=== PATIENT | female | born 1930 | race Caucasian/White ===

== ENCOUNTER 2016-08-05 02:22 | Emergency (ER) | payer MEDICARE, OTHER ==
--- NOTE | 2016-08-05 02:36 | Emergency Department Record ---
History of Present Illness - General Chief Complaint: Fall Injury Stated Complaint: FALL Source: Patient, Family (patient's daughter) Mode of Arrival: Ambulatory Limitations: No limitations - History of Present Illness Initial Comments: 86 yo female presents to ED for evaluation following a fall out of bed this morning. Patient reports a laceration to the scalp. Patient denies LOC, denies neck pain, numbness, tingling, or weakness to the extremities. Patient denies hip or extremity injury. MD Complaint: Fall Onset/Timin -: Minutes(s) Fall From: Out of bed When Fall Occurred: Just prior to arrival Place Fall Occurred: Home Loss of Consciousness: None Prolonged Down Time?: No Symptoms Prior to Fall: None Location: Head Associated Symptoms: Denies - [place] Coma Scale Eye Response: (4) Open spontaneously Motor Response: (6) Obeys commands Verbal Response: (5) Oriented [employer] Total: 15 - Related Data Home Medications Medication Instructions Recorded Confirmed Last Taken Ascorbic Acid [Vitamin C] 500 mg PO DAILY 04/10/15 08/05/16 08/04/16 Cinnamon Bark [Cinnamon] 500 mg PO ASDIR cap 12/10/15 08/05/16 08/04/16 Cranberry Extract [Cranberry] 200 mg PO ASDIR cap 12/10/15 08/05/16 08/04/16 Furosemide 10 mg PO QD tab 12/10/15 08/05/16 08/04/16 Tramadol HCl [Tramadol Hcl Er] 200 mg PO QD cap 12/10/15 08/05/16 08/04/16 Vitamin E (Dl,Tocopheryl Acet) 100 unit PO ASDIR cap 12/10/15 08/05/16 08/04/16 [Vitamin E] Previous Rx's Medication Instructions Recorded Citalopram Hydrobromide [Celexa] 20 mg PO QHS #30 tablet 12/17/14 Docusate Sodium [Colace] 100 mg PO DAILY #90 cap 12/17/14 Gabapentin [Neurontin] 300 mg PO BID #60 capsule 12/17/14 Levothyroxine Sodium 75 mcg PO DAILY #90 tablet 12/17/14 Losartan Potassium [Cozaar] 50 mg PO QHS #90 tablet 12/17/14 Multivitamin [Multi-Vitamin Daily] 1 each PO DAILY #90 tablet 12/17/14 [place]-3 Fatty Acids/Fish Oil [Fish 1 each PO DAILY #90 capsule 12/17/14 Oil 1,000 mg Softgel] Allergies Allergy/AdvReac Type Severity Reaction Status Date / Time venom-honey bee Allergy Severe ANAPHYLAXIS Verified 04/21/16 13:29 [bee venom (honey bee)] latex Allergy Mild ITCHING Verified 04/21/16 13:29 adhesive tape Allergy RASH Uncoded 04/21/16 13:29 Review of Systems Constitutional: Denies: Chills, Fever, Malaise, Night sweats Eyes: Denies: Eye discharge, Eye pain ENT: Denies: Congestion, Ear pain, Epistaxis Respiratory: Denies: Cough, Dyspnea Cardiovascular: Denies: Chest pain, Dyspnea on exertion Endocrine: Denies: Fatigue, Heat or cold intolerance Gastrointestinal: Denies: Abdominal pain, Nausea, Vomiting Genitourinary: Denies: Dysuria, Frequency Musculoskeletal: Denies: Arthralgia, Back pain, Gout, Joint swelling, Other Skin: Reports: Other (scalp laceration). Denies: Bruising, Change in color, Rash Neurological: Denies: Abnormal gait, Confusion, Headache, Seizure Psychiatric: Denies: Anxiety Hematological/Lymphatic: Denies: Anemia, Blood Clots Past Medical History - SOCIAL HISTORY Smoking Status: Never smoker Drug Use: None - RESPIRATORY Hx Respiratory Disorders: No - CARDIOVASCULAR Hx Cardio Disorders: No Hx Edema: Yes Hx Hypertension: Yes Comment:: hx edema legs/ feet swelling - NEURO Hx Neuro Disorders: No Hx Seizures: No - GI Hx GI Disorders: No - Hx Genitourinary Disorders: Yes Hx Bladder Problem: Yes (Urinary incontinence) - ENDOCRINE Hx Endocrine Disorders: Yes Hx Diabetes: No - MUSCULOSKELETAL Hx Musculoskeletal Disorders: Yes Hx Arthritis: Yes Comment:: Back surgery with hardware in 2008 - PSYCH Hx Psych Problems: No Hx Anxiety: Yes - HEMATOLOGY/ONCOLOGY Hx Hematology/Oncology Disorders: No Family Medical History Hx Cancer: Father Hx HTN: Mother Hx Stroke: Mother Physical Exam - General General Appearance: Alert, Oriented x3, Cooperative, No acute distress Limitations: No limitations - Head Head exam: Other (laceration to the posterior scalp) Head exam detail: Laceration. negative: Abrasion, Contusion, Nunn's sign, General tenderness, Hematoma - Eye Eye exam: Normal appearance. negative: Conjunctival injection, Periorbital swelling, Periorbital tenderness, Scleral icterus - ENT Ear exam: negative: Auricular hematoma, Auricular trauma Nasal Exam: negative: Active bleeding, Discharge, Dried blood, Foreign body Mouth exam: negative: Drooling, Laceration, Muffled voice, Tongue elevation - Neck Neck exam: Normal inspection. negative: Meningismus, Tenderness - Respiratory Respiratory exam: Normal lung sounds bilaterally. negative: Rales, Respiratory distress, Rhonchi, Stridor - Cardiovascular Cardiovascular Exam: Regular rate, Normal rhythm, Normal heart sounds - GI/Abdominal GI/Abdominal exam: Soft. negative: Rebound, Rigid, Tenderness - Rectal Rectal exam: Deferred - exam: Deferred - Extremities Extremities exam: Normal inspection, Other (ambulates with her walker with steady gait). negative: Calf tenderness, Pedal edema, Tenderness - Back Back exam: Denies: CVA tenderness (R), CVA tenderness (L) - Neurological Neurological exam: Alert, Normal gait, Oriented X3. negative: Motor sensory deficit - Psychiatric Psychiatric exam: Normal affect, Normal mood - Skin Skin exam: Normal color. negative: Abrasion Type of lesion: negative: abrasion Course - Reevaluation(s) Reevaluation #1: 08/05/16 03:18 Procedure Note: Right posterior scalp was cleaned with Shur-clens solution, scalp was repaired using liane #10 without complications. No FB was identified prior to repair. CT imaging is pending at this time. Reevaluation #2: 08/05/16 04:15 CT brain: No acute process, chronic changes are present CT Cervical Spine: Degenerative changes, nothing acute. Patient and her daughter were updated on all results, recommended return for stable removal in 2 weeks time. Patient appears stable for discharge at this time. Disposition Disposition: Discharge Clinical Impression: Scalp laceration Qualifiers: Encounter type: initial encounter Qualified Code(s): S01.01XA - Laceration without foreign body of scalp, initial encounter Fall from bed, initial encounter Qualifiers: Encounter type: initial encounter Qualified Code(s): W06.XXXA - Fall from bed, initial encounter Instructions: Minor Head Injury (ED) Additional Instructions: Return to ED if your symptoms worsen or if you have any concerns. Liane out in 10-14 days Follow-up with your family doctor in 1 week as directed. Forms: Patient Portal Access Time of Disposition: 02:37
== END 2016-08-05 04:49 | disposition home or self-care (01) ==
LOC: ER 02:22
DX: S01.01XA Laceration without foreign body of scalp, initial encounter (principal); W06.XXXA Fall from bed, initial encounter; Y92.003 Bedroom of unspecified non-institutional (private) residence as the place of occurrence of the external cause
CPT/HCPCS: 12001; 70450; 72125; 99283; 99284

== ENCOUNTER 2016-08-10 20:22 | Emergency (ER) | payer MEDICARE, OTHER ==
--- NOTE | 2016-08-10 20:55 | Emergency Department Record ---
History of Present Illness - General Chief Complaint: Fever Stated Complaint: REMOVE LIANE Time Seen by Provider: 08/10/16 20:41 Source: Patient, Family Mode of Arrival: Ambulatory Limitations: No limitations - History of Present Illness Initial Comments: pt fell 5 days afo and had liane put in. today pt had increased sleepiness and was falling asleep at the dinner table. pts daughter took her temp w ear probe and found it ti be 101.. pt denies headache MD Complaint: Fever Onset/Timin -: Hour(s) Maximum Temperature: 101.5 F Temperature Source: Tympanic Context: Recent procedure, Sick contacts Associated Symptoms: Denies other symptoms Treatments Prior to Arrival: None - Related Data Home Medications Medication Instructions Recorded Confirmed Last Taken Ascorbic Acid [Vitamin C] 500 mg PO DAILY 04/10/15 08/05/16 08/04/16 Cinnamon Bark [Cinnamon] 500 mg PO ASDIR cap 12/10/15 08/05/16 08/04/16 Cranberry Extract [Cranberry] 200 mg PO ASDIR cap 12/10/15 08/05/16 08/04/16 Furosemide 10 mg PO QD tab 12/10/15 08/05/16 08/04/16 Tramadol HCl [Tramadol Hcl Er] 200 mg PO QD cap 12/10/15 08/05/16 08/04/16 Vitamin E (Dl,Tocopheryl Acet) 100 unit PO ASDIR cap 12/10/15 08/05/16 08/04/16 [Vitamin E] Previous Rx's Medication Instructions Recorded Citalopram Hydrobromide [Celexa] 20 mg PO QHS #30 tablet 12/17/14 Docusate Sodium [Colace] 100 mg PO DAILY #90 cap 12/17/14 Gabapentin [Neurontin] 300 mg PO BID #60 capsule 12/17/14 Levothyroxine Sodium 75 mcg PO DAILY #90 tablet 12/17/14 Losartan Potassium [Cozaar] 50 mg PO QHS #90 tablet 12/17/14 Multivitamin [Multi-Vitamin Daily] 1 each PO DAILY #90 tablet 12/17/14 [place]-3 Fatty Acids/Fish Oil [Fish 1 each PO DAILY #90 capsule 12/17/14 Oil 1,000 mg Softgel] Doxycycline Hyclate [Doxycycline] 100 mg PO BID #9 cap 04/13/17 Allergies Allergy/AdvReac Type Severity Reaction Status Date / Time venom-honey bee Allergy Severe ANAPHYLAXIS Verified 04/21/16 13:29 [bee venom (honey bee)] latex Allergy Mild ITCHING Verified 04/21/16 13:29 adhesive tape Allergy RASH Uncoded 04/21/16 13:29 Travel Screening - Travel/Exposure Within Last 30 Days Have you traveled within the last 30 days?: Yes Location Detail:: [place] - Travel/Exposure Within Last Year Have you traveled outside the [place] in the last year?: No - Additonal Travel Details Have you been exposed to anyone with a communicable illness?: No - Travel Symptoms Symptom Screening: Fever (GT 100.4) Review of Systems Reviewed: No additional complaints except as noted below Constitutional: Reports: As per HPI. Denies: Chills, Fever, Malaise, Night sweats, Weakness, Weight change Eyes: Reports: As per HPI. Denies: Eye discharge, Eye pain, Photophobia, Vision change ENT: Reports: As per HPI. Denies: Congestion, Dental pain, Ear pain, Epistaxis , Hearing loss, Throat pain Respiratory: Reports: As per HPI. Denies: Cough, Dyspnea, Hemoptysis, Stridor, Wheezes Cardiovascular: Reports: As per HPI. Denies: Arrhythmia, Chest pain, Dyspnea on exertion, Edema, Murmurs, Orthopnea, Palpitations, Paroxysmal nocturnal dyspnea, Rheumatic Fever, Syncope Endocrine: Reports: As per HPI. Denies: Fatigue, Heat or cold intolerance, Polydipsia, Polyuria Gastrointestinal: Reports: As per HPI. Denies: Abdominal pain, Constipation, Diarrhea, Hematemesis, Hematochezia, Melena, Nausea, Vomiting Genitourinary: Reports: As per HPI. Denies: Abnormal menses, Discharge, Dyspareunia, Dysuria, Frequency, Hematuria, Incontinence, Retention, Urgency Musculoskeletal: Reports: As per HPI. Denies: Arthralgia, Back pain, Gout, Joint swelling, Myalgia, Neck pain Skin: Reports: As per HPI. Denies: Bruising, Change in color, Change in hair/ nails, Lesions, Pruritus, Rash Neurological: Reports: As per HPI. Denies: Abnormal gait, Confusion, Headache, Numbness, Paresthesias, Seizure, Tingling, Tremors, Vertigo, Weakness Psychiatric: Reports: As per HPI. Denies: Anxiety, Auditory hallucinations, Depression, Homicidal thoughts, Suicidal thoughts, Visual hallucinations Hematological/Lymphatic: Reports: As per HPI. Denies: Anemia, Blood Clots, Easy bleeding, Easy bruising, Swollen glands Past Medical History - SOCIAL HISTORY Smoking Status: Never smoker Alcohol Use: None Drug Use: None - RESPIRATORY Hx Respiratory Disorders: No - CARDIOVASCULAR Hx Cardio Disorders: No Hx Edema: Yes Hx Hypertension: Yes Comment:: hx edema legs/ feet swelling - NEURO Hx Neuro Disorders: No Hx Seizures: No - GI Hx GI Disorders: No - Hx Genitourinary Disorders: Yes Hx Bladder Problem: Yes (Urinary incontinence) - ENDOCRINE Hx Endocrine Disorders: Yes Hx Diabetes: No - MUSCULOSKELETAL Hx Musculoskeletal Disorders: Yes Hx Arthritis: Yes Comment:: Back surgery with hardware in 2009 - PSYCH Hx Psych Problems: Yes Hx Anxiety: Yes - HEMATOLOGY/ONCOLOGY Hx Hematology/Oncology Disorders: No Family Medical History Any Significant Family History?: Yes Hx Cancer: Father Hx HTN: Mother Hx Stroke: Mother Physical Exam - General General Appearance: Alert, Oriented x3, Cooperative, Mild distress - Head Head exam: Normal inspection Head exam detail: Laceration (healing well, no evidence of infection) - Eye Eye exam: Normal appearance, PERRL, EOMI Pupils: Normal accommodation - ENT ENT exam: Normal exam, Mucous membranes moist, Normal external ear exam, Normal orophraynx Ear exam: Normal external inspection. negative: External canal tenderness Nasal Exam: Normal inspection. negative: Discharge, Sinus tenderness Mouth exam: Normal external inspection, Tongue normal Teeth exam: Normal inspection. negative: Dental caries Throat exam: Normal inspection. negative: Tonsillar erythema, Tonsillar exudate - Neck Neck exam: Normal inspection, Full ROM. negative: Tenderness - Respiratory Respiratory exam: Normal lung sounds bilaterally. negative: Respiratory distress - Cardiovascular Cardiovascular Exam: Regular rate, Normal rhythm, Normal heart sounds - GI/Abdominal GI/Abdominal exam: Soft, Normal bowel sounds. negative: Tenderness - Rectal Rectal exam: Deferred - exam: Deferred - Extremities Extremities exam: Normal inspection, Full ROM, Normal capillary refill. negative: Tenderness - Back Back exam: Reports: Normal inspection, Full ROM. Denies: Muscle spasm, Rash noted, Tenderness - Neurological Neurological exam: Alert, CN II-XII intact, Normal gait, Oriented X3 - Psychiatric Psychiatric exam: Normal affect, Normal mood - Skin Skin exam: Dry, Intact, Normal color, Warm Course Vital Signs 08/10/16 20:31 Temperature 98.8 F Pulse Rate 89 Respiratory 20 Rate Blood Pressure 130/70 Pulse Ox 92 L - Reevaluation(s) Reevaluation #1: 08/10/16 22:04 pt did well entire stay. cxr atelectasis vs infiltrate. pt has productive cough Medical Decision Making - Data Complexity MDM Data: Labs Ordered and/or Reviewed, X-Ray Ordered and/or Reviewed - Lab Data Result diagrams: 08/10/16 20:55 08/10/16 20:55 - Radiology Data Radiology results: Report reviewed, Image reviewed Disposition Disposition: Discharge Clinical Impression: Pneumonia Qualifiers: Pneumonia type: due to unspecified organism Laterality: unspecified laterality Lung location: unspecified part of lung Qualified Code(s): J18.9 - Pneumonia, unspecified organism Disposition: Home, Self-Care Condition: (1) Good Instructions: Fever in Adults (ED), Bacterial Pneumonia (ED) Additional Instructions: follow up with family doctor tomorrow. return sooner if worse Prescriptions: Doxycycline Hyclate [Doxycycline] 100 mg PO BID #9 cap Forms: Patient Portal Access
[2016-08-10 21:01] LABS: BASO % 0.2 % (0-6); EOS % 1.2 % (0-6); GRAN % 77.7 % (47-80); HEMATOCRIT 43.5 % (35.0-47.0); HEMOGLOBIN 13.7 gm/dl (11.6-16.0); LYMPH % 10.3 % (16-45); MEAN CELL VOLUME 101.6 fl (81-97); MEAN CORPUSCULAR HGB CONC 31.5 g/dl (32-36); MEAN PLATELET VOLUME 9.7 fl (7.4-10.4); MONO % 10.6 % (0-9); PLATELET COUNT 232 K/uL (130-400); RED BLOOD COUNT 4.28 M/uL (3.80-5.40); RED CELL DISTRIBUTION WIDTH 13.6 % (11.5-14.5); WHITE BLOOD COUNT W/O DIFF 10.3 K/uL (4.2-12.2)
[2016-08-10 21:11] LABS: ANION GAP 10.1 (7-16); CARBON DIOXIDE 29.9 mmol/L (22-30)
[2016-08-10 21:36] LABS: URINE APPEARANCE CLEAR; URINE BILIRUBIN NEGATIVE (NEGATIVE); URINE BLOOD TRACE-I (NEGATIVE); URINE COLOR YELLOW; URINE GLUCOSE (UA) NEGATIVE (NEGATIVE); URINE KETONE NEGATIVE (NEGATIVE); URINE LEUKOCYTE ESTERASE NEGATIVE (NEGATIVE); URINE NITRITE NEGATIVE (NEGATIVE); URINE PROTEIN NEGATIVE (NEGATIVE); URINE UROBILINOGEN 0.2 E.U./dL (0.20 - 1.00)
[2016-08-10 21:46] LABS: URINE EPITHELIAL CELLS 0 - 2 (FEW); URINE WBC 0 - 2 (0-2/hpf)
[2016-08-10] MEDS ORDERED: DOXYCYCLINE HYCLATE 100 MG CAPSULE PO ONE (22:01)
== END 2016-08-10 22:24 | disposition home or self-care (01) ==
LOC: ER 20:22
DX: J18.9 Pneumonia, unspecified organism (principal); R40.0 Somnolence; I10 Essential (primary) hypertension
CPT/HCPCS: 70450; 71020; 80048; 81001; 85025; 99283; 99284

== ENCOUNTER 2016-08-18 20:44 | Emergency (ER) | payer MEDICARE, OTHER ==
--- NOTE | 2016-08-18 21:01 | Emergency Department Record ---
History of Present Illness - General Chief Complaint: Suture removal Stated Complaint: REMOVE LIANE Time Seen by Provider: 08/18/16 21:00 Source: Patient, Family Mode of arrival: Ambulatory Limitations: No limitations - History of Present Illness Initial Comments: 86 yo female presents for suture removal No complaints or symptoms regarding the healing of the scalp She is at her baseline. Onset/Timin -: Week(s) Initial Visit For: Laceration Returns Today for: Staple/stitch removal Symptoms Since Prior Visit: No new symptoms, Improved Associated Symptoms: None - Related Data Home Medications Medication Instructions Recorded Confirmed Last Taken Ascorbic Acid [Vitamin C] 500 mg PO DAILY 04/10/15 08/05/16 08/18/16 Cinnamon Bark [Cinnamon] 500 mg PO ASDIR cap 12/10/15 08/05/16 08/18/16 Cranberry Extract [Cranberry] 200 mg PO ASDIR cap 12/10/15 08/05/16 08/18/16 Furosemide 10 mg PO QD tab 12/10/15 08/05/16 08/18/16 Tramadol HCl [Tramadol Hcl Er] 200 mg PO QD cap 12/10/15 08/05/16 08/18/16 Vitamin E (Dl,Tocopheryl Acet) 100 unit PO ASDIR cap 12/10/15 08/05/16 08/18/16 [Vitamin E] Previous Rx's Medication Instructions Recorded Citalopram Hydrobromide [Celexa] 20 mg PO QHS #30 tablet 12/17/14 Docusate Sodium [Colace] 100 mg PO DAILY #90 cap 12/17/14 Gabapentin [Neurontin] 300 mg PO BID #60 capsule 12/17/14 Levothyroxine Sodium 75 mcg PO DAILY #90 tablet 12/17/14 Losartan Potassium [Cozaar] 50 mg PO QHS #90 tablet 12/17/14 Multivitamin [Multi-Vitamin Daily] 1 each PO DAILY #90 tablet 12/17/14 [place]-3 Fatty Acids/Fish Oil [Fish 1 each PO DAILY #90 capsule 12/17/14 Oil 1,000 mg Softgel] Doxycycline Hyclate [Doxycycline] 100 mg PO BID #9 cap 08/10/16 Allergies Allergy/AdvReac Type Severity Reaction Status Date / Time venom-honey bee Allergy Severe ANAPHYLAXIS Verified 08/18/16 20:49 [bee venom (honey bee)] latex Allergy Mild ITCHING Verified 08/18/16 20:49 adhesive tape Allergy RASH Uncoded 08/18/16 20:49 Travel Screening - Travel/Exposure Within Last 30 Days Have you traveled within the last 30 days?: No - Travel/Exposure Within Last Year Have you traveled outside the [place] in the last year?: No - Additonal Travel Details Have you been exposed to anyone with a communicable illness?: No - Travel Symptoms Symptom Screening: None Review of Systems Constitutional: Denies: Chills, Fever, Malaise Eyes: Denies: Eye pain, Photophobia ENT: Denies: Congestion, Throat pain Respiratory: Denies: Cough (improved from about 5 days ago) Cardiovascular: Denies: Syncope Endocrine: Denies: Fatigue Gastrointestinal: Denies: Abdominal pain, Nausea, Vomiting Genitourinary: Denies: Dysuria, Urgency Musculoskeletal: Denies: Arthralgia, Back pain, Joint swelling, Myalgia Skin: Denies: Bruising, Change in color, Rash Neurological: Denies: Confusion, Headache Psychiatric: Denies: Anxiety Hematological/Lymphatic: Denies: Easy bleeding, Easy bruising, Swollen glands Past Medical History - SOCIAL HISTORY Smoking Status: Never smoker Alcohol Use: Rare Drug Use: None - RESPIRATORY Hx Respiratory Disorders: No - CARDIOVASCULAR Hx Cardio Disorders: No Hx Edema: Yes Hx Hypertension: Yes Comment:: hx edema legs/ feet swelling - NEURO Hx Neuro Disorders: No Hx Seizures: No - GI Hx GI Disorders: No - Hx Genitourinary Disorders: Yes Hx Bladder Problem: Yes (Urinary incontinence) - ENDOCRINE Hx Endocrine Disorders: Yes Hx Diabetes: No - MUSCULOSKELETAL Hx Musculoskeletal Disorders: Yes Hx Arthritis: Yes Comment:: Back surgery with hardware in 2008 - PSYCH Hx Psych Problems: Yes Hx Anxiety: Yes - HEMATOLOGY/ONCOLOGY Hx Hematology/Oncology Disorders: No Family Medical History Any Significant Family History?: No Hx Cancer: Father Hx HTN: Mother Hx Stroke: Mother Physical Exam - General General Appearance: Alert, Oriented x3, Cooperative, No acute distress Limitations: No limitations - Head Head exam: Normal inspection, Other (healing scalp laceration) - Eye Eye exam: Normal appearance, PERRL. negative: Conjunctival injection - ENT ENT exam: Normal exam Ear exam: Normal external inspection Nasal Exam: Normal inspection Mouth exam: Normal external inspection - Neck Neck exam: Normal inspection - Rectal Rectal exam: Deferred - exam: Deferred - Extremities Extremities exam: Normal inspection - Back Back exam: Reports: Full ROM - Neurological Neurological exam: Alert, Normal gait, Oriented X3. negative: Altered - Psychiatric Psychiatric exam: Normal affect, Normal mood - Skin Skin exam: Dry, Intact, Normal color, Warm Course Vital Signs 08/18/16 20:56 Temperature 98.2 F Pulse Rate [ 87 Pulse Ox Probe] Respiratory 20 Rate Blood Pressure 143/74 [Left Arm] Pulse Ox 93 L - Reevaluation(s) Reevaluation #1: The scalp laceration is healing without complication Small amount of scabbing 10 liane were removed without difficulty. 08/18/16 21:12 Disposition Disposition: Discharge Clinical Impression: Removal of staple Disposition: Home, Self-Care Condition: (1) Good Instructions: Suture Removal (ED) Additional Instructions: REturn if you have any ongoing concerns about the healing of your scalp laceration. Forms: Patient Portal Access Time of Disposition: 21:01
== END 2016-08-18 21:14 | disposition home or self-care (01) ==
LOC: ER 20:44
DX: Z48.02 Encounter for removal of sutures (principal)

== ENCOUNTER 2017-11-16 19:25 | Observation (INO) | payer MEDICARE, OTHER ==
--- NOTE | 2017-11-16 19:56 | Emergency Department Record ---
History of Present Illness - General Chief complaint: Weakness Stated complaint: NOT HERSELF Time Seen by Provider: 11/16/17 19:34 Source: Patient, Family Mode of Arrival: Wheelchair Limitations: No limitations - History of Present Illness Initial comments: The patient is here due to generalized weakness for the last 3 days. She has been having slightly more difficulty walking and has been slower on her feet. Per family the patient has been incontinent of urine and they are concerned she may have a UTI. There has been no hx of fall or head injury. Also no fever, chills, AP, CP, SOB or WALKER. MD Complaint: Generalized weakness, Lack of energy Onset/Timin -: Days(s) Location: Generalized Associated Symptoms: Denies other symptoms - Heydi Coma Scale Eye Response: (4) Open spontaneously Motor Response: (6) Obeys commands Verbal Response: (5) Oriented Heydi Total: 15 - Related Data Home Medications Medication Instructions Recorded Confirmed Last Taken Torsemide [Demadex] 10 mg PO DAILY 11/16/17 11/16/17 Unknown Previous Rx's Medication Instructions Recorded Citalopram Hydrobromide [Celexa] 20 mg PO QHS #30 tablet 12/17/14 Docusate Sodium [Colace] 100 mg PO DAILY #90 cap 12/17/14 Gabapentin [Neurontin] 300 mg PO BID #60 capsule 12/17/14 Levothyroxine Sodium 75 mcg PO DAILY #90 tablet 12/17/14 Losartan Potassium [Cozaar] 50 mg PO QHS #90 tablet 12/17/14 Multivitamin [Multi-Vitamin Daily] 1 each PO DAILY #90 tablet 12/17/14 [place]-3 Fatty Acids/Fish Oil [Fish 1 each PO DAILY #90 capsule 12/17/14 Oil 1,000 mg Softgel] Allergies Allergy/AdvReac Type Severity Reaction Status Date / Time venom-honey bee Allergy Severe ANAPHYLAXIS Verified 08/18/16 20:49 [bee venom (honey bee)] latex Allergy Mild ITCHING Verified 08/18/16 20:49 adhesive tape Allergy RASH Uncoded 08/18/16 20:49 Travel Screening - Travel/Exposure Within Last 30 Days Have you traveled within the last 30 days?: No - Travel/Exposure Within Last Year Have you traveled outside the [place] in the last year?: No - Additonal Travel Details Have you been exposed to anyone with a communicable illness?: No - Travel Symptoms Symptom Screening: None Review of Systems Constitutional: Reports: Malaise. Denies: Chills, Fever Eyes: Denies: Eye discharge ENT: Denies: Congestion Respiratory: Reports: Cough Cardiovascular: Denies: Arrhythmia Endocrine: Reports: Fatigue Gastrointestinal: Denies: Abdominal pain Genitourinary: Denies: Dysuria Musculoskeletal: Denies: Arthralgia Skin: Denies: Bruising Past Medical History - SOCIAL HISTORY Smoking Status: Never smoker Alcohol Use: None Drug Use: None - RESPIRATORY Hx Respiratory Disorders: No - CARDIOVASCULAR Hx Cardio Disorders: No Hx Edema: Yes Hx Hypertension: Yes Comment:: hx edema legs/ feet swelling - NEURO Hx Neuro Disorders: No Hx Seizures: No - GI Hx GI Disorders: No - Hx Genitourinary Disorders: Yes Hx Bladder Problem: Yes (Urinary incontinence) - ENDOCRINE Hx Endocrine Disorders: Yes Hx Diabetes: No - MUSCULOSKELETAL Hx Musculoskeletal Disorders: Yes Hx Arthritis: Yes Comment:: Back surgery with hardware in 2009 - PSYCH Hx Psych Problems: Yes Hx Anxiety: Yes Hx Depression: Yes - HEMATOLOGY/ONCOLOGY Hx Hematology/Oncology Disorders: No Family Medical History Any Significant Family History?: No Hx Cancer: Father Hx HTN: Mother Hx Stroke: Mother Physical Exam - General General Appearance: Alert, Oriented x3, Cooperative, No acute distress - Head Head exam: Atraumatic, Normocephalic, Normal inspection - Eye Eye exam: Normal appearance, PERRL, EOMI - ENT Throat exam: Normal inspection. negative: Tonsillar erythema, Tonsillar exudate - Neck Neck exam: Normal inspection, Full ROM. negative: Tenderness - Respiratory Respiratory exam: Normal lung sounds bilaterally. negative: Respiratory distress - Cardiovascular Cardiovascular Exam: Regular rate, Normal rhythm, Normal heart sounds - GI/Abdominal GI/Abdominal exam: Soft, Normal bowel sounds. negative: Tenderness - Extremities Extremities exam: Tenderness (There is mild R dorsal wrist tenderness.). negative: Normal inspection, Full ROM - Neurological Neurological exam: Abnormal gait (chronic per family.), Alert, Motor sensory deficit, Oriented X3. negative: Altered, Normal gait - Skin Skin exam: negative: Rash Course Vital Signs 11/16/17 19:33 Temperature 98.7 F Pulse Rate [ 81 Pulse Ox Probe] Respiratory 18 Rate Blood Pressure 145/68 [Left Arm] Pulse Ox 97 - Reevaluation(s) Reevaluation #1: The patient is doing well at this time. She denies any new issues. She did develop a low grade fever here and her urine definitely does appear infected so we will start her on IV Abx's. I did discuss the patient's code status with her daughter and she is to be a DNR. I then did discuss the issues with Dr. Stafford and he did agree to admit the patient. 11/16/17 21:25 Medical Decision Making - Data Complexity MDM Data: Labs Ordered and/or Reviewed, X-Ray Ordered and/or Reviewed, EKG Ordered and/or Reviewed - Lab Data Result diagrams: 11/16/17 20:15 11/16/17 20:15 - EKG Data -: EKG Interpreted by Me EKG: No Acute Changes, Normal EKG - Radiology Data Radiology results: Report reviewed (All xrays: Neg for acute changes.) Disposition Disposition: Admit Clinical Impression: Pyelonephritis, acute Disposition: Still a Patient at [facility] Decision to Admit: Admit from ER Decision to Admit Date: 11/16/17 Decision to Admit Time: 21:27 Accepting Physician: Nydia Time Discussed w/Accepting Physician: 21:27 Condition: (2) Stable Time of Disposition: 21:27 Quality - Quality Measures Quality Measures: N/A - Blood Pressure Screening View Details: Yes Does Patient Have Any of the Following: No Blood Pressure Classification: Normal BP Reading Systolic Measurement: 117 Diastolic Measurement: 58 Screening for High Blood Pressure: < Normal BP, F/U Not Required > [G8783]
[2017-11-16 20:30] LABS: HEMATOCRIT 40.9 % (35.0-47.0); HEMOGLOBIN 13.1 gm/dl (11.6-16.0); MEAN CELL VOLUME 102.3 fl (81-97); MEAN CORPUSCULAR HEMOGLOBIN 32.8 pg (27-33); PLATELET COUNT 195 K/uL (130-400); RED CELL DISTRIBUTION WIDTH 13.1 % (11.5-14.5); WHITE BLOOD COUNT W/O DIFF 9.4 K/uL (4.2-12.2)
[2017-11-16 20:32] LABS: BLOOD UREA NITROGEN 17 mg/dL (8-23)
[2017-11-16 20:33] LABS: CREATININE 0.7 mg/dL (0.5-0.9); EST GLOMERULAR FILTRATION RATE > 60 mL/min; PROTHROMBIN TIME (PATIENT) 10.5 SECONDS (9.5-12.1); TOTAL PROTEIN 6.8 g/dL (6.6-8.7)
[2017-11-16 20:35] LABS: GLUCOSE,RANDOM 108 mg/dL (74-109)
[2017-11-16 21:10] LABS: URINE APPEARANCE CLEAR; URINE BILIRUBIN NEGATIVE (NEGATIVE); URINE BLOOD MODERATE (NEGATIVE); URINE COLOR YELLOW; URINE GLUCOSE (UA) NEGATIVE (NEGATIVE); URINE KETONE TRACE (NEGATIVE); URINE LEUKOCYTE ESTERASE TRACE (NEGATIVE); URINE NITRITE POSITIVE (NEGATIVE); URINE PROTEIN TRACE (NEGATIVE)
[2017-11-16] MEDS ORDERED: ACETAMINOPHEN 500 MG TABLET PO ONE (21:11)
[2017-11-16] MEDS ORDERED: ACETAMINOPHEN 325 MG TAB PO ONE (21:12)
[2017-11-16 21:18] LABS: URINE BACTERIA 4+; URINE RBC 16 - 25 (NONE SEEN); URINE WBC 21 - 35 (0-2/hpf)
[2017-11-16] MEDS ORDERED: CEFTRIAXONE SODIUM 1 GM in 0.9 % SODIUM CHLORIDE 100ML 100 ML IVPB ONE (21:20)
[2017-11-16] MEDS ORDERED: 0.9 % SODIUM CHLORIDE 1,000 ML BAG IV ONE (21:20)
[2017-11-16 22:13] LABS: ALB/GLOB RATIO 1.3 (1.1-1.8); ALBUMIN 3.8 g/dL (4.0-5.0)
[2017-11-16 22:14] LABS: ALKALINE PHOSPHATASE 49 U/L (35-104); ALT/SGPT 9 U/L (<33); AST/SGOT 15 U/L (10.0-35.0); CKMB 1.1 ng/mL (<3.77); CREATINE PHOSPHOKINASE 89 U/L (26-192); THYROID STIMULATING HORMONE 0.63 uIU/mL (0.270-4.20)
[2017-11-16] MEDS ORDERED: ACETAMINOPHEN 325 MG TAB PO PRN (22:27)
[2017-11-16] MEDS ORDERED: CITALOPRAM 20 MG TABLET PO SCH (22:27)
[2017-11-16] MEDS ORDERED: 0.9 % SODIUM CHLORIDE 1000ML 1,000 ML IV PRN (22:27)
[2017-11-16] MEDS ORDERED: TRAMADOL HCL 200 MG PO SCH (22:27)
[2017-11-16] MEDS ORDERED: LOSARTAN POTASSIUM 25 MG TABLET PO SCH (22:27)
[2017-11-16] MEDS ORDERED: ONDANSETRON HCL IV 4 MG/2 ML VIAL IVP PRN (22:27)
[2017-11-16] MEDS ORDERED: PNEUM 13-VAL/PF 0.5 ML IM ONE (23:21)
[2017-11-16] MEDS: CEFTRIAXONE SODIUM 1 GM in 0.9 % SODIUM CHLORIDE 100ML 100 ML IVPB SCH (23:37)
[2017-11-16] MEDS: GABAPENTIN 300 MG CAPSULE PO SCH (23:57)
[2017-11-17 06:08] LABS: BASO % 0.3 % (0-6); EOS % 2.6 % (0-6); GRAN % 64.4 % (47-80); HEMATOCRIT 36.5 % (35.0-47.0); HEMOGLOBIN 11.4 gm/dl (11.6-16.0); LYMPH % 19.3 % (16-45); MEAN CELL VOLUME 103.7 fl (81-97); MEAN CORPUSCULAR HGB CONC 31.2 g/dl (32-36); MEAN PLATELET VOLUME 9.5 fl (7.4-10.4); MONO % 13.4 % (0-9); PLATELET COUNT 198 K/uL (130-400); RED BLOOD COUNT 3.52 M/uL (3.80-5.40); RED CELL DISTRIBUTION WIDTH 13.1 % (11.5-14.5); WHITE BLOOD COUNT W/O DIFF 7.7 K/uL (4.2-12.2)
[2017-11-17 06:19] LABS: MEAN CORPUSCULAR HEMOGLOBIN 32.3 pg (27-33)
[2017-11-17 06:35] LABS: BLOOD UREA NITROGEN 21 mg/dL (8-23); CREATININE 0.7 mg/dL (0.5-0.9); EST GLOMERULAR FILTRATION RATE > 60 mL/min; GLUCOSE,RANDOM 122 mg/dL (74-109)
[2017-11-17] MEDS ORDERED: LEVOTHYROXINE SODIUM 75 MCG TABLET PO SCH (07:00)
[2017-11-17] MEDS: GABAPENTIN 300 MG CAPSULE PO SCH (09:16)
[2017-11-17] MEDS: CEFTRIAXONE SODIUM 1 GM in 0.9 % SODIUM CHLORIDE 100ML 100 ML IVPB SCH (09:35)
[2017-11-17] MEDS ORDERED: TORSEMIDE 10 MG PO SCH (10:00)
[2017-11-17] MEDS ORDERED: DOCUSATE SODIUM 100 MG CAPSULE PO SCH (10:00)
[2017-11-17] MEDS ORDERED: TORSEMIDE MC SCH (10:00)
[2017-11-17] MEDS ORDERED: TRAMADOL 200 MG MC SCH (10:00)
[2017-11-17] MEDS ORDERED: LOSARTAN POTASSIUM 25 MG TABLET PO SCH (10:00)
[2017-11-17] MEDS ORDERED: CIPROFLOXACIN HCL 500 MG TABLET PO SCH (10:30)
--- NOTE | 2017-11-17 10:48 | Discharge Note ---
VTE H&P Assessment - Risk for VTE Risk for VTE: No Risk Level: Very Low Risk Assessment Date: 11/17/17 Risk Assessment Time: 10:46 VTE Orders Placed or Will Be Placed: No VTE Reason for No Prophylaxis: Not Indicated Discharge Medications - Discharge Medications Prescriptions: Ciprofloxacin HCl [Cipro] 500 mg PO Q12HR #20 tablet Home Medications: Ambulatory Orders Citalopram Hydrobromide [Celexa] 20 mg PO QHS #30 tablet 12/17/14 [Last Taken ] Docusate Sodium [Colace] 100 mg PO DAILY #90 cap 12/17/14 [Last Taken 08/18/16] Gabapentin [Neurontin] 300 mg PO BID #60 capsule 12/17/14 [Last Taken 08/18/16] Levothyroxine Sodium 75 mcg PO DAILY #90 tablet 12/17/14 [Last Taken 08/18/16] Losartan Potassium [Cozaar] 50 mg PO QHS #90 tablet 12/17/14 [Last Taken ] Multivitamin [Multi-Vitamin Daily] 1 each PO DAILY #90 tablet 12/17/14 [Last Taken 08/18/16] [place]-3 Fatty Acids/Fish Oil [Fish Oil 1,000 mg Softgel] 1 each PO DAILY #90 capsule 12/17/14 [Last Taken 08/18/16] Ascorbic Acid [Vitamin C] 500 mg PO DAILY 04/10/15 [Last Taken 08/18/16] Cinnamon Bark [Cinnamon] 500 mg PO ASDIR cap 12/10/15 [Last Taken 08/18/16] Cranberry Extract [Cranberry] 200 mg PO ASDIR cap 12/10/15 [Last Taken 08/18/16 ] Tramadol HCl [Tramadol HCl ER] 200 mg PO QD cap 12/10/15 [Last Taken 08/18/16] Vitamin E (Dl,Tocopheryl Acet) [Vitamin E] 100 unit PO ASDIR cap 12/10/15 [ Last Taken 08/18/16] Torsemide [Demadex] 10 mg PO DAILY 11/16/17 [Last Taken Unknown] Ciprofloxacin HCl [Cipro] 500 mg PO Q12HR #20 tablet 11/17/17 [Last Taken Unknown] Discharge Note - Date Date of Discharge Note: 11/17/17 Condition: (2) Stable Forms: Patient Portal Access
--- NOTE | 2017-11-17 10:52 | Discharge Note ---
VTE H&P Assessment - Risk for VTE Risk for VTE: No Risk Level: Very Low Risk Assessment Date: 11/17/17 Risk Assessment Time: 10:46 VTE Orders Placed or Will Be Placed: No VTE Reason for No Prophylaxis: Not Indicated Discharge Medications - Discharge Medications Prescriptions: Ciprofloxacin HCl [Cipro] 500 mg PO Q12HR #20 tablet Home Medications: Ambulatory Orders Citalopram Hydrobromide [Celexa] 20 mg PO QHS #30 tablet 12/17/14 [Last Taken ] Docusate Sodium [Colace] 100 mg PO DAILY #90 cap 12/17/14 [Last Taken 08/18/16] Gabapentin [Neurontin] 300 mg PO BID #60 capsule 12/17/14 [Last Taken 08/18/16] Levothyroxine Sodium 75 mcg PO DAILY #90 tablet 12/17/14 [Last Taken 08/18/16] Losartan Potassium [Cozaar] 50 mg PO QHS #90 tablet 12/17/14 [Last Taken ] Multivitamin [Multi-Vitamin Daily] 1 each PO DAILY #90 tablet 12/17/14 [Last Taken 08/18/16] [place]-3 Fatty Acids/Fish Oil [Fish Oil 1,000 mg Softgel] 1 each PO DAILY #90 capsule 12/17/14 [Last Taken 08/18/16] Ascorbic Acid [Vitamin C] 500 mg PO DAILY 04/10/15 [Last Taken 08/18/16] Cinnamon Bark [Cinnamon] 500 mg PO ASDIR cap 12/10/15 [Last Taken 08/18/16] Cranberry Extract [Cranberry] 200 mg PO ASDIR cap 12/10/15 [Last Taken 08/18/16 ] Tramadol HCl [Tramadol HCl ER] 200 mg PO QD cap 12/10/15 [Last Taken 08/18/16] Vitamin E (Dl,Tocopheryl Acet) [Vitamin E] 100 unit PO ASDIR cap 12/10/15 [ Last Taken 08/18/16] Torsemide [Demadex] 10 mg PO DAILY 11/16/17 [Last Taken Unknown] Ciprofloxacin HCl [Cipro] 500 mg PO Q12HR #20 tablet 11/17/17 [Last Taken Unknown] Discharge Note - Date Date of Discharge Note: 11/17/17 Disposition: Home, Self-Care Condition: (2) Stable Additional Instructions: follow up with Dr. Jeevan Griffin in 3-7 days drink plenty of fluids start cipro twice a day Prescriptions: Ciprofloxacin HCl [Cipro] 500 mg PO Q12HR #20 tablet Referrals: JEEVAN GRIFFIN [Primary Care Provider] - Forms: Patient Portal Access
[2017-11-17] MEDS ORDERED: TRAMADOL 200 MG PO SCH (22:00)
--- NOTE | 2017-11-18 15:29 | RADIOLOGY REPORT ---
EXAM: CHEST 2 VIEWS HISTORY: DIFFICULTY BREATHING. TECHNIQUE: Frontal and lateral views of the chest. COMPARISON: Prior chest from 08/10/16. FINDINGS: Cardiomegaly with atheromatous change thoracic aorta. Calcified granulomata. Scarring in the left lung base. Osteopenia. The lungs are otherwise clear. No pneumothorax. IMPRESSION: CARDIOMEGALY. NO ACUTE CARDIOPULMONARY PROCESS. JOB NUMBER: [id number] MTDD
--- NOTE | 2017-11-18 15:31 | RADIOLOGY REPORT ---
EXAM: WRIST, RIGHT 3 VIEWS HISTORY: PAIN. TECHNIQUE: Three views of the right wrist. COMPARISON: None. FINDINGS: Osteopenia. Negative for acute fracture or dislocation. Chondrocalcinosis. Degenerative changes of the hand and wrist. IMPRESSION: OSTEOPENIA. DEGENERATIVE CHANGES WITH CHONDROCALCINOSIS. JOB NUMBER: [id number] MTDD
--- NOTE | 2017-11-18 15:33 | CT SCAN REPORT ---
EXAM: CT SCAN HEAD WO CONTRAST HISTORY: WEAKNESS. TECHNIQUE: CT brain without contrast. COMPARISON: 08/10/16 CT brain. FINDINGS: The globes are intact. Paranasal sinuses and mastoid air cells are unremarkable. No displaced or depressed skull fracture. No intra or extraaxial hemorrhage. CT limited for evaluation of acute infarct. No CT evidence for large or territorial acute infarct. Diffuse atrophy with small vessel ischemic change. No mass or midline shift. IMPRESSION: ATROPHY. SMALL VESSEL ISCHEMIC CHANGE. JOB NUMBER: [id number] [facility]
--- NOTE | 2017-11-19 12:31 | Discharge Summary ---
DATE OF DISCHARGE: 11/17/2017 Attending physician: Maximiliano Stafford DO Referring physician: Dr. Jeevan Griffin DISCHARGE DIAGNOSES: 1. Urinary tract infection. 2. Weakness from above and it has resolved. 3. History of hypothyroidism. 4. History of hypertension. 5. History of lymphedema, no pedal edema at this time. REASON FOR HOSPITALIZATION: Decreased level of conversation, weakness, and incontinent of urine, and family thought maybe that she had a urinary tract infection. She came into the emergency department. Dr. Mabry evaluated her and admitted her to the hospital for urinary tract infection and weakness. Given IV Rocephin. She had a fever of 101 in the emergency department. SIGNIFICANT FINDINGS: The UA was positive for WBCs of 21 to 35, RBCs of 16 to 25, bacteria 4+. Sodium was 9400 in the emergency department, dropped to 7700, hemoglobin was 13.1, sodium was 145, potassium 3.7, chloride is 105, BUN is 21, creatinine is 0.7. Calcium is 8.2. The head CT was negative for acute changes. Chest x-ray was negative for acute changes. Right wrist x-ray was negative for fracture. THERAPY PROVIDED: The patient was given IV Rocephin 2 doses, ate breakfast, up to the bathroom with a walker and 1-person assist. At this point, I feel she is back to a baseline where she could safely go home. We will change her admission to observation and discharge her to her family for outpatient Cipro 500 mg b.i.d. HOSPITAL COURSE: Improved. CONDITION ON DISCHARGE: Much improved. DISCHARGE INSTRUCTIONS: Follow up with Dr. Jeevan Griffin in 3 to 7 days. New medication Cipro 500 mg b.i.d. We will continue her home medication. I discussed the case with the son-in-law at [phone]. Her home medications are: 1. Vitamin C 500 mg daily. 2. [place] 3 1000 mg a day. 3. Vitamin E 100 units a day. 4. Multivitamins 1 a day. 5. Losartan 50 mg daily. 6. Levothyroxine 75 mcg per day. 7. Neurontin 300 mg b.i.d. 8. Colace 100 mg daily. 9. Cranberry extract 200 mg daily. 10. Celexa 20 mg at bedtime. 11. Cinnamon bark 500 mg daily. 12. Tramadol p.r.n. daily. 13. Demadex 10 mg daily. CC: Dr. Jeevan HOWARD
--- NOTE | 2017-11-19 12:31 | History and Physical Report ---
DATE OF ADMISSION: 11/16/2017 Surgeon: Maximiliano Stafford DO CHIEF COMPLAINT: Weakness, frequent urination, possible urinary tract infection. HISTORY OF PRESENT ILLNESS: This 87-year-old female presented with her family, daughter, and son-in-law stating that she has developed weakness and decreased appetite, decreased talking, much worse in the last 3 days. They were concerned that maybe she had a urinary tract infection because she was incontinent of urine. She also had some swallowing and choking, coughing-like symptoms, and she was eating and drinking and when she eats she kind of coughs and chokes. She fell off of her recliner and a wrist x-ray was obtained in the emergency department, which was negative per Dr. Mabry's evaluation of it. The patient was admitted to the hospital for IV fluids, IV antibiotics, and further evaluation. In the emergency department she had a wrist x-ray, a head CT, and a chest x-ray. EKG was also done showing a normal sinus rhythm, no acute changes. The x-rays were negative for acute changes per Dr. Mabry. The patient's daughter states she is a [id number]. PAST MEDICAL HISTORY: Hypertension, hypothyroidism, lymphedema. PAST SURGICAL HISTORY: Back titanium akshat placed, bilateral total knee arthroplasty, toe surgery. MEDICATIONS ON ADMISSION: 1. Vitamin C 500 mg daily. 2. Vitamin E 100 units daily. 3. [place] 3 1000 mg daily. 4. Multiple vitamins 1 a day. 5. Losartan 50 mg a day. 6. Levothyroxine 75 mcg a day. 7. Neurontin 300 mg b.i.d. 8. Colace 100 mg daily. 9. Cranberry extract 200 mg daily. 10. Celexa 20 mg at bedtime. 11. Cinnamon bark 500 mg daily. 12. Tramadol per day. 13. Demadex 10 mg daily. ALLERGIES: No known medication allergies. FAMILY PSYCHOSOCIAL HISTORY: She never smoked. No drug or alcohol use. FAMILY HISTORY: Father had cancer, mother hypertension, mother had a stroke. REVIEW OF SYSTEMS: HEENT: No upper respiratory infectious symptoms, cough, cold, or congestion. CARDIOVASCULAR: No chest pain, palpitations, or arrhythmias. RESPIRATORY: She has a cough when she eats. Chest x-ray in the emergency department was negative. GASTROINTESTINAL: No nausea, vomiting, or diarrhea, black stools or bloody stools. GENITOURINARY: She has been incontinent of urine, slightly decreased conversation. MUSCULOSKELETAL: Some arthritis in her joints, walks with a walker. NEUROLOGIC: No CVA paralysis or paresthesias. HAT COPYIST HISTORY: Unremarkable. ENDOCRINE: She has hypothyroidism. INTEGUMENT: No rash, ulcer, change in moles, no yellow skin. PHYSICAL EXAMINATION: GENERAL: Height is 4 feet 7 inches. Weight is 113 pounds. VITAL SIGNS: Temperature 97.9, pulse is 77, blood pressure is 133/69, respiratory rate is 16, pulse OX is 92% on room air. She did have a temperature in the hospital at 101.1 earlier, I believe in the emergency department. HEENT: Pupils are equal, round, and reactive to light and accomodation. Extraocular muscles intact. Throat is clear. Nose is clear. Tympanic membranes are wong. NECK: Supple. No jugular venous distention, no hepatojugular reflux, no carotid bruits. Thyroid is smooth. CARDIOVASCULAR: Regular rate and rhythm without murmurs, clicks, rubs, or gallops. RESPIRATORY: Clear to auscultation. Breath sounds are equal bilaterally. ABDOMEN: Soft and nontender, no hepatosplenomegaly, no masses, no tenderness. Bowel sounds are active, no bruits. EXTREMITIES: No pedal edema at this time. No cyanosis, no clubbing. Full range of motion, peripheral pulses are good. BREASTS: Deferred. GYNECOLOGIC: Deferred. RECTAL: Deferred. NEUROLOGIC: Cranial nerves II through XII intact. No gross defects. Sensation normal, strength normal, deep tendon reflexes equal bilaterally. Babinski's is negative. MENTAL STATUS: Alert and oriented x 3. IMPRESSION: 1. Urinary tract infection. 2. Weakness secondary to the above, which has resolved. 3. Status post hypothyroidism. 4. Status post hypertension. 5. Status post lymphedema. PLAN: 1. Cipro 500 mg b.i.d. 2. Drink plenty of fluids to flush her system out. 3. Follow up with her family doctor Dr. Jeevan Griffin in 3 to 7 days. 4. Discussed the case with the son-in-law at [phone]. [facility]
== END 2017-11-17 14:05 | disposition home or self-care (01) ==
LOC: ER 19:25 → INTOOBSV 22:17 → MEDSURG 22:17
PROVIDERS: ADMIT Emergency Medicine; ATTEND Emergency Medicine
DX: N39.0 Urinary tract infection, site not specified (principal); N10 Acute pyelonephritis; I10 Essential (primary) hypertension; E03.9 Hypothyroidism, unspecified; I89.0 Lymphedema, not elsewhere classified; Z96.653 Presence of artificial knee joint, bilateral
CPT/HCPCS: 82550; 85025; 85730; 85610; 82553; 80048; 80053; 81001; 84443; 84484; 85027; 71046; 73110; 70450; 93005; 93010; G0378 ×2; 96365; 99220; 99285; J7030

== ENCOUNTER 2018-02-23 12:23 | Emergency (ER) | payer MEDICARE, OTHER ==
--- NOTE | 2018-02-23 12:53 | Emergency Department Record ---
History of Present Illness - General Chief Complaint: Laceration(s) Stated Complaint: LT ARM CUT Time Seen by Provider: 02/23/18 12:41 Source: Patient, RN notes reviewed Mode of Arrival: Wheelchair - History of Present Illness Initial Commments: slid out of her chair with a left lower arm laceration 12 cm and second skin tear on the upper arm. No other injuries and last tetnus done in 2014 at [facility] Onset/Timin -: Minutes(s) Place: Home Context: Accidental, Fall Associated Symptoms: None - [place] Coma Scale Eye Response: (4) Open spontaneously Motor Response: (6) Obeys commands Verbal Response: (5) Oriented [place] Total: 15 - Related Data Hx Tetanus Toxoid Vaccination: Yes Year of Tetanus Vaccination: 2014 Patient Tetanus UTD (within 5 yrs): Yes Previous Rx's Medication Instructions Recorded Citalopram Hydrobromide [Celexa] 20 mg PO QHS #30 tablet 12/17/14 Docusate Sodium [Colace] 100 mg PO DAILY #90 cap 12/17/14 Gabapentin [Neurontin] 300 mg PO BID #60 capsule 12/17/14 Levothyroxine Sodium 75 mcg PO DAILY #90 tablet 12/17/14 Losartan Potassium [Cozaar] 50 mg PO QHS #90 tablet 12/17/14 Multivitamin [Multi-Vitamin Daily] 1 each PO DAILY #90 tablet 12/17/14 [place]-3 Fatty Acids/Fish Oil [Fish 1 each PO DAILY #90 capsule 12/17/14 Oil 1,000 mg Softgel] Ciprofloxacin HCl [Cipro] 500 mg PO Q12HR #20 tablet 11/17/17 Allergies Allergy/AdvReac Type Severity Reaction Status Date / Time venom-honey bee Allergy Severe ANAPHYLAXIS Verified 02/23/18 12:26 [bee venom (honey bee)] latex Allergy Mild ITCHING Verified 02/23/18 12:26 adhesive tape Allergy RASH Uncoded 08/18/16 20:49 Travel Screening - Travel/Exposure Within Last 30 Days Have you traveled within the last 30 days?: No - Travel/Exposure Within Last Year Have you traveled outside the [place] in the last year?: No - Additonal Travel Details Have you been exposed to anyone with a communicable illness?: No - Travel Symptoms Symptom Screening: None Review of Systems Reviewed: No additional complaints except as noted below Constitutional: Reports: As per HPI. Denies: Chills, Fever, Malaise, Night sweats, Weakness, Weight change Eyes: Reports: As per HPI. Denies: Eye discharge, Eye pain, Photophobia, Vision change ENT: Reports: As per HPI. Denies: Congestion, Dental pain, Ear pain, Epistaxis , Hearing loss, Throat pain Respiratory: Reports: As per HPI. Denies: Cough, Dyspnea, Hemoptysis, Stridor, Wheezes Cardiovascular: Reports: As per HPI. Denies: Arrhythmia, Chest pain, Dyspnea on exertion, Edema, Murmurs, Orthopnea, Palpitations, Paroxysmal nocturnal dyspnea, Rheumatic Fever, Syncope Endocrine: Reports: As per HPI. Denies: Fatigue, Heat or cold intolerance, Polydipsia, Polyuria Gastrointestinal: Reports: As per HPI. Denies: Abdominal pain, Constipation, Diarrhea, Hematemesis, Hematochezia, Melena, Nausea, Vomiting Genitourinary: Reports: As per HPI. Denies: Abnormal menses, Discharge, Dyspareunia, Dysuria, Frequency, Hematuria, Incontinence, Retention, Urgency Musculoskeletal: Reports: As per HPI. Denies: Arthralgia, Back pain, Gout, Joint swelling, Myalgia, Neck pain Skin: Reports: As per HPI, Other (laceration of left lower arm 12 cm). Denies : Bruising, Change in color, Change in hair/nails, Lesions, Pruritus, Rash Neurological: Reports: As per HPI. Denies: Abnormal gait, Confusion, Headache, Numbness, Paresthesias, Seizure, Tingling, Tremors, Vertigo, Weakness Psychiatric: Reports: As per HPI. Denies: Anxiety, Auditory hallucinations, Depression, Homicidal thoughts, Suicidal thoughts, Visual hallucinations Hematological/Lymphatic: Reports: As per HPI. Denies: Anemia, Blood Clots, Easy bleeding, Easy bruising, Swollen glands Past Medical History - SOCIAL HISTORY Smoking Status: Never smoker Alcohol Use: None Drug Use: None - RESPIRATORY Hx Respiratory Disorders: No - CARDIOVASCULAR Hx Cardio Disorders: Yes Hx Edema: Yes Hx Hypertension: Yes Comment:: hx edema legs/ feet swelling - NEURO Hx Neuro Disorders: Yes Hx Seizures: No - GI Hx GI Disorders: No - Hx Genitourinary Disorders: Yes Hx Bladder Problem: Yes (Urinary incontinence) - ENDOCRINE Hx Endocrine Disorders: Yes Hx Diabetes: No Hx Thyroid Disease: Yes - MUSCULOSKELETAL Hx Musculoskeletal Disorders: Yes Hx Arthritis: Yes Comment:: Back surgery with hardware in 2009 - PSYCH Hx Psych Problems: Yes Hx Anxiety: Yes Hx Depression: Yes - HEMATOLOGY/ONCOLOGY Hx Hematology/Oncology Disorders: No Family Medical History Any Significant Family History?: Yes Hx Cancer: Father Hx HTN: Mother Hx Stroke: Mother Physical Exam - General General Appearance: Alert, Oriented x3, Cooperative, No acute distress - Head Head exam: Normal inspection - Eye Eye exam: Normal appearance, PERRL Pupils: Normal accommodation - ENT ENT exam: Normal exam, Mucous membranes moist, Normal external ear exam, Normal orophraynx, TM's normal bilaterally Ear exam: Normal external inspection. negative: External canal tenderness Nasal Exam: Normal inspection. negative: Discharge, Sinus tenderness Mouth exam: Normal external inspection, Tongue normal Teeth exam: Normal inspection. negative: Dental caries Throat exam: Normal inspection. negative: Tonsillar erythema, Tonsillar exudate - Neck Neck exam: Normal inspection, Full ROM. negative: Tenderness - Respiratory Respiratory exam: Normal lung sounds bilaterally. negative: Respiratory distress - Cardiovascular Cardiovascular Exam: Regular rate, Normal rhythm, Normal heart sounds - GI/Abdominal GI/Abdominal exam: Soft, Normal bowel sounds. negative: Tenderness - Rectal Rectal exam: Deferred - exam: Deferred - Extremities Extremities exam: Normal inspection, Full ROM, Normal capillary refill, Other ( laceration left forearm 12 cm and skin tear upper left arm). negative: Tenderness - Back Back exam: Reports: Normal inspection, Full ROM. Denies: Muscle spasm, Rash noted, Tenderness - Neurological Neurological exam: Alert, Normal gait, Oriented X3, Reflexes normal - Psychiatric Psychiatric exam: Normal affect, Normal mood - Skin Skin exam: Dry, Intact, Normal color, Warm Course Vital Signs 02/23/18 12:32 Temperature 97.9 F Pulse Rate 78 Respiratory 20 Rate Blood Pressure 116/53 Pulse Ox 94 L - Reevaluation(s) Reevaluation #1: left arm ROM good and neuro intact and laceration 12 cm and anesthetized with lidocaine 1% 20 ml and cleaned with shurclense and irrigated' repaired with 4.0 ethilon 02/23/18 12:50 Reevaluation #2: 12 cn laceration repaired with 4.0 ethilon times 7 sutures 1 % lidocaine cleaned with shurclens skin tear upper arm 6 cm repaired with steristrips time 9 02/23/18 13:54 Disposition Clinical Impression: Laceration of arm, left, complicated Qualifiers: Encounter type: initial encounter Qualified Code(s): S41.112A - Laceration without foreign body of left upper arm, initial encounter Disposition: Home, Self-Care Condition: (1) Good Instructions: Laceration (ED) Additional Instructions: sutures out in 12 to 16 days follow up with Dr Griffin in 5 to 9 days Forms: Patient Portal Access Time of Disposition: 13:57 Quality - Quality Measures Quality Measures: N/A - Blood Pressure Screening Does Patient Have Any of the Following: No Blood Pressure Classification: Normal BP Reading Systolic Measurement: 116 Diastolic Measurement: 53 Screening for High Blood Pressure: < Normal BP, F/U Not Required > [G8783]
== END 2018-02-23 14:24 | disposition home or self-care (01) ==
LOC: ER 12:23
DX: S51.812A Laceration without foreign body of left forearm, initial encounter (principal); S41.112A Laceration without foreign body of left upper arm, initial encounter; W07.XXXA Fall from chair, initial encounter; Y92.009 Unspecified place in unspecified non-institutional (private) residence as the place of occurrence of the external cause; I10 Essential (primary) hypertension
CPT/HCPCS: 12004; 99283; 99284

== ENCOUNTER 2018-03-29 14:15 | Inpatient (IN) | payer MEDICARE, OTHER ==
[2018-03-29] MEDS ORDERED: ACETAMINOPHEN 325 MG TAB PO ONE (14:39)
--- NOTE | 2018-03-29 14:45 | Emergency Department Record ---
History of Present Illness - General Chief Complaint: Fall Injury Stated Complaint: FALL INJURY Time Seen by Provider: 03/29/18 14:28 Source: Patient Mode of Arrival: Wheelchair Limitations: No limitations - History of Present Illness Initial Comments: The patient is here with family due to falling at home almost an hour ago now. She got out of the shower and lost her balance and his her L arm and face and head on the way down. The patient was recently diagnosed with a UTI and has now fallen 4 times in the last 2 weeks. She does live with family and does have a caregiver in the home during the day. There was no LOC and the patient's Td is UTD. MD Complaint: Fall Onset/Timin -: Minutes(s) When Fall Occurred: Just prior to arrival Place Fall Occurred: Home Loss of Consciousness: None Prolonged Down Time?: Yes, Minute(s) Location: Face - [place] Coma Scale Eye Response: (4) Open spontaneously Motor Response: (6) Obeys commands Verbal Response: (5) Oriented [place] Total: 15 - Related Data Home Medications Medication Instructions Recorded Confirmed Last Taken Sulfamethoxazole/Trimethoprim 1 tab PO BID 03/29/18 03/29/18 03/29/18 [Bactrim Ds] Previous Rx's Medication Instructions Recorded Citalopram Hydrobromide [Celexa] 20 mg PO QHS #30 tablet 12/17/14 Docusate Sodium [Colace] 100 mg PO DAILY #90 cap 12/17/14 Gabapentin [Neurontin] 300 mg PO BID #60 capsule 12/17/14 Levothyroxine Sodium 75 mcg PO DAILY #90 tablet 12/17/14 Losartan Potassium [Cozaar] 50 mg PO QHS #90 tablet 12/17/14 Multivitamin [Multi-Vitamin Daily] 1 each PO DAILY #90 tablet 12/17/14 [place]-3 Fatty Acids/Fish Oil [Fish 1 each PO DAILY #90 capsule 12/17/14 Oil 1,000 mg Softgel] Allergies Allergy/AdvReac Type Severity Reaction Status Date / Time venom-honey bee Allergy Severe ANAPHYLAXIS Verified 02/23/18 12:26 [bee venom (honey bee)] latex Allergy Mild ITCHING Verified 02/23/18 12:26 adhesive tape Allergy RASH Uncoded 08/18/16 20:49 Travel Screening - Travel/Exposure Within Last 30 Days Have you traveled within the last 30 days?: No - Travel/Exposure Within Last Year Have you traveled outside the [place] in the last year?: No - Additonal Travel Details Have you been exposed to anyone with a communicable illness?: No - Travel Symptoms Symptom Screening: None Past Medical History - SOCIAL HISTORY Smoking Status: Never smoker Alcohol Use: None Drug Use: None - RESPIRATORY Hx Respiratory Disorders: No - CARDIOVASCULAR Hx Cardio Disorders: Yes Hx Edema: Yes Hx Hypertension: Yes Comment:: hx edema legs/ feet swelling - NEURO Hx Neuro Disorders: Yes Hx Seizures: No - GI Hx GI Disorders: No - Hx Genitourinary Disorders: Yes Hx Bladder Problem: Yes (Urinary incontinence) - ENDOCRINE Hx Endocrine Disorders: Yes Hx Diabetes: No Hx Thyroid Disease: Yes - MUSCULOSKELETAL Hx Musculoskeletal Disorders: Yes Hx Arthritis: Yes Comment:: Back surgery with hardware in 2009 - PSYCH Hx Psych Problems: Yes Hx Anxiety: Yes Hx Depression: Yes - HEMATOLOGY/ONCOLOGY Hx Hematology/Oncology Disorders: No Family Medical History Any Significant Family History?: No Hx Cancer: Father Hx HTN: Mother Hx Stroke: Mother Physical Exam - General General Appearance: Alert, Cooperative, No acute distress - Head Head exam: Normocephalic. negative: Atraumatic, Normal inspection (There is a 2.5 cm superficial lac to the L forehead with bruising present. ) - Eye Eye exam: PERRL, Periorbital swelling. negative: Normal appearance, Conjunctival injection, Periorbital tenderness - Neck Neck exam: Normal inspection, Full ROM. negative: Tenderness - Respiratory Respiratory exam: Normal lung sounds bilaterally. negative: Respiratory distress - Cardiovascular Cardiovascular Exam: Regular rate, Normal rhythm, Normal heart sounds - GI/Abdominal GI/Abdominal exam: Soft, Normal bowel sounds. negative: Tenderness - Extremities Extremities exam: Full ROM, Other (There is mild bruising to the patellar area on the knees bilaterally but no swelling. There is good ROM and the patient is able to walk.). negative: Normal inspection (There are superificial abrasions to the L proximal forearm with skin tears. There is no bleeding present and no bony tenderness. ), Tenderness - Back Back exam: Reports: Normal inspection - Neurological Neurological exam: Abnormal gait, Alert, Oriented X3. negative: Altered, Motor sensory deficit, Normal gait Course Vital Signs 03/29/18 14:28 Temperature 97.3 F L Pulse Rate [ 76 Pulse Ox Probe] Respiratory 20 Rate Blood Pressure 141/73 [Right Arm] - Reevaluation(s) Reevaluation #1: The patient is doing very well at this time. She is resting comfortably. I did discuss the lab and xray results with the patient and family. I also do believe she will need to be admitted to the hospital for PT eval and a swallowing study. I did discuss the case with Mary Grace ([employer]) and she does accept the admission. I also did discuss the code status with the family and the patient is a DNR. 03/29/18 16:27 Reevaluation #2: Procedure note: The L forehead lac was cleansed with betadine and lavaged with sterile saline. It was closed with 6 5.0 nylon sutures. There were no complications. 03/29/18 16:30 Medical Decision Making - Data Complexity MDM Data: Labs Ordered and/or Reviewed, X-Ray Ordered and/or Reviewed, EKG Ordered and/or Reviewed - Lab Data Result diagrams: 03/29/18 15:02 03/29/18 15:02 - EKG Data -: EKG Interpreted by Me EKG: No Acute Changes, Normal EKG - Radiology Data Radiology results: Report reviewed (Head abd Cervical CT: Neg for acute changes. ), Image reviewed (CXR: No acute changes, chronic RUL changes.) Disposition Disposition: Admit Clinical Impression: Scalp laceration, Weakness, Falls frequently Disposition: Still a Patient at [facility] Decision to Admit: Admit from ER Decision to Admit Date: 03/29/18 Decision to Admit Time: 16:32 Accepting Physician: Faraz Time Discussed w/Accepting Physician: 16:32 Condition: (2) Stable Time of Disposition: 16:32 Quality - Quality Measures Quality Measures: N/A - Blood Pressure Screening View Details: Yes Does Patient Have Any of the Following: No Blood Pressure Classification: Pre-Hypertensive BP Reading Systolic Measurement: 139 Diastolic Measurement: 69 Screening for High Blood Pressure: < Pre-Hypertensive BP, F/U Documented > [ G8950] Pre-Hypertensive Follow-up Interventions: Referral to alternative/primary care provider.
[2018-03-29 15:20] LABS: BASO % 0.3 % (0-6); EOS % 5.6 % (0-6); GRAN % 67.1 % (47-80); HEMATOCRIT 39.7 % (35.0-47.0); HEMOGLOBIN 13.2 gm/dl (11.6-16.0); LYMPH % 17.8 % (16-45); MEAN CELL VOLUME 103.1 fl (81-97); MEAN CORPUSCULAR HEMOGLOBIN 34.3 pg (27-33); MEAN CORPUSCULAR HGB CONC 33.2 g/dl (32-36); MEAN PLATELET VOLUME 9.4 fl (7.4-10.4); MONO % 9.2 % (0-9); PLATELET COUNT 254 K/uL (130-400); RED BLOOD COUNT 3.85 M/uL (3.80-5.40); RED CELL DISTRIBUTION WIDTH 13.5 % (11.5-14.5); WHITE BLOOD COUNT W/O DIFF 5.7 K/uL (4.2-12.2)
[2018-03-29 15:26] LABS: URINE APPEARANCE CLEAR; URINE BILIRUBIN NEGATIVE (NEGATIVE); URINE BLOOD NEGATIVE (NEGATIVE); URINE COLOR YELLOW; URINE GLUCOSE (UA) NEGATIVE (NEGATIVE); URINE KETONE NEGATIVE (NEGATIVE); URINE LEUKOCYTE ESTERASE NEGATIVE (NEGATIVE); URINE NITRITE NEGATIVE (NEGATIVE); URINE PROTEIN NEGATIVE (NEGATIVE); URINE UROBILINOGEN 0.2 E.U./dL (0.20 - 1.00)
[2018-03-29 15:32] LABS: BILIRUBIN,TOTAL 0.2 mg/dL (0.2-1.0); CREATININE 1.5 mg/dL (0.5-0.9)
[2018-03-29 15:33] LABS: TOTAL PROTEIN 7.1 g/dL (6.6-8.7)
[2018-03-29 15:38] LABS: ALB/GLOB RATIO 1.5 (1.1-1.8); ALBUMIN 4.3 g/dL (4.0-5.0)
[2018-03-29] MEDS ORDERED: ACETAMINOPHEN 325 MG TAB PO PRN (18:26)
[2018-03-29] MEDS: LOSARTAN POTASSIUM 25 MG TABLET PO SCH (21:11)
[2018-03-29] MEDS: CITALOPRAM 20 MG TABLET PO SCH (21:11)
[2018-03-29] MEDS: GABAPENTIN 300 MG CAPSULE PO SCH (21:11)
[2018-03-30] MEDS: GABAPENTIN 300 MG CAPSULE PO SCH ×2 (10:26→21:57)
[2018-03-30] MEDS: LEVOTHYROXINE SODIUM 75 MCG TABLET PO SCH (10:26)
[2018-03-30] MEDS: DOCUSATE SODIUM 100 MG CAPSULE PO SCH (10:26)
[2018-03-30] MEDS ORDERED: GUAIFENESIN/D-METH. 10 ML UDC PO ONE (20:09)
[2018-03-30] MEDS: LOSARTAN POTASSIUM 25 MG TABLET PO SCH (21:55)
[2018-03-30] MEDS: CITALOPRAM 20 MG TABLET PO SCH (21:56)
--- NOTE | 2018-03-30 22:21 | History & Physical ---
History of Present Illness - Date of Service Date of Service for History & Physical: 03/31/18 - History of Present Illness Admitting Diagnosis: 1. Frequent Falls with a Head injury History of Present Illness: 88 yo female admitted for freq falls, most recent happening 03/29/18 at home, while trying to dry off after shower. Pt lives with daughter and son in law. Has a home health assistant strength coach (friend of family that helps pt during the day, no trained aid) that was coming 10-2 but now is 9-5 as pt has been getting out of bed alone and falling. PMH significant swallowing issues to severe extend of coughing/choking and passing out. Family thickens liquids with "thick it" powder that is bought on the internet, to nectar consistency. Family reports pt had abnormal swallow study with [facility] but have continued care at home as pt is ambulatory and is albe to speak but very slowly for the past several months. Numerous falls at home reported by daughter and son in law from pt 1. bending over and falling, 2. coughing/choking during meals and passing out for a few seconds, 3. coughing while walking and falling. Daughter believes recent decline in health over the past 1-2 months is related to an UTI that was noted 02/24/18. Pt has completed treatment but falls and swallowing issues have become more problematic since then. Pt presented 03/29/18 to [facility] ER after falling in the bathroom, head laceration( requiring sutures), left eye edema, and forehead hematoma. CT head shows no acute injury, severe ischemic disease, C-spine CT no acute process-DDD noted, CXR no acute vesta injury noted. EKG NSR Hr 80. UA negative (straight cath) WBC 5.7, Hgb 13.2, Hct 39.7, Plt 254 Na 141, 4.6, Cl 100, CO2 30, BUN 32, Cr 1.5, GFR 35, LFTs normal Sutures completed and pt was admitted for falls. 03/30/18 -Pt resting in bed, assisted out of bed via gait belt with RN. Pt has slow movement but able to transfer and ambulate with walked under her own power. Head trauma noted; left eye swollen, bruising but pt is able to open eye, denies vision change; hematoma forehead; sutured laceration to left church; edema/bruising to left lower lip. Pt is A&Ox4, able to answer all questions appropriately but needs longer time to process and answer questions. Moving all extremities with slow purposeful movements. POC- STRICT eating orders, up in chair for all meals, pureed diet, nectar thick liq, no straw, up for 30 min after all meals. Supervised meals. Chin tuck and encourage proper swallowing before next bite. Pt daughter and son in law were present during afternoon round and gave most/ all the information. Pt DNR, records pulled from previous admission. Family is not seeking watermelon inspector placement, want possible physical rehab. It was discussed that pt swallowing difficulties is a serious concern and daughter and son in law sat that her swallow study done at [facility] was abnormal but not terrible. There are most concerned with pt phlegm production, having been giving Mucinex DM or Sudafed PE (one or the other QOD) and have had better results than Flonase. Reporting Flonase caused increased choking/coughing. PCP Jeevan Griffin DO Specialist Travel Screening - Travel/Exposure Within Last 30 Days Have you traveled within the last 30 days?: No - Travel/Exposure Within Last Year Have you traveled outside the [place] in the last year?: No - Additonal Travel Details Have you been exposed to anyone with a communicable illness?: No - Travel Symptoms Symptom Screening: None Review of Systems Constitutional: Reports: Weakness Eyes: Denies: Vision change ENT: Denies: Epistaxis Respiratory: Reports: Cough (with eating), Wheezes (after meals) Cardiovascular: Denies: Chest pain, Dyspnea on exertion Endocrine: Reports: Fatigue Gastrointestinal: Reports: Constipation (chronic). Denies: Diarrhea Skin: Reports: Bruising (recent fall) Neurological: Reports: Abnormal gait (slow, shuffle) Hematological/Lymphatic: Reports: Easy bruising (recent fall, skin tears and laceration) Past Medical History - SOCIAL HISTORY Smoking Status: Never smoker - RESPIRATORY Hx Respiratory Disorders: No - CARDIOVASCULAR Hx Cardio Disorders: Yes Hx Edema: Yes Hx Hypertension: Yes Comment:: hx edema legs/ feet swelling - NEURO Hx Neuro Disorders: Yes Hx Seizures: No - GI Hx GI Disorders: No - Hx Genitourinary Disorders: Yes Hx Bladder Problem: Yes (Urinary incontinence) - ENDOCRINE Hx Endocrine Disorders: Yes Hx Diabetes: No Hx Thyroid Disease: Yes - MUSCULOSKELETAL Hx Musculoskeletal Disorders: Yes Hx Arthritis: Yes Comment:: Back surgery with hardware in 2009 - PSYCH Hx Psych Problems: Yes Hx Anxiety: Yes Hx Depression: Yes - HEMATOLOGY/ONCOLOGY Hx Hematology/Oncology Disorders: No Family Medical History Any Significant Family History?: No Hx Cancer: Father Hx HTN: Mother Hx Stroke: Mother H&P Meds/Allergies - Allergies Allergies: Allergies Allergy/AdvReac Type Severity Reaction Status Date / Time venom-honey bee Allergy Severe ANAPHYLAXIS Verified 02/23/18 12:26 [bee venom (honey bee)] latex Allergy Mild ITCHING Verified 02/23/18 12:26 adhesive tape Allergy RASH Uncoded 08/18/16 20:49 - Home Medications Home Medications Medication Instructions Recorded Confirmed Last Taken Sulfamethoxazole/Trimethoprim 1 tab PO BID 03/29/18 03/29/18 03/29/18 [Bactrim Ds] Previous Rx's Medication Instructions Recorded Citalopram Hydrobromide [Celexa] 20 mg PO QHS #30 tablet 12/17/14 Docusate Sodium [Colace] 100 mg PO DAILY #90 cap 12/17/14 Gabapentin [Neurontin] 300 mg PO BID #60 capsule 12/17/14 Levothyroxine Sodium 75 mcg PO DAILY #90 tablet 12/17/14 Losartan Potassium [Cozaar] 50 mg PO QHS #90 tablet 12/17/14 Multivitamin [Multi-Vitamin Daily] 1 each PO DAILY #90 tablet 12/17/14 [place]-3 Fatty Acids/Fish Oil [Fish 1 each PO DAILY #90 capsule 12/17/14 Oil 1,000 mg Softgel] - Active Medications Active Medications: Current Medications Acetaminophen (Tylenol 325mg) 650 mg PO Q6H PRN PRN Reason: PAIN - MILD(1-4)/FEVER Citalopram Hydrobromide (Celexa) 20 mg PO QHS [facility] Last Admin: 03/30/18 21:56 Dose: 20 mg Docusate Sodium (Colace) 100 mg PO DAILY [facility] Last Admin: 03/30/18 10:26 Dose: 100 mg Enoxaparin Sodium (Lovenox) 40 mg SQ DAILY [facility] Gabapentin (Neurontin) 300 mg PO BID [facility] Last Admin: 03/30/18 21:57 Dose: 300 mg Levothyroxine Sodium (Synthroid) 75 mcg PO [id number] [facility] Last Admin: 03/30/18 10:26 Dose: 75 mcg Losartan Potassium (Cozaar) 50 mg PO QHS [facility] Last Admin: 03/30/18 21:55 Dose: 50 mg Physical Exam - Vital Signs Vital Signs: Vital Signs - Last 24 Hrs Temp Pulse Resp BP BP Pulse Ox 03/30/18 20:26 98.1 F 91 H 18 125/68 91 L 03/30/18 17:20 98.3 F 72 18 130/39 91 L 03/30/18 12:00 98.4 F 79 18 106/47 93 L 03/30/18 09:00 18 03/30/18 08:00 98.0 F 81 18 129/54 95 - General General Appearance: Alert, Cooperative, No acute distress Limitations: No limitations - Head Head exam: Normocephalic. negative: Atraumatic, Normal inspection (There is a 2.5 cm superficial lac to the L forehead with bruising present. ) Head exam detail: Abrasion, Hematoma (forehead), Laceration (left church), [place] eyes (left) - Eye Eye exam: PERRL, Periorbital swelling, Periorbital tenderness. negative: Normal appearance, Conjunctival injection - ENT ENT exam: Mucous membranes moist Nasal Exam: Normal inspection Mouth exam: Other (left lower lip edema, bruising) - Neck Neck exam: Normal inspection, Full ROM. negative: Tenderness - Respiratory Respiratory exam: Normal lung sounds bilaterally. negative: Respiratory distress - Cardiovascular Cardiovascular Exam: Regular rate, Normal rhythm, Normal heart sounds Peripheral Pulses: 3+: Radial (R), Radial (L), Dorsalis Pedis (R), Dorsalis Pedis (L) - GI/Abdominal GI/Abdominal exam: Soft, Normal bowel sounds. negative: Tenderness - Rectal Rectal exam: Deferred - exam: Deferred - Extremities Extremities exam: Full ROM, Other (There is mild bruising to the patellar area on the knees bilaterally but no swelling. There is good ROM and the patient is able to walk.). negative: Normal inspection (There are superificial abrasions to the L proximal forearm with skin tears. There is no bleeding present and no bony tenderness. ), Tenderness - Back Back exam: Reports: Other (kyphosis) - Neurological Neurological exam: Abnormal gait, Alert, Oriented X3. negative: Altered, Motor sensory deficit, Normal gait - Psychiatric Psychiatric exam: Flat affect - Skin Skin exam: Dry, Warm. negative: Intact Type of lesion: Laceration (left church) Results - Labs Result Diagrams: 03/31/18 06:00 03/29/18 15:02 - Imaging and Cardiology CT scan - head Status: Pending (audio clips reviewed) Chest x-ray Status: Pending (audio clip reviewed) VTE H&P Assessment - Risk for VTE Risk for VTE: Yes Risk Level: High Risk Assessment Date: 03/30/18 Risk Assessment Time: 11:00 VTE Orders Placed or Will Be Placed: Yes Plan - Inpatient Certification Inpatient Certification: Admit to inpatient care: Based on my medical assessment, after consideration of patient's risk factors (age, co-morbidities and patient presenting symptoms and acuity), I expect that this patient will remain in the hospital greater than or equal to two midnights and that the services needed warrant inpatient care because: Patient Risk Factors: falls, swallowing problems, physical deconditioning Estimated length of stay: The patient may reasonably be expected to be discharged or transferred to a hospital within 96 hours after admission to [facility]. Services needed: [facility], PT/OT eval and treatment, aspiration precautions, swallow eval Post hospital care (if known): [] I certify that my determination is in accordance with my understanding of Medicare requirements for reasonable and necessary inpatient services. 03/31/18 12:05 - Detailed Diagnosis and Plan (1) Falls frequently Current Visit: Yes Status: Acute Base Code: R29.6 - REPEATED FALLS Comment : 03/30/18 -pt fell at home, head lac, facial brusing and hematoma -weakness -head and Cspine CT audio clips review no acute process (2) Swallowing difficulty Current Visit: Yes Status: Acute Base Code: R13.10 - DYSPHAGIA, UNSPECIFIED Comment: 03/30/18 -Pt daughter reports diff swallowing for greater than 1 year, worse of the the past several months -have been thickening liq to nectar and have friend assist with daytime care -per family, pt coughing so hard she is passing out for a few seconds through out the day -Son in law insists that camera swallow study has been performed within the past year at [facility] -Pt on STRICT eating protoctol, pureed diet, thickened liq, swallow eval ordered (3) Scalp laceration Current Visit: Yes Status: Acute Base Code: S01.01XA - LACERATION WITHOUT FOREIGN BODY OF SCALP, INITIAL ENCOUNTER Comment: 03/30/18 -sutures to left church (4) Weakness Current Visit: Yes Status: Acute Base Code: R53.1 - WEAKNESS Priority: High Comment: 03/31/18 -PT OT eval ordered -pt up with assist, gait belt and walker -supervised eating (5) DVT prophylaxis Current Visit: No Status: Acute Base Code: [id number] - Comment: 03/30/18 -high risk for DVT, lovenox SQ 40mg to start tomorrow pending normal neuro check through the night (6) DNR (do not resuscitate) Current Visit: Yes Status: Acute Base Code: Z66 - DO NOT RESUSCITATE Comment: 03/30/18 -DNR paperwork obtained from previous admission
[2018-03-31] MEDS: LEVOTHYROXINE SODIUM 75 MCG TABLET PO SCH (06:00)
[2018-03-31 06:08] LABS: BASO % 0.6 % (0-6); GRAN % 52.5 % (47-80); HEMATOCRIT 36.8 % (35.0-47.0); HEMOGLOBIN 11.7 gm/dl (11.6-16.0); LYMPH % 27.7 % (16-45); MEAN CELL VOLUME 105.4 fl (81-97); MEAN CORPUSCULAR HEMOGLOBIN 33.5 pg (27-33); MEAN CORPUSCULAR HGB CONC 31.8 g/dl (32-36); MEAN PLATELET VOLUME 9.1 fl (7.4-10.4); MONO % 10.2 % (0-9); PLATELET COUNT 207 K/uL (130-400); RED BLOOD COUNT 3.49 M/uL (3.80-5.40); RED CELL DISTRIBUTION WIDTH 13.2 % (11.5-14.5); WHITE BLOOD COUNT W/O DIFF 5.2 K/uL (4.2-12.2)
[2018-03-31] MEDS ORDERED: UMECLIDINIUM BROMIDE (INCRUSE) 62.5MCG IH ONE (09:19)
--- NOTE | 2018-03-31 09:58 | Physician Progress Note ---
Subjective - Date Date of Physician Progress Note: 03/31/18 - Subjective Subjective Comment: 03/31/18 Objective - Vital Signs Vital Signs: Vital Signs - Last 24 Hrs Temp Pulse Resp BP BP Pulse Ox 03/30/18 20:26 98.1 F 91 H 18 125/68 91 L 03/30/18 17:20 98.3 F 72 18 130/39 91 L 03/30/18 12:00 98.4 F 79 18 106/47 93 L - General General Appearance: Alert, Cooperative, No acute distress Limitations: No limitations - Head Head exam: Normocephalic. negative: Atraumatic, Normal inspection (There is a 2.5 cm superficial lac to the L forehead with bruising present. ) Head exam detail: Contusion, Laceration, [place] eyes - Eye Eye exam: PERRL, Periorbital swelling. negative: Normal appearance, Conjunctival injection, Periorbital tenderness - ENT ENT exam: Mucous membranes moist Ear exam: Normal external inspection Nasal Exam: Normal inspection Mouth exam: Other (left lower lip edema, bruising) - Neck Neck exam: Normal inspection, Full ROM. negative: Tenderness - Respiratory Respiratory exam: Normal lung sounds bilaterally. negative: Respiratory distress - Cardiovascular Cardiovascular Exam: Regular rate, Normal rhythm, Normal heart sounds Peripheral Pulses: 3+: Radial (R), Radial (L), Dorsalis Pedis (R), Dorsalis Pedis (L) - GI/Abdominal GI/Abdominal exam: Soft, Normal bowel sounds. negative: Tenderness - Rectal Rectal exam: Deferred - exam: Deferred - Extremities Extremities exam: Full ROM, Other (There is mild bruising to the patellar area on the knees bilaterally but no swelling. There is good ROM and the patient is able to walk.). negative: Normal inspection (There are superificial abrasions to the L proximal forearm with skin tears. There is no bleeding present and no bony tenderness. ), Tenderness - Back Back exam: Reports: Normal inspection - Neurological Neurological exam: Abnormal gait, Alert, Oriented X3. negative: Altered, Motor sensory deficit, Normal gait - Psychiatric Psychiatric exam: Flat affect - Skin Skin exam: Dry, Warm Assessment and Plan - Assessment and Plan (1) Falls frequently Current Visit: Yes Status: Acute Base Code: R29.6 - REPEATED FALLS Comment : 03/30/18 -pt fell at home, head lac, facial brusing and hematoma -weakness -head and Cspine CT audio clips review no acute process 03/31/18 -no falls today, assisted transfers with gait belt and walked -awaiting PT/OT eval (2) Scalp laceration Current Visit: Yes Status: Acute Base Code: S01.01XA - LACERATION WITHOUT FOREIGN BODY OF SCALP, INITIAL ENCOUNTER Comment: 03/30/18 -sutures to left protestant 03/31/18 (3) Swallowing difficulty Current Visit: Yes Status: Acute Base Code: R13.10 - DYSPHAGIA, UNSPECIFIED Comment: 03/30/18 -Pt daughter reports diff swallowing for greater than 1 year, worse of the the past several months -have been thickening liq to nectar and have friend assist with daytime care -per family, pt coughing so hard she is passing out for a few seconds through out the day -Son in law insists that camera swallow study has been performed within the past year at [facility] -Pt on STRICT eating protoctol, pureed diet, thickened liq, swallow eval ordered 03/31/18 -[facility] contacted and no swallow study has been found for the past 2 years -provider present during breakfast, pt needs repeated verbal instruction to 1. take small bites, 2. finish swallowing before eating more, 3 chin tuck and 4 not eating while coughing (pt has ordered supervised meals, staff to continue proper swallowing techniques and monitoring pt habits -suction is maintained at bedside (4) Weakness Current Visit: Yes Status: Acute Base Code: R53.1 - WEAKNESS Priority: High Comment: 03/30/18 -PT OT eval ordered -pt up with assist, gait belt and walker -supervised eating 03/31/18 -awaiting PT/OT eval, up with assist gait belt and walker (5) DVT prophylaxis Current Visit: No Status: Acute Base Code: [id number] - Comment: 03/30/18 -high risk for DVT, lovenox SQ 40mg to start tomorrow pending normal neuro check through the night 03/31/18 -neuro checks normal, lovenox SQ started (6) DNR (do not resuscitate) Current Visit: Yes Status: Acute Base Code: Z66 - DO NOT RESUSCITATE Comment: 03/31/18 -DNR paperwork obtained from previous admission Results - Labs Result Diagrams: 03/31/18 06:00 03/29/18 15:02 Labs Last 24 Hours: Laboratory Results - last 24 hr 03/31/18 06:00 WBC 5.2 RBC 3.49 L Hgb 11.7 Hct 36.8 MCV 105.4 H MCH 33.5 H MCHC 31.8 L RDW 13.2 Plt Count 207 MPV 9.1 Gran % 52.5 Lymphocytes % 27.7 Monocytes % 10.2 H Eosinophils % 9.0 H Basophils % 0.6 DVT/PE Assessment - Risk for VTE Risk for VTE: Yes Risk Level: High Risk Assessment Date: 03/30/18 Risk Assessment Time: 11:00 VTE Orders Placed or Will Be Placed: Yes - Active Medicaitons Current Medications: Current Medications Acetaminophen (Tylenol 325mg) 650 mg PO Q6H PRN PRN Reason: PAIN - MILD(1-4)/FEVER Citalopram Hydrobromide (Celexa) 20 mg PO QHS [facility] Last Admin: 03/30/18 21:56 Dose: 20 mg Docusate Sodium (Colace) 100 mg PO DAILY [facility] Last Admin: 03/30/18 10:26 Dose: 100 mg Enoxaparin Sodium (Lovenox) 30 mg SQ DAILY [facility] Gabapentin (Neurontin) 300 mg PO BID [facility] Last Admin: 03/30/18 21:57 Dose: 300 mg Levothyroxine Sodium (Synthroid) 75 mcg PO [id number] [facility] Last Admin: 03/31/18 06:00 Dose: 75 mcg Losartan Potassium (Cozaar) 50 mg PO QHS [facility] Last Admin: 03/30/18 21:55 Dose: 50 mg Torsemide (Torsemide) 10 mg PO DAILY [facility] AMI Plan - Labs Result Diagrams: 03/31/18 06:00 03/29/18 15:02
[2018-03-31] MEDS ORDERED: ENOXAPARIN 40 MG/0.4 ML SYR SQ SCH (10:00)
[2018-03-31] MEDS: GABAPENTIN 300 MG CAPSULE PO SCH ×2 (10:16→21:52)
[2018-03-31] MEDS: DOCUSATE SODIUM 100 MG CAPSULE PO SCH (10:16)
[2018-03-31] MEDS: ENOXAPARIN 30 MG/0.3 ML SYR SQ SCH (10:17)
[2018-03-31] MEDS: TORSEMIDE 20 MG TABLET PO SCH (10:17)
--- NOTE | 2018-03-31 15:00 | Physician Progress Note ---
Subjective - Date Date of Physician Progress Note: 03/31/18 - Subjective Subjective Comment: Nursing was changing band aids for pt wounds, pt had sudden episode of choking on secretions. Was unresponsive for 15 seconds, suctioned with no aspirate noted. Pt took a deep breath and was a&ox3 at that time. EKG completed, no acute issues, NSR. Pt has h/o of swallowing difficulty. Pt was willing to accept transfer to [facility] to get swallow flouroscope completed. [facility] Hospitalist did not accept transfer. Pt is declining [facility] [place] transfer. Son in law called and is now at bedside. Both patient and son in law want [facility] to have PT/OT and swallow eval [facility] but remain DNR. Wishes were confirmed by pt that she does NOT want CPR, defibrillation or intubation. Will accept suction and manual assistance clear airway. Continue swallow precautions. Son in law is willing to take pt to [facility] for outpt swallow study. Son in law further insists that a swallow exam was completed this fall and pt passed with all current symptoms. pt placed on monitor to identify of arrhythmia is involved with events. Objective - Vital Signs Vital Signs: Vital Signs - Last 24 Hrs Temp Pulse Pulse Resp BP BP Pulse Ox 03/31/18 12:00 97.4 F L 86 18 117/58 93 L 03/31/18 11:17 81 16 92 L 03/31/18 09:00 20 03/31/18 08:00 98.2 F 69 18 172/86 94 L 03/30/18 20:26 98.1 F 91 H 18 125/68 91 L 03/30/18 17:20 98.3 F 72 18 130/39 91 L - General General Appearance: Alert, Cooperative, No acute distress Limitations: No limitations - Head Head exam: Normocephalic. negative: Atraumatic, Normal inspection (There is a 2.5 cm superficial lac to the L forehead with bruising present. ) Head exam detail: Contusion, Laceration, [place] eyes - Eye Eye exam: PERRL, Periorbital swelling. negative: Normal appearance, Conjunctival injection, Periorbital tenderness - ENT ENT exam: Mucous membranes moist Ear exam: Normal external inspection Nasal Exam: Normal inspection Mouth exam: Other (left lower lip edema, bruising) - Neck Neck exam: Normal inspection, Full ROM. negative: Tenderness - Respiratory Respiratory exam: Normal lung sounds bilaterally. negative: Respiratory distress - Cardiovascular Cardiovascular Exam: Regular rate, Normal rhythm, Normal heart sounds Peripheral Pulses: 3+: Radial (R), Radial (L), Dorsalis Pedis (R), Dorsalis Pedis (L) - GI/Abdominal GI/Abdominal exam: Soft, Normal bowel sounds. negative: Tenderness - Rectal Rectal exam: Deferred - exam: Deferred - Extremities Extremities exam: Full ROM, Other (There is mild bruising to the patellar area on the knees bilaterally but no swelling. There is good ROM and the patient is able to walk.). negative: Normal inspection (There are superificial abrasions to the L proximal forearm with skin tears. There is no bleeding present and no bony tenderness. ), Tenderness - Back Back exam: Reports: Normal inspection - Neurological Neurological exam: Abnormal gait, Alert, Oriented X3. negative: Altered, Motor sensory deficit, Normal gait - Psychiatric Psychiatric exam: Flat affect - Skin Skin exam: Dry, Warm Type of lesion: Laceration (left mormonism) Assessment and Plan - Assessment and Plan (1) Falls frequently Current Visit: Yes Status: Acute Base Code: R29.6 - REPEATED FALLS Comment : 03/30/18 -pt fell at home, head lac, facial brusing and hematoma -weakness -head and Cspine CT audio clips review no acute process 03/31/18 -no falls today, assisted transfers with gait belt and walked -awaiting PT/OT eval (2) Scalp laceration Current Visit: Yes Status: Acute Base Code: S01.01XA - LACERATION WITHOUT FOREIGN BODY OF SCALP, INITIAL ENCOUNTER Comment: 03/30/18 -sutures to left mormonism 03/31/18 (3) Swallowing difficulty Current Visit: Yes Status: Acute Base Code: R13.10 - DYSPHAGIA, UNSPECIFIED Comment: 03/30/18 -Pt daughter reports diff swallowing for greater than 1 year, worse of the the past several months -have been thickening liq to nectar and have friend assist with daytime care -per family, pt coughing so hard she is passing out for a few seconds through out the day -Son in law insists that camera swallow study has been performed within the past year at [facility] -Pt on STRICT eating protoctol, pureed diet, thickened liq, swallow eval ordered 03/31/18 -[facility] contacted and no swallow study has been found for the past 2 years -provider present during breakfast, pt needs repeated verbal instruction to 1. take small bites, 2. finish swallowing before eating more, 3 chin tuck and 4 not eating while coughing (pt has ordered supervised meals, staff to continue proper swallowing techniques and monitoring pt habits -suction is maintained at bedside (4) Weakness Current Visit: Yes Status: Acute Base Code: R53.1 - WEAKNESS Priority: High Comment: 03/30/18 -PT OT eval ordered -pt up with assist, gait belt and walker -supervised eating 03/31/18 -awaiting PT/OT eval, up with assist gait belt and walker (5) DVT prophylaxis Current Visit: No Status: Acute Base Code: [id number] - Comment: 03/30/18 -high risk for DVT, lovenox SQ 40mg to start tomorrow pending normal neuro check through the night 03/31/18 -neuro checks normal, lovenox SQ started (6) DNR (do not resuscitate) Current Visit: Yes Status: Acute Base Code: Z66 - DO NOT RESUSCITATE Comment: 03/31/18 -DNR paperwork obtained from previous admission Results - Labs Result Diagrams: 03/31/18 06:00 03/29/18 15:02 Labs Last 24 Hours: Laboratory Results - last 24 hr 03/31/18 06:00 WBC 5.2 RBC 3.49 L Hgb 11.7 Hct 36.8 MCV 105.4 H MCH 33.5 H MCHC 31.8 L RDW 13.2 Plt Count 207 MPV 9.1 Gran % 52.5 Lymphocytes % 27.7 Monocytes % 10.2 H Eosinophils % 9.0 H Basophils % 0.6 DVT/PE Assessment - Risk for VTE Risk for VTE: No Risk Level: High Risk Assessment Date: 03/30/18 Risk Assessment Time: 11:00 VTE Orders Placed or Will Be Placed: Yes - Active Medicaitons Current Medications: Current Medications Acetaminophen (Tylenol 325mg) 650 mg PO Q6H PRN PRN Reason: PAIN - MILD(1-4)/FEVER Citalopram Hydrobromide (Celexa) 20 mg PO QHS [facility] Last Admin: 03/30/18 21:56 Dose: 20 mg Docusate Sodium (Colace) 100 mg PO DAILY [facility] Last Admin: 03/31/18 10:16 Dose: Not Given Enoxaparin Sodium (Lovenox) 30 mg SQ DAILY [facility] Last Admin: 03/31/18 10:17 Dose: 30 mg Gabapentin (Neurontin) 300 mg PO BID [facility] Last Admin: 03/31/18 10:16 Dose: 300 mg Levothyroxine Sodium (Synthroid) 75 mcg PO [id number] [facility] Last Admin: 03/31/18 06:00 Dose: 75 mcg Losartan Potassium (Cozaar) 50 mg PO QHS [facility] Last Admin: 03/30/18 21:55 Dose: 50 mg Torsemide (Torsemide) 10 mg PO DAILY [facility] Last Admin: 03/31/18 10:17 Dose: 10 mg AMI Plan - Labs Result Diagrams: 03/31/18 06:00 03/29/18 15:02
[2018-03-31] MEDS: UMECLIDINIUM BROMIDE (INCRUSE) 62.5MCG IH SCH (17:23)
[2018-03-31] MEDS ORDERED: GUAIFENESIN/D-METH. 10 ML UDC PO ONE (19:24)
--- NOTE | 2018-03-31 19:53 | CT SCAN REPORT ---
EXAM: CT SCAN HEAD WO CONTRAST HISTORY: MENTAL STATUS CHANGE, HEAD INJURY. TECHNIQUE: Sequential axial images were obtained from the foramen magnum to the vertex without contrast administration. FINDINGS: There is severe periventricular small vessel ischemic change. No large territorial infarct, hemorrhage, mass effect, or midline shift. No extraaxial fluid collection. The orbits, paranasal sinuses and mastoid air cells are normal. No depressed skull fracture. IMPRESSION: PERIVENTRICULAR SMALL VESSEL ISCHEMIA. NO LARGE TERRITORIAL INFARCT, HEMORRHAGE , MASS EFFECT, OR MIDLINE SHIFT. J[facility]BER: [id number] [facility]
--- NOTE | 2018-03-31 20:01 | CT SCAN REPORT ---
EXAM: CT SCAN CERVICAL SPINE WO CONTRAST HISTORY: FALL. TECHNIQUE: Sequential axial images were obtained through the cervical spine without intravenous contrast administration. Sagittal and coronal reformatted images were performed. FINDINGS: There is multilevel degenerative change. There is minimal anterior subluxation of C3 in respect to C4 and of C4 in respect to C5. No evidence of fracture. Calcified nodule left upper lobe. IMPRESSION: OSTEOPENIA WITH MULTILEVEL DEGENERATIVE CHANGE. THERE IS ANTEROLISTHESIS OF C3 IN RESPECT TO C4 AND OF C4 IN RESPECT TO C5. THIS IS LIKELY ON A DEGENERATIVE BASIS. [facility]: [id number] [facility]
--- NOTE | 2018-03-31 20:39 | RADIOLOGY REPORT ---
EXAM: CHEST 1 VIEW HISTORY: COUGH. TECHNIQUE: Single portable frontal view of the chest. COMPARISON: Chest radiograph 11/16/2017. FINDINGS: Cardiac silhouette within normal size limits. Thoracic aorta is calcified and tortuous. Pulmonary vasculature not appreciably dilated. Left mediastinal and perihilar region calcified lymph nodes/granulomas, seen previously. No definite focal pulmonary opacities. No visible pleural effusion or pneumothorax. Diffuse thoracic spondylosis with thoracolumbar levocurvature. Overlying clothing/blanket artifact slightly limits visualization of the left lung base. IMPRESSION: NO DEFINITE ACUTE PULMONARY FINDINGS. [facility]BER: [id number] [facility]
[2018-03-31] MEDS: LOSARTAN POTASSIUM 25 MG TABLET PO SCH (21:52)
[2018-03-31] MEDS: CITALOPRAM 20 MG TABLET PO SCH (21:52)
[2018-03-31] MEDS ORDERED: ZINC OXIDE 28.35 GM TUBE TOP ONE (22:50)
[2018-03-31] MEDS ORDERED: ZINC OXIDE 28.35 GM TUBE TOP PRN (22:52)
[2018-04-01] MEDS: LEVOTHYROXINE SODIUM 75 MCG TABLET PO SCH (06:38)
--- NOTE | 2018-04-01 09:56 | Rehab Evaluation ---
Patient Information - Patient Information Diagnosis: frequent falls with head injury Ordered Treatment: PT Evaluate and Treat Status: Initial Evaluation Past Medical/Surgical Hx: PAST MEDICAL/SURGICAL HISTORY Past Surgical History Back-titanium akshat bilateral TOTAL KNEE ARTHROPLASTY toe last year PMH - Respiratory Hx Respiratory Disorders No PMH - Cardiovascular Hx Cardiovascular Disorders Yes Hx Edema Yes Hx Heart Attack Yes Hx Hypertension Yes Comment: hx edema legs/ feet swelling PMH - Neuro Hx Neurological Disorders Yes Hx Seizures No PMH - GI Hx Gastrointestinal Disorders No PMH - Hx Genitourinary Disorders Yes Patient No Hx Bladder Problem Yes: Urinary incontinence PMH - Endocrine Hx Endocrine Disorders Yes Hx Diabetes No Hx Thyroid Disease Yes PMH - Musculoskeletal Hx Musculoskeletal Disorders Yes Hx Arthritis Yes Comment: Back surgery with hardware in 2008 PMH - Psych Hx Psychiatric Problems Yes Hx Anxiety Yes Hx Depression Yes PMH - Hematology/Oncology Hx Hematology/Oncology No Disorders Premorbid Status: Detail (The patient lives with daughter and son in law in a one story house with a ramp at the enterance. The patient's bathroom is equipped with a walk-in -shower with a seat. The patient is ambulatory with a front wheeled walker. The patient was receiving assistance with dressing and showering.) Social History: Detail (The patient has a supportive family) Precautions: [place], Fall, Other (diet restrictions due swallowing deficits.) - Time With Patient Total Time Spent With Patient (Min): 30 Treatment Procedures: Detail (Initial Evaluation.) Subjective Information - Subjective Information Per Patient (The patient had no complaints of pain. The patient stated " I have a lot of phlegm" and was having difficulty with coughing and clearing her airway when PT and OT entered room. RN was present and vitals were taken. Patient was eventually able to clear airway.) Objective Data - Mental Status Patient Orientation: Person, Time (The patient knew her birthdate, current month and year. When asked where she was the patient stated "Swing Bed".) - ROM Within normal limits (The patient's LE AROM was WNL.) - Strength/Tone Within normal limits (The patient's bilateral LE strength was generally 4+ to 5/ 5.) - Bed Mobility Needs Assist (Bed mobility was not assessed secondary to patient was up in a chair.) - Transfers Independent (The patient was independent with sit to and from stand transfer.) - Balance Balance Sitting: Good Balance Standing: Fair (The patient required support of walker for standing.) - Gait Detail (The patient ambulated with front wheeled walker a distance of 50 feet x 1 with supervision for safety only. The patient ambulated at a slow speed, no other gait deviations were noted.) Therapy Assessment - Therapy Assessment Detail (The patient was independent/supervision with transfers and ambulation and has good LE strength and ROM. The patient does present with balance deficits. Feel the patient does not shelter ongoing PT at this time, however the would benefit due to frequent falls, further balance assessment and Home PT eval to assess the patient's safety with mobilty in home environment.) Problem List - Problem List Physical Therapy Problem List: Detail (1) Decreased standing balance, frequent falls 2) Swallowing deficits) Goals - Goals Physical Therapy Goals: Evaluate the patient's balance using objective balance test Prognosis - Prognosis Moderate Plan - Plan Physical Therapy Plan: PT one time a day M-F for balance exercises. Short term Home PT is recommended for assessment of safety with mobility at home.
[2018-04-01] MEDS: ENOXAPARIN 30 MG/0.3 ML SYR SQ SCH (10:04)
[2018-04-01] MEDS: GABAPENTIN 300 MG CAPSULE PO SCH ×2 (10:04→22:29)
[2018-04-01] MEDS: DOCUSATE SODIUM 100 MG CAPSULE PO SCH (10:04)
--- NOTE | 2018-04-01 10:15 | Rehab Evaluation ---
Patient Information - Patient Information Diagnosis: frequent falls with head injury Ordered Treatment: OT Evaluate and Treat Status: Initial Evaluation Surgery: No Past Medical/Surgical Hx: PAST MEDICAL/SURGICAL HISTORY Past Surgical History Back-titanium akshat bilateral TOTAL KNEE ARTHROPLASTY toe last year PMH - Respiratory Hx Respiratory Disorders No PMH - Cardiovascular Hx Cardiovascular Disorders Yes Hx Edema Yes Hx Heart Attack Yes Hx Hypertension Yes Comment: hx edema legs/ feet swelling PMH - Neuro Hx Neurological Disorders Yes Hx Seizures No PMH - GI Hx Gastrointestinal Disorders No PMH - Hx Genitourinary Disorders Yes Patient No Hx Bladder Problem Yes: Urinary incontinence PMH - Endocrine Hx Endocrine Disorders Yes Hx Diabetes No Hx Thyroid Disease Yes PMH - Musculoskeletal Hx Musculoskeletal Disorders Yes Hx Arthritis Yes Comment: Back surgery with hardware in 2008 PMH - Psych Hx Psychiatric Problems Yes Hx Anxiety Yes Hx Depression Yes PMH - Hematology/Oncology Hx Hematology/Oncology No Disorders Premorbid Status: Detail (The patient lives with daughter and son in law in a one story house with a ramp at the entrance. The patient's bathroom is equipped with a [id number] with a seat. The patient is ambulatory with a front wheeled walker. The patient was receiving assistance with dressing and showering.) Social History: Detail (The patient has a supportive family) Precautions: [place], Fall, Other (impaired swallowing) - Time With Patient Total Time Spent With Patient (Min): 35 Treatment Procedures: Detail (OT eval low complexity) Subjective Information - Subjective Information Per Patient Objective Data - Pain Pain Present: No - Mental Status Patient Orientation: Oriented x3 (Pt oriented to month, year, birthday, stated location as "swing bed". She is able to follow all commands.) - Visual Perception Appears within normal limits for therapeutic activities (Pt reports she wears glasses although she did not have them available for evaluation.) - ROM Within normal limits (Jef UE AROM WNL.) - Strength/Tone Within normal limits (Jef UE AROM 4/5 throughout) - Coordination Appears within normal limits for therapeutic activities - Transfers Independent (Ind with sit to stand from recliner chair.) - Balance Balance Sitting: Good Balance Standing: Fair - Sensation Intact - Gait Detail (Pt ambulating in room and hallway with 2 wheeled walker with stand by assist.) - ADL's/IADL's Detail (Pt able to brush hair Indly, donned pants with max assist to start over feet and to picker/puller hips while standing.) Therapy Assessment - Therapy Assessment Detail (Pt presents with decreased Ind with self cares.) Problem List - Problem List Occupational Therapy Problem List: Detail (1. Decreased Ind with dressing tasks.) Goals - Goals Occupational Therapy Goals: 1. Pt will be Ind with total body dressing. Prognosis - Prognosis Good Plan - Plan Occupational Therapy Plan: OT 1-2 times per week. Recommend home OT to increase patients safety and Ind with self cares.
[2018-04-01] MEDS: UMECLIDINIUM BROMIDE (INCRUSE) 62.5MCG IH SCH (10:22)
[2018-04-01] MEDS: TORSEMIDE 20 MG TABLET PO SCH (10:57)
--- NOTE | 2018-04-01 14:17 | Physician Progress Note ---
Subjective - Date Date of Physician Progress Note: 04/01/18 - Subjective Subjective Comment: 04/01/18 pt condition remains the same, no issues through the night with coughing/ choking noted. Pt up in chair most of the day, HOB 30 or greater when in bed. pt remains incontinent of bowel and bladder. PT/OT eval completed today, swallow eval scheduled 1630. Pt family continues to request d/c with home health care. [employer] attempting to schedule fluoroscopy swallow study HGB, son in law to transport pt. Sutures left baptist remain intact, suture line has small amt serosang ooz but scant. Dressing to remain r/t pt continues to reach at the sutures, scratch and disturb suture line. STRICT intake orders remain, cont DNR status Objective - Vital Signs Vital Signs: Vital Signs - Last 24 Hrs Temp Pulse Pulse Pulse Resp BP BP 04/01/18 10:23 72 18 04/01/18 08:00 79 174/73 03/31/18 20:00 74 18 140/59 03/31/18 16:00 98.2 F 74 16 141/64 Pulse Ox 04/01/18 10:23 92 L 04/01/18 08:00 93 L 03/31/18 20:00 92 L 03/31/18 16:00 92 L - General General Appearance: Alert, Cooperative, No acute distress Limitations: No limitations - Head Head exam: Normocephalic. negative: Atraumatic, Normal inspection (There is a 2.5 cm superficial lac to the L forehead with bruising present. ) Head exam detail: Contusion, Laceration, [place] eyes - Eye Eye exam: PERRL, Periorbital swelling. negative: Normal appearance, Conjunctival injection, Periorbital tenderness - ENT ENT exam: Mucous membranes moist Ear exam: Normal external inspection Nasal Exam: Normal inspection Mouth exam: Other (left lower lip edema, bruising) - Neck Neck exam: Normal inspection, Full ROM. negative: Tenderness - Respiratory Respiratory exam: Normal lung sounds bilaterally. negative: Respiratory distress - Cardiovascular Cardiovascular Exam: Regular rate, Normal rhythm, Normal heart sounds Peripheral Pulses: 3+: Radial (R), Radial (L), Dorsalis Pedis (R), Dorsalis Pedis (L) - GI/Abdominal GI/Abdominal exam: Soft, Normal bowel sounds. negative: Tenderness - Rectal Rectal exam: Deferred - exam: Deferred - Extremities Extremities exam: Full ROM, Other (There is mild bruising to the patellar area on the knees bilaterally but no swelling. There is good ROM and the patient is able to walk.). negative: Normal inspection (There are superificial abrasions to the L proximal forearm with skin tears. There is no bleeding present and no bony tenderness. ), Tenderness - Back Back exam: Reports: Normal inspection - Neurological Neurological exam: Abnormal gait, Alert, Oriented X3. negative: Altered, Motor sensory deficit, Normal gait - Psychiatric Psychiatric exam: Flat affect - Skin Skin exam: Dry, Warm Type of lesion: Laceration (left baptist) Assessment and Plan - Assessment and Plan (1) Falls frequently Current Visit: Yes Status: Acute Base Code: R29.6 - REPEATED FALLS Comment : 03/30/18 -pt fell at home, head lac, facial brusing and hematoma -weakness -head and Cspine CT audio clips review no acute process 03/31/18 -no falls today, assisted transfers with gait belt and walked -awaiting PT/OT eval 04/01/18 -bruising improving, PT OT eval today -cont assisted transfers with gait belt and walker -CXR report reviewed no acute process (2) Scalp laceration Current Visit: Yes Status: Acute Base Code: S01.01XA - LACERATION WITHOUT FOREIGN BODY OF SCALP, INITIAL ENCOUNTER Comment: 03/30/18 -sutures to left baptist 03/31/18 -keep covered, sutures intact 04/01/18 -keep sutures covered -potential removal after 10 days, 04/08/18 by PCP (3) Swallowing difficulty Current Visit: Yes Status: Acute Base Code: R13.10 - DYSPHAGIA, UNSPECIFIED Comment: 03/30/18 -Pt daughter reports diff swallowing for greater than 1 year, worse of the the past several months -have been thickening liq to nectar and have friend assist with daytime care -per family, pt coughing so hard she is passing out for a few seconds through out the day -Son in law insists that camera swallow study has been performed within the past year at [facility] -Pt on STRICT eating protoctol, pureed diet, thickened liq, swallow eval ordered 03/31/18 -[facility] contacted and no swallow study has been found for the past 2 years -provider present during breakfast, pt needs repeated verbal instruction to 1. take small bites, 2. finish swallowing before eating more, 3 chin tuck and 4 not eating while coughing (pt has ordered supervised meals, staff to continue proper swallowing techniques and monitoring pt habits -suction is maintained at bedside 04/01/18 -swallow eval today 1630 -attempting scheduling of scope tomorrow HGB (4) Weakness Current Visit: Yes Status: Acute Base Code: R53.1 - WEAKNESS Priority: High Comment: 03/30/18 -PT OT eval ordered -pt up with assist, gait belt and walker -supervised eating 03/31/18 -awaiting PT/OT eval, up with assist gait belt and walker 04/01/18 -PT/OT eval completed -home health based orders per eval recommendations (5) DVT prophylaxis Current Visit: No Status: Acute Base Code: [id number] - Comment: 03/30/18 -high risk for DVT, lovenox SQ 40mg to start tomorrow pending normal neuro check through the night 03/31/18 -neuro checks normal, lovenox SQ started 04/01/18 -lovenox 40mg SQ (6) DNR (do not resuscitate) Current Visit: Yes Status: Acute Base Code: Z66 - DO NOT RESUSCITATE Comment: 04/01/18 -DNR paperwork obtained from previous admission Results - Labs Result Diagrams: 03/31/18 06:00 03/29/18 15:02 - Imaging and Cardiology Chest x-ray Status: Report reviewed (no acute process) DVT/PE Assessment - Risk for VTE Risk for VTE: No Risk Level: High Risk Assessment Date: 03/30/18 Risk Assessment Time: 11:00 VTE Orders Placed or Will Be Placed: Yes - Active Medicaitons Current Medications: Current Medications Acetaminophen (Tylenol 325mg) 650 mg PO Q6H PRN PRN Reason: PAIN - MILD(1-4)/FEVER Citalopram Hydrobromide (Celexa) 20 mg PO QHS [facility] Last Admin: 03/31/18 21:52 Dose: 20 mg Docusate Sodium (Colace) 100 mg PO DAILY [facility] Last Admin: 04/01/18 10:04 Dose: 100 mg Enoxaparin Sodium (Lovenox) 30 mg SQ DAILY [facility] Last Admin: 04/01/18 10:04 Dose: 30 mg Gabapentin (Neurontin) 300 mg PO BID [facility] Last Admin: 04/01/18 10:04 Dose: 300 mg Levothyroxine Sodium (Synthroid) 75 mcg PO [id number] [facility] Last Admin: 04/01/18 06:38 Dose: 75 mcg Losartan Potassium (Cozaar) 50 mg PO QHS [facility] Last Admin: 03/31/18 21:52 Dose: 50 mg Torsemide (Torsemide) 10 mg PO DAILY [facility] Last Admin: 04/01/18 10:57 Dose: 10 mg Zinc Oxide (Desitin) 10 gm TOP ASDIR PRN PRN Reason: RASH AMI Plan - Labs Result Diagrams: 03/31/18 06:00 03/29/18 15:02
--- NOTE | 2018-04-01 18:38 | Swallow Evaluation ---
Swallow Evaluation - General Patient Information Date of Assessment: 04/01/18 Referral Date: 04/01/18 Date of Onset: Approximately a year ago per medical record. Admitting Diagnosis: R29.6 Repeated Falls R13.10 Dysphagia Unspecified Medical History: Frequent falls - fell at home. Abnormal gait. Patient swallowing difficulty has worsened over the last year. Last visualization on record was from 2016 per medical records at [facility]. Patient is coughing so hard she is changing color and losing consciousness at times. Current Feeding Status: All Oral Cognitive Status: Grossly intact for the purpose of this evaluation. Oral Motor Assessment - Lips Lips at Rest: Normal Function Lip Retraction: Normal Function Lip Protrusion: Abnormal Function (Minimal protrusion.) - Tongue Tongue at Rest: Normal Function Tongue Protrusion: Abnormal Function Tongue Elevation: Abnormal Function (Unable to elevate or protrude beyond labial edge. Flat limited movement.) Tongue Lateralization: Normal Function - Velum Velum at Rest: Normal Function Velum Elevation: Normal Function - Additional Information Oral Sensitivity: Reduced. Volitional Cough/Throat Clearing: Yes-weak cough/throat clear-frequent. Often with change in color to face. Other Oral Motor Comment: Slightly abnormal articulation, tongue thrust like - unknown if this is at baseline. Additionally patient presents with moderate to severe harsh/strangled voice quality which deteriorates over time likely due to decreased breath support. Swallow Assessment - Oral Preparatory Phase Phase - Liquid: Normal Function Phase - Puree: Normal Function Phase - Solid: Normal Function - Oral Phase Phase - Liquid: Normal Function Phase - Puree: Abnormal Function Phase - Solid: Abnormal Function (Occasional residue which patient clears with lingual sweep independently.) - Pharyngeal Phase Phase - Liquid: Abnormal Function (Coughing and throat clear with nectar via cup edge. Reduced incidence of coughing with liquid via spoon. Patient occasionally 1/10 coughs to face color change to red but recovered with time.) Phase - Puree: Abnormal Function (Smooth puree such as pudding via 1/2 teaspoon no overt s/s. With pureed fruit such as apple or pear patient coughs with increased intensity. May be due to consistency differences.) Phase - Solid: Abnormal Function (Pureed chicken salad. Occasional cough - regular intensity.) - Additional Information Swallow Assessment Comment: Patient presents with moderate oral phase dysphagia characterized by oral residue and slight pocketing of heavier textures with good awareness for lingal sweep throughout the meal. Pharyngeal phase is moderate to severely impaired due to frequent delayed onset of phase up to 3 second delay. Patient often coughs on saliva without the presence of food or liquid. Patient could benefit from visualization of the swallow via Modified Barium Swallow Study (MBSS) to best guide treatment protocol given the severity and complexity of her current conditions. Patient instructed to maintain current diet: pureed foods, via half teaspoon with supervision for proper rate of intake and bolus size. Additionally the patient could benefit from liquids via spoon rather than cup edge. Medications in pudding which elicited less of a cough response when compared to pureed fruit/applesauce. Plan for Treatment - Diagnosis/Clinical Impression Diagnosis: Oropharyngeal dysphagia R13.12 Clinical Impression: Patient has complex oropharyngeal dysphagia. Benefits from modified diet but would further benefit from visualization to best determine diet and strengthening exercises if appropriate. Without cues and consistent caregiver support this patient will utilize bolus size and rate which are too fast for what her body can process without regard. With cues the patient improves. Patient may also benefit from GI referral due to some consistent throat clear and cough/belch which alerts to GI involvement. Patient to follow recommended diet modifications, recieve visualization to clarify treatment plan and recieve home based treatment to reinforce these recommendations. - Consistency Modification Consistency Modification: Soft (PUREE) Liquid Modification: [place] (Via spoon. 1/2 teaspoon.) Medication Modification: Crushed in Puree (In pudding.) - Behavior Modification Behavior Modification: Small Sips (via spoon. Could not elicit coordination for supraglottic swallow at the time of evaluation.), Position upright for all oral intake - Additional Plan Details Videofluroscopic Swallow Study Ordered: Yes Diagnosis/Recommendation Discussed With: Patient, Nurse
[2018-04-01] MEDS: LOSARTAN POTASSIUM 25 MG TABLET PO SCH (22:29)
[2018-04-01] MEDS: CITALOPRAM 20 MG TABLET PO SCH (22:29)
[2018-04-02] MEDS: LEVOTHYROXINE SODIUM 75 MCG TABLET PO SCH (06:40)
[2018-04-02] MEDS: UMECLIDINIUM BROMIDE (INCRUSE) 62.5MCG IH SCH (09:37)
[2018-04-02] MEDS: GABAPENTIN 300 MG CAPSULE PO SCH (09:38)
[2018-04-02] MEDS: DOCUSATE SODIUM 100 MG CAPSULE PO SCH (09:38)
[2018-04-02] MEDS: ENOXAPARIN 30 MG/0.3 ML SYR SQ SCH (09:39)
[2018-04-02] MEDS: TORSEMIDE 20 MG TABLET PO SCH (09:39)
[2018-04-02 10:15] LABS: BASO % 0.5 % (0-6); EOS % 6.9 % (0-6); HEMATOCRIT 40.6 % (35.0-47.0); HEMOGLOBIN 12.9 gm/dl (11.6-16.0); LYMPH % 19.2 % (16-45); MEAN CELL VOLUME 105.2 fl (81-97); MEAN CORPUSCULAR HEMOGLOBIN 33.4 pg (27-33); MEAN CORPUSCULAR HGB CONC 31.8 g/dl (32-36); MONO % 8.4 % (0-9); PLATELET COUNT 240 K/uL (130-400); RED BLOOD COUNT 3.86 M/uL (3.80-5.40); RED CELL DISTRIBUTION WIDTH 13.1 % (11.5-14.5)
[2018-04-02 10:34] LABS: CREATININE 1.1 mg/dL (0.5-0.9)
--- NOTE | 2018-04-02 10:47 | Discharge Summary ---
Providers Discharge Summary Date: 04/02/18 Date of admission: 03/29/18 17:42 Expected Date of Discharge: 04/02/18 Attending physician: YESICA HONG Primary care physician: EMA FIELDS D.O. Physical Exam - Vital Signs Vital Signs: Vital Signs - Last 24 Hrs Temp Pulse Pulse Resp BP BP BP 04/02/18 09:37 84 18 04/02/18 09:19 97.8 F 143/64 04/02/18 08:00 97.9 F 79 18 143/75 04/01/18 20:00 97.8 F 88 20 143/64 04/01/18 16:00 98.7 F 78 18 148/70 04/01/18 12:00 98.1 F 78 18 116/42 Pulse Ox 04/02/18 09:37 96 04/02/18 09:19 04/02/18 08:00 92 L 04/01/18 20:00 100 04/01/18 16:00 95 04/01/18 12:00 95 - General General Appearance: Alert, Oriented x3, Cooperative, No acute distress Limitations: No limitations - Head Head exam: negative: Atraumatic, Normocephalic, Normal inspection (There is a 2.5 cm superficial lac to the L forehead with bruising present. ) Head exam detail: Contusion (of the L side of the orbital area), Laceration - Eye Eye exam: Conjunctival injection (of the R eye, mild), Periorbital swelling. negative: Normal appearance, Periorbital tenderness - ENT ENT exam: Mucous membranes moist Ear exam: Normal external inspection Nasal Exam: Normal inspection - Neck Neck exam: Normal inspection, Full ROM. negative: Tenderness - Respiratory Respiratory exam: Normal lung sounds bilaterally. negative: Respiratory distress - Cardiovascular Cardiovascular Exam: Regular rate, Normal rhythm, Normal heart sounds - GI/Abdominal GI/Abdominal exam: Soft, Normal bowel sounds. negative: Tenderness - Rectal Rectal exam: Deferred - exam: Deferred - Extremities Extremities exam: Full ROM. negative: Tenderness - Neurological Neurological exam: Abnormal gait, Alert, Oriented X3. negative: Altered, Motor sensory deficit, Normal gait - Psychiatric Psychiatric exam: Flat affect - Skin Skin exam: Dry, Warm Type of lesion: Laceration (left gnosticism) Hospitalization - Hospitalization Admission Diagnosis: 1. Frequent Falls with a Head injury - Hospitalization Course Disposition: Home Health Service Hospital Course: ED course: 88 yo female admitted for freq falls, most recent happening 03/29/18 at home, while trying to dry off after shower. Pt lives with daughter and son in law. Has a home health ophthalmology assistant (friend of family that helps pt during the day, no trained aid) that was coming 10-2 but now is 9-5 as pt has been getting out of bed alone and falling. PMH significant swallowing issues to severe extend of coughing/choking and passing out. Family thickens liquids with "thick it" powder that is bought on the internet, to nectar consistency. Family reports pt had abnormal swallow study with [facility] but have continued care at home as pt is ambulatory and is albe to speak but very slowly for the past several months. Numerous falls at home reported by daughter and son in law from pt 1. bending over and falling, 2. coughing/choking during meals and passing out for a few seconds, 3. coughing while walking and falling. Daughter believes recent decline in health over the past 1-2 months is related to an UTI that was noted 02/24/18. Pt has completed treatment but falls and swallowing issues have become more problematic since then. Pt presented 03/29/18 to [facility] ER after falling in the bathroom, head laceration( requiring sutures), left eye edema, and forehead hematoma. CT head shows no acute injury, severe ischemic disease, C-spine CT no acute process-DDD noted, CXR no acute vesta injury noted. EKG NSR Hr 80. UA negative (straight cath) WBC 5.7, Hgb 13.2, Hct 39.7, Plt 254 Na 141, 4.6, Cl 100, CO2 30, BUN 32, Cr 1.5, GFR 35, LFTs normal Sutures completed and pt was admitted for falls. Hospital course: Pt was evaluated by PT/OT and had a swallow eval done. Pt qualified for home PT/ OT. Her swallow eval did show significant dysfunction. She has an outpt VFSS today at [facility]. Over her stay her mental status remained at baseline and there was no evidence of aspiration on CXR 2/2 to difficulty in swallowing. Upon D/C all abnormal labs trended to normal range. PCP to follow up on: - VFSS results and recs (possibly will need GI c/s) - ensure that the family is continuing to follow proper dysphagia diet (puree food via 1/2 tsp with supervision for proper bolus size and rate of feed, liquids via spoon and not cup, meds in pudding) as recommended. - Since having frequent falls gabapentin was stopped. Procedures: Imaging and X-Rays 03/29/18 14:38 CERVICAL SPINE WO CONTRAST [CT] Stat HEAD WO CONTRAST [CT] Stat 03/29/18 16:24 CHEST 1 VIEW [RAD] Stat Cardiology Procedures 03/29/18 14:42 EKG NOW Abnormal Labs: Abnormal Lab Results 03/29/18 03/29/18 03/31/18 Range/Units 15:02 15:02 06:00 RBC 3.49 L (3.80-5.40) M/uL MCV 103.1 H 105.4 H (81-97) fl MCH 34.3 H 33.5 H (27-33) pg MCHC 31.8 L (32-36) g/dl Monocytes % 9.2 H 10.2 H (0-9) % Eosinophils % 9.0 H (0-6) % Potassium 4.6 H (3.4-4.5) mmol/L Carbon Dioxide 30.0 H (22-29) mmol/L BUN 32 H (8-23) mg/dL Creatinine 1.5 H (0.5-0.9) mg/dL 04/02/18 Range/Units 10:02 RBC (3.80-5.40) M/uL MCV 105.2 H (81-97) fl MCH 33.4 H (27-33) pg MCHC 31.8 L (32-36) g/dl Monocytes % (0-9) % Eosinophils % 6.9 H (0-6) % Potassium (3.4-4.5) mmol/L Carbon Dioxide (22-29) mmol/L BUN (8-23) mg/dL Creatinine (0.5-0.9) mg/dL Condition at Discharge: (2) Stable VTE Discharge VTE Reason For No Overlap Therapy: Not Indicated Discharge Medications - Discharge Medications Home Medications: Ambulatory Orders Citalopram Hydrobromide [Celexa] 20 mg PO QHS #30 tablet 12/17/14 [Last Taken ] Docusate Sodium [Colace] 100 mg PO DAILY #90 cap 12/17/14 [Last Taken 03/29/18] Gabapentin [Neurontin] 300 mg PO BID #60 capsule 12/17/14 [Last Taken 03/29/18] Levothyroxine Sodium 75 mcg PO DAILY #90 tablet 12/17/14 [Last Taken 03/29/18] Losartan Potassium [Cozaar] 50 mg PO QHS #90 tablet 12/17/14 [Last Taken ] Multivitamin [Multi-Vitamin Daily] 1 each PO DAILY #90 tablet 12/17/14 [Last Taken 03/29/18] [place]-3 Fatty Acids/Fish Oil [Fish Oil 1,000 mg Softgel] 1 each PO DAILY #90 capsule 12/17/14 [Last Taken 03/29/18] Ascorbic Acid [Vitamin C] 500 mg PO DAILY 04/10/15 [Last Taken 03/29/18] Cinnamon Bark [Cinnamon] 500 mg PO ASDIR cap 12/10/15 [Last Taken 03/29/18] Cranberry Extract [Cranberry] 200 mg PO ASDIR cap 12/10/15 [Last Taken 03/29/18 ] Vitamin E (Dl,Tocopheryl Acet) [Vitamin E] 100 unit PO ASDIR cap 12/10/15 [ Last Taken 03/29/18] Sulfamethoxazole/Trimethoprim [Bactrim] 1 tab PO BID 03/29/18 [Last Taken ] Discharge Plan - Discharge Instructions Activity at Discharge: As Per Physical Therapy Diet at Discharge: Other (Dysphagia diet as recommended. ) Additional Instructions: PCP to follow up on: - Video guided swallow study results and recs (possibly will need GI c/s) - ensure that the family is continuing to follow proper dysphagia diet (puree food via 1/2 tsp with supervision for proper bolus size and rate of feed, liquids via spoon and not cup, meds in pudding) as recommended. - stop gabapentin since having frequent falls. Quality Measures - Quality Measures Quality Measures: Advance Directives, Documentation of Current Medications in Medical Record, Elder Maltreatment Screen and Follow-Up Plan, Screening for High Blood Pressure and F/U Documented - Current Medications Quality Measure: Measure #130: Documentation of Current Medications Documentation of Current Medications: <Current Medications Documented/Reviewed> [G8427] - Blood Pressure Screening Quality Measure: Screening for High Blood Pressure and Follow-Up Documented Does Patient Have Any of the Following: Active Dx of HTN Blood Pressure Classification: Hypertensive Reading Systolic Measurement: 143 Diastolic Measurement: 64 Screening for High Blood Pressure: Patient Exclusion, Hx of HTN [G9744] - Advance Directives Quality Measure: Measure #47: Care Plan Advance Directives Established: No Advance Directives Information Provided To Patient: Declined Advance Directives on File: No Living Will: No Power of Needle Felt Making Machine Operator: Yes Power of Needle Felt Making Machine Operator Name: leilani rangel, daughter Advance Care Planning: <Care Plan/Decision Maker Documented; Discussed & Documented> [1123F] - Elder Abuse Suspicion Index Screening: Elder Abuse Suspicion Index Screening Rely on people for bathing, dressing, shopping, banking, etc: Yes Prevented from getting food, clothes, medication, etc: No Made to feel shamed or threatened by someone: No Forced to sign papers or use money against will: No Feel afraid, touched in ways not wanted or hurt physically: No Poor eye contact, withdrawn, malnourished, cuts or bruises: No Screening Result: Negative result EASI Reference Information: Salvador MCCOY, Ingrid C, Adeel D, Cristina Vanegas.Development and validation of a tool to assist physicians identification of elder abuse: The Elder Abuse Suspicion Index (EASI ). Journal of Elder Abuse and Neglect, 2008; 20 (3): 276-300. - Elder Maltreatment Screen Quality Measures: Elder Maltreatment Screen and Follow-Up Plan Elder Maltreatment Screen: <Negative, No Follow-Up Plan Required> [G8783]
[2018-04-03 08:22] LABS: HEP A AB IGM Nonreactive (Nonreactive); HEPATITIS B CORE ANTIBODY,IGM Nonreactive (Nonreactive); HEPATITIS B SURFACE ANTIGEN Nonreactive (Nonreactive); HEPATITIS C VIRUS ANTIBODY Nonreactive (Nonreactive)
== END 2018-04-02 13:50 | disposition home health service (06) | DRG 93 ==
LOC: ER 14:15 → MEDSURG 17:42
PROVIDERS: ADMIT Internal Medicine; ATTEND Internal Medicine
DX: W19.XXXA Unspecified fall, initial encounter (principal); R29.6 Repeated falls; R13.10 Dysphagia, unspecified; Z91.81 History of falling; W18.39XA Other fall on same level, initial encounter; R60.9 Edema, unspecified; Y93.E1 Activity, personal bathing and showering; Y92.002 Bathroom of unspecified non-institutional (private) residence as the place of occurrence of the external cause; I10 Essential (primary) hypertension; E03.9 Hypothyroidism, unspecified; R05 Cough; R06.9 Unspecified abnormalities of breathing; R32 Unspecified urinary incontinence; Z66 Do not resuscitate
CPT/HCPCS: 70450; 71045; 72125; 80048; 80053; 81003; 85025; 86705; 86803; 87340; 87390; 93005; 93010; 94640; 99223; 99233; 99239; 99285; J1650

== ENCOUNTER 2018-06-26 14:15 | Emergency (ER) | payer MEDICARE, OTHER ==
--- NOTE | 2018-06-26 15:50 | Emergency Department Record ---
History of Present Illness - General Chief Complaint: Fall Injury Stated Complaint: FALL YESTERDAY/ LAC HEAD AND LOT HAND Time Seen by Provider: 06/26/18 14:26 Source: Patient, RN notes reviewed Mode of Arrival: Wheelchair - History of Present Illness Initial Comments: patient fell brushing her teeth and she was talking during the whole episode and son said no LOC and he caught her but she hit the back of the head with a laceration and 1 cm skin tear the back of the left hand. She is a DNR. 3 cm lacerations of her head occipital area and son states she is acting like herself and talking the way she always talks. Moving her arms and legs appropriately. MD Complaint: Fall Onset/Timin -: Hour(s) When Fall Occurred: Other Fall Witnessed: Yes, by family Place Fall Occurred: Home Loss of Consciousness: None Prolonged Down Time?: No Symptoms Prior to Fall: None Location: Head Context: Other Associated Symptoms: Denies - Related Data Previous Rx's Medication Instructions Recorded Citalopram Hydrobromide [Celexa] 20 mg PO QHS #30 tablet 12/17/14 Docusate Sodium [Colace] 100 mg PO DAILY #90 cap 12/17/14 Gabapentin [Neurontin] 300 mg PO BID #60 capsule 12/17/14 Levothyroxine Sodium 75 mcg PO DAILY #90 tablet 12/17/14 Losartan Potassium [Cozaar] 50 mg PO QHS #90 tablet 12/17/14 Multivitamin [Multi-Vitamin Daily] 1 each PO DAILY #90 tablet 12/17/14 [place]-3 Fatty Acids/Fish Oil [Fish 1 each PO DAILY #90 capsule 12/17/14 Oil 1,000 mg Softgel] Allergies Allergy/AdvReac Type Severity Reaction Status Date / Time venom-honey bee Allergy Severe ANAPHYLAXIS Verified 02/23/18 12:26 [bee venom (honey bee)] latex Allergy Mild ITCHING Verified 02/23/18 12:26 adhesive tape Allergy RASH Uncoded 08/18/16 20:49 Travel Screening - Travel/Exposure Within Last 30 Days Have you traveled within the last 30 days?: No Review of Systems Reviewed: No additional complaints except as noted below Constitutional: Reports: As per HPI. Denies: Chills, Fever, Malaise, Night sweats, Weakness, Weight change Eyes: Reports: As per HPI. Denies: Eye discharge, Eye pain, Photophobia, Vision change ENT: Reports: As per HPI. Denies: Congestion, Dental pain, Ear pain, Epistaxis , Hearing loss, Throat pain Respiratory: Reports: As per HPI. Denies: Cough, Dyspnea, Hemoptysis, Stridor, Wheezes Cardiovascular: Reports: As per HPI. Denies: Arrhythmia, Chest pain, Dyspnea on exertion, Edema, Murmurs, Orthopnea, Palpitations, Paroxysmal nocturnal dyspnea, Rheumatic Fever, Syncope Endocrine: Reports: As per HPI. Denies: Fatigue, Heat or cold intolerance, Polydipsia, Polyuria Gastrointestinal: Reports: As per HPI. Denies: Abdominal pain, Constipation, Diarrhea, Hematemesis, Hematochezia, Melena, Nausea, Vomiting Genitourinary: Reports: As per HPI. Denies: Abnormal menses, Discharge, Dyspareunia, Dysuria, Frequency, Hematuria, Incontinence, Retention, Urgency Musculoskeletal: Reports: As per HPI. Denies: Arthralgia, Back pain, Gout, Joint swelling, Myalgia, Neck pain Skin: Reports: As per HPI. Denies: Bruising, Change in color, Change in hair/ nails, Lesions, Pruritus, Rash Neurological: Reports: As per HPI. Denies: Abnormal gait, Confusion, Headache, Numbness, Paresthesias, Seizure, Tingling, Tremors, Vertigo, Weakness Psychiatric: Reports: As per HPI. Denies: Anxiety, Auditory hallucinations, Depression, Homicidal thoughts, Suicidal thoughts, Visual hallucinations Hematological/Lymphatic: Reports: As per HPI. Denies: Anemia, Blood Clots, Easy bleeding, Easy bruising, Swollen glands Past Medical History - SOCIAL HISTORY Smoking Status: Never smoker - RESPIRATORY Hx Respiratory Disorders: No - CARDIOVASCULAR Hx Cardio Disorders: Yes Hx Edema: Yes Hx Hypertension: Yes Comment:: hx edema legs/ feet swelling - NEURO Hx Neuro Disorders: Yes Hx Seizures: No - GI Hx GI Disorders: No - Hx Genitourinary Disorders: Yes Hx Bladder Problem: Yes (Urinary incontinence) - ENDOCRINE Hx Endocrine Disorders: Yes Hx Diabetes: No Hx Thyroid Disease: Yes - MUSCULOSKELETAL Hx Musculoskeletal Disorders: Yes Hx Arthritis: Yes Comment:: Back surgery with hardware in 2009 - PSYCH Hx Psych Problems: Yes Hx Anxiety: Yes Hx Depression: Yes - HEMATOLOGY/ONCOLOGY Hx Hematology/Oncology Disorders: No Family Medical History Any Significant Family History?: Yes Hx Cancer: Father Hx HTN: Mother Hx Stroke: Mother Physical Exam - General General Appearance: Alert, Oriented x3, Cooperative, No acute distress - Head Head exam: Normal inspection - Eye Eye exam: Normal appearance, PERRL Pupils: Normal accommodation - ENT ENT exam: Normal exam, Mucous membranes moist, Normal external ear exam, Normal orophraynx, TM's normal bilaterally Ear exam: Normal external inspection. negative: External canal tenderness Nasal Exam: Normal inspection. negative: Discharge, Sinus tenderness Mouth exam: Normal external inspection, Tongue normal Teeth exam: Normal inspection. negative: Dental caries Throat exam: Normal inspection. negative: Tonsillar erythema, Tonsillar exudate - Neck Neck exam: Normal inspection, Full ROM. negative: Tenderness - Respiratory Respiratory exam: Normal lung sounds bilaterally. negative: Respiratory distress - Cardiovascular Cardiovascular Exam: Regular rate, Normal rhythm, Normal heart sounds - GI/Abdominal GI/Abdominal exam: Soft, Normal bowel sounds. negative: Tenderness - Rectal Rectal exam: Deferred - exam: Deferred - Extremities Extremities exam: Normal inspection, Full ROM, Normal capillary refill. negative: Tenderness - Back Back exam: Reports: Normal inspection, Full ROM. Denies: Muscle spasm, Rash noted, Tenderness - Neurological Neurological exam: Alert, Normal gait, Oriented X3, Reflexes normal, Other ( neuro exam intact) - Psychiatric Psychiatric exam: Normal affect, Normal mood - Skin Skin exam: Dry, Intact, Normal color, Warm, Other (laceration back of the head 3 cm , and 1 cm laceration of the left hand) Course Vital Signs 06/26/18 14:41 Temperature 98.4 F Pulse Rate 71 Respiratory 18 Rate Blood Pressure 146/76 Pulse Ox 92 L - Reevaluation(s) Reevaluation #1: laceration repair on scalp occipital area 3 cm cleaned with shurclens 1% lidocaine liane time three 06/26/18 16:16 Reevaluation #2: repeat neuro exam intact 06/26/18 16:17 Reevaluation #3: Banquet Pilot sutures necessary for hand laceration 06/26/18 16:18 Disposition Clinical Impression: Laceration of scalp Qualifiers: Encounter type: initial encounter Qualified Code(s): S01.01XA - Laceration without foreign body of scalp, initial encounter Laceration of hand Qualifiers: Foreign body presence: without foreign body Laterality: left Instructions: Laceration (ED), Head Injury (ED) Additional Instructions: follow up with Dr Griffin or ED in 9 days to remove sutures Forms: Patient Portal Access Time of Disposition: 16:19 Quality - Quality Measures Quality Measures: N/A - Blood Pressure Screening Does Patient Have Any of the Following: No Blood Pressure Classification: Hypertensive Reading Systolic Measurement: 146 Diastolic Measurement: 76 Screening for High Blood Pressure: < Pre-Hypertensive BP, F/U Documented > [ G8950] Pre-Hypertensive Follow-up Interventions: Referral to alternative/primary care provider.
== END 2018-06-26 16:35 | disposition home or self-care (01) ==
LOC: ER 14:15
DX: S01.01XA Laceration without foreign body of scalp, initial encounter (principal); S61.412A Laceration without foreign body of left hand, initial encounter; I10 Essential (primary) hypertension; W01.198A Fall on same level from slipping, tripping and stumbling with subsequent striking against other object, initial encounter; Y93.E8 Activity, other personal hygiene; Y92.002 Bathroom of unspecified non-institutional (private) residence as the place of occurrence of the external cause
CPT/HCPCS: 12002; 99283

== ENCOUNTER 2018-07-05 06:52 | Emergency (ER) | payer MEDICARE, OTHER ==
--- NOTE | 2018-07-05 07:17 | Emergency Department Record ---
History of Present Illness - General Chief Complaint: Fall Injury Stated Complaint: FALL Time Seen by Provider: 07/05/18 07:10 Source: Patient Mode of Arrival: EMS Limitations: No limitations - History of Present Illness Initial Comments: 88 yo female presents after falling out of bed. She states she rolled out of bed and hit her forehead. No LOC. No confusion. She denies any other injuries. She is not on any anticoagulants. She has a history of multiple falls. MD Complaint: Fall Onset/Timin -: Minutes(s) Fall From: Out of bed When Fall Occurred: Just prior to arrival, Recurrent falls Fall Witnessed: Yes, by family Place Fall Occurred: Home Loss of Consciousness: None Prolonged Down Time?: No Symptoms Prior to Fall: None Location: Head Associated Symptoms: Denies - Related Data Previous Rx's Medication Instructions Recorded Citalopram Hydrobromide [Celexa] 20 mg PO QHS #30 tablet 12/17/14 Docusate Sodium [Colace] 100 mg PO DAILY #90 cap 12/17/14 Gabapentin [Neurontin] 300 mg PO BID #60 capsule 12/17/14 Levothyroxine Sodium 75 mcg PO DAILY #90 tablet 12/17/14 Losartan Potassium [Cozaar] 50 mg PO QHS #90 tablet 12/17/14 Multivitamin [Multi-Vitamin Daily] 1 each PO DAILY #90 tablet 12/17/14 [place]-3 Fatty Acids/Fish Oil [Fish 1 each PO DAILY #90 capsule 12/17/14 Oil 1,000 mg Softgel] Allergies Allergy/AdvReac Type Severity Reaction Status Date / Time venom-honey bee Allergy Severe ANAPHYLAXIS Verified 02/23/18 12:26 [bee venom (honey bee)] latex Allergy Mild ITCHING Verified 02/23/18 12:26 adhesive tape Allergy RASH Uncoded 08/18/16 20:49 Travel Screening - Travel/Exposure Within Last 30 Days Have you traveled within the last 30 days?: No Review of Systems Constitutional: Denies: Chills, Fever, Malaise, Weakness Eyes: Denies: Eye discharge ENT: Denies: Congestion Respiratory: Denies: Cough Cardiovascular: Denies: Chest pain, Syncope Endocrine: Denies: Fatigue Gastrointestinal: Denies: Abdominal pain, Diarrhea, Nausea, Vomiting Genitourinary: Denies: Dysuria Musculoskeletal: Denies: Arthralgia, Back pain, Myalgia Skin: Denies: Bruising, Rash Neurological: Denies: Headache Psychiatric: Denies: Anxiety Hematological/Lymphatic: Denies: Blood Clots, Easy bleeding, Easy bruising Past Medical History - SOCIAL HISTORY Smoking Status: Never smoker Alcohol Use: None Drug Use: None - RESPIRATORY Hx Respiratory Disorders: No - CARDIOVASCULAR Hx Cardio Disorders: Yes Hx Edema: Yes Hx Hypertension: Yes Comment:: hx edema legs/ feet swelling - NEURO Hx Neuro Disorders: Yes Hx Seizures: No - GI Hx GI Disorders: No - Hx Genitourinary Disorders: Yes Hx Bladder Problem: Yes (Urinary incontinence) - ENDOCRINE Hx Endocrine Disorders: Yes Hx Diabetes: No Hx Thyroid Disease: Yes - MUSCULOSKELETAL Hx Musculoskeletal Disorders: Yes Hx Arthritis: Yes Comment:: Back surgery with hardware in 2008 - PSYCH Hx Psych Problems: Yes Hx Anxiety: Yes Hx Depression: Yes - HEMATOLOGY/ONCOLOGY Hx Hematology/Oncology Disorders: No Family Medical History Any Significant Family History?: Yes Hx Cancer: Father Hx HTN: Mother Hx Stroke: Mother Physical Exam - General General Appearance: Alert, Oriented x3, Cooperative, No acute distress Limitations: No limitations - Head Head exam: negative: Atraumatic, Normal inspection Head exam detail: Laceration - Eye Eye exam: Normal appearance, PERRL. negative: Conjunctival injection, Scleral icterus - ENT ENT exam: Normal exam Ear exam: Normal external inspection Nasal Exam: Normal inspection Mouth exam: Normal external inspection - Neck Neck exam: Normal inspection, Full ROM. negative: Tenderness - Respiratory Respiratory exam: Normal lung sounds bilaterally. negative: Chest wall tenderness, Respiratory distress - Cardiovascular Cardiovascular Exam: Regular rate, Normal rhythm, Normal heart sounds Peripheral Pulses: 2+: Radial (R), Radial (L) - GI/Abdominal GI/Abdominal exam: Soft - Extremities Extremities exam: Normal inspection, Full ROM. negative: Joint swelling, Tenderness - Back Back exam: Denies: CVA tenderness (R), CVA tenderness (L) - Neurological Neurological exam: Alert, Oriented X3 - Psychiatric Psychiatric exam: Normal affect, Normal mood - Skin Type of lesion: Laceration Course Vital Signs 07/05/18 06:53 Temperature 97.6 F Pulse Rate 72 Respiratory 16 Rate Blood Pressure 151/77 Pulse Ox 92 L - Reevaluation(s) Reevaluation #1: The daughter has video of the incident. As the patient described, she rolled out of the bed slowly and hit her head on the foot stool at the bedside. 07/05/18 07:39 07/05/18 07:57 Procedure Note 3 cm laceration of the forehead Wound was cleaned and prepped in sterile fashion, no FB identified on examination. The wound was copiously irrigated with NS Wound was anesthetized with 3 mL of 1% Lidocaine with epinephrine The laceration was repaired with 4 sutures in interrupted fashion. Patient tolerated the procedure well without complications. We discussed home care, reasons for immediate return if any concerns, and suture removal in 7 days 07/05/18 08:[address] of the C spine were negative for acute injury or new process The patient has a very supportive family that is comfortable with continued home care We discussed reasons to return sooner than one week for suture removal Disposition Disposition: Discharge Clinical Impression: Forehead laceration Disposition: Home, Self-Care Condition: (1) Good Instructions: Laceration (ED), Fall Prevention for Older Adults (ED) Additional Instructions: Call your doctor for the next available follow up appointment Return to the ER for a recheck if worse, any new concerns or questions regarding the healing of the forehead laceration Review this ER visit and the tests performed with your family doctor Return in 7 days for suture removal Forms: Patient Portal Access Time of Disposition: 08:28 Quality - Quality Measures Quality Measures: N/A - Blood Pressure Screening Does Patient Have Any of the Following: No Blood Pressure Classification: Hypertensive Reading Systolic Measurement: 151 Diastolic Measurement: 77 Screening for High Blood Pressure: < Pre-Hypertensive BP, F/U Documented > [ G8950] Pre-Hypertensive Follow-up Interventions: Referral to alternative/primary care provider.
--- NOTE | 2018-07-08 10:18 | CT SCAN REPORT ---
EXAM: NONCONTRAST CT OF THE BRAIN HISTORY: FALL. TECHNIQUE: Noncontrast CT of the brain was obtained. Comparison: CT of the brain 03/29/18. FINDINGS: No midline shift, mass effect, or abnormal intra or extraaxial fluid collection. No cerebral edema, focal mass, or intracranial hemorrhage detected. Extensive periventricular and subcortical white matter hypoattenuation, similar from prior examination. Diffuse cerebral volume loss. No edema, focal mass, or intracranial hemorrhage detected. The basal cisterns are not effaced. No displaced calvarial fracture is detected. The visualized paranasal sinuses and mastoid air cells are clear. Small left frontal scalp hematoma. IMPRESSION: 1. NO ACUTE INTRACRANIAL FINDINGS. 2. SMALL LEFT FRONTAL SCALP HEMATOMA. 3. STABLE CHRONIC FINDINGS INCLUDING SMALL VESSEL ISCHEMIC WHITE MATTER CHANGE AND CEREBRAL VOLUME LOSS. JOB NUMBER: [id number] [facility]
--- NOTE | 2018-07-08 10:23 | CT SCAN REPORT ---
EXAM: NONCONTRAST CT OF THE CERVICAL SPINE HISTORY: FALL. TECHNIQUE: Noncontrast CT of the cervical spine was obtained. Comparison: CT of the cervical spine 03/29/18. FINDINGS: No acute fracture is seen. No evidence of dislocation. Grade 1 anterolisthesis at C3-C4, C4-C5, and C7-T1, similar from prior examination. Multilevel disk degeneration and facet joint arthrosis, similar from prior. Bilateral upper lobe scarring with multiple calcific granulomas in the left lung apex. IMPRESSION: 1. NO ACUTE CERVICAL SPINE FRACTURE OR DISLOCATION IS DETECTED. 2. ADVANCED MULTILEVEL CERVICAL SPINE DEGENERATIVE FINDINGS, SIMILAR FROM PRIOR EXAMINATION. MULTILEVEL ANTEROLISTHESIS IS SIMILAR FROM PRIOR STUDY AND LIKELY DEGENERATIVE IN NATURE. JOB NUMBER: [id number] [facility]
== END 2018-07-05 08:51 | disposition home or self-care (01) ==
LOC: ER 06:52
DX: S01.81XA Laceration without foreign body of other part of head, initial encounter (principal); I10 Essential (primary) hypertension; Z91.81 History of falling; W06.XXXA Fall from bed, initial encounter; Y92.003 Bedroom of unspecified non-institutional (private) residence as the place of occurrence of the external cause
CPT/HCPCS: 12052; 70450; 72125; 99284

== ENCOUNTER 2018-08-22 18:10 | Emergency (ER) | payer MEDICARE, OTHER ==
--- NOTE | 2018-08-22 18:26 | Emergency Department Record ---
History of Present Illness - General Chief complaint: Female Urogenital Problem Stated complaint: UTI Time Seen by Provider: 08/22/18 18:12 Source: Family (Son-in-law) Mode of Arrival: Wheelchair Limitations: No limitations - History of Present Illness Initial comments: 88 yo female presents to ED for evaluation of possible UTI. Patient's son-in- law reports decreased alertness that began approximately 7.5 hours ago, reports fever symptoms at home of 101. ANGIE reports simialr symptoms with previous UTI. ANGIE reports cough symptoms that are not different from the patient's baseline. MD Complaint: Other Onset/Timin -: Days(s) Severity: Moderate Consistency: Constant Improves with: None Worsens with: None Patient : No Associated Symptoms: Fever/chills - Related Data Home Medications Medication Instructions Recorded Confirmed Last Taken Nitrofurantoin [place] [Macrobid] 50 mg PO DAILY 08/22/18 08/22/18 Unknown Previous Rx's Medication Instructions Recorded Citalopram Hydrobromide [Celexa] 20 mg PO QHS #30 tablet 12/17/14 Docusate Sodium [Colace] 100 mg PO DAILY #90 cap 12/17/14 Gabapentin [Neurontin] 300 mg PO BID #60 capsule 12/17/14 Levothyroxine Sodium 75 mcg PO DAILY #90 tablet 12/17/14 Losartan Potassium [Cozaar] 50 mg PO QHS #90 tablet 12/17/14 Multivitamin [Multi-Vitamin Daily] 1 each PO DAILY #90 tablet 12/17/14 [place]-3 Fatty Acids/Fish Oil [Fish 1 each PO DAILY #90 capsule 12/17/14 Oil 1,000 mg Softgel] Allergies Allergy/AdvReac Type Severity Reaction Status Date / Time venom-honey bee Allergy Severe ANAPHYLAXIS Verified 08/22/18 18:18 [bee venom (honey bee)] latex Allergy Mild ITCHING Verified 08/22/18 18:18 adhesive tape Allergy RASH Uncoded 08/18/16 20:49 Travel Screening - Travel/Exposure Within Last 30 Days Have you traveled within the last 30 days?: No Review of Systems ROS unobtainable: Due to mental status Constitutional: Reports: Fever, Malaise Respiratory: Reports: Cough Past Medical History - SOCIAL HISTORY Smoking Status: Never smoker Alcohol Use: None Drug Use: None - RESPIRATORY Hx Respiratory Disorders: No - CARDIOVASCULAR Hx Cardio Disorders: Yes Hx Edema: Yes Hx Hypertension: Yes Comment:: hx edema legs/ feet swelling - NEURO Hx Neuro Disorders: Yes Hx Seizures: No - GI Hx GI Disorders: No - Hx Genitourinary Disorders: Yes Hx Bladder Problem: Yes (Urinary incontinence) Hx UTI: Yes - ENDOCRINE Hx Endocrine Disorders: Yes Hx Diabetes: No Hx Thyroid Disease: Yes - MUSCULOSKELETAL Hx Musculoskeletal Disorders: Yes Hx Arthritis: Yes Comment:: Back surgery with hardware in 2009 - PSYCH Hx Psych Problems: Yes Hx Anxiety: Yes Hx Depression: Yes - HEMATOLOGY/ONCOLOGY Hx Hematology/Oncology Disorders: No Family Medical History Any Significant Family History?: Yes Hx Cancer: Father Hx HTN: Mother Hx Stroke: Mother Physical Exam - General General Appearance: Moderate distress Limitations: Altered mental status - Head Head exam: Atraumatic, Normocephalic, Normal inspection Head exam detail: negative: Abrasion, Contusion, Nunn's sign, General tenderness, Hematoma, Laceration - Eye Eye exam: Normal appearance. negative: Conjunctival injection, Periorbital swelling, Periorbital tenderness, Scleral icterus - ENT Ear exam: negative: Auricular hematoma, Auricular trauma Nasal Exam: negative: Active bleeding, Discharge, Dried blood, Foreign body Mouth exam: negative: Drooling, Laceration, Muffled voice, Tongue elevation - Neck Neck exam: Normal inspection. negative: Meningismus, Tenderness - Respiratory Respiratory exam: Normal lung sounds bilaterally. negative: Respiratory distress, Rhonchi, Stridor, Wheezes - Cardiovascular Cardiovascular Exam: Regular rate, Normal rhythm, Normal heart sounds - GI/Abdominal GI/Abdominal exam: Soft. negative: Rebound, Rigid, Tenderness - Rectal Rectal exam: Deferred - exam: Deferred - Extremities Extremities exam: Normal inspection. negative: Pedal edema, Tenderness - Back Back exam: Denies: CVA tenderness (R), CVA tenderness (L) - Neurological Neurological exam: Altered - Psychiatric Psychiatric exam: Other (Cannot assess due to mental status) - Skin Skin exam: Normal color. negative: Abrasion Type of lesion: negative: abrasion Course Vital Signs 08/22/18 18:12 Temperature 100.0 F H Pulse Rate 98 H Respiratory 22 Rate Blood Pressure 124/62 Pulse Ox 86 L - Reevaluation(s) Reevaluation #1: 08/22/18 19:16 Patient and family members was reassessed and updated on results thus far, patient more alert on reassessment. Laboratory studies were reviewed, WBC 16K, 82% neutrophils, 6% bands. UA appears negative for infection. GFR 41%. Labs are otherwise grossly unremarkable for an acute process. Reevaluation #2: 08/22/18 20:24 CXR: No acute process, Scarring left base As the patient is more alert, patient is complaining of abdominal pain. Will obtain imaging of the abdomen and pelvis to exclude an acute infection. Reevaluation #3: 08/22/18 21:25 CT Abdomen and Pelvis: Pneumoperitoneum throughout the abdomen/pelvis Small left inguinal hernia with non-distended loops of small bowel Umbilical hernia with anterior wall of poly colon involved with small areas of gas foci. Patient and her daughter were updated on all results, after reviewing options, would prefer transfer to [facility]. Inv Reevaluation #4: 08/22/18 21:56 Case was discussed with Dr. Araya (general surgery at [facility]), will accept the patient for surgical evaluation ER-ER. Reevaluation #5: 08/22/18 22:16 EMS is present for STAT transfer to [facility]. Medical Decision Making - Lab Data Result diagrams: 08/22/18 18:40 08/22/18 18:40 Disposition Disposition: Transfer Clinical Impression: Pneumoperitoneum Inguinal hernia Qualifiers: Obstruction and gangrene presence: with obstruction but without gangrene Laterality: unilateral Recurrence: not specified as recurrent Qualified Code(s) : K40.30 - Unilateral inguinal hernia, with obstruction, without gangrene, not specified as recurrent Disposition: Acute Care Hospital Transfer Transfer To: [facility] Reason For Transfer: Surgical evaluation, family requests transfer Accepting Physician: Marshal Time Discussed w/Accepting Physician: 21:58 Condition: (2) Stable Forms: Patient Portal Access Time of Disposition: 21:58 Quality - Quality Measures Quality Measures: N/A - Blood Pressure Screening Does Patient Have Any of the Following: No Blood Pressure Classification: Pre-Hypertensive BP Reading Systolic Measurement: 124 Diastolic Measurement: 62 Screening for High Blood Pressure: < Pre-Hypertensive BP, F/U Documented > [ [id number]] Pre-Hypertensive Follow-up Interventions: Referral to alternative/primary care provider.
[2018-08-22] MEDS ORDERED: 0.9 % SODIUM CHLORIDE 1000ML 500 ML IV SCH (18:30)
[2018-08-22 18:49] LABS: URINE APPEARANCE CLEAR; URINE BILIRUBIN NEGATIVE (NEGATIVE); URINE BLOOD NEGATIVE (NEGATIVE); URINE COLOR YELLOW; URINE GLUCOSE (UA) NEGATIVE (NEGATIVE); URINE KETONE NEGATIVE (NEGATIVE); URINE LEUKOCYTE ESTERASE NEGATIVE (NEGATIVE); URINE NITRITE NEGATIVE (NEGATIVE); URINE PROTEIN NEGATIVE (NEGATIVE); URINE UROBILINOGEN 0.2 E.U./dL (0.20 - 1.00)
[2018-08-22 18:53] LABS: BASO % 0.1 % (0-6); HEMATOCRIT 41.2 % (35.0-47.0); HEMOGLOBIN 13.3 gm/dl (11.6-16.0); LYMPH % 4.2 % (16-45); MEAN CORPUSCULAR HEMOGLOBIN 33.3 pg (27-33); MEAN CORPUSCULAR HGB CONC 32.3 g/dl (32-36); MEAN PLATELET VOLUME 9.8 fl (7.4-10.4); MONO % 7.4 % (0-9); PLATELET COUNT 248 K/uL (130-400); RED CELL DISTRIBUTION WIDTH 13.8 % (11.5-14.5)
[2018-08-22 19:01] LABS: BLOOD UREA NITROGEN 30 mg/dL (8-23)
[2018-08-22 19:02] LABS: CREATININE 1.3 mg/dL (0.5-0.9); EST GLOMERULAR FILTRATION RATE 41 mL/min
[2018-08-22 19:04] LABS: GLUCOSE,RANDOM 133 mg/dL (74-109)
[2018-08-22 19:07] LABS: ALB/GLOB RATIO 1.3 (1.1-1.8); ALBUMIN 3.9 g/dL (4.0-5.0); ALKALINE PHOSPHATASE 53 U/L (35-104); ALT/SGPT 12 U/L (<33); AST/SGOT 19 U/L (10.0-35.0)
[2018-08-22] MEDS ORDERED: ERTAPENEM SODIUM 1 G in 0.9 % SODIUM CHLORIDE 100ML 100 ML IVPB ONE (21:25)
[2018-08-22] MEDS ORDERED: 0.9 % SODIUM CHLORIDE 1000ML 1,000 ML IV SCH (21:45)
--- NOTE | 2018-08-26 09:51 | CT SCAN REPORT ---
EXAM: CT OF THE ABDOMEN AND PELVIS WITHOUT CONTRAST HISTORY: ABDOMINAL PAIN, POSSIBLE URINARY TRACT INFECTION. TECHNIQUE: CT of the abdomen and pelvis was obtained without contrast. Comparison: None. FINDINGS: Trace bilateral pleural effusion or dependent pleural thickening. Linear opacities scattered throughout both lung bases likely scarring or atelectasis. Bronchial mucous plugging noted in the medial aspects of the right and left lower lobes. Unremarkable noncontrast appearance of the liver, gallbladder, adrenal glands, and pancreas. Calcified granulomas in the spleen. No hydronephrosis. Punctate 1 mm left intrarenal calculus. Aortoiliac arterial access is calcified and tortuous without aneurysmal dilation. The distal rectum is not fully imaged. Sigmoid colon diverticulosis without evidence of acute diverticulitis. Moderate to large volume of stool throughout the colon. The stomach and small bowel are nondilated. There is a small amount of pneumoperitoneum in the mid and lower abdomen and possibly the pelvis. There is a small left inguinal hernia containing nondilated small bowel loops and fat. Tiny periumbilical hernia containing foci of free air and a shallow portion of the anterior transverse colon wall (rectal hernia). Unremarkable CT appearance of the urinary bladder. Marked osteopenia. Post surgical changes of the lower lumbar spine. Extensive thoracolumbar degenerative findings. Bilateral femoral acetabular arthrosis. IMPRESSION: 1. SMALL VOLUME OF SCATTERED PNEUMOPERITONEUM SUGGESTING PERFORATED VISCOUS. 2. SMALL LEFT INGUINAL HERNIA CONTAINING NONDILATED SMALL BOWEL. 3. SMALL PERIUMBILICAL HERNIA CONTAINING SMALL FOCI OF GAS AND A SHALLOW PORTION OF THE ANTERIOR COLONIC WALL 4. MODERATE TO LARGE DIFFUSE COLONIC STOOL BURDEN. SIGMOID COLON DIVERTICULOSIS WITHOUT DEFINITE ACUTE DIVERTICULITIS. 5. SCARRING AND ATELECTASIS IN BOTH LUNG BASES. MUCOUS PLUGGING INVOLVING MEDIAL RIGHT AND LEFT LOWER LOBE BRONCHI. JOB NUMBER: [id number] [facility]
== END 2018-08-22 22:15 | disposition short-term general hospital (02) ==
LOC: ER 18:10
DX: K40.30 Unilateral inguinal hernia, with obstruction, without gangrene, not specified as recurrent (principal); K66.8 Other specified disorders of peritoneum; R05 Cough; I10 Essential (primary) hypertension
CPT/HCPCS: 99285 ×2; 96365; 80053; 81003; 84484; 85027; 71046; 74176; J1335; J7030

== ENCOUNTER 2018-08-30 14:22 | Inpatient (IN) | payer MEDICARE, OTHER ==
[~2018-08-30 14:22] MED LIST: GUAIFENESIN/D-METH. 10 ML UDC PO PRN; NAPROXEN 250 MG TABLET PO PRN
--- NOTE | 2018-08-30 18:43 | Swallow Evaluation ---
Swallow Evaluation - General Patient Information Date of Assessment: 08/30/18 Referral Date: 08/30/18 Date of Onset: 2013 Admitting Diagnosis: Post sigmoid colectomy Medical History: Pt has a history that is significant for chronic dysphagia, including modified diet - nectar thick liquids. No recent or recurrent history of pneumonia. An MBSS was completed in March 2018 which revealed aspiration with ejection of thin liquids spontaneously from above the vocal folds. Repeated MBSS completed in August 2018 was incomplete (no solid foods during study secondary to aspiration with honey thick liquids) and recommended NPO status with alternative means however patient and patient family expressed interest in continued oral feeding and understand aspiration risk at that time the reporting therapists recommended honey thick liquids and no solids. This carpentry foreman and family spoke at length regarding dysphagia history, risk and aspiration. Current Feeding Status: All oral. Cognitive Status: Grossly intact for current events. Recalled having a swallow study on 08/29. Oral Motor Assessment - Lips Lips at Rest: Normal Function Lip Retraction: Abnormal Function (reduced ROM) Lip Protrusion: Abnormal Function (reduced ROM) - Tongue Tongue at Rest: Normal Function Tongue Protrusion: Normal Function Tongue Elevation: Normal Function Tongue Lateralization: Normal Function - Velum Velum at Rest: Normal Function Velum Elevation: Normal Function - Additional Information Oral Sensitivity: Mildly reduced. Volitional Cough/Throat Clearing: Weak Other Oral Motor Comment: Patient cough is generally weak and occasionally turns her face red. This occured with coffee (nectar thick) only but no other consistencies. Swallow Assessment - Oral Preparatory Phase Phase - Liquid: Abnormal Function (delayed) Phase - Puree: Abnormal Function (delayed but functional) Phase - Solid: Abnormal Function (did not test this date, awaiting clearance from physician prior to solid trials.) - Oral Phase Phase - Liquid: Abnormal Function (delayed) Phase - Puree: Abnormal Function (delayed) Phase - Solid: Abnormal Function (did not test this date, awaiting clearance from physician prior to solid trials.) - Pharyngeal Phase Phase - Liquid: Abnormal Function (Occasional cough especially with coffee ( perhaps temperature change triggers increase cough response?). Not noted with other trials of nectar thick liquids and pureed foods.) Phase - Puree: Abnormal Function Phase - Solid: Abnormal Function (did not test this date, awaiting clearance from physician prior to solid trials.) - Additional Information Swallow Assessment Comment: Patient presents with oropharyngeal dysphagia which is characterized by generally delayed responses at all phases and single event of silent aspiration with honey thick liquids during MBSS on 08/29/18. Patient risk for nutritional decline outweights aspiration risk given consistent history of no recurrent or current pneumonia, other conditions considerations and patient age. Patient and family (daughter Selena and son in law) discussed with this carpentry foreman regarding patient history of dysphagia for 5 years including history of aspiration and aspiration risk. Patient thickens liquids at baseline to nectar thick and utilizes a straw due to severe kyphosis and difficulty with head positioning. Due to the use of thickener it is my opinion her bolus control is improved with a straw compared to edge of cup given positioning difficulties however use of a straw was not trialed on visualization on 08/29/18 and may need to be re-visualized if patient has increased difficulty. Patient and family maintain good positioning during and following PO intake (upright at 90 degrees). Patient could benefit from some strengtheing exercises for dysphagia and continued monitoring for advancement of diet. Current diet recommendation is pureed solid, nectar thick liquids. Supervision for liquids. Ok for straw if using single sip. Will confirm with physician prior to intiaition of solid foods to confirm bowel repair is not of consideration for current diet recommendations. Plan for Treatment - Diagnosis/Clinical Impression Diagnosis: Oropharyngeal dysphagia Clinical Impression: Patient presents with moderate oropharyngeal phase dysphagia with a history significant for esophogeal dialation, history of dysphagia up to 5 years with use of modifications such as nectar thick liquids. Patient is alert but weak. Cough is generally weak and occasionally causes the color of the face to change but returns to baseline after 1-2 coughs. This is consistent with the previous admission where this carpentry foreman had seen this patient do the same behavior. Patient could benefit from strengthening exercises both in regards to dysphagia management for diet advancement as well as improvement of swallow and breath coordination. Patient nutrition risks outweight dysphagia risks when considering general dysphagia history, lack of pneumonias and patient age. - Consistency Modification Consistency Modification: Soft (Puree) Liquid Modification: [place] Modification Comment: Pureed food pending clearance from physician. Use of straw. Supervision with liquids. Upright for all intake (as close to 90 degrees as tolerable). Encourage patient to utilize single sips via straw (not successive swallow as is typical for patient) as well as maintain lateral balance (typical to lean to right side but responds to verbal cues to sit/ straighten up). - Behavior Modification Behavior Modification: Small Sips, Use Straw, Hard Swallow, Position upright for all oral intake - Additional Plan Details Plan for Treatment: Address strengthing and coordination deficits through exercise such as effortful swallow and sip/blow for breath coordination. Sustained phonation exercises may also increase patient breath support for improved breath/swallow coordination. Advance diet as tolerated by patient and continue to provide education regarding dysphagia and nutritional risks and provide advice regarding the management of the co-occuring concerns. Videofluroscopic Swallow Study Ordered: No (Recently attempted but incomplete. Not rec. due to patient wishes.) Diagnosis/Recommendation Discussed With: Patient, Family, Caregiver, Nurse, Other (Recommended oral diet to advance patient nutrition vs. aspiration risk. Pt is at risk for aspiration but has longstanding history of dysphagia and no history of pneumonia. Per patient and family, this is their wish as well to continue with oral intake.) Goals for Treatment - Short Term Goals/Status: Goal #1: 1. Patient will reduce coughing with PO intake with exercises. Current Status: Patient coughs with coffee (possible due to temperature). Goal #2: Patient will improve swallow/breath coordination. 3-4 second "ah" Current Status: 1-2 seconds, clear. - Offset Press Operator Helper Goals/Status: Goal #1: Patient will improve oropharyngeal function of swallow phases during po. Current Status: Difficulty up to 30% of attempts. - Additional Goal Detail Additional Goal Detail: Patient and family would like the patient to return to solid foods, despite risk.
[2018-08-30] MEDS: LOSARTAN POTASSIUM 25 MG TABLET PO SCH (22:10)
[2018-08-30] MEDS: CITALOPRAM 20 MG TABLET PO SCH (22:10)
[2018-08-30] MEDS: DOCUSATE SODIUM 100 MG CAPSULE PO SCH (22:10)
[2018-08-30] MEDS: GABAPENTIN 300 MG CAPSULE PO SCH (22:11)
[2018-08-31] MEDS: PANTOPRAZOLE SODIUM 40 MG TABLET PO SCH (06:24)
[2018-08-31] MEDS: LEVOTHYROXINE SODIUM 75 MCG TABLET PO SCH (06:24)
[2018-08-31] MEDS: GABAPENTIN 300 MG CAPSULE PO SCH ×2 (10:26→21:54)
[2018-08-31] MEDS: DOCUSATE SODIUM 100 MG CAPSULE PO SCH ×2 (10:26→21:53)
[2018-08-31] MEDS: TORSEMIDE 20 MG TABLET PO SCH ×2 (10:26→10:36)
[2018-08-31] MEDS: CHOLECALCIFEROL 1,000 UNIT TABLET PO SCH (10:26)
[2018-08-31] MEDS: ASCORBIC ACID 500 MG TAB PO SCH (10:26)
[2018-08-31] MEDS: NITROFURANTOIN MONO 100 MG CAPSULE PO SCH (10:26)
[2018-08-31] MEDS: MULTIVITAMINS/MINERALS TABLET PO SCH (10:26)
--- NOTE | 2018-08-31 13:02 | History & Physical ---
History of Present Illness - Date Date of Service for History & Physical: 08/31/18 - History of Present Illness Admitting Diagnosis: multiple rehab SVS post sigmoid colectomy. perforated small bowl History of Present Illness: patient had a perforated viscous on 08/22/2018 and presented to [facility] ED and complained of weakness and UTI and it was found she had pneumoperitonium by CT scan of her abdomin. She was transferred to [facility] and had and exploatory lap, with a partial sigmoid resection and placement of a colostomy in the left lower quadrant. She was than transferred back to the swing bed at [facility] for rehab. 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 At [place] she had a video swallow exam with trace aspiration and family refused feeding tubes and will go with honey thickened fluids. General - Cognitive Patterns Speech: Soft, Limited Communication Skills (because of a previous CVA) Thought Process: Intact Thought Content: Normal Orientation: Oriented x3 - Communication Preferred Language?: [place]ian Cancer Program Director Required: No Level of Education: High School Preferred Method of Learning: Seeing, Doing, Reading Comprehension Ability: No Impairment Able to Read: Yes Able to Write: Yes Select best description of speech pattern: Unclear Speech Ability to express ideas and wants: Understood Understanding verbal content: Understands - Psychosocial Well-Being Usual Living Arrangement: Children - Physical Functioning Activity Level: Up with assist x2 Turning: With partial assist Assistive Devices: None, 2 Wheel Walker, Oxygen Ambulation Ability: Needs Assist Bed Mobility: Needs Assist Transfer Ability: Needs Assist Bathing Ability: Needs Assist Personal Hygiene: Needs Assist Dressing Ability: Needs Assist Eating (Feeding) Ability: Needs Assist Toileting Ability: Needs Assist Administer Own Medication: Needs Assist - Continence Bowel Pattern: Colostomy Bladder Pattern: Incontinent Urinary Incontinence: Total - Dental Status Unable to examine: No Broken or loosely fitting full or partial dentures: No No natural teeth or tooth fragment(s) (edentulous): No Abnormal mouth tissue (ulcers, masses, oral lesions, etc.): No Obvious or likely cavity or broken natural teeth: No Inflamed or bleeding gums or loose natural teeth: No Mouth/facial pain, discomfort or difficulty chewing: No - Nutrition Screening Poor oral intake > 1 week: No Unplanned weight loss in specified time frame: No Nutrition Support via tube feedings or parenteral nutrition: No Pressure Ulcer: No Significantly underweight define as BMI <18.5 kg/m2: No Albumin <2.5mg/dL: No Persistent nausea/vomiting/diarrhea >3 days: No Difficulty chewing/swallowing/mouth sores: No Admitting Diagnosis: Yes Nutrition Risk Score: Low Risk Review of Systems Reviewed: No additional complaints except as noted below Constitutional: Reports: As per HPI. Denies: Chills, Fever, Malaise, Night sweats, Weakness, Weight change Eyes: Reports: As per HPI. Denies: Eye discharge, Eye pain, Photophobia, Vision change ENT: Reports: As per HPI, Other (dysphagia and slow slurred speech for multiple years because of a CVA). Denies: Congestion, Dental pain, Ear pain, Epistaxis, Hearing loss, Throat pain Respiratory: Reports: As per HPI. Denies: Cough, Dyspnea, Hemoptysis, Stridor, Wheezes Cardiovascular: Reports: As per HPI. Denies: Arrhythmia, Chest pain, Dyspnea on exertion, Edema, Murmurs, Orthopnea, Palpitations, Paroxysmal nocturnal dyspnea, Rheumatic Fever, Syncope Endocrine: Reports: As per HPI. Denies: Fatigue, Heat or cold intolerance, Polydipsia, Polyuria Gastrointestinal: Reports: As per HPI, Other (colostomy LLq with stables on the ABD). Denies: Abdominal pain, Constipation, Diarrhea, Hematemesis, Hematochezia , Melena, Nausea, Vomiting Genitourinary: Reports: As per HPI. Denies: Abnormal menses, Discharge, Dyspareunia, Dysuria, Frequency, Hematuria, Incontinence, Retention, Urgency Musculoskeletal: Reports: As per HPI. Denies: Arthralgia, Back pain, Gout, Joint swelling, Myalgia, Neck pain Skin: Reports: As per HPI. Denies: Bruising, Change in color, Change in hair/ nails, Lesions, Pruritus, Rash Neurological: Reports: As per HPI. Denies: Abnormal gait, Confusion, Headache, Numbness, Paresthesias, Seizure, Tingling, Tremors, Vertigo, Weakness Psychiatric: Reports: As per HPI. Denies: Anxiety, Auditory hallucinations, Depression, Homicidal thoughts, Suicidal thoughts, Visual hallucinations Hematological/Lymphatic: Reports: As per HPI. Denies: Anemia, Blood Clots, Easy bleeding, Easy bruising, Swollen glands Past Medical History - SOCIAL HISTORY Smoking Status: Never smoker Alcohol Use: None - SURGICAL HISTORY Past Surgical History: Back-titanium akshat. bilateral TOTAL KNEE ARTHROPLASTY. toe last year - RESPIRATORY Hx Respiratory Disorders: No - CARDIOVASCULAR Hx Cardio Disorders: Yes Hx Edema: Yes Hx Hypertension: Yes Comment:: hx edema legs/ feet swelling - NEURO Hx Neuro Disorders: Yes Hx Seizures: No - GI Hx GI Disorders: No - Hx Genitourinary Disorders: Yes Hx Bladder Problem: Yes (Urinary incontinence) Hx UTI: Yes - ENDOCRINE Hx Endocrine Disorders: Yes Hx Diabetes: No Hx Thyroid Disease: Yes - MUSCULOSKELETAL Hx Musculoskeletal Disorders: Yes Hx Arthritis: Yes Comment:: Back surgery with hardware in 2009 - PSYCH Hx Psych Problems: Yes Hx Anxiety: Yes Hx Depression: Yes - HEMATOLOGY/ONCOLOGY Hx Hematology/Oncology Disorders: No Family Medical History Any Significant Family History?: No Hx Cancer: Father Hx HTN: Mother Hx Stroke: Mother H&P Meds/Allergies - Allergies Allergies: Allergies Allergy/AdvReac Type Severity Reaction Status Date / Time venom-honey bee Allergy Severe ANAPHYLAXIS Verified 08/22/18 18:18 [bee venom (honey bee)] latex Allergy Mild ITCHING Verified 08/22/18 18:18 adhesive tape Allergy RASH Uncoded 08/18/16 20:49 - Home Medications Previous Rx's Medication Instructions Recorded Citalopram Hydrobromide [Celexa] 20 mg PO QHS #30 tablet 12/17/14 Docusate Sodium [Colace] 100 mg PO DAILY #90 cap 12/17/14 Gabapentin [Neurontin] 300 mg PO BID #60 capsule 12/17/14 Levothyroxine Sodium 75 mcg PO DAILY #90 tablet 12/17/14 Losartan Potassium [Cozaar] 50 mg PO QHS #90 tablet 12/17/14 Multivitamin [Multi-Vitamin Daily] 1 each PO DAILY #90 tablet 12/17/14 [place]-3 Fatty Acids/Fish Oil [Fish 1 each PO DAILY #90 capsule 12/17/14 Oil 1,000 mg Softgel] - Active Medications Active Medications: Current Medications Acetaminophen (Tylenol 325mg) 650 mg PO Q6H PRN PRN Reason: PAIN - MILD TO MODERATE (1-7) Ascorbic Acid (Vitamin C) 500 mg PO DAILY [facility] Last Admin: 08/31/18 10:26 Dose: 500 mg Citalopram Hydrobromide (Celexa) 20 mg PO QHS [facility] Last Admin: 08/30/18 22:10 Dose: 20 mg Docusate Sodium (Colace) 100 mg PO BID [facility] Last Admin: 08/31/18 10:26 Dose: 100 mg Gabapentin (Neurontin) 300 mg PO BID [facility] Last Admin: 08/31/18 10:26 Dose: 300 mg Guaifenesin (Robitussin Dm) 10 ml PO Q6H PRN PRN Reason: COUGH Levothyroxine Sodium (Synthroid) 75 mcg PO DAILYTHY [facility] Last Admin: 08/31/18 06:24 Dose: 75 mcg Losartan Potassium (Cozaar) 50 mg PO QHS [facility] Last Admin: 08/30/18 22:10 Dose: 50 mg Multivitamins/Minerals (Centrum) 1 tab PO DAILY [facility] Last Admin: 08/31/18 10:26 Dose: 1 tab Naproxen (Naprosyn) 250 mg PO BID PRN PRN Reason: PAIN - MILD TO MODERATE (1-7) Nitrofurantoin Macrocrystals (Macrobid) 100 mg PO DAILY [facility] Last Admin: 08/31/18 10:26 Dose: 100 mg Pantoprazole Sodium (Protonix) 40 mg PO DAILYAC [facility] Last Admin: 08/31/18 06:24 Dose: 40 mg Torsemide (Torsemide) 10 mg PO DAILY [facility] Last Admin: 08/31/18 10:36 Dose: Not Given Vitamin D (Vitamin D3) 2,000 unit PO DAILY [facility] Last Admin: 08/31/18 10:26 Dose: 2,000 unit Physical Exam - Vital Signs Vital Signs: Vital Signs - Last 24 Hrs Temp Pulse Resp BP Pulse Ox 08/31/18 08:00 99.5 F 79 18 103/52 95 08/30/18 20:00 98.9 F 80 20 136/61 96 08/30/18 14:50 98.3 F 74 18 116/56 95 - General General Appearance: Alert, Oriented x3, Cooperative, No acute distress, Other ( slow speech , dysphagia) - Head Head exam: Normal inspection - Eye Eye exam: Normal appearance, PERRL Pupils: Normal accommodation - ENT ENT exam: Normal exam, Mucous membranes moist, Normal external ear exam, Normal orophraynx, TM's normal bilaterally Ear exam: Normal external inspection. negative: External canal tenderness Nasal Exam: Normal inspection. negative: Discharge, Sinus tenderness Mouth exam: Normal external inspection, Tongue normal Teeth exam: Normal inspection. negative: Dental caries Throat exam: Normal inspection. negative: Tonsillar erythema, Tonsillar exudate - Neck Neck exam: Normal inspection, Full ROM. negative: Tenderness - Respiratory Respiratory exam: Normal lung sounds bilaterally. negative: Respiratory distress - Cardiovascular Cardiovascular Exam: Regular rate, Normal rhythm, Normal heart sounds - GI/Abdominal GI/Abdominal exam: Soft, Normal bowel sounds. negative: Tenderness - Rectal Rectal exam: Deferred - exam: Deferred - Extremities Extremities exam: Normal inspection, Full ROM, Normal capillary refill. negative: Tenderness - Back Back exam: Reports: Normal inspection, Full ROM. Denies: Muscle spasm, Rash noted, Tenderness - Neurological Neurological exam: Alert, Normal gait, Oriented X3, Reflexes normal - Psychiatric Psychiatric exam: Normal affect, Normal mood - Skin Skin exam: Dry, Intact, Normal color, Warm Discharge Potential - Discharge Needs Community Services Used Prior to Admission: Home Health Aide Patient Discharge Plan Description: Return Home Plan - Swing Bed Certification Initial Certification Due: 08/30/18 14 Day Re-Cert Due: 09/13/18 44 Day Re-Cert Due: 10/13/18 74 Day Re-Cert Due: 11/12/18 - Detailed Diagnosis and Plan (1) Physical deconditioning Current Visit: Yes Status: Acute Base Code: R53.81 - OTHER MALAISE Priority: High (2) Weakness Current Visit: No Status: Acute Base Code: R53.1 - WEAKNESS Priority: High Comment: 03/30/18 -PT OT eval ordered -pt up with assist, gait belt and walker -supervised eating 03/31/18 -awaiting PT/OT eval, up with assist gait belt and walker 04/01/18 -PT/OT eval completed -home health based orders per eval recommendations (3) Perforated abdominal viscus Current Visit: Yes Status: Acute Base Code: [id number] - Priority: High (4) History of partial colectomy Current Visit: Yes Status: Acute Base Code: Z90.49 - ACQUIRED ABSENCE OF OTHER SPECIFIED PARTS OF DIGESTIVE TRACT Priority: High Comment: partial sigmoid colectomy at [facility] by Dr. 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 Qualified Code(s): E03.4 - Atrophy of thyroid (acquired) Base Code: E03.9 - HYPOTHYROIDISM, UNSPECIFIED Priority: Medium (6) DNR (do not resuscitate) Current Visit: No Status: Acute Base Code: Z66 - DO NOT RESUSCITATE Priority: Medium Comment: 04/01/18 -DNR paperwork obtained from previous admission (7) Swallowing difficulty Current Visit: No Status: Acute Qualifiers: Dysphagia type: oral phase Qualified Code(s): R13.11 - Dysphagia, oral phase Base Code: R13.10 - DYSPHAGIA, UNSPECIFIED Priority: Medium Comment: 03/30/18 -Pt daughter reports diff swallowing for greater than 1 year, worse of the the past several months -have been thickening liq to nectar and have friend assist with daytime care -per family, pt coughing so hard she is passing out for a few seconds through out the day -Son in law insists that camera swallow study has been performed within the past year at [facility] -Pt on STRICT eating protoctol, pureed diet, thickened liq, swallow eval ordered 03/31/18 -[facility] contacted and no swallow study has been found for the past 2 years -provider present during breakfast, pt needs repeated verbal instruction to 1. take small bites, 2. finish swallowing before eating more, 3 chin tuck and 4 not eating while coughing (pt has ordered supervised meals, staff to continue proper swallowing techniques and monitoring pt habits -suction is maintained at bedside 04/01/18 -swallow eval today 1630 -attempting scheduling of scope tomorrow [facility] (8) Hypertension Current Visit: Yes Status: Acute Qualifiers: Hypertension type: essential hypertension Qualified Code(s): I10 - Essential (primary) hypertension Base Code: I10 - ESSENTIAL (PRIMARY) HYPERTENSION Priority: Medium (9) GERD (gastroesophageal reflux disease) Current Visit: Yes Status: Acute Base Code: K21.9 - GASTRO-ESOPHAGEAL REFLUX DISEASE WITHOUT ESOPHAGITIS Priority: Medium - Disposition plan to go and live with here daughter Selena
[2018-08-31] MEDS: LOSARTAN POTASSIUM 25 MG TABLET PO SCH (21:53)
[2018-08-31] MEDS: CITALOPRAM 20 MG TABLET PO SCH (21:53)
[2018-09-01 06:21] LABS: HEMATOCRIT 30.7 % (35.0-47.0); HEMOGLOBIN 9.3 gm/dl (11.6-16.0); MEAN CELL VOLUME 107.3 fl (81-97); MEAN CORPUSCULAR HEMOGLOBIN 32.5 pg (27-33); MEAN CORPUSCULAR HGB CONC 30.3 g/dl (32-36); MEAN PLATELET VOLUME 9.1 fl (7.4-10.4); PLATELET COUNT 426 K/uL (130-400); RED BLOOD COUNT 2.86 M/uL (3.80-5.40); RED CELL DISTRIBUTION WIDTH 14.3 % (11.5-14.5); WHITE BLOOD COUNT W/O DIFF 9.9 K/uL (4.2-12.2)
[2018-09-01 06:33] LABS: BLOOD UREA NITROGEN 10 mg/dL (8-23); CREATININE 0.8 mg/dL (0.5-0.9); EST GLOMERULAR FILTRATION RATE > 60 mL/min; GLUCOSE,RANDOM 104 mg/dL (74-109)
[2018-09-01] MEDS: PANTOPRAZOLE SODIUM 40 MG TABLET PO SCH (08:25)
[2018-09-01] MEDS: LEVOTHYROXINE SODIUM 75 MCG TABLET PO SCH (08:25)
[2018-09-01] MEDS: NITROFURANTOIN MONO 100 MG CAPSULE PO SCH (10:13)
[2018-09-01] MEDS: GABAPENTIN 300 MG CAPSULE PO SCH ×2 (10:13→21:28)
[2018-09-01] MEDS: CHOLECALCIFEROL 1,000 UNIT TABLET PO SCH (10:13)
[2018-09-01] MEDS: MULTIVITAMINS/MINERALS TABLET PO SCH (10:14)
[2018-09-01] MEDS: ASCORBIC ACID 500 MG TAB PO SCH (10:14)
[2018-09-01] MEDS: DOCUSATE SODIUM 100 MG CAPSULE PO SCH ×2 (10:14→21:29)
--- NOTE | 2018-09-01 14:41 | Swallow Tx Note ---
Swallow Tx Note - Time with Patient Total Time Spent With Patient (Min): 30 - Treatment Note Swallow Treatment Note: Emphasis on strengthening exercises to work to reduce frequency of coughing and improve strength of cough. Introduced effortful swallow exercise for pharyngeal strengthening. Short "ah" 3 times per breath for 5 repetitions was achieved across 6 trials. Patient was fatigued but improved with strengthening practice was able to maintain open eyes and upright posture with good awareness. Advanced to trials of dyspagia II foods such as cottage cheese and banana. Pt consumed 2-3 teaspoons of banana and 1-2 teaspoons of cottage cheese. With cottage cheese patient demonstrated lingual sweep with finger indepdentently. Pt is clear for dysphagia II foods such as the aformentioned foods with supervision and use of spoon to control amount to approximately 1/2 teaspoon amounts at a time. Continue with other diet recommendations: nectar thick liquids and primarily pureed foods. Will continue to work to reduce s/s of dysphagia to advance diet. Plan for Treatment - Diagnosis/Clinical Impression Diagnosis: oropharyngeal dysphagia - Consistency Modification Consistency Modification: Soft (Puree but OK for dysphagia II - cottage cheese and banana with controlled amounts.) - Behavior Modification Behavior Modification: Small Sips, Use Straw, Position upright for all oral intake - Additional Plan Details Videofluroscopic Swallow Study Ordered: No Diagnosis/Recommendation Discussed With: Patient, Other Goals for Treatment - Short Term Goals/Status: Goal #1: 1. Patient will reduce coughing with PO intake with exercises. Goal #2: Patient will improve swallow/breath coordination. 3-4 second "ah" Current Status: 2-3 second "ah" improved with moderate verbal/visual cues. - Usp Goals/Status: Goal #1: Patient will improve oropharyngeal function of swallow phases during po.
[2018-09-01] MEDS ORDERED: BISACODYL 10 MG SUPP RC ONE (18:29)
[2018-09-01] MEDS: CITALOPRAM 20 MG TABLET PO SCH (21:30)
[2018-09-01] MEDS: LOSARTAN POTASSIUM 25 MG TABLET PO SCH (21:31)
[2018-09-02] MEDS: PANTOPRAZOLE SODIUM 40 MG TABLET PO SCH (06:53)
[2018-09-02] MEDS: LEVOTHYROXINE SODIUM 75 MCG TABLET PO SCH (06:53)
--- NOTE | 2018-09-02 09:41 | Rehab Evaluation ---
Patient Information - Patient Information Diagnosis: deconditioning due to post sigmoid colectomy Ordered Treatment: PT Evaluate and Treat Status: Initial Evaluation Past Medical/Surgical Hx: PAST MEDICAL/SURGICAL HISTORY Past Surgical History Back-titanium akshat bilateral TOTAL KNEE ARTHROPLASTY toe last year PMH - Respiratory Hx Respiratory Disorders No PMH - Cardiovascular Hx Cardiovascular Disorders Yes Hx Edema Yes Hx Heart Attack Yes Hx Hypertension Yes Comment: hx edema legs/ feet swelling PMH - Neuro Hx Neurological Disorders Yes Hx Seizures No PMH - GI Hx Gastrointestinal Disorders No PMH - Hx Genitourinary Disorders Yes Hx Bladder Problem Yes: Urinary incontinence Hx Urinary Tract Infection Yes PMH - Endocrine Hx Endocrine Disorders Yes Hx Diabetes No Hx Thyroid Disease Yes PMH - Musculoskeletal Hx Musculoskeletal Disorders Yes Hx Arthritis Yes Comment: Back surgery with hardware in 2008 PMH - Psych Hx Psychiatric Problems Yes Hx Anxiety Yes Hx Depression Yes PMH - Hematology/Oncology Hx Hematology/Oncology No Disorders Premorbid Status: Detail (The patient lives with daughter in a one story home with a basement with a ramp at the enterance. The bathroom is equipped with a walk in executive chef assistant with a seat and no grab bars and a commode over toilet. The patient was ambulatory household distances with use of front wheeled walker (to kitchen twice a day). The patient had assistance with dressing, showering, getting out of bed and all household tasks.) Social History: Detail (Patient has a supportive family.) Precautions: [place], Fall - Time With Patient Total Time Spent With Patient (Min): 30 Treatment Procedures: Detail (Initial evaluation) Subjective Information - Subjective Information Per Patient (The patient has complaints of abdominal pain level 4 using 0-10 pain scale.) Objective Data - Mental Status Patient Orientation: Oriented x3 (The patient did not know her age but knew birthdate, current month and year.) - ROM Within normal limits (The patient's LE AROM was WFL.) - Strength/Tone Not within normal limits (The patient's bilateral hip strength was 4- throughout , knee extensors 4+/5, knee flexors 4/5 and ankle musculature was 4/5.) - Bed Mobility Needs Assist (The patient acheived minimal PA of 1 and moderate PA of 1 with supine to sit.) - Transfers Needs Assist (The patient required moderate PA of 1 , minimal PA of 1 with sit to and from stand transfer.) - Balance Balance Sitting: Poor (The patient supported herself with her arms in a sitting position . The Patient leaned to right with dynamic activity ie: putting her gown on. The patient required minimal PA to maintain her balance.) Balance Standing: Poor (The patient required support of the walker for standing . The patient leaned to the right with ambulation.) - Gait Detail (The patient ambulated 2 to 3 steps to the chair with use of front wheeled walker and 1.5 L of O2 with CG of 1 plus minimal assist to move the walker. The patient's gait pattern was charecterized by right trunk lean and shuffling steps right side greater then L.) Therapy Assessment - Therapy Assessment Detail (The patient presents with decreased LE strength, assistance with transfers, bed mobility and ambulation. The patient also has decreased ability to complete prolonged physical activity. Feel the patient will benefit from subacute Rehab to return to previous functional level. Due to stable medical condition and few personal factors PT evaluation complexity is rated as low.) Problem List - Problem List Physical Therapy Problem List: Detail (1)Decreased LE strength 2) Impaired balance in sitting and standing 3) Assistance with bed mobility, transfers and ambulation 4) Decreased ability to complete prolonged physical activity) Goals - Goals Physical Therapy Goals: 1) The patient will ambulate household distances with front wheeled walker independently/supervision for safety. 2) The patient will complete bed mobility with minimal assist of 1 to CG. 3) Independent with sit to and from stand transfer from a higher surface. 4) Increase LE strength 1/3 muscle grade to improve stability of gait. 5) Improve sitting and standing balance to a functional level ie: patient will be able to complete ADL's safely seated and standing without LOB. Prognosis - Prognosis Moderate Plan - Plan Physical Therapy Plan: PT 1-2 times a day for gait training, transfer training, bed mobility, LE strengthening exercises and balance exercises.
--- NOTE | 2018-09-02 09:48 | Rehab Evaluation ---
Patient Information - Patient Information Diagnosis: deconditioning d/t sigmoid colectomy Ordered Treatment: OT Evaluate and Treat Status: Initial Evaluation Past Medical/Surgical Hx: PAST MEDICAL/SURGICAL HISTORY Past Surgical History Back-titanium akshat bilateral TOTAL KNEE ARTHROPLASTY toe last year PMH - Respiratory Hx Respiratory Disorders No PMH - Cardiovascular Hx Cardiovascular Disorders Yes Hx Edema Yes Hx Heart Attack Yes Hx Hypertension Yes Comment: hx edema legs/ feet swelling PMH - Neuro Hx Neurological Disorders Yes Hx Seizures No PMH - GI Hx Gastrointestinal Disorders No PMH - Hx Genitourinary Disorders Yes Hx Bladder Problem Yes: Urinary incontinence Hx Urinary Tract Infection Yes PMH - Endocrine Hx Endocrine Disorders Yes Hx Diabetes No Hx Thyroid Disease Yes PMH - Musculoskeletal Hx Musculoskeletal Disorders Yes Hx Arthritis Yes Comment: Back surgery with hardware in 2008 PMH - Psych Hx Psychiatric Problems Yes Hx Anxiety Yes Hx Depression Yes PMH - Hematology/Oncology Hx Hematology/Oncology No Disorders Premorbid Status: Detail (The patient lives with daughter and son-in-law in a one story house with basement. Pt has a ramp at the entrance. She has a walk in shower with a seat and a commode seat over the toilet. Her daughter assists with all self cares including showering and dressing as well as assisting her with bed mobility. Her daughter is responsible for all home mgmt, meal prep and laundry. She uses a 2 wheeled walker and ambulates to the kitchen twice daily. She has a wheelchair.) Precautions: [place], Fall - Time With Patient Total Time Spent With Patient (Min): 30 Treatment Procedures: Detail (OT eval low complexity) Subjective Information - Subjective Information Per Patient Objective Data - Pain Pain Present: Yes (4/10 belly pain) - Mental Status Patient Orientation: Oriented x3 (Pt oriented to location, month/year, birthday. She stated age as 86. Pt was able to follow all commands although her responses were very slowed.) - Visual Perception Appears within normal limits for therapeutic activities (Pt reports she does not wear glasses. No obvious visual deficits were noted.) - ROM Not within normal limits (Jef shoulder flexion limited, left worse than right; jef elbow and hand motion slightly limited but functional.) - Strength/Tone Not within normal limits (Jef UE strength grossly 4-/5 within AROM limitations.) - Coordination Appears within normal limits for therapeutic activities - Bed Mobility Needs Assist (Pt required min assist x 1 and mod assist x 1 for supine to sit at EOB.) - Transfers Needs Assist (Pt required min assist x 1 and mod assist x 1 for sit to stand from EOB.) - Balance Balance Sitting: Poor (Pt required min to mod assist for static and dynamic sitting balance at EOB.) - Sensation Intact (No sensation deficits noted.) - Gait Detail (Pt able to ambulate several steps with 2 wheeled walker and min assist x 1 for advancing walker and CG assist.) - ADL's/IADL's Detail (Pt required mod assist to [facility] hospital gown, mod assist to don PJ gown and max assist to don robe. Pt able to don slip on slippers with max assist. Pt is unable to feed self at this time.) Therapy Assessment - Therapy Assessment Detail (Pt presents with significantly decreased endurance needed for functional mobility and self care activities. She requires assist for all self cares as well as eating.) Problem List - Problem List Occupational Therapy Problem List: Detail (1. Decreased UE function needed for self cares and feeding self. 2. Decreased endurance needed for ADLs and functional mobility. 3. Decreased Ind with self care tasks including dressing and eating.) Goals - Goals Occupational Therapy Goals: 1. Pt will be Ind with feeding self after set up. 2. Pt will demonstrate improved UE strength, ROM and endurance to allow Ind with self care tasks. 3. Pt will be Ind with upper body dressing. Prognosis - Prognosis Moderate Plan - Plan Occupational Therapy Plan: OT 2-4 days per week to address goals and problem list above.
[2018-09-02] MEDS: CHOLECALCIFEROL 1,000 UNIT TABLET PO SCH (10:01)
[2018-09-02] MEDS: GABAPENTIN 300 MG CAPSULE PO SCH ×2 (10:01→22:11)
[2018-09-02] MEDS: DOCUSATE SODIUM 100 MG CAPSULE PO SCH ×2 (10:01→22:11)
[2018-09-02] MEDS: ASCORBIC ACID 500 MG TAB PO SCH (10:01)
[2018-09-02] MEDS: MULTIVITAMINS/MINERALS TABLET PO SCH (10:01)
[2018-09-02] MEDS: NITROFURANTOIN MONO 100 MG CAPSULE PO SCH (10:01)
[2018-09-02] MEDS ORDERED: BISACODYL 10 MG SUPP RC ONE (10:10)
[2018-09-02] MEDS: ACETAMINOPHEN 325 MG TAB PO PRN (18:15)
[2018-09-02] MEDS: CITALOPRAM 20 MG TABLET PO SCH (22:10)
[2018-09-02] MEDS: LOSARTAN POTASSIUM 25 MG TABLET PO SCH (22:12)
[2018-09-03] MEDS: PANTOPRAZOLE SODIUM 40 MG TABLET PO SCH (06:44)
[2018-09-03] MEDS: LEVOTHYROXINE SODIUM 75 MCG TABLET PO SCH (06:44)
--- NOTE | 2018-09-03 09:43 | Occupational Therapy Tx Note ---
Occupational Therapy Tx Note - Treatment Note Tolerated: Good Total Time Spent With Patient: 40 (ADL) Occupational Therapy Treatment Note: Detail (S: Pt resting in bed. O: Supine to sit with mod assist x 1. Pt able to scoot to EOB with mod assist. Sit to stand to walker with mod assist and took several steps to chair with mod assist to move walker and cues to stand upright. Pt seated in recliner and positioned with pillow behind back for upright posture. Reviewed swallowing precautions and pt able to feed self with set up and min verbal cues to take small bites and swallows. Pt very slow with all movements. She did have 2 coughing episodes with coffee. Pt left up in chair with call button in reach. A: Functional use of UEs with feeding self, requires cues for swallowing precautions/techniques, mod assist for bed mobility.) Occupational Therapy Problem List: Detail (1. Decreased UE function needed for self cares and feeding self. 2. Decreased endurance needed for ADLs and functional mobility. 3. Decreased Ind with self care tasks including dressing and eating.) Occupational Therapy Goals: 1. Pt will be Ind with feeding self after set up. 2. Pt will demonstrate improved UE strength, ROM and endurance to allow Ind with self care tasks. 3. Pt will be Ind with upper body dressing. Prognosis: Moderate Occupational Therapy Plan: OT 2-4 days per week to address goals and problem list above.
[2018-09-03] MEDS: CHOLECALCIFEROL 1,000 UNIT TABLET PO SCH (09:56)
[2018-09-03] MEDS: GABAPENTIN 300 MG CAPSULE PO SCH ×2 (09:56→22:16)
[2018-09-03] MEDS: MULTIVITAMINS/MINERALS TABLET PO SCH (09:56)
[2018-09-03] MEDS: NITROFURANTOIN MONO 100 MG CAPSULE PO SCH (09:56)
[2018-09-03] MEDS: DOCUSATE SODIUM 100 MG CAPSULE PO SCH ×2 (09:56→22:16)
[2018-09-03] MEDS: ASCORBIC ACID 500 MG TAB PO SCH (09:56)
--- NOTE | 2018-09-03 10:38 | Swallow Tx Note ---
Swallow Tx Note - Time with Patient Total Time Spent With Patient (Min): 30 - Treatment Note Swallow Treatment Note: Pt seen sitting upright in chair, pt completed taking medications with nursing - one pill at a time in applesauce. Pt completed strengthening exercises including short "ah" exercise and long "ah" exercise. Pt completed 5 repetitions of 5 attempts of effortful swallow with applesauce. Per physician patient cleared for trials of solids as of 09/01/18. Pt does cough intermittently but the cough is weak and cleared after 2 attempts. Pt left seated in chair with call light in reach. Pt vocal loudness and coordination have improved since 09/01 as patient is maintaing 2 word phrases on single breath from an occasional 1 word at a time per breath. Plan for Treatment - Behavior Modification Behavior Modification: Small Sips, Use Straw Goals for Treatment - Short Term Goals/Status: Goal #1: 1. Patient will reduce coughing with PO intake with exercises. Current Status: Cough is present but clears within 2 attempts on average compared to 3-4. Goal #2: Patient will improve swallow/breath coordination. 3-4 second "ah" Current Status: 2-3 second "ah" - Half-Way Goals/Status: Goal #1: Patient will improve oropharyngeal function of swallow phases during po.
[2018-09-03] MEDS: ACETAMINOPHEN 325 MG TAB PO PRN ×2 (14:28→22:17)
--- NOTE | 2018-09-03 17:37 | Physical Therapy Tx Note ---
Physical Therapy Tx Note - Treatment Note Tolerated: Fair Total Time Spent With Patient: 20 Physical Therapy Tx Note: Detail (The patient required moderate PA of 2 for supine to and from sit. The patient required moderate PA of 2 for sit to stand. The patient ambulated with wheeled walker 4 steps toward chair and then collasped into trunk flexion , pt was turned with maximal assist of 1 into recliner. Patient was responsive and was unable to answer why she leaned so far forward into trunk flexion. The patient was positioned in recliner and left with call light in place. The patient required more assist with mobiity this pm. ) Physical Therapy Problem List: Detail (1)Decreased LE strength 2) Impaired balance in sitting and standing 3) Assistance with bed mobility, transfers and ambulation 4) Decreased ability to complete prolonged physical activity) Physical Therapy Goals: 1) The patient will ambulate household distances with front wheeled walker independently/supervision for safety. 2) The patient will complete bed mobility with minimal assist of 1 to CG. 3) Independent with sit to and from stand transfer from a higher surface. 4) Increase LE strength 1/3 muscle grade to improve stability of gait. 5) Improve sitting and standing balance to a functional level ie: patient will be able to complete ADL's safely seated and standing without LOB. Physical Therapy Plan: PT 1-2 times a day for gait training, transfer training, bed mobility, LE strengthening exercises and balance exercises.
[2018-09-03] MEDS: CITALOPRAM 20 MG TABLET PO SCH (22:16)
[2018-09-03] MEDS: LOSARTAN POTASSIUM 25 MG TABLET PO SCH (22:16)
[2018-09-04] MEDS: LEVOTHYROXINE SODIUM 75 MCG TABLET PO SCH (06:55)
[2018-09-04] MEDS: PANTOPRAZOLE SODIUM 40 MG TABLET PO SCH (06:55)
[2018-09-04] MEDS: NITROFURANTOIN MONO 100 MG CAPSULE PO SCH (10:58)
[2018-09-04] MEDS: DOCUSATE SODIUM 100 MG CAPSULE PO SCH ×2 (10:59→23:33)
[2018-09-04] MEDS: GABAPENTIN 300 MG CAPSULE PO SCH ×2 (10:59→23:33)
[2018-09-04] MEDS: CHOLECALCIFEROL 1,000 UNIT TABLET PO SCH (10:59)
[2018-09-04] MEDS: ASCORBIC ACID 500 MG TAB PO SCH (10:59)
[2018-09-04] MEDS: MULTIVITAMINS/MINERALS TABLET PO SCH (10:59)
--- NOTE | 2018-09-04 13:30 | Occupational Therapy Tx Note ---
Occupational Therapy Tx Note - Treatment Note Tolerated: Fair (Pt wanting to lie in bed upon arrival and fatigued quickly during Tx.) Total Time Spent With Patient: 37 (1 ADL, 1 TA) Occupational Therapy Treatment Note: Detail (S: Ok to see per WENDI Olivia. Pt agreeable to OT Tx, reports she would like to continue to lie in bed but agreeable to brush her teeth. O: MOD assist supine > sit EOB with MOD verbal instruction for technique and scooting toward EOB. CGA for static seated rest break EOB 2 min. Sit > stand from elevated EOB to FWW with MOD-MAX assist of 1, MOD progressing to/from MIN for static standing 20 sec at FWW and verbal instruction for upright posture. SPT with FWW from elevated EOB to bedside chair MOD-MAX assist and MAX verbal instruction for tech., Pt fatigued partway thru TF requiring therapist to assist with controlled descent to chair. P osterior scooting in chair with MOD assist and verbal and physical instruction. Teeth brushing at bedside chair with upright posture, MIN assist to apply toothpaste and to coordinate holding cup to spit into. Pt upright in chair with call light attached to gown end of session. A: Pt limited by decreased fxl endurance and strength overall, as well as decreased processing speed and problem solving skills. Pt willing to engage in therapy to increase fxl strength and indep.) Occupational Therapy Problem List: Detail (1. Decreased UE function needed for self cares and feeding self. 2. Decreased endurance needed for ADLs and functional mobility. 3. Decreased Ind with self care tasks including dressing and eating.) Occupational Therapy Goals: 1. Pt will be Ind with feeding self after set up. 2. Pt will demonstrate improved UE strength, ROM and endurance to allow Ind with self care tasks. 3. Pt will be Ind with upper body dressing. Prognosis: Moderate Occupational Therapy Plan: OT 2-4 days per week to address goals and problem list above.
--- NOTE | 2018-09-04 16:47 | Physical Therapy Tx Note ---
Physical Therapy Tx Note - Treatment Note Tolerated: Fair Total Time Spent With Patient: 25 Physical Therapy Tx Note: Detail (The patient completed LE strengthening exercises: LAQ, ankle pumps, circles, marching x 10 reps. Sit to stand x 3 with moderate assist of 2, stand to sit with CG of 2. The patient ambulated with front wheeled walker x 2 5 steps forward with 2 L of O2. The patient was reclined back in chair with call light within reach. The patient continues to exhibit LE weakness but was able to walk and stand with more attempts.) Physical Therapy Problem List: Detail (1)Decreased LE strength 2) Impaired balance in sitting and standing 3) Assistance with bed mobility, transfers and ambulation 4) Decreased ability to complete prolonged physical activity) Physical Therapy Goals: 1) The patient will ambulate household distances with front wheeled walker independently/supervision for safety. 2) The patient will complete bed mobility with minimal assist of 1 to CG. 3) Independent with sit to and from stand transfer from a higher surface. 4) Increase LE strength 1/3 muscle grade to improve stability of gait. 5) Improve sitting and standing balance to a functional level ie: patient will be able to complete ADL's safely seated and standing without LOB. Physical Therapy Plan: PT 1-2 times a day for gait training, transfer training, bed mobility, LE strengthening exercises and balance exercises.
[2018-09-04] MEDS: CITALOPRAM 20 MG TABLET PO SCH (23:33)
[2018-09-04] MEDS: LOSARTAN POTASSIUM 25 MG TABLET PO SCH (23:33)
[2018-09-05] MEDS: LEVOTHYROXINE SODIUM 75 MCG TABLET PO SCH (06:40)
[2018-09-05] MEDS: PANTOPRAZOLE SODIUM 40 MG TABLET PO SCH (06:40)
--- NOTE | 2018-09-05 10:41 | Swallow Tx Note ---
Swallow Tx Note - Time with Patient Total Time Spent With Patient (Min): 35 Plan for Treatment - Diagnosis/Clinical Impression Clinical Impression: Pt seen sitting up in chair, call light in place for the duration of the treatment. Pt completed trials of dysphagia II foods including oatmeal and strained fruit. Pt had two coughing episodes which cleared with cues to take a big breath and cough. Pt completed coordination exercise with short "ah" but due to increased intake only tolerated 4 trials of 3 sets of short "ah." Pt is tolerating a more advanced diet and is practicing with coordination for breath exercises in between sessions. - Consistency Modification Consistency Modification: Soft (Dysphagia II.) Liquid Modification: [place] Medication Modification: Regular (One at a time in puree.) - Additional Plan Details Videofluroscopic Swallow Study Ordered: No Goals for Treatment - Short Term Goals/Status: Goal #1: 1. Patient will reduce coughing with PO intake with exercises. Current Status: 2 instances this date with 20 bites in 35 minutes. Stronger cough noted. Goal #2: Patient will improve swallow/breath coordination. 3-4 second "ah" - Care Home Goals/Status: Goal #1: Patient will improve oropharyngeal function of swallow phases during po. - Additional Goal Detail Additional Goal Detail: Decreased frequency of coughing episodes with stronger cough (louder, more effortful, 1-2 attempts for successful clearance vs. previous 3-4 attempts at least).
[2018-09-05] MEDS: DOCUSATE SODIUM 100 MG CAPSULE PO SCH ×2 (11:54→22:03)
[2018-09-05] MEDS: GABAPENTIN 300 MG CAPSULE PO SCH ×2 (11:54→22:03)
[2018-09-05] MEDS: CHOLECALCIFEROL 1,000 UNIT TABLET PO SCH (11:54)
[2018-09-05] MEDS: ASCORBIC ACID 500 MG TAB PO SCH (11:54)
[2018-09-05] MEDS: NITROFURANTOIN MONO 100 MG CAPSULE PO SCH (11:55)
[2018-09-05] MEDS: MULTIVITAMINS/MINERALS TABLET PO SCH (11:55)
--- NOTE | 2018-09-05 14:21 | Physical Therapy Tx Note ---
Physical Therapy Tx Note - Treatment Note Tolerated: Poor Total Time Spent With Patient: 30 Physical Therapy Tx Note: Detail (Patient was seated in chair upon TORCH BURNER arrival. Patient transferred sit to and from stand max assist x2. Patient required verbal and tactile cueing to reach for walker and to step with feet. Patient transferred sit to supine max assist x1, mod assist x1. Patient scooted up in bed x2 with max assist x2. Patient performed rolling bed mobility mod assist x1, x1 to assist in applying brief. Patient was left reclined in bed with call light within reach) Physical Therapy Problem List: Detail (1)Decreased LE strength 2) Impaired balance in sitting and standing 3) Assistance with bed mobility, transfers and ambulation 4) Decreased ability to complete prolonged physical activity) Physical Therapy Goals: 1) The patient will ambulate household distances with front wheeled walker independently/supervision for safety. 2) The patient will complete bed mobility with minimal assist of 1 to CG. 3) Independent with sit to and from stand transfer from a higher surface. 4) Increase LE strength 1/3 muscle grade to improve stability of gait. 5) Improve sitting and standing balance to a functional level ie: patient will be able to complete ADL's safely seated and standing without LOB. Prognosis: Moderate Physical Therapy Plan: PT 1-2 times a day for gait training, transfer training, bed mobility, LE strengthening exercises and balance exercises.
[2018-09-05] MEDS: CITALOPRAM 20 MG TABLET PO SCH (22:03)
[2018-09-05] MEDS: LOSARTAN POTASSIUM 25 MG TABLET PO SCH (22:03)
[2018-09-05] MEDS: ACETAMINOPHEN 325 MG TAB PO PRN (22:06)
[2018-09-06] MEDS: LEVOTHYROXINE SODIUM 75 MCG TABLET PO SCH (06:41)
[2018-09-06] MEDS: PANTOPRAZOLE SODIUM 40 MG TABLET PO SCH (06:41)
[2018-09-06] MEDS: GABAPENTIN 300 MG CAPSULE PO SCH ×2 (09:35→21:23)
[2018-09-06] MEDS: MULTIVITAMINS/MINERALS TABLET PO SCH (09:36)
[2018-09-06] MEDS: DOCUSATE SODIUM 100 MG CAPSULE PO SCH ×2 (09:38→21:23)
[2018-09-06] MEDS: NITROFURANTOIN MONO 100 MG CAPSULE PO SCH (09:38)
[2018-09-06] MEDS: CHOLECALCIFEROL 1,000 UNIT TABLET PO SCH (09:39)
[2018-09-06] MEDS: ASCORBIC ACID 500 MG TAB PO SCH (09:39)
--- NOTE | 2018-09-06 10:49 | Physical Therapy Tx Note ---
Physical Therapy Tx Note - Treatment Note Physical Therapy Tx Note: Detail (Patient was not seen this am due to appointme nt. Patient's son in law arrived to take patient to appointment when PT asked if he needed assistance with car transfers he stated no. Patient's son-in -law had no difficulty transferrring her into wheelchair.) Physical Therapy Problem List: Detail (1)Decreased LE strength 2) Impaired balance in sitting and standing 3) Assistance with bed mobility, transfers and ambulation 4) Decreased ability to complete prolonged physical activity) Physical Therapy Goals: 1) The patient will ambulate household distances with front wheeled walker independently/supervision for safety. 2) The patient will complete bed mobility with minimal assist of 1 to CG. 3) Independent with sit to and from stand transfer from a higher surface. 4) Increase LE strength 1/3 muscle grade to improve stability of gait. 5) Improve sitting and standing balance to a functional level ie: patient will be able to complete ADL's safely seated and standing without LOB. Physical Therapy Plan: PT 1-2 times a day for gait training, transfer training, bed mobility, LE strengthening exercises and balance exercises.
--- NOTE | 2018-09-06 15:27 | Physical Therapy Tx Note ---
Physical Therapy Tx Note - Treatment Note Tolerated: Good Total Time Spent With Patient: 15 Physical Therapy Tx Note: Detail (The patient was just returning from appointment when PT arrived. The patient required minimal PA of 2 for sit to stand from wheelchair. The patient ambulated four steps to bed and was able to acheive stand to sit with CG reaching back for surface appropriately. The patient required maximal assist of 1 to scoot back onto surface. The patient r equired max. assist of 2 with supine to sit. The patient was left with nursing staff for a change of brief. When OT and PT returned the patient requested to sleep due to fatigue following appt. The patient did well with ambulation today, taking normal stride steps.) Physical Therapy Problem List: Detail (1)Decreased LE strength 2) Impaired balance in sitting and standing 3) Assistance with bed mobility, transfers and ambulation 4) Decreased ability to complete prolonged physical activity) Physical Therapy Goals: 1) The patient will ambulate household distances with front wheeled walker independently/supervision for safety. 2) The patient will complete bed mobility with minimal assist of 1 to CG. 3) Independent with sit to and from stand transfer from a higher surface. 4) Increase LE strength 1/3 muscle grade to improve stability of gait. 5) Improve sitting and standing balance to a functional level ie: patient will be able to complete ADL's safely seated and standing without LOB. Physical Therapy Plan: PT 1-2 times a day for gait training, transfer training, bed mobility, LE strengthening exercises and balance exercises.
[2018-09-06] MEDS: CITALOPRAM 20 MG TABLET PO SCH (21:23)
[2018-09-06] MEDS: LOSARTAN POTASSIUM 25 MG TABLET PO SCH (21:23)
[2018-09-07] MEDS: PANTOPRAZOLE SODIUM 40 MG TABLET PO SCH (08:59)
[2018-09-07] MEDS: LEVOTHYROXINE SODIUM 75 MCG TABLET PO SCH (08:59)
[2018-09-07] MEDS: MULTIVITAMINS/MINERALS TABLET PO SCH (09:27)
[2018-09-07] MEDS: DOCUSATE SODIUM 100 MG CAPSULE PO SCH ×2 (09:27→21:28)
[2018-09-07] MEDS: NITROFURANTOIN MONO 100 MG CAPSULE PO SCH (09:27)
[2018-09-07] MEDS: ASCORBIC ACID 500 MG TAB PO SCH (09:28)
[2018-09-07] MEDS: GABAPENTIN 300 MG CAPSULE PO SCH ×2 (09:28→21:28)
[2018-09-07] MEDS: CHOLECALCIFEROL 1,000 UNIT TABLET PO SCH (09:29)
--- NOTE | 2018-09-07 11:57 | Physician Progress Note ---
Subjective - Date Date of Progress Note: 09/07/18 - Admitting Diagnosis Diagnosis: multiple rehab services post sigmoid colectomy - Subjective Nursing Care Plan Problem List Activity Intolerance (Swing Bed) Start: 08/30/18 15:48 Freq: Status: Active Protocol: Created 08/30/18 15:48 HMF (Rec: 08/30/18 15:48 HMF [id number]) Altered Thought Process (Fall Risk) Start: 08/30/18 15:48 Freq: Status: Active Protocol: Created 08/30/18 15:48 HMF (Rec: 08/30/18 15:48 HMF [id number]) Body Image Disturbance Start: 09/03/18 18:39 Freq: Status: Active Protocol: Created 09/03/18 18:39 SAF (Rec: 09/03/18 18:39 SAF [id number]) High Risk: Post-Op Complications Start: 09/03/18 18:39 Freq: Status: Active Protocol: Created 09/03/18 18:39 SAF (Rec: 09/03/18 18:39 SAF [id number]) Impaired Mobility (Fall Risk) Start: 08/30/18 15:48 Freq: Status: Active Protocol: Created 08/30/18 15:48 HMF (Rec: 08/30/18 15:48 HMF [id number]) Impaired Skin Integrity Start: 09/03/18 18 :39 Freq: Status: Active Protocol: Created 09/03/18 18:39 SAF (Rec: 09/03/18 18:39 SAF [id number]) Knowledge Deficit (Swing Bed) Start: 08/30/18 15:48 Freq: Status: Active Protocol: Created 08/30/18 15:48 HMF (Rec: 08/30/18 15:48 HMF [id number]) Knowledge Deficit: Colostomy Start: 09/03/18 18:39 Freq: Status: Active Protocol: Created 09/03/18 18:39 SAF (Rec: 09/03/18 18:39 SAF [id number]) Pain (Swing Bed) Start: 08/30/18 15:48 Freq: Status: Active Protocol: Created 08/30/18 15:48 HMF (Rec: 08/30/18 15:48 HMF [id number]) Risk for Injury (Fall Risk) Start: 08/30/18 15:48 Freq: Status: Active Protocol: Created 08/30/18 15:48 [facility] (Rec: 08/30/18 15:48 [facility] [id number]) Subjective: 09/07/18: Patient resting comfortably in bed. Denies any pain. Had appointment with surgery yesterday for suture/staple removal. - Subjective Detail Comment: No additional complaints except as noted below General - Cognitive Patterns Speech: Soft Thought Process: Intact Thought Content: Normal - Communication Select best description of speech pattern: Unclear Speech Ability to express ideas and wants: Understood Understanding verbal content: Understands - Mood and Behavior Patterns Appearance: Well Groomed Mood: Normal Attitude: Cooperative Motor Activity: Lethargic Affect: Appropriate Hallucinations: Denies - Physical Functioning Activity Level: Up with assist x2 Turning: With total assist ROM Ability: Moves all extremities Assistive Devices: 2 Wheel Walker Ambulation Ability: Dependent Bed Mobility: Dependent Transfer Ability: Dependent Bathing Ability: Dependent Personal Hygiene: Dependent Dressing Ability: Dependent Eating (Feeding) Ability: Needs Assist Toileting Ability: Dependent Administer Own Medication: Dependent - Continence Bowel Pattern: Colostomy Bladder Pattern: Incontinent Urinary Incontinence: Total Meds/Allergies - Allergies Allergies Allergy/AdvReac Type Severity Reaction Status Date / Time venom-honey bee Allergy Severe ANAPHYLAXIS Verified 08/22/18 18:18 [bee venom (honey bee)] latex Allergy Mild ITCHING Verified 08/22/18 18:18 adhesive tape Allergy RASH Uncoded 08/18/16 20:49 - Active Medications Current Medications Acetaminophen (Tylenol 325mg) 650 mg PO Q6H PRN PRN Reason: PAIN - MILD TO MODERATE (1-7) Last Admin: 09/05/18 22:06 Dose: 650 mg Documented by: Ascorbic Acid (Vitamin C) 500 mg PO DAILY [facility] Last Admin: 09/07/18 09:28 Dose: 500 mg Documented by: Citalopram Hydrobromide (Celexa) 20 mg PO QHS [facility] Last Admin: 09/06/18 21:23 Dose: 20 mg Documented by: Docusate Sodium (Colace) 100 mg PO BID [facility] Last Admin: 09/07/18 09:27 Dose: 100 mg Documented by: Gabapentin (Neurontin) 300 mg PO BID [facility] Last Admin: 09/07/18 09:28 Dose: 300 mg Documented by: Guaifenesin (Robitussin Dm) 10 ml PO Q6H PRN PRN Reason: COUGH Levothyroxine Sodium (Synthroid) 75 mcg PO DAILYTHY [facility] Last Admin: 09/07/18 08:59 Dose: 75 mcg Documented by: Losartan Potassium (Cozaar) 50 mg PO QHS [facility] Last Admin: 09/06/18 21:23 Dose: 50 mg Documented by: Multivitamins/Minerals (Centrum) 1 tab PO DAILY [facility] Last Admin: 09/07/18 09:27 Dose: 1 tab Documented by: Nitrofurantoin Macrocrystals (Macrobid) 100 mg PO DAILY [facility] Last Admin: 09/07/18 09:27 Dose: 100 mg Documented by: Pantoprazole Sodium (Protonix) 40 mg PO DAILYAC [facility] Last Admin: 09/07/18 08:59 Dose: 40 mg Documented by: Vitamin D (Vitamin D3) 2,000 unit PO DAILY [facility] Last Admin: 09/07/18 09:29 Dose: 2,000 unit Documented by: Objective - Vital Signs Vital Signs: Vital Signs - Last 24 Hrs Temp Pulse Resp BP BP Pulse Ox 09/07/18 08:00 98.1 F 79 18 147/70 92 L 09/06/18 19:51 93 L 09/06/18 19:50 98.2 F 89 18 141/69 88 L - General General Appearance: Alert, Oriented x3, Cooperative, No acute distress, Other (slow speech , dysphagia) - Head Head exam: Normal inspection - Eye Eye exam: Normal appearance, PERRL Pupils: Normal accommodation - ENT ENT exam: Normal exam, Mucous membranes moist, Normal orophraynx Ear exam: negative: External canal tenderness Nasal Exam: Normal inspection. negative: Discharge, Sinus tenderness Mouth exam: Normal external inspection, Tongue normal Teeth exam: negative: Dental caries Throat exam: negative: Tonsillar erythema, Tonsillar exudate - Neck Neck exam: Normal inspection, Full ROM. negative: Tenderness - Respiratory Respiratory exam: Normal lung sounds bilaterally. negative: Respiratory distress - Cardiovascular Cardiovascular Exam: Regular rate, Normal rhythm, Normal heart sounds Peripheral Pulses: 2+: Radial (R), Radial (L), Dorsalis Pedis (R), Dorsalis Pedis (L) - GI/Abdominal GI/Abdominal exam: Soft, Normal bowel sounds, Other (LLQ colostomy in place). negative: Tenderness - Rectal Rectal exam: Deferred - exam: Deferred - Extremities Extremities exam: Normal inspection, Full ROM, Normal capillary refill. negative: Tenderness - Back Back exam: Reports: Normal inspection, Full ROM. Denies: Muscle spasm, Rash noted, Tenderness - Neurological Neurological exam: Alert, Oriented X3 - Psychiatric Psychiatric exam: Normal affect, Normal mood - Skin Skin exam: Dry, Intact, Normal color, Warm H&P Results - Labs Result Diagrams: 09/01/18 06:10 09/01/18 06:10 Discharge Potential - Discharge Needs Community Services Used Prior to Admission: Home Health Aide Patient Discharge Plan Description: Return Home Community Services Needed at Discharge: Home Health Aide, Home Health Nurse Plan - Swing Bed Certification Initial Certification Due: 08/30/18 14 Day Re-Cert Due: 09/13/18 44 Day Re-Cert Due: 10/13/18 74 Day Re-Cert Due: 11/12/18 - Detailed Diagnosis and Plan (1) Physical deconditioning Current Visit: Yes Status: Acute Base Code: R53.81 - OTHER MALAISE Prio rity: High Comment: 09/07/18: -Physical deconditioning and weakness after recent admission and surgery at [facility] for partial colectomy -PT/OT working with patient (2) Swallowing difficulty Current Visit: No Status: Acute Qualifiers: Dysphagia type: oral phase Qualified Code(s): R13.11 - Dysphagia, oral phase Base Code: R13.10 - DYSPHAGIA, UNSPECIFIED Priority: Medium Comment: 09/07/18: -Pt daughter reports diff swallowing for greater than 1 year, worse of the the past several months -Honey-thickened liquids -Speech therapy continuing to work with patient (3) History of partial colectomy Current Visit: Yes Status: Acute Base Code: Z90.49 - ACQUIRED ABSENCE OF OTHER SPECIFIED PARTS OF DIGESTIVE TRACT Priority: High Comment: 09/07/18: -partial sigmoid colectomy at [facility] by Dr. 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, adequate output noted (4) Hypertension Current Visit: Yes Status: Acute Qualifiers: Hypertension type: essential hypertension Qualified Code(s): I10 - Essential (primary) hypertension Base Code: I10 - ESSENTIAL (PRIMARY) HYPERTENSION Priority: Medium Comment: 09/07/18: -Continue Losartan 50mg daily -BP at goal -Continue to monitor (5) DVT prophylaxis Current Visit: No Status: Acute Base Code: AIQ7415 - Comment: 09/07/18: -high risk due to age, hospitalization, and recent surgery -Holding Lovenox at this time, pending clearance from surgery -Encouarge ambulation with nursing staff (6) DNR (do not resuscitate) Current Visit: No Status: Acute Base Code: Z66 - DO NOT RESUSCITATE Priority: Medium Comment: 09/07/18: -DNR
[2018-09-07] MEDS: LOSARTAN POTASSIUM 25 MG TABLET PO SCH (21:28)
[2018-09-07] MEDS: CITALOPRAM 20 MG TABLET PO SCH (21:29)
[2018-09-08 06:11] LABS: ABSOLUTE NEUTROPHIL COUNT 3.46; BASO % 0.5 % (0-6); EOS % 8.5 % (0-6); GRAN % 59.1 % (47-80); HEMATOCRIT 31.5 % (35.0-47.0); HEMOGLOBIN 9.4 gm/dl (11.6-16.0); LYMPH % 17.7 % (16-45); MEAN CELL VOLUME 107.9 fl (81-97); MEAN CORPUSCULAR HGB CONC 29.8 g/dl (32-36); MEAN PLATELET VOLUME 8.3 fl (7.4-10.4); MONO % 14.2 % (0-9); PLATELET COUNT 416 K/uL (130-400); RED BLOOD COUNT 2.92 M/uL (3.80-5.40); RED CELL DISTRIBUTION WIDTH 14.5 % (11.5-14.5); WHITE BLOOD COUNT W/O DIFF 5.9 K/uL (4.2-12.2)
[2018-09-08 06:22] LABS: MEAN CORPUSCULAR HEMOGLOBIN 32.1 pg (27-33)
[2018-09-08 06:28] LABS: BLOOD UREA NITROGEN 8 mg/dL (8-23); CREATININE 0.8 mg/dL (0.5-0.9); EST GLOMERULAR FILTRATION RATE > 60 mL/min; GLUCOSE,RANDOM 94 mg/dL (74-109)
[2018-09-08] MEDS: MULTIVITAMINS/MINERALS TABLET PO SCH (09:33)
[2018-09-08] MEDS: PANTOPRAZOLE SODIUM 40 MG TABLET PO SCH (09:33)
[2018-09-08] MEDS: LEVOTHYROXINE SODIUM 75 MCG TABLET PO SCH (09:33)
[2018-09-08] MEDS: ASCORBIC ACID 500 MG TAB PO SCH (09:34)
[2018-09-08] MEDS: CHOLECALCIFEROL 1,000 UNIT TABLET PO SCH (09:34)
[2018-09-08] MEDS: DOCUSATE SODIUM 100 MG CAPSULE PO SCH ×2 (09:34→21:16)
[2018-09-08] MEDS: GABAPENTIN 300 MG CAPSULE PO SCH ×2 (09:34→21:16)
[2018-09-08] MEDS: NITROFURANTOIN MONO 100 MG CAPSULE PO SCH (09:34)
[2018-09-08] MEDS ORDERED: ZINC OXIDE 28.35 GM TUBE TOP ONE (19:52)
[2018-09-08] MEDS: LOSARTAN POTASSIUM 25 MG TABLET PO SCH (21:16)
[2018-09-08] MEDS: CITALOPRAM 20 MG TABLET PO SCH (21:16)
[2018-09-09] MEDS: LEVOTHYROXINE SODIUM 75 MCG TABLET PO SCH (06:19)
[2018-09-09] MEDS: PANTOPRAZOLE SODIUM 40 MG TABLET PO SCH (06:19)
[2018-09-09] MEDS: NITROFURANTOIN MONO 100 MG CAPSULE PO SCH (09:36)
[2018-09-09] MEDS: CHOLECALCIFEROL 1,000 UNIT TABLET PO SCH (09:36)
[2018-09-09] MEDS: GABAPENTIN 300 MG CAPSULE PO SCH ×2 (09:36→21:07)
[2018-09-09] MEDS: ASCORBIC ACID 500 MG TAB PO SCH (09:36)
[2018-09-09] MEDS: MULTIVITAMINS/MINERALS TABLET PO SCH (09:36)
[2018-09-09] MEDS: DOCUSATE SODIUM 100 MG CAPSULE PO SCH ×2 (09:36→21:07)
[2018-09-09] MEDS ORDERED: ZINC OXIDE 28.35 GM TUBE TOP PRN (10:39)
--- NOTE | 2018-09-09 10:53 | Occupational Therapy Tx Note ---
Occupational Therapy Tx Note - Treatment Note Tolerated: Fair Total Time Spent With Patient: 35 (gait, ADL) Occupational Therapy Treatment Note: Detail (S: Pt resting in bed, willing to get up. O: Supine to sit with mod assist x 1 and min assist to maintain static sitting at EOB. Pt was able to scoot both feet off EOB but she required assist to pull upper body into upright. Sit to stand from EOB to walker with mod assist x 1 and min assist x 1. Pt ambulated approx. 4 feet with 2 wheeled walker and mod assist x 1 and assist to move walker forward. Pt leans forward at the hips during ambulation. Pt seated in wheelchair and propelled to sink. Pt able to brush hair with verbal cues. Pt able to complete oral hygiene with min assist, she was Ind with opening toothpaste but required assist to squeeze toothpaste onto toothbrush, she was able to brush teeth Indly but required assist to sip water for rinsing. Pt completed washing face with assist to wet washcloth. Pt left up in chair with call button in reach. A: Pt requires mod assist for mobility and min assist for hygiene tasks. Pt continues with very slow responses.) Occupational Therapy Problem List: Detail (1. Decreased UE function needed for self cares and feeding self. 2. Decreased endurance needed for ADLs and functional mobility. 3. Decreased Ind with self care tasks including dressing and eating.) Occupational Therapy Goals: 1. Pt will be Ind with feeding self after set up. 2. Pt will demonstrate improved UE strength, ROM and endurance to allow Ind with self care tasks. 3. Pt will be Ind with upper body dressing. Prognosis: Moderate Occupational Therapy Plan: OT 2-4 days per week to address goals and problem list above.
[2018-09-09] MEDS: ENOXAPARIN 40 MG/0.4 ML SYR SQ SCH (11:11)
--- NOTE | 2018-09-09 15:12 | Physical Therapy Tx Note ---
Physical Therapy Tx Note - Treatment Note Tolerated: Fair Total Time Spent With Patient: 30 Physical Therapy Tx Note: Detail (Therapy session began with patient supine in bed. Patient did not report any pain or other symptoms. Patient was transferred from supine to R side EOB with moderate assistance x2. Patient then completed standing pivot transfer utilizing two wheeled walker with moderate assistance x2 for weight shifting and tactile cueing. Patient was then brought to rehab department. In the parallel bars patient completed sit to stand with use of parallel bars with minimal assistance x1. Afterwards, patient completed 3 steps with moderate assistance x1 for weight shifting and tactile cueing for facilitation twice with 1 minute rest break inbetween. Patient then completed sitting balance exercise for 5 minutes reaching out of her base of support using left hand for stability. Patient did lift both upper extremities when reaching for beach ball 3x. Improved sitting balance was noted throughout balance exercises. Patient required maximal assistance x2 for pivot transfer from W/C to bed when returning to room at end of therapy. Patient then required maximal assistance x2 from sitting EOB to supine and scooting up in bed. Patient was then left with call light in place and 1L of O2.) Physical Therapy Problem List: Detail (1)Decreased LE strength 2) Impaired balance in sitting and standing 3) Assistance with bed mobility, transfers and ambulation 4) Decreased ability to complete prolonged physical activity) Physical Therapy Goals: 1) The patient will ambulate household distances with front wheeled walker independently/supervision for safety. 2) The patient will complete bed mobility with minimal assist of 1 to CG. 3) Independent with sit to and from stand transfer from a higher surface. 4) Increase LE strength 1/3 muscle grade to improve stability of gait. 5) Improve sitting and standing balance to a functional level ie: patient will be able to complete ADL's safely seated and standing without LOB. Physical Therapy Plan: PT 1-2 times a day for gait training, transfer training, bed mobility, LE strengthening exercises and balance exercises.
[2018-09-09] MEDS: LOSARTAN POTASSIUM 25 MG TABLET PO SCH (21:07)
[2018-09-09] MEDS: CITALOPRAM 20 MG TABLET PO SCH (21:07)
[2018-09-09] MEDS: ACETAMINOPHEN 325 MG TAB PO PRN (21:10)
[2018-09-10] MEDS: LEVOTHYROXINE SODIUM 75 MCG TABLET PO SCH (06:14)
[2018-09-10] MEDS: PANTOPRAZOLE SODIUM 40 MG TABLET PO SCH (06:14)
[2018-09-10] MEDS: CHOLECALCIFEROL 1,000 UNIT TABLET PO SCH (09:21)
[2018-09-10] MEDS: DOCUSATE SODIUM 100 MG CAPSULE PO SCH ×2 (09:21→21:47)
[2018-09-10] MEDS: GABAPENTIN 300 MG CAPSULE PO SCH ×2 (09:22→21:47)
[2018-09-10] MEDS: MULTIVITAMINS/MINERALS TABLET PO SCH (09:24)
[2018-09-10] MEDS: ENOXAPARIN 40 MG/0.4 ML SYR SQ SCH (09:24)
[2018-09-10] MEDS: NITROFURANTOIN MONO 100 MG CAPSULE PO SCH (09:24)
[2018-09-10] MEDS: ASCORBIC ACID 500 MG TAB PO SCH (09:25)
--- NOTE | 2018-09-10 10:30 | Swallow Tx Note ---
Swallow Tx Note - Time with Patient Total Time Spent With Patient (Min): 30 Plan for Treatment - Diagnosis/Clinical Impression Clinical Impression: Pt seen sitting upright in bed with call light within reach for the duration of the treatment session. Pt positioned as close to 90 degrees as she would tolerate for the treatment session. Pt completed breath/swallow coordination exercise with short "ah" up to three instances of "ah" for 10 repetitions. One instance of coughing was remedied with a cue to take a new big breath and then cough rather than continuing to try to cough on minimal breath support, attempts decreased from 5-6 attempts to cough to only 2-3 attempts with return to relatively clear voice and improved facial color (no longer red). Pt is tolerating current diet without new concerns per nursing manager. Pt breath during speech has improved to increased loudness and tolerance of up to three (single syllable) word phrases on a single breath when cued for big breath. Continue per POT. - Consistency Modification Consistency Modification: Soft (Dysphagia II) - Behavior Modification Behavior Modification: Small Sips, Use Straw - Additional Plan Details Videofluroscopic Swallow Study Ordered: No Diagnosis/Recommendation Discussed With: Patient, Nurse (hospice aide), Other (Social Work.) Goals for Treatment - Short Term Goals/Status: Goal #1: 1. Patient will reduce coughing with PO intake with exercises. Current Status: 2-3 attempts at single cough vs. previous 4-5 or more. Goal #2: Patient will improve swallow/breath coordination. 3-4 second "ah" - Rn Maternity Goals/Status: Goal #1: Patient will improve oropharyngeal function of swallow phases during po.
--- NOTE | 2018-09-10 15:17 | Physical Therapy Tx Note ---
Physical Therapy Tx Note - Treatment Note Total Time Spent With Patient: 45 Physical Therapy Tx Note: Detail (Therapy session began with patient supine in bed. Patient did not report any pain and said that she wanted to work on walking again today. Patient completed standing pivot from EOB to W/C to the right using moderate assistance x1. Patient was then brought into the rehab department. Patient ambulated 5 steps 2x within the parallel bars with moderate assistance x1 using verbal and tactile cueing. Patient also required weight shifting from therapist for facilitation of steps. Patient then was brought to the edge of the table with minimal assistance x1 for standing for a total of 20 seconds. Due to fatigue, patient completed seated exercises at edge of table. Patient stacked 5 cones 2x on the right and left while sitting supported in W/C. Patient then while sitting supported threw a tennis ball with right hand requiring verbal cueing to let go of the tennis ball. Patient then completed sitting exercise using right fist to roll beach ball across the table for total of 3x. Patient reported at the end of exercise session that she was tired but had no pain. Patient was brought back into room and completed standing pivot transfer to recliner from the W/C to the left using moderate assistance x1 and minimal assist x1. Patient was left with call light and nursing staff was notified.) Physical Therapy Problem List: Detail (1)Decreased LE strength 2) Impaired balance in sitting and standing 3) Assistance with bed mobility, transfers and ambulation 4) Decreased ability to complete prolonged physical activity) Physical Therapy Goals: 1) The patient will ambulate household distances with front wheeled walker independently/supervision for safety. 2) The patient will complete bed mobility with minimal assist of 1 to CG. 3) Independent with sit to and from stand transfer from a higher surface. 4) Increase LE strength 1/3 muscle grade to improve stability of gait. 5) Improve sitting and standing balance to a functional level ie: patient will be able to complete ADL's safely seated and standing without LOB. Physical Therapy Plan: PT 1-2 times a day for gait training, transfer training, bed mobility, LE strengthening exercises and balance exercises.
[2018-09-10] MEDS: CITALOPRAM 20 MG TABLET PO SCH (21:47)
[2018-09-10] MEDS: LOSARTAN POTASSIUM 25 MG TABLET PO SCH (21:47)
[2018-09-10] MEDS: ACETAMINOPHEN 325 MG TAB PO PRN (21:55)
[2018-09-11] MEDS: PANTOPRAZOLE SODIUM 40 MG TABLET PO SCH (06:20)
[2018-09-11] MEDS: LEVOTHYROXINE SODIUM 75 MCG TABLET PO SCH (06:20)
[2018-09-11] MEDS: ASCORBIC ACID 500 MG TAB PO SCH (09:56)
[2018-09-11] MEDS: MULTIVITAMINS/MINERALS TABLET PO SCH (09:56)
[2018-09-11] MEDS: ENOXAPARIN 40 MG/0.4 ML SYR SQ SCH (09:56)
[2018-09-11] MEDS: CHOLECALCIFEROL 1,000 UNIT TABLET PO SCH (09:56)
[2018-09-11] MEDS: DOCUSATE SODIUM 100 MG CAPSULE PO SCH ×2 (09:56→21:36)
[2018-09-11] MEDS: NITROFURANTOIN MONO 100 MG CAPSULE PO SCH (09:56)
[2018-09-11] MEDS: GABAPENTIN 300 MG CAPSULE PO SCH ×2 (09:56→21:36)
--- NOTE | 2018-09-11 12:06 | Occupational Therapy Tx Note ---
Occupational Therapy Tx Note - Treatment Note Tolerated: Fair Total Time Spent With Patient: 35 (ADL) Occupational Therapy Treatment Note: Detail (S: Pt resting in bed but ready to get up. O: Supine to sit with min/hand held assist to scoot to EOB. Sit to stand with 2 wheeled walker and mod assist x 1. Pt took several small steps to chair with walker and min assist. Pt able to doff gown with assist to untie. She was able to don shirt with mod verbal cues for technique and mod assist to pull shirt over head. Pt donned pants with max assist to start over feet, she required mod assist for sit to stand from recliner to walker and min assist to maintain static standing while OT pulled pants over hips. Pt seated with mod assist. Pt donned socks with mod assist to start over toes on right and total assist on left foot. Slip on shoes donned per OT due to patient fatigue. Pt was able to brush hair Indly. A: Pt required min assist for bed mobility, min to mod assist for transfer and sit to stand, mod assist for upper body dressing, mod to max assist for lower body dressing.) Occupational Therapy Problem List: Detail (1. Decreased UE function needed for self cares and feeding self. 2. Decreased endurance needed for ADLs and functional mobility. 3. Decreased Ind with self care tasks including dressing and eating.) Occupational Therapy Goals: 1. Pt will be Ind with feeding self after set up. 2. Pt will demonstrate improved UE strength, ROM and endurance to allow Ind with self care tasks. 3. Pt will be Ind with upper body dressing. Prognosis: Good Occupational Therapy Plan: OT 2-4 days per week to address goals and problem list above.
--- NOTE | 2018-09-11 14:48 | Physical Therapy Tx Note ---
Physical Therapy Tx Note - Treatment Note Total Time Spent With Patient: 30 Physical Therapy Tx Note: Detail (Patient's therapy began with patient supine in bed. Patient transfered from supine to L EOB independently with SBAx2. Scooting forward to the EOB required moderate assistance x1. While sitting at the EOB, patient completed reaching exercises outside of her GUERA. Patient completed 5 reaches bilaterally 2x with SBAx2 for safety. Patient then completed sit to stand with CGAx2. Patient required tactile and verbal cueing with weight shifting to initiate facilitation for steps to W/C. Patient was then pivot transferred from W/C to EOB with maximal assistance x1 due to patient fatigue. P jayneient was returned back to supine in bed and was left with her call light.) Physical Therapy Problem List: Detail (1)Decreased LE strength 2) Impaired balance in sitting and standing 3) Assistance with bed mobility, transfers and ambulation 4) Decreased ability to complete prolonged physical activity) Physical Therapy Goals: 1) The patient will ambulate household distances with front wheeled walker independently/supervision for safety. 2) The patient will complete bed mobility with minimal assist of 1 to CG. 3) Independent with sit to and from stand transfer from a higher surface. 4) Increase LE strength 1/3 muscle grade to improve stability of gait. 5) Improve sitting and standing balance to a functional level ie: patient will be able to complete ADL's safely seated and standing without LOB. Physical Therapy Plan: PT 1-2 times a day for gait training, transfer training, bed mobility, LE strengthening exercises and balance exercises.
[2018-09-11] MEDS: CITALOPRAM 20 MG TABLET PO SCH (21:36)
[2018-09-11] MEDS: LOSARTAN POTASSIUM 25 MG TABLET PO SCH (21:36)
[2018-09-11] MEDS: ACETAMINOPHEN 325 MG TAB PO PRN (21:37)
[2018-09-12] MEDS: PANTOPRAZOLE SODIUM 40 MG TABLET PO SCH (06:20)
[2018-09-12] MEDS: LEVOTHYROXINE SODIUM 75 MCG TABLET PO SCH (06:20)
[2018-09-12] MEDS: CHOLECALCIFEROL 1,000 UNIT TABLET PO SCH (09:51)
[2018-09-12] MEDS: NITROFURANTOIN MONO 100 MG CAPSULE PO SCH (09:51)
[2018-09-12] MEDS: DOCUSATE SODIUM 100 MG CAPSULE PO SCH ×2 (09:51→22:25)
[2018-09-12] MEDS: MULTIVITAMINS/MINERALS TABLET PO SCH (09:51)
[2018-09-12] MEDS: ENOXAPARIN 40 MG/0.4 ML SYR SQ SCH (09:51)
[2018-09-12] MEDS: GABAPENTIN 300 MG CAPSULE PO SCH ×2 (09:51→22:25)
[2018-09-12] MEDS: ASCORBIC ACID 500 MG TAB PO SCH (09:52)
--- NOTE | 2018-09-12 10:30 | Physical Therapy Tx Note ---
Physical Therapy Tx Note - Treatment Note Tolerated: Fair Total Time Spent With Patient: 30 Physical Therapy Tx Note: Detail (Pt was supine reclined in bed upon arrival. Pt states that she is tired and does not want to do therapy or go anywhere. Pt was encouraged to do some ex's and agreed. Pt completed bed mobility from supine to sit at edge of bed with verbal cueing and min assist x 1. Pt required multiple reminders of posture correction. Pt completed ex's while sitting at edge of bed of LAQ, marches, heel pumps,all bilateral and x 15 each. Pt returned to supine with min to mod assist x 1 with verbal cueing but required mod assist x 2 for repositioning when supine. Pt completed heel slides and SLR x 10 bilaterally while lying in bed. Pt was returned to reclined position, given nursing call button and bedside table. Nursing was with patient prior to PT leaving. Pt states tired after ex's and states that ex's make her sore while she is doing them but it "goes away", after she stops.) Physical Therapy Problem List: Detail (1)Decreased LE strength 2) Impaired balance in sitting and standing 3) Assistance with bed mobility, transfers and ambulation 4) Decreased ability to complete prolonged physical activity) Physical Therapy Goals: 1) The patient will ambulate household distances with front wheeled walker independently/supervision for safety. 2) The patient will complete bed mobility with minimal assist of 1 to CG. 3) Independent with sit to and from stand transfer from a higher surface. 4) Increase LE strength 1/3 muscle grade to improve stability of gait. 5) Improve sitting and standing bal ance to a functional level ie: patient will be able to complete ADL's safely seated and standing without LOB. Prognosis: Moderate Physical Therapy Plan: PT 1-2 times a day for gait training, transfer training, bed mobility, LE strengthening exercises and balance exercises.
--- NOTE | 2018-09-12 16:54 | Swallow Tx Note ---
Swallow Tx Note - Time with Patient Total Time Spent With Patient (Min): 30 - Treatment Note Swallow Treatment Note: Patient seen seated upright in bed with call light within reach for the duration of her treatment. Position was modified to gain 90 degree angle or as close as tolerated (approximately 80 degrees). Emphasis on increased strengtheing. Pt has begun mechancial soft meals and does well despite occasional cough which was present at baseline. Pt requires continued c ues for small bites, slow rate, at this time. Pt benefits from nectar thick liquids which family reports is baseline liquid level. Pt will likely continue to have occasional coughing fits as this has been present for some time but had increased since the last hospital stay but can benefit from continued strengthening to improve coordination of breath for coughing and swallowing. Pt benefits from cues to remind her to take a big breath to cough rather than attempt to cough on residual air. Strengthing exercises completed this date Plan for Treatment - Consistency Modification Consistency Modification: Soft Liquid Modification: [place] Modification Comment: Medications in puree. One at a time. Meals to be prepared mechanical soft, with occasional cues and occasional supervision to assist with improved behavior modification (small bites/sip, slow rate). - Behavior Modification Behavior Modification: Small Sips, Use Straw - Additional Plan Details Plan for Treatment: Emphasis on strengthing of coordination of breath/swallow due to continued presence of cough and modified diet. Ensure tolerance of mechancial soft foods. Videofluroscopic Swallow Study Ordered: No Diagnosis/Recommendation Discussed With: Patient, Nurse Goals for Treatment - Short Term Goals/Status: Goal #1: 1. Patient will reduce coughing with PO intake with exercises. Current Status: Patient demonstrated no cough during treatment session this date. See below Goal #2: Patient will improve swallow/breath coordination. 3-4 second "ah" Current Status: Pt maintains up to 4-5 second ah with mod cues. See below. - Usp Goals/Status: Goal #1: Patient will improve oropharyngeal function of swallow phases during po. - Additional Goal Detail Additional Goal Detail: Goal 1. Nursing reports occasional cough and improvement with cue to take a big breath to cough. Number of coughs per meal not available. Goal 2. In addition to increased duration of breath support exercise Edna demonstrates improved overall support through active engagement of diaphragm during exercise which improved volume and coordination of exercise to intiate the task slightly faster than previous attempts.
[2018-09-12] MEDS: CITALOPRAM 20 MG TABLET PO SCH (22:26)
[2018-09-12] MEDS: LOSARTAN POTASSIUM 25 MG TABLET PO SCH (22:27)
[2018-09-13] MEDS: PANTOPRAZOLE SODIUM 40 MG TABLET PO SCH (07:05)
[2018-09-13] MEDS: LEVOTHYROXINE SODIUM 75 MCG TABLET PO SCH (07:05)
--- NOTE | 2018-09-13 10:37 | Physical Therapy Tx Note ---
Physical Therapy Tx Note - Treatment Note Total Time Spent With Patient: 30 Physical Therapy Tx Note: Detail (Patient was brought to rehab department for physical therapy session. Patient was on 2L of O2 initially at beginning of session. Patient ambulated in parallel bars with moderate assistance x1 with W/C follow and O2 line management using bilateral rails for support for total of 4 feet 2x. Patient required 50% verbal and tactile cueing and 75% assistance in weight shifting for facilitation of ambulation. After ambulation patient appeared short of breath and was increased to 3L of O2. Patient was cued to complete deep purse breathing and O2 sat was returned to 98%. Afterwards, Patishannan nt was brought to mat table and transfered from W/C to the R edge of mat using a pivot transfer and moderate assistance x2 for weight shifting, verbal and tactile cueing, and walker guidance to mat table. Patient then completed seated balance exercise with high-fives reaching out of patient's GUERA 7x on each hand 2x. Afterwards, patient completed seated exercise with beach ball reaching up over head and anterior lean to facilitate anterior pelvic tilt for functional activities for a total of 3 repetitions 2x. Patient was then pivot transferred with maximal assistance x1 with assistance of O2 line management. Session ended with patient being brought to occupational therapist for next scheduled session.) Physical Therapy Problem List: Detail (1)Decreased LE strength 2) Impaired balance in sitting and standing 3) Assistance with bed mobility, transfers and ambulation 4) Decreased ability to complete prolonged physical activity) Physical Therapy Goals: 1) The patient will ambulate household distances with front wheeled walker independently/supervision for safety. 2) The patient will complete bed mobility with minimal assist of 1 to CG. 3) Independent with sit to and from stand transfer from a higher surface. 4) Increase LE strength 1/3 muscle grade to improve stability of gait. 5) Improve sitting and standing balance to a functional level ie: patient will be able to complete ADL's safely seated and standing without LOB. Physical Therapy Plan: PT 1-2 times a day for gait training, transfer training, bed mobility, LE strengthening exercises and balance exercises.
[2018-09-13] MEDS: MULTIVITAMINS/MINERALS TABLET PO SCH (10:45)
[2018-09-13] MEDS: CHOLECALCIFEROL 1,000 UNIT TABLET PO SCH (10:46)
[2018-09-13] MEDS: NITROFURANTOIN MONO 100 MG CAPSULE PO SCH (10:46)
[2018-09-13] MEDS: GABAPENTIN 300 MG CAPSULE PO SCH ×2 (10:46→22:29)
[2018-09-13] MEDS: DOCUSATE SODIUM 100 MG CAPSULE PO SCH ×2 (10:46→22:29)
[2018-09-13] MEDS: ENOXAPARIN 40 MG/0.4 ML SYR SQ SCH (10:47)
[2018-09-13] MEDS: ASCORBIC ACID 500 MG TAB PO SCH (10:47)
--- NOTE | 2018-09-13 11:05 | Occupational Therapy Tx Note ---
Occupational Therapy Tx Note - Treatment Note Tolerated: Fair Total Time Spent With Patient: 50 (ADL) Occupational Therapy Treatment Note: Detail (S: Pt supine in bed, ready to get up. O: Pt able to scoot feet to EOB and come to partial sitting with bed railing, she requires hand held assist to pull self to EOB in upright. Pt able to static sit at EOB for dressing task Indly. Pt doffed gown with assist to untie. Pt able to don bra over arms, required assist to hook bra in back. Pt able to don shirt over arms, she required assist to lift left UE and then she was able to pull shirt over head. Pt able to lift feet but otherwise requires total assist to don pants, socks and slip on shoes. Sit to stand with mod assist to walker and pt required min assist to maintain standing balance while therapist pulled pants over hips. Pt amb 4 steps to wheelchair with 2 wheeled walker and min-mod assist. Pt transported to bathroom and completed brushing hair Indly and oral hygiene with min assist to squeeze toothpaste onto toothbrush. Pt transported to rehab gym via wheelchair. Pt completed umesh UE reaching task x 5 reps with cones to encourage UE endurance and core strengthening. Pt then left with PT. A: Pt requires assist for total body dressing and she is very slow and deliberate, min assist for oral hygiene.) Occupational Therapy Problem List: Detail (1. Decreased UE function needed for self cares and feeding self. 2. Decreased endurance needed for ADLs and functional mobility. 3. Decreased Ind with self care tasks including dressing and eating.) Occupational Therapy Goals: 1. Pt will be Ind with feeding self after set up. 2. Pt will demonstrate improved UE strength, ROM and endurance to allow Ind with self care tasks. 3. Pt will be Ind with upper body dressing. Prognosis: Moderate Occupational Therapy Plan: OT 2-4 days per week to address goals and problem list above.
--- NOTE | 2018-09-13 17:26 | Physician Progress Note ---
Subjective - Date Date of Progress Note: 09/13/18 - Admitting Diagnosis Diagnosis: multiple rehab services post sigmoid colectomy - Subjective Nursing Care Plan Problem List Activity Intolerance (Swing Bed) Start: 08/30/18 15:48 Freq: Status: Active Protocol: Created 08/30/18 15:48 [facility] (Rec: 08/30/18 15:48 HMF [id number]) Altered Thought Process (Fall Risk) Start: 08/30/18 15:48 Freq: Status: Active Protocol: Created 08/30/18 15:48 HMF (Rec: 08/30/18 15:48 HMF [id number]) Body Image Disturbance Start: 09/03/18 18:39 Freq: Status: Active Protocol: Created 09/03/18 18:39 SAF (Rec: 09/03/18 18:39 SAF [id number]) High Risk: Post-Op Complications Start: 09/03/18 18:39 Freq: Status: Active Protocol: Created 09/03/18 18:39 SAF (Rec: 09/03/18 18:39 SAF [id number]) Impaired Mobility (Fall Risk) Start: 08/30/18 15:48 Freq: Status: Active Protocol: Created 08/30/18 15:48 HMF (Rec: 08/30/18 15:48 HMF [id number]) Impaired Skin Integrity Start: 09/03/18 18 :39 Freq: Status: Active Protocol: Created 09/03/18 18:39 SAF (Rec: 09/03/18 18:39 SAF [id number]) Knowledge Deficit (Swing Bed) Start: 08/30/18 15:48 Freq: Status: Active Protocol: Created 08/30/18 15:48 HMF (Rec: 08/30/18 15:48 HMF [id number]) Knowledge Deficit: Colostomy Start: 09/03/18 18:39 Freq: Status: Active Protocol: Created 09/03/18 18:39 SAF (Rec: 09/03/18 18:39 SAF [id number]) Pain (Swing Bed) Start: 08/30/18 15:48 Freq: Status: Active Protocol: Created 08/30/18 15:48 HMF (Rec: 08/30/18 15:48 HMF [id number]) Risk for Injury (Fall Risk) Start: 08/30/18 15:48 Freq: Status: Active Protocol: Created 08/30/18 15:48 [facility] (Rec: 08/30/18 15:48 [facility] [id number]) Subjective: Sitting up in bed. Alert, able to answer questions slowly. C/o itching to vaginal area. Denies burning with urination. Richy pain. Denies SOB. - Subjective Detail Comment: No additional complaints except as noted below General - Cognitive Patterns Speech: Soft Thought Process: Intact Thought Content: Normal - Communication Select best description of speech pattern: Unclear Speech Ability to express ideas and wants: Understood Understanding verbal content: Understands - Mood and Behavior Patterns Appearance: Well Groomed Mood: Normal Attitude: Cooperative Motor Activity: Lethargic Affect: Appropriate Hallucinations: Denies - Physical Functioning Activity Level: Up with assist x1 Turning: With partial assist ROM Ability: Moves all extremities Assistive Devices: 2 Wheel Walker Ambulation Ability: Dependent Bed Mobility: Dependent Transfer Ability: Dependent Bathing Ability: Dependent Personal Hygiene: Dependent Dressing Ability: Dependent Eating (Feeding) Ability: Needs Assist Toileting Ability: Needs Assist Administer Own Medication: Dependent - Continence Bowel Pattern: Colostomy Bladder Pattern: Incontinent Urinary Incontinence: Total Meds/Allergies - Allergies Allergies Allergy/AdvReac Type Severity Reaction Status Date / Time venom-honey bee Allergy Severe ANAPHYLAXIS Verified 08/22/18 18:18 [bee venom (honey bee)] latex Allergy Mild ITCHING Verified 08/22/18 18:18 adhesive tape Allergy RASH Uncoded 08/18/16 20:49 - Active Medications Current Medications Acetaminophen (Tylenol 325mg) 650 mg PO Q6H PRN PRN Reason: PAIN - MILD TO MODERATE (1-7) Last Admin: 09/11/18 21:37 Dose: 650 mg Documented by: Ascorbic Acid (Vitamin C) 500 mg PO DAILY [facility] Last Admin: 09/13/18 10:47 Dose: 500 mg Documented by: Citalopram Hydrobromide (Celexa) 20 mg PO QHS [facility] Last Admin: 09/12/18 22:26 Dose: 20 mg Documented by: Docusate Sodium (Colace) 100 mg PO BID [facility] Last Admin: 09/13/18 10:46 Dose: 100 mg Documented by: Enoxaparin Sodium (Lovenox) 40 mg SQ DAILY [facility] Last Admin: 09/13/18 10:47 Dose: 40 mg Documented by: Gabapentin (Neurontin) 300 mg PO BID [facility] Last Admin: 09/13/18 10:46 Dose: 300 mg Documented by: Guaifenesin (Robitussin Dm) 10 ml PO Q6H PRN PRN Reason: COUGH Levothyroxine Sodium (Synthroid) 75 mcg PO DAILYTHY [facility] Last Admin: 09/13/18 07:05 Dose: 75 mcg Documented by: Losartan Potassium (Cozaar) 50 mg PO QHS [facility] Last Admin: 09/12/18 22:27 Dose: 50 mg Documented by: Multivitamins/Minerals (Centrum) 1 tab PO DAILY [facility] Last Admin: 09/13/18 10:45 Dose: 1 tab Documented by: Nitrofurantoin Macrocrystals (Macrobid) 100 mg PO DAILY [facility] Last Admin: 09/13/18 10:46 Dose: 100 mg Documented by: Pantoprazole Sodium (Protonix) 40 mg PO DAILYAC [facility] Last Admin: 09/13/18 07:05 Dose: 40 mg Documented by: Vitamin D (Vitamin D3) 2,000 unit PO DAILY [facility] Last Admin: 09/13/18 10:46 Dose: 2,000 unit Documented by: Zinc Oxide (Desitin) 5 gm TOP ASDIR PRN PRN Reason: RASH Objective - Vital Signs Vital Signs: Vital Signs - Last 24 Hrs Temp Pulse Resp BP BP BP Pulse Ox 09/13/18 13:54 97.5 F L 145/71 09/13/18 09:04 16 92 L 09/13/18 09:01 16 85 L 09/13/18 08:00 97.5 F L 75 12 145/71 88 L 09/12/18 20:00 98.8 F 91 H 20 174/80 90 L - Respiratory Respiratory exam: Normal lung sounds bilaterally - GI/Abdominal GI/Abdominal exam: Other (surgical incision well approximate. Ostomy functioning) - exam: Other (perineal area and groin CD&I, no redness or breakdown noted). negative: Vaginal discharge, Vaginal erythema H&P Results - Labs Result Diagrams: 09/08/18 06:05 09/08/18 06:05 Discharge Potential - Discharge Needs Community Services Used Prior to Admission: Home Health Aide Patient Discharge Plan Description: Return Home Community Services Needed at Discharge: Home Health Aide, Home Health Nurse Plan - Swing Bed Certification Initial Certification Due: 08/30/18 14 Day Re-Cert Due: 09/13/18 44 Day Re-Cert Due: 10/13/18 74 Day Re-Cert Due: 11/12/18 - Detailed Diagnosis and Plan (1) Physical deconditioning Current Visit: Yes Status: Acute Base Code: R53.81 - OTHER [place] Priority: High Comment: 09/13/18: -Physical deconditioning and weakness after recent admission and surgery at [facility] for partial colectomy -PT/OT working with patient (2) Perineal itching, female Current Visit: Yes Status: Acute Base Code: L29.3 - ANOGENITAL PRURITUS, UNSPECIFIED Comment: 09/13/18 -No areas of skin breakdown noted. -No discharge noted -Trial Vitamin A&D to area 1-2x/day (3) History of partial colectomy Current Visit: Yes Status: Acute Base Code: Z90.49 - ACQUIRED ABSENCE OF OTHER SPECIFIED PARTS OF DIGESTIVE TRACT Priority: High Comment: 09/13/18: -partial sigmoid colectomy at [facility] by Dr. 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
[2018-09-13] MEDS: ACETAMINOPHEN 325 MG TAB PO PRN (22:28)
[2018-09-13] MEDS: LOSARTAN POTASSIUM 25 MG TABLET PO SCH (22:29)
[2018-09-13] MEDS: CITALOPRAM 20 MG TABLET PO SCH (22:29)
[2018-09-14] MEDS: LEVOTHYROXINE SODIUM 75 MCG TABLET PO SCH (06:54)
[2018-09-14] MEDS: PANTOPRAZOLE SODIUM 40 MG TABLET PO SCH (06:54)
[2018-09-14] MEDS: CHOLECALCIFEROL 1,000 UNIT TABLET PO SCH (11:08)
[2018-09-14] MEDS: ASCORBIC ACID 500 MG TAB PO SCH (11:08)
[2018-09-14] MEDS: ENOXAPARIN 40 MG/0.4 ML SYR SQ SCH (11:08)
[2018-09-14] MEDS: MULTIVITAMINS/MINERALS TABLET PO SCH (11:08)
[2018-09-14] MEDS: NITROFURANTOIN MONO 100 MG CAPSULE PO SCH (11:08)
[2018-09-14] MEDS: DOCUSATE SODIUM 100 MG CAPSULE PO SCH ×2 (11:08→21:18)
[2018-09-14] MEDS: GABAPENTIN 300 MG CAPSULE PO SCH ×2 (11:08→21:18)
[2018-09-14] MEDS: LOSARTAN POTASSIUM 25 MG TABLET PO SCH (21:17)
[2018-09-14] MEDS: ACETAMINOPHEN 325 MG TAB PO PRN (21:17)
[2018-09-14] MEDS: CITALOPRAM 20 MG TABLET PO SCH (21:18)
[2018-09-15] MEDS: PANTOPRAZOLE SODIUM 40 MG TABLET PO SCH (06:48)
[2018-09-15] MEDS: LEVOTHYROXINE SODIUM 75 MCG TABLET PO SCH (06:48)
[2018-09-15] MEDS: ASCORBIC ACID 500 MG TAB PO SCH (10:17)
[2018-09-15] MEDS: CHOLECALCIFEROL 1,000 UNIT TABLET PO SCH (10:17)
[2018-09-15] MEDS: DOCUSATE SODIUM 100 MG CAPSULE PO SCH ×2 (10:17→21:16)
[2018-09-15] MEDS: NITROFURANTOIN MONO 100 MG CAPSULE PO SCH (10:17)
[2018-09-15] MEDS: GABAPENTIN 300 MG CAPSULE PO SCH ×2 (10:17→21:16)
[2018-09-15] MEDS: MULTIVITAMINS/MINERALS TABLET PO SCH (10:17)
[2018-09-15] MEDS: ENOXAPARIN 40 MG/0.4 ML SYR SQ SCH (10:18)
[2018-09-15] MEDS: LOSARTAN POTASSIUM 25 MG TABLET PO SCH (21:16)
[2018-09-15] MEDS: ACETAMINOPHEN 325 MG TAB PO PRN (21:16)
[2018-09-15] MEDS: CITALOPRAM 20 MG TABLET PO SCH (21:16)
[2018-09-16] MEDS: LEVOTHYROXINE SODIUM 75 MCG TABLET PO SCH (06:23)
[2018-09-16] MEDS: PANTOPRAZOLE SODIUM 40 MG TABLET PO SCH (06:23)
[2018-09-16] MEDS: ENOXAPARIN 40 MG/0.4 ML SYR SQ SCH (09:52)
[2018-09-16] MEDS: GABAPENTIN 300 MG CAPSULE PO SCH ×2 (09:52→21:44)
[2018-09-16] MEDS: ASCORBIC ACID 500 MG TAB PO SCH (09:52)
[2018-09-16] MEDS: NITROFURANTOIN MONO 100 MG CAPSULE PO SCH (09:52)
[2018-09-16] MEDS: MULTIVITAMINS/MINERALS TABLET PO SCH (09:52)
[2018-09-16] MEDS: CHOLECALCIFEROL 1,000 UNIT TABLET PO SCH (09:52)
[2018-09-16] MEDS: DOCUSATE SODIUM 100 MG CAPSULE PO SCH ×2 (09:52→21:45)
--- NOTE | 2018-09-16 10:27 | Swallow Tx Note ---
Swallow Tx Note - Time with Patient Total Time Spent With Patient (Min): 30 - Treatment Note Swallow Treatment Note: Pt seen sitting upright in bed with call light within reach for the duration of the treatment session. Pt completed effortful swallow exercise up to 5 repetitions. Then short and long "ah" to improve coordination of breath and swallow. Short "ah" pt does up to three "ah" with good vocal quality with moderate verbal cues for improved breath. Up to 8 repetitions of set of 3 "ah" on short duration. "Edna" often forgets to take a larger breath and attempts exercises, breathing etc on residual air. Pt consumed nectar thick liquid via straw without overt s/s of dysphagia. Plan for Treatment - Consistency Modification Consistency Modification: Soft Liquid Modification: [place] - Behavior Modification Behavior Modification: Small Sips, Use Straw, Hard Swallow - Additional Plan Details Videofluroscopic Swallow Study Ordered: No Diagnosis/Recommendation Discussed With: Patient (Social work also notified regarding current progress and recommendations for continued diet modifications: mechanical soft and nectar thick liquids (straw OK).), Nurse, Other Goals for Treatment - Short Term Goals/Status: Goal #1: 1. Patient will reduce coughing with PO intake with exercises. Current Status: Only one instance of coughing during a 30 minute period. Improved with cue Goal #2: Patient will improve swallow/breath coordination. 3-4 second "ah" Current Status: Maintaining up to 3-4 seconds with mod cues. - Intermediate Goals/Status: Goal #1: Patient will improve oropharyngeal function of swallow phases during po.
--- NOTE | 2018-09-16 11:30 | Physical Therapy Tx Note ---
Physical Therapy Tx Note - Treatment Note Total Time Spent With Patient: 30 Physical Therapy Tx Note: Detail (Patient began therapy supine in hospital bed. Patient transfered from supine to sitting L EOB with supervision x1 with verbal and tactile cueing for transfer. Patient required minimal assistance x1 to scooch forward in bed. Patient then completed sit to stand transfer with minimal assistance x1 using 2-wheeled walker. Patient completed standing pivot transfer to wheelchair with minimal assistance x1 with weight shifting and verbal cueing throughout for facilitation of steps and upright posture. Patient was then brought to rehab department and had 2L of O2 throughout therapy session. Patient completed ambulation with moderate assistance x1 with wheelchair follow length of parallel bars with weight shifting and verbal cueing for step facilitation and upright posture. Patient was then brought outside of the parallel bars and completed sit to stand transfer with moderate assistance x2 with 2-wheeled walker for support. Patient then ambulated 6 feet with moderate assistance x2 with 2-wheeled walker for support and required consistent verbal cueing and weight shifting throughout ambulation. After ambulation, patient was brought back to hospital room and was pivot transferred to the chair with maximal assistance x1 due to increased fatigue. Patient was set up with tray for lunch and was given call light.) Physical Therapy Problem List: Detail (1)Decreased LE strength 2) Impaired balance in sitting and standing 3) Assistance with bed mobility, transfers and ambulation 4) Decreased ability to complete prolonged physical activity) Physical Therapy Goals: 1) The patient will ambulate household distances with front wheeled walker independently/supervision for safety. 2) The patient will complete bed mobility with minimal assist of 1 to CG. 3) Independent with sit to and from stand transfer from a higher surface. 4) Increase LE strength 1/3 muscle grade to improve stability of gait. 5) Improve sitting and standing balance to a functional level ie: patient will be able to complete ADL's safely seated and standing without LOB. Physical Therapy Plan: PT 1-2 times a day for gait training, transfer training, bed mobility, LE strengthening exercises and balance exercises.
[2018-09-16] MEDS: LOSARTAN POTASSIUM 25 MG TABLET PO SCH (21:44)
[2018-09-16] MEDS: CITALOPRAM 20 MG TABLET PO SCH (21:44)
[2018-09-16] MEDS: ACETAMINOPHEN 325 MG TAB PO PRN (21:45)
[2018-09-17] MEDS: LEVOTHYROXINE SODIUM 75 MCG TABLET PO SCH (06:13)
[2018-09-17] MEDS: PANTOPRAZOLE SODIUM 40 MG TABLET PO SCH (06:13)
[2018-09-17] MEDS: ASCORBIC ACID 500 MG TAB PO SCH (09:52)
[2018-09-17] MEDS: CHOLECALCIFEROL 1,000 UNIT TABLET PO SCH (09:52)
[2018-09-17] MEDS: MULTIVITAMINS/MINERALS TABLET PO SCH (09:52)
[2018-09-17] MEDS: GABAPENTIN 300 MG CAPSULE PO SCH ×2 (09:52→22:28)
[2018-09-17] MEDS: ENOXAPARIN 40 MG/0.4 ML SYR SQ SCH (09:52)
[2018-09-17] MEDS: NITROFURANTOIN MONO 100 MG CAPSULE PO SCH (09:52)
[2018-09-17] MEDS: DOCUSATE SODIUM 100 MG CAPSULE PO SCH ×2 (09:52→22:28)
--- NOTE | 2018-09-17 12:56 | Physical Therapy Tx Note ---
Physical Therapy Tx Note - Treatment Note Total Time Spent With Patient: 45 Physical Therapy Tx Note: Detail (Patient began therapy supine in bed and reported that she wanted to practice walking. Patient transferred from supine to sitting L EOB with consistent verbal and tactile cueing for placement and sequencing. Patient required maximal assistance x1 for scooting forward in bed. Afterwards, patient completed sit to stand transfer with moderate assistance x1 using 2-wheeled walker for support. Patient then completed standing pivot transfer to the left to the wheelchair with moderate assistance x1 with 2- wheeled walker for support. Patient required verbal and tactile cueing for sequencing of steps and minimal weight shifting for step facilitation. Patient was then brought to the rehab department. Patient completed sit to stand transfer from wheelchair with moderate assistance x1 with cueing for upright posture. Patient then ambulated 5 feet with 2-wheeled walker and minimal assistance x1. Patient required consistent verbal and tactile cueing for reciprocal stepping and moving the walker forward during ambulation. Patient required a rest break due to fatigue. Patient then completed second sit to stand transfer with moderate assistance requiring maximal verbal cueing for hand placement for safety. Patient ambulated a total of 4.5 feet with moderate assistance x1 with consistent verbal and tactile cueing for sequencing. Patient required minimal assistance for weight shifting during initial 2 feet and moderate assistance for last 2.5 feet. Patient took a rest break due to noticeable fatigue and patient report. Patient was brought back to room and completed standing pivot transfer to the left with support on therapist with moderate assistance x1 for verbal cueing and weight shifting. Patient was maximally assisted into supine in bed and left with call light at end of session.) Physical Therapy Problem List: Detail (1)Decreased LE strength 2) Impaired balance in sitting and standing 3) Assistance with bed mobility, transfers and ambulation 4) Decreased ability to complete prolonged physical activity) Physical Therapy Goals: 1) The patient will ambulate household distances with front wheeled walker independently/supervision for safety. 2) The patient will complete bed mobility with minimal assist of 1 to CG. 3) Independent with sit to and from stand transfer from a higher surface. 4) Increase LE strength 1/3 muscle grade to improve stability of gait. 5) Improve sitting and standing balance to a functional level ie: patient will be able to complete ADL's safely seated and standing without LOB. Physical Therapy Plan: PT 1-2 times a day for gait training, transfer training, bed mobility, LE strengthening exercises and balance exercises.
[2018-09-17] MEDS: CITALOPRAM 20 MG TABLET PO SCH (22:28)
[2018-09-17] MEDS: ACETAMINOPHEN 325 MG TAB PO PRN (22:28)
[2018-09-17] MEDS: LOSARTAN POTASSIUM 25 MG TABLET PO SCH (22:28)
[2018-09-18] MEDS: PANTOPRAZOLE SODIUM 40 MG TABLET PO SCH (06:19)
[2018-09-18] MEDS: LEVOTHYROXINE SODIUM 75 MCG TABLET PO SCH (06:19)
--- NOTE | 2018-09-18 10:06 | Swallow Tx Note ---
Swallow Tx Note - Time with Patient Total Time Spent With Patient (Min): 30 - Treatment Note Swallow Treatment Note: Pt seen seated upright in bed with call light within reach for the duration of the treatment session. Pt participated in swallow/breath coordination exercises where her sustained "ah" was a maximum of 3 seconds with clear voicing this date. Repetition of short "ah" across three repetitions was completed with clear voicing from 2/3 "ah's" with up to 10 repetitions of three completed. Additionally pt completed effortful swallow exercise which appears to assist with reset of coordination for the completion of the other two exercises as well as strengthen the physiology associated with swallowing. Edna completed effortful swallow exercise for 5 repetitions in between the other exercises. Plan for Treatment - Consistency Modification Consistency Modification: Soft Liquid Modification: [place] - Behavior Modification Behavior Modification: Small Sips, Hard Swallow - Additional Plan Details Videofluroscopic Swallow Study Ordered: No Diagnosis/Recommendation Discussed With: Patient Goals for Treatment - Short Term Goals/Status: Goal #1: 1. Patient will reduce coughing with PO intake with exercises. Current Status: No coughing observed this date. Goal #2: Patient will improve swallow/breath coordination. 3-4 second "ah" Current Status: Up to three second "ah" with good vocal quality. - Hotel Office [employer] Goals/Status: Goal #1: Patient will improve oropharyngeal function of swallow phases during po.
--- NOTE | 2018-09-18 10:40 | Physician Progress Note ---
Subjective - Date Date of Progress Note: 09/18/18 - Admitting Diagnosis Diagnosis: multiple rehab services post sigmoid colectomy - Subjective Nursing Care Plan Problem List Activity Intolerance (Swing Bed) Start: 08/30/18 15:48 Freq: Status: Active Protocol: Created 08/30/18 15:48 HMF (Rec: 08/30/18 15:48 HMF [id number]) Altered Thought Process (Fall Risk) Start: 08/30/18 15:48 Freq: Status: Active Protocol: Created 08/30/18 15:48 HMF (Rec: 08/30/18 15:48 HMF [id number]) Body Image Disturbance Start: 09/03/18 18:39 Freq: Status: Active Protocol: Created 09/03/18 18:39 SAF (Rec: 09/03/18 18:39 SAF [id number]) High Risk: Post-Op Complications Start: 09/03/18 18:39 Freq: Status: Active Protocol: Created 09/03/18 18:39 SAF (Rec: 09/03/18 18:39 SAF [id number]) Impaired Mobility (Fall Risk) Start: 08/30/18 15:48 Freq: Status: Active Protocol: Created 08/30/18 15:48 HMF (Rec: 08/30/18 15:48 HMF [id number]) Impaired Skin Integrity Start: 09/03/18 18 :39 Freq: Status: Active Protocol: Created 09/03/18 18:39 SAF (Rec: 09/03/18 18:39 SAF [id number]) Knowledge Deficit (Swing Bed) Start: 08/30/18 15:48 Freq: Status: Active Protocol: Created 08/30/18 15:48 HMF (Rec: 08/30/18 15:48 HMF [id number]) Knowledge Deficit: Colostomy Start: 09/03/18 18:39 Freq: Status: Active Protocol: Created 09/03/18 18:39 SAF (Rec: 09/03/18 18:39 SAF [id number]) Pain (Swing Bed) Start: 08/30/18 15:48 Freq: Status: Active Protocol: Created 08/30/18 15:48 HMF (Rec: 08/30/18 15:48 HMF [id number]) Risk for Injury (Fall Risk) Start: 08/30/18 15:48 Freq: Status: Active Protocol: Created 08/30/18 15:48 HMF (Rec: 08/30/18 15:48 F [id number]) Subjective: The patient is wake and watching TV. She has delayed speech but is able to communicate appropriately. General - Cognitive Patterns Speech: Soft Thought Process: Intact Thought Content: Normal - Communication Select best description of speech pattern: Unclear Speech Ability to express ideas and wants: Understood Understanding verbal content: Understands - Mood and Behavior Patterns Appearance: Well Groomed Mood: Normal Attitude: Cooperative Motor Activity: Lethargic Affect: Appropriate Hallucinations: Denies - Physical Functioning Activity Level: Up with assist x2 Turning: With total assist ROM Ability: Moves all extremities Assistive Devices: 2 Wheel Walker Ambulation Ability: Needs Assist Bed Mobility: Needs Assist Transfer Ability: Needs Assist Bathing Ability: Needs Assist Personal Hygiene: Needs Assist Dressing Ability: Needs Assist Eating (Feeding) Ability: Needs Assist Toileting Ability: Needs Assist Administer Own Medication: Needs Assist - Continence Bowel Pattern: Colostomy Bladder Pattern: Incontinent Urinary Incontinence: Total Meds/Allergies - Allergies Allergies Allergy/AdvReac Type Severity Reaction Status Date / Time venom-honey bee Allergy Severe ANAPHYLAXIS Verified 08/22/18 18:18 [bee venom (honey bee)] latex Allergy Mild ITCHING Verified 08/22/18 18:18 adhesive tape Allergy RASH Uncoded 08/18/16 20:49 - Active Medications Current Medications Acetaminophen (Tylenol 325mg) 650 mg PO Q6H PRN PRN Reason: PAIN - MILD TO MODERATE (1-7) Last Admin: 09/17/18 22:28 Dose: 650 mg Documented by: Ascorbic Acid (Vitamin C) 500 mg PO DAILY [facility] Last Admin: 09/17/18 09:52 Dose: 500 mg Documented by: Citalopram Hydrobromide (Celexa) 20 mg PO QHS [facility] Last Admin: 09/17/18 22:28 Dose: 20 mg Documented by: Docusate Sodium (Colace) 100 mg PO BID [facility] Last Admin: 09/17/18 22:28 Dose: 100 mg Documented by: Enoxaparin Sodium (Lovenox) 40 mg SQ DAILY [facility] Last Admin: 09/17/18 09:52 Dose: 40 mg Documented by: Gabapentin (Neurontin) 300 mg PO BID [facility] Last Admin: 09/17/18 22:28 Dose: 300 mg Documented by: Guaifenesin (Robitussin Dm) 10 ml PO Q6H PRN PRN Reason: COUGH Levothyroxine Sodium (Synthroid) 75 mcg PO DAILYTHY [facility] Last Admin: 09/18/18 06:19 Dose: 75 mcg Documented by: Losartan Potassium (Cozaar) 50 mg PO QHS [facility] Last Admin: 09/17/18 22:28 Dose: 50 mg Documented by: Multivitamins/Minerals (Centrum) 1 tab PO DAILY [facility] Last Admin: 09/17/18 09:52 Dose: 1 tab Documented by: Nitrofurantoin Macrocrystals (Macrobid) 100 mg PO DAILY [facility] Last Admin: 09/17/18 09:52 Dose: 100 mg Documented by: Pantoprazole Sodium (Protonix) 40 mg PO DAILYAC [facility] Last Admin: 09/18/18 06:19 Dose: 40 mg Documented by: Vitamin D (Vitamin D3) 2,000 unit PO DAILY [facility] Last Admin: 09/17/18 09:52 Dose: 2,000 unit Documented by: Zinc Oxide (Desitin) 5 gm TOP ASDIR PRN PRN Reason: RASH Objective - Vital Signs Vital Signs: Vital Signs - Last 24 Hrs Temp Pulse Resp BP BP Pulse Ox 09/18/18 08:00 98.5 F 76 18 142/70 92 L 09/17/18 20:00 97.9 F 86 18 139/69 93 L - General General Appearance: Alert, Oriented x3, Cooperative, No acute distress, Other (slow speech , dysphagia) - Head Head exam: Normal inspection - Eye Eye exam: Normal appearance, PERRL Pupils: Normal accommodation - ENT ENT exam: Normal exam, Mucous membranes moist, Normal orophraynx Ear exam: negative: External canal tenderness Nasal Exam: Normal inspection. negative: Discharge, Sinus tenderness Mouth exam: Normal external inspection, Tongue normal Teeth exam: negative: Dental caries Throat exam: negative: Tonsillar erythema, Tonsillar exudate - Neck Neck exam: Normal inspection, Full ROM. negative: Tenderness - Respiratory Respiratory exam: Normal lung sounds bilaterally - Cardiovascular Cardiovascular Exam: Regular rate, Normal rhythm, Normal heart sounds Peripheral Pulses: 2+: Radial (R), Radial (L), Dorsalis Pedis (R), Dorsalis Pedis (L) - GI/Abdominal GI/Abdominal exam: Other (surgical incision well approximate. Ostomy functioning) - Rectal Rectal exam: Deferred - exam: Other (perineal area and groin CD&I, no redness or breakdown noted). negative: Vaginal discharge, Vaginal erythema - Extremities Extremities exam: Normal inspection, Full ROM, Normal capillary refill. negative: Tenderness - Back Back exam: Reports: Normal inspection, Full ROM. Denies: Muscle spasm, Rash noted, Tenderness - Neurological Neurological exam: Alert, Oriented X3 - Psychiatric Psychiatric exam: Normal affect, Normal mood - Skin Skin exam: Dry, Intact, Normal color, Warm H&P Results - Labs Result Diagrams: 09/08/18 06:05 09/08/18 06:05 Discharge Potential - Discharge Needs Community Services Used Prior to Admission: Home Health Aide Patient Discharge Plan Description: Return Home Community Services Needed at Discharge: Home Health Aide, Home Health Nurse Plan - Swing Bed Certification Initial Certification Due: 08/30/18 14 Day Re-Cert Due: 09/13/18 44 Day Re-Cert Due: 10/13/18 74 Day Re-Cert Due: 11/12/18 - Detailed Diagnosis and Plan (1) Physical deconditioning Current Visit: Yes Status: Acute Base Code: R53.81 - OTHER MALAISE Priority: High Comment: 09/18/18: -Physical deconditioning and weakness after recent admission and surgery at [facility] for partial colectomy -PT/OT daily. with most recent note indicating improvement and goal today of ambulation TID with pivoting. (2) Swallowing difficulty Current Visit: No Status: Acute Qualifiers: Dysphagia type: oral phase Qualified Code(s): R13.11 - Dysphagia, oral phase Base Code: R13.10 - DYSPHAGIA, UNSPECIFIED Priority: Medium Comment: 09/18/18: - Currently on honey thinck liquids. - Speech therapy continuing to work with patient and goals are to reduce cough with Po intake and to improve swallowing and breath coordination. (3) History of partial colectomy Current Visit: Yes Status: Acute Base Code: Z90.49 - ACQUIRED ABSENCE OF OTHER SPECIFIED PARTS OF DIGESTIVE TRACT Priority: High Comment: 09/18/18: -Partial sigmoid colectomy at [facility] alligance by Dr. 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 (4) DVT prophylaxis Current Visit: No Status: Acute Base Code: [id number] - Comment: 09/18/18: -high risk due to age, hospitalization, and recent surgery -Holding Lovenox at this time, pending clearance from surgery -Encouarge ambulation with nursing staff (5) DNR (do not resuscitate) Current Visit: No Status: Acute Base Code: Z66 - DO NOT RESUSCITATE Priority: Medium Comment: 09/18/18: -DNR
--- NOTE | 2018-09-18 10:54 | Occupational Therapy Tx Note ---
Occupational Therapy Tx Note - Treatment Note Tolerated: Good Total Time Spent With Patient: 35 (ADL) Occupational Therapy Treatment Note: Detail (S: Pt awake and willing to get up. O: Supine to sit Indly with extra time and using hospital bed rail. Sit to stand from EOB to walker with min assist and pt able to take several small steps to wheelchair with 2 wheeled walker and min assist to move walker as well as verbal cues for technique. Pt transported to sink via wheelchair. She was able to complete brushing hair and washing face with set up. Pt did not want to complete oral hygiene until after breakfast. She was left up in wheelchair with call button in reach. A: Pt continues to be very slow with movement and self cares. She demonstrates improved functional mobility (bed mobility and transfers).) Occupational Therapy Problem List: Detail (1. Decreased UE function needed for self cares and feeding self. 2. Decreased endurance needed for ADLs and functional mobility. 3. Decreased Ind with self care tasks including dressing and eating.) Occupational Therapy Goals: 1. Pt will be Ind with feeding self after set up. 2. Pt will demonstrate improved UE strength, ROM and endurance to allow Ind with self care tasks. 3. Pt will be Ind with upper body dressing. Prognosis: Good Occupational Therapy Plan: OT 2-4 days per week to address goals and problem list above.
[2018-09-18] MEDS: CHOLECALCIFEROL 1,000 UNIT TABLET PO SCH (10:56)
[2018-09-18] MEDS: DOCUSATE SODIUM 100 MG CAPSULE PO SCH ×2 (10:56→22:31)
[2018-09-18] MEDS: NITROFURANTOIN MONO 100 MG CAPSULE PO SCH (10:56)
[2018-09-18] MEDS: ENOXAPARIN 40 MG/0.4 ML SYR SQ SCH (10:56)
[2018-09-18] MEDS: MULTIVITAMINS/MINERALS TABLET PO SCH (10:56)
[2018-09-18] MEDS: GABAPENTIN 300 MG CAPSULE PO SCH ×2 (10:56→22:31)
[2018-09-18] MEDS: ASCORBIC ACID 500 MG TAB PO SCH (10:56)
--- NOTE | 2018-09-18 16:55 | Physical Therapy Tx Note ---
Physical Therapy Tx Note - Treatment Note Tolerated: Fair Total Time Spent With Patient: 25 Physical Therapy Tx Note: Detail (The patient was in bed when PT arrived. The patient was independent with bed mobility (supine to sit) and required moderate assist of 1 to scoot forward when sitting on the edge of the bed. The patient acheived sit to stand with CG of 1 only. The patient completed a pivot transfer with CG and verbal cues to step and turn feet, the patient was able to turn walker independently, however when fatigued 1/2 way through transfer, patient required mod assist to weight shift and min assist to move walker. The patient ambulated with front wheeled walker with CG/min to mod assist for weight shift plus one following with chair a distance of 5 feet. The patient required verbal cues to stand tall and tended to lean to the left. The patient on occasion was able to stand tall. The patient stated she was too fatigued to continue session. The patient was returned to room and transferred to bed with pivot transfer with walker requiring min to mod PA of 1. The patient also required mod PA with sit to supine and max PA of 2 for scooting up in bed. The patient continues to make good progress with transfers and ambulation, however patient requires more assistance with transfers and bed mobility when fatigued.) Physical Therapy Problem List: Detail (1)Decreased LE strength 2) Impaired balance in sitting and standing 3) Assistance with bed mobility, transfers and ambulation 4) Decreased ability to complete prolonged physical activity) Physical Therapy Goals: 1) The patient will ambulate household distances with front wheeled walker independently/supervision for safety. 2) The patient will complete bed mobility with minimal assist of 1 to CG. 3) Independent with sit to and from stand transfer from a higher surface. 4) Increase LE strength 1/3 muscle grade to improve stability of gait. 5) Improve sitting and standing balance to a functional level ie: patient will be able to complete ADL's safely seated and standing without LOB. Physical Therapy Plan: PT 1-2 times a day for gait training, transfer training, bed mobility, LE strengthening exercises and balance exercises.
[2018-09-18] MEDS: LOSARTAN POTASSIUM 25 MG TABLET PO SCH (22:31)
[2018-09-18] MEDS: CITALOPRAM 20 MG TABLET PO SCH (22:31)
[2018-09-19] MEDS: PANTOPRAZOLE SODIUM 40 MG TABLET PO SCH (06:36)
[2018-09-19] MEDS: LEVOTHYROXINE SODIUM 75 MCG TABLET PO SCH (06:36)
[2018-09-19] MEDS: ENOXAPARIN 40 MG/0.4 ML SYR SQ SCH (10:43)
[2018-09-19] MEDS: ASCORBIC ACID 500 MG TAB PO SCH (10:44)
[2018-09-19] MEDS: GABAPENTIN 300 MG CAPSULE PO SCH ×2 (10:44→21:48)
[2018-09-19] MEDS: MULTIVITAMINS/MINERALS TABLET PO SCH (10:44)
[2018-09-19] MEDS: CHOLECALCIFEROL 1,000 UNIT TABLET PO SCH (10:44)
[2018-09-19] MEDS: NITROFURANTOIN MONO 100 MG CAPSULE PO SCH (10:44)
[2018-09-19] MEDS: DOCUSATE SODIUM 100 MG CAPSULE PO SCH ×2 (10:44→21:49)
--- NOTE | 2018-09-19 13:58 | Physical Therapy Tx Note ---
Physical Therapy Tx Note - Treatment Note Tolerated: Good Total Time Spent With Patient: 45 Physical Therapy Tx Note: Detail (Pt reclined in bed upon arrival; awake, alert, cooperative for therapy. Required minimal assist for scooting to edge of bed, for coming to standing at walker. Took several steps to pivot to bedside recliner w/walker and VCs for stepping and direction. Minimal assist to scoot back into recliner. Performed 10 reps each B of knee extension, isometric knee flexion, SLR, ankle pumps, heel slides, hip abduction. Minimal assist for positioning in recliner: pillow on L side to prevent L lean, pillow behind head and not back, pillow under LE's on recliner leg pad. Left up in recliner w/bedside table and beverages within reach, call light in lap; nrsg notified.) Physical Therapy Problem List: Detail (1)Decreased LE strength 2) Impaired balance in sitting and standing 3) Assistance with bed mobility, transfers and ambulation 4) Decreased ability to complete prolonged physical activity) Physical Therapy Goals: 1) The patient will ambulate household distances with front wheeled walker independently/supervision for safety. 2) The patient will complete bed mobility with minimal assist of 1 to CG. 3) Independent with sit to and from stand transfer from a higher surface. 4) Increase LE strength 1/3 muscle grade to improve stability of gait. 5) Improve sitting and standing balance to a functional level ie: patient will be able to complete ADL's safely seated and standing without LOB. Physical Therapy Plan: PT 1-2 times a day for gait training, transfer training, bed mobility, LE strengthening exercises and balance exercises.
[2018-09-19] MEDS: CITALOPRAM 20 MG TABLET PO SCH (21:48)
[2018-09-19] MEDS: LOSARTAN POTASSIUM 25 MG TABLET PO SCH (21:49)
[2018-09-20] MEDS: LEVOTHYROXINE SODIUM 75 MCG TABLET PO SCH (06:23)
[2018-09-20] MEDS: PANTOPRAZOLE SODIUM 40 MG TABLET PO SCH (06:23)
[2018-09-20] MEDS ORDERED: DIPHENHYDRAMINE TOP PRN (09:11)
[2018-09-20] MEDS: CHOLECALCIFEROL 1,000 UNIT TABLET PO SCH (09:37)
[2018-09-20] MEDS: ASCORBIC ACID 500 MG TAB PO SCH (09:37)
[2018-09-20] MEDS: MULTIVITAMINS/MINERALS TABLET PO SCH (09:37)
[2018-09-20] MEDS: GABAPENTIN 300 MG CAPSULE PO SCH ×2 (09:37→21:37)
[2018-09-20] MEDS: DOCUSATE SODIUM 100 MG CAPSULE PO SCH ×2 (09:37→21:37)
[2018-09-20] MEDS: NITROFURANTOIN MONO 100 MG CAPSULE PO SCH (09:37)
[2018-09-20] MEDS: ENOXAPARIN 40 MG/0.4 ML SYR SQ SCH (09:38)
--- NOTE | 2018-09-20 11:57 | Physical Therapy Tx Note ---
Physical Therapy Tx Note - Treatment Note Tolerated: Fair Total Time Spent With Patient: 40 Physical Therapy Tx Note: Detail (Patient began therapy session supine in bed and had to be awakened. Patient completed transfer from supine to sitting L EOB but required moderate assistance x2. Patient demonstrated significant lean to the left and had difficulty maintaining midline throughout the transfer. Patient then completed standing pivot transfer to the right into the wheelchair using a 2-wheeled walker for support and moderate assistance x2 for weight shifting and verbal / tactile cueing for sequencing and posture. Patient was then brought to rehab department and completed 4 steps in the parallel bars with bilateral support and moderate assistance x1 with wheelchair follow. Patient required weight shifting for facilitation of movement and verbal cueing for posture and sequencing. After ambulation, patient reported that she felt dizzy and was instructed on pursed lip breathing. Patient's O2 sat was assessed with pulse oximeter and was found to be at 93%. Due to patient still feeling dizzy, she was returned to room. Patient completed sit to stand transfer from wheelchair with 2-wheeled walker for support, requiring maximal assistance x1 with verbal cueing for hand placement and posture. Patient completed standing pivot transfer to the left into her recliner with 2-wheeled walker for support and moderate assistance for weight shifting and verbal cueing for posture and sequencing. Patient was left sitting in recliner with call light in hand at end of therapy session.) Physical Therapy Problem List: Detail (1)Decreased LE strength 2) Impaired balance in sitting and standing 3) Assistance with bed mobility, transfers and ambulation 4) Decreased ability to complete prolonged physical activity) Physical Therapy Goals: 1) The patient will ambulate household distances with front wheeled walker independently/supervision for safety. 2) The patient will complete bed mobility with minimal assist of 1 to CG. 3) Independent with sit to and from stand transfer from a higher surface. 4) Increase LE strength 1/3 muscle grade to improve stability of gait. 5) Improve sitting and standing balance to a functional level ie: patient will be able to complete ADL's safely seated and standing without LOB. Physical Therapy Plan: PT 1-2 times a day for gait training, transfer training, bed mobility, LE strengthening exercises and balance exercises.
--- NOTE | 2018-09-20 16:39 | Physical Therapy Tx Note ---
Physical Therapy Tx Note - Treatment Note Total Time Spent With Patient: 20 Physical Therapy Tx Note: Detail (Patient began therapy session supine in bed, patient reported that she wanted to participate in therapy. Patient completed transfer from supine to sitting L EOB with supervision assistance for the majority of the transfer but required moderate assistance x1 for scooting forward. Patient then sat on L EOB for 10 minutes completing seated balance exercises using a beach ball to facilitate rotational movements, anterior pelvic tilt, and thoracic / cervical extension. At the end of session patient completed transfer from L EOB to supine requiring moderate assistance x1. Patient required maximal assistance x2 to scooch up in bed. Patient was left supine in bed with call light.) Physical Therapy Problem List: Detail (1)Decreased LE strength 2) Impaired jenifer nce in sitting and standing 3) Assistance with bed mobility, transfers and ambulation 4) Decreased ability to complete prolonged physical activity) Physical Therapy Goals: 1) The patient will ambulate household distances with front wheeled walker independently/supervision for safety. 2) The patient will complete bed mobility with minimal assist of 1 to CG. 3) Independent with sit to and from stand transfer from a higher surface. 4) Increase LE strength 1/3 muscle grade to improve stability of gait. 5) Improve sitting and standing balance to a functional level ie: patient will be able to complete ADL's safely seated and standing without LOB. Physical Therapy Plan: PT 1-2 times a day for gait training, transfer training, bed mobility, LE strengthening exercises and balance exercises.
[2018-09-20] MEDS: CITALOPRAM 20 MG TABLET PO SCH (21:37)
[2018-09-20] MEDS: LOSARTAN POTASSIUM 25 MG TABLET PO SCH (21:37)
[2018-09-21] MEDS: PANTOPRAZOLE SODIUM 40 MG TABLET PO SCH (07:36)
[2018-09-21] MEDS: LEVOTHYROXINE SODIUM 75 MCG TABLET PO SCH (07:36)
[2018-09-21] MEDS: ENOXAPARIN 40 MG/0.4 ML SYR SQ SCH (10:35)
[2018-09-21] MEDS: CHOLECALCIFEROL 1,000 UNIT TABLET PO SCH (10:35)
[2018-09-21] MEDS: DOCUSATE SODIUM 100 MG CAPSULE PO SCH ×2 (10:36→22:07)
[2018-09-21] MEDS: NITROFURANTOIN MONO 100 MG CAPSULE PO SCH (10:36)
[2018-09-21] MEDS: ASCORBIC ACID 500 MG TAB PO SCH (10:37)
[2018-09-21] MEDS: MULTIVITAMINS/MINERALS TABLET PO SCH (10:38)
[2018-09-21] MEDS: GABAPENTIN 300 MG CAPSULE PO SCH ×2 (10:38→22:07)
[2018-09-21] MEDS: ACETAMINOPHEN 325 MG TAB PO PRN (22:07)
[2018-09-21] MEDS: CITALOPRAM 20 MG TABLET PO SCH (22:07)
[2018-09-21] MEDS: LOSARTAN POTASSIUM 25 MG TABLET PO SCH (22:07)
[2018-09-22] MEDS: LEVOTHYROXINE SODIUM 75 MCG TABLET PO SCH (07:22)
[2018-09-22] MEDS: PANTOPRAZOLE SODIUM 40 MG TABLET PO SCH (07:23)
[2018-09-22] MEDS: NITROFURANTOIN MONO 100 MG CAPSULE PO SCH (10:34)
[2018-09-22] MEDS: ASCORBIC ACID 500 MG TAB PO SCH (10:34)
[2018-09-22] MEDS: DOCUSATE SODIUM 100 MG CAPSULE PO SCH ×2 (10:35→21:12)
[2018-09-22] MEDS: GABAPENTIN 300 MG CAPSULE PO SCH ×2 (10:35→21:11)
[2018-09-22] MEDS: CHOLECALCIFEROL 1,000 UNIT TABLET PO SCH (10:36)
[2018-09-22] MEDS: ENOXAPARIN 40 MG/0.4 ML SYR SQ SCH (10:37)
[2018-09-22] MEDS: MULTIVITAMINS/MINERALS TABLET PO SCH (10:38)
[2018-09-22] MEDS: LOSARTAN POTASSIUM 25 MG TABLET PO SCH (21:11)
[2018-09-22] MEDS: ACETAMINOPHEN 325 MG TAB PO PRN (21:11)
[2018-09-22] MEDS: CITALOPRAM 20 MG TABLET PO SCH (21:12)
[2018-09-23] MEDS: LEVOTHYROXINE SODIUM 75 MCG TABLET PO SCH (06:57)
[2018-09-23] MEDS: PANTOPRAZOLE SODIUM 40 MG TABLET PO SCH (06:57)
[2018-09-23] MEDS: MULTIVITAMINS/MINERALS TABLET PO SCH (10:12)
[2018-09-23] MEDS: ENOXAPARIN 40 MG/0.4 ML SYR SQ SCH (10:12)
[2018-09-23] MEDS: GABAPENTIN 300 MG CAPSULE PO SCH ×2 (10:12→21:46)
[2018-09-23] MEDS: ASCORBIC ACID 500 MG TAB PO SCH (10:13)
[2018-09-23] MEDS: CHOLECALCIFEROL 1,000 UNIT TABLET PO SCH (10:13)
[2018-09-23] MEDS: NITROFURANTOIN MONO 100 MG CAPSULE PO SCH (10:13)
[2018-09-23] MEDS: DOCUSATE SODIUM 100 MG CAPSULE PO SCH ×2 (10:13→21:45)
--- NOTE | 2018-09-23 12:17 | Physical Therapy Tx Note ---
Physical Therapy Tx Note - Treatment Note Total Time Spent With Patient: 25 Physical Therapy Tx Note: Detail (Patient began therapy supine in bed and reported that she wanted to practice walking today. Patient completed transfer from supine to L EOB with supervision assistance x1. Patient required moderate assistance x1 for scooting forward towards the edge of the bed. Patient then completed sit to stand transfer with [id number] using 2-wheeled walker for support. Afterwards, patient completed standing pivot transfer to the left into her wheelchair. Patient required minimal assistance with verbal cueing for upright posture, sequencing, and foot and hand placement. Patient was brought to the allway and focused on gait training. Patient ambulated with 2-wheeled walker with minimal assistance 4 steps requiring maximal verbal / tactile cueing for sequencing. Patient required a rest in between ambulation trials. Patient required moderate assistance x1 for sit to stand transfer from walker with verbal cueing for hand placement on 2-wheeled walker. Patient then ambulated 9 feet with verbal / tactile cueing, weight shifting, and assistance with the walker staying in midline. Afterwards patient reported that she was tired and was brought back to her room. Patient completed sit to stand transfer from wheelchair with minimal assistance x1 with 2-wheeled walker for support. Patient completed standing pivot transfer to the left with moderate assistance x1 for weight shifting, guidance of walker, verbal / tactile cueing for sequencing and foot placement. Patient was left sitting in recliner with call light in hand at the end of session.) Physical Therapy Problem List: Detail (1)Decreased LE strength 2) Impaired balance in sitting and standing 3) Assistance with bed mobility, transfers and ambulation 4) Decreased ability to complete prolonged physical activity) Physical Therapy Goals: 1) The patient will ambulate household distances with front wheeled walker independently/supervision for safety. 2) The patient will complete bed mobility with minimal assist of 1 to CG. 3) Independent with sit to and from stand transfer from a higher surface. 4) Increase LE strength 1/3 muscle grade to improve stability of gait. 5) Improve sitting and standing balance to a functional level ie: patient will be able to complete ADL's safely seated and standing without LOB. Physical Therapy Plan: PT 1-2 times a day for gait training, transfer training, bed mobility, LE strengthening exercises and balance exercises.
[2018-09-23] MEDS: CITALOPRAM 20 MG TABLET PO SCH (21:45)
[2018-09-23] MEDS: LOSARTAN POTASSIUM 25 MG TABLET PO SCH (21:45)
[2018-09-24] MEDS: PANTOPRAZOLE SODIUM 40 MG TABLET PO SCH (06:08)
[2018-09-24] MEDS: LEVOTHYROXINE SODIUM 75 MCG TABLET PO SCH (06:08)
[2018-09-24] MEDS: ASCORBIC ACID 500 MG TAB PO SCH (10:09)
[2018-09-24] MEDS: DOCUSATE SODIUM 100 MG CAPSULE PO SCH ×2 (10:09→22:19)
[2018-09-24] MEDS: GABAPENTIN 300 MG CAPSULE PO SCH ×2 (10:10→22:19)
[2018-09-24] MEDS: CHOLECALCIFEROL 1,000 UNIT TABLET PO SCH (10:10)
[2018-09-24] MEDS: MULTIVITAMINS/MINERALS TABLET PO SCH (10:10)
[2018-09-24] MEDS: ENOXAPARIN 40 MG/0.4 ML SYR SQ SCH (10:10)
[2018-09-24] MEDS: NITROFURANTOIN MONO 100 MG CAPSULE PO SCH (10:10)
--- NOTE | 2018-09-24 12:41 | Physical Therapy Tx Note ---
Physical Therapy Tx Note - Treatment Note Total Time Spent With Patient: 30 Physical Therapy Tx Note: Detail (Patient began therapy supine in bed. Patient completed supine to sitting L EOB transfer and communicated when she required assistance. Patient required supervision assistance for the majority of the transfer, except required minimal assistance x1 for scooting forward in bed. Patient completed sit to stand transfer with moderate assistance x1 with 2- wheeled walker for support. Patient then completed standing pivot transfer to the left to the wheelchair, using a 2-wheeled walker requiring moderate assistance x1 for weight shifting, verbal/tactile cueing for sequencing and foot placement. Patient was then brought to the rehab department and ambulated a total of 10 feet 2x using a 2-wheeled walker and minimal assistance for weight shifting and verbal cueing for posture, sequencing, and foot placement. Afterwards, patient was returned to her room and completed standing pivot transfer to the left from her wheelchair into her recliner. Patient used a 2- wheeled walker during the transfer with minimal assistance x1 for weight shifting and verbal cueing for sequencing and foot placement. Patient was left sitting in recliner with call light in her hand at the end of the therapy session.) Physical Therapy Problem List: Detail (1)Decreased LE strength 2) Impaired balance in sitting and standing 3) Assistance with bed mobility, transfers and ambulation 4) Decreased ability to complete prolonged physical activity) Physical Therapy Goals: 1) The patient will ambulate household distances with front wheeled walker independently/supervision for safety. 2) The patient will complete bed mobility with minimal assist of 1 to CG. 3) Independent with sit to and from stand transfer from a higher surface. 4) Increase LE strength 1/3 muscle grade to improve stability of gait. 5) Improve sitting and standing balance to a functional level ie: patient will be able to complete ADL's safely seated and standing without LOB. Physical Therapy Plan: PT 1-2 times a day for gait training, transfer training, bed mobility, LE strengthening exercises and balance exercises.
--- NOTE | 2018-09-24 18:02 | Swallow Tx Note ---
Swallow Tx Note - Time with Patient Total Time Spent With Patient (Min): 30 - Treatment Note Swallow Treatment Note: Pt seen while laying in bed with head raised. Call light within reach for the duration and following the ST treatment. Pt worked to improve swallow/breath coordination with completion of three exercises. Sustained "ah" with up to 3 second "ah" consistently. Short "ah" where she stated for short (less than one second) "ah" on the same breath if able or on individual breaths. Pt coordination for these exercises allowed for completion of up to 5 repetitions of 3 sets of short "ah"s with minimal cues up to 85% accurate. Additional cues required for effortful swallow exercise which the patient completed with moderate verbal cues up to 10 effortful swallows within 15 minutes of attempts. Edna continues to improve her coordination and benefits from continued assistance to recall use of strategies such as taking a larger breath when she encounters a coughing fit. She often forgets she has improved breath support and continues in a coughing fit without cues. Overall Edna reports her eating is going well. Generally soft foods are likely to provide the patient with continued nutrition with consideration for the amount of energy she exerts when eating. Goals for Treatment - Short Term Goals/Status: Goal #1: 1. Patient will reduce coughing with PO intake with exercises. Goal #2: Patient will improve swallow/breath coordination. 3-4 second "ah" Current Status: Pt is meeting 3 seconds on average with the occasional 4 second "ah." - Panel Raiser Operator Goals/Status: Goal #1: Patient will improve oropharyngeal function of swallow phases during po.
[2018-09-24] MEDS: LOSARTAN POTASSIUM 25 MG TABLET PO SCH (22:18)
[2018-09-24] MEDS: CITALOPRAM 20 MG TABLET PO SCH (22:19)
[2018-09-25] MEDS: PANTOPRAZOLE SODIUM 40 MG TABLET PO SCH (06:12)
[2018-09-25] MEDS: LEVOTHYROXINE SODIUM 75 MCG TABLET PO SCH (06:12)
[2018-09-25] MEDS: ENOXAPARIN 40 MG/0.4 ML SYR SQ SCH (10:22)
[2018-09-25] MEDS: MULTIVITAMINS/MINERALS TABLET PO SCH (10:22)
[2018-09-25] MEDS: DOCUSATE SODIUM 100 MG CAPSULE PO SCH ×2 (10:24→22:41)
[2018-09-25] MEDS: GABAPENTIN 300 MG CAPSULE PO SCH ×2 (10:25→22:41)
[2018-09-25] MEDS: NITROFURANTOIN MONO 100 MG CAPSULE PO SCH (10:25)
[2018-09-25] MEDS: ASCORBIC ACID 500 MG TAB PO SCH (10:25)
[2018-09-25] MEDS: CHOLECALCIFEROL 1,000 UNIT TABLET PO SCH (10:25)
--- NOTE | 2018-09-25 16:19 | Physical Therapy Tx Note ---
Physical Therapy Tx Note - Treatment Note Tolerated: Good (Patient was asleep supine in bed upon beginning of therapy ses simon. Patient then completed transfer from supine to sitting L EOB with moderate assistance x2. Patient's sitting balance was poor initially and demonstrated increased right lateral lean during initial portion of transfer. Patient required moderate assistance x1 to scoot patient towards the edge of the bed. Patient completed sit to stand transfer from the edge of the bed with 2-wheeled walker for support with moderate assistance x1 and verbal cueing for hand placement. Patient completed standing pivot transfer to the right towards her wheelchair with 2-wheeled walker and moderate assistance x1 with weight shifting and verbal/tactile cueing for sequencing. Patient was then brought to the rehab department for therapy. Patient ambulated with 2-wheeled walker for total of 20 feet with CGAx1 for initial 15 feet and then minimal assistance for last 5 feet for weight shifting and verbal cueing for sequencing. Patient ambulated additional 6 feet with 2-wheeled walker with minimal assistance x1 for weight shifting and verbal cueing for sequencing. Patient reported that she was tired and was returned back to her room. Patient completed sit to stand transfer from her wheelchair with moderate assistance x1 with verbal cueing for hand placement. Patient completed standing pivot transfer to the right to the edge of bed using 2-wheeled walker for support and minimal assistance for weight shif ting and verbal cueing for sequencing / foot placement. Patient required moderate assistance x1 for transfer from edge of bed to supine with maximal assistance x2 for scooting up in bed. Patient was left supine in bed with call light in hand at end of therapy session.) Total Time Spent With Patient: 45 Physical Therapy Tx Note: Detail Physical Therapy Problem List: Detail (1)Decreased LE strength 2) Impaired balance in sitting and standing 3) Assistance with bed mobility, transfers and ambulation 4) Decreased ability to complete prolonged physical activity) Physical Therapy Goals: 1) The patient will ambulate household distances with front wheeled walker independently/supervision for safety. 2) The patient will complete bed mobility with minimal assist of 1 to CG. 3) Independent with sit to and from stand transfer from a higher surface. 4) Increase LE strength 1/3 muscle grade to improve stability of gait. 5) Improve sitting and standing balance to a functional level ie: patient will be able to complete ADL's safely seated and standing without LOB. Physical Therapy Plan: PT 1-2 times a day for gait training, transfer training, bed mobility, LE strengthening exercises and balance exercises.
[2018-09-25] MEDS: CITALOPRAM 20 MG TABLET PO SCH (22:41)
[2018-09-25] MEDS: LOSARTAN POTASSIUM 25 MG TABLET PO SCH (22:41)
[2018-09-25] MEDS: ACETAMINOPHEN 325 MG TAB PO PRN (22:42)
[2018-09-26] MEDS: LEVOTHYROXINE SODIUM 75 MCG TABLET PO SCH (06:30)
[2018-09-26] MEDS: PANTOPRAZOLE SODIUM 40 MG TABLET PO SCH (06:30)
[2018-09-26] MEDS: NITROFURANTOIN MONO 100 MG CAPSULE PO SCH (10:12)
[2018-09-26] MEDS: DOCUSATE SODIUM 100 MG CAPSULE PO SCH ×2 (10:12→21:12)
[2018-09-26] MEDS: MULTIVITAMINS/MINERALS TABLET PO SCH (10:12)
[2018-09-26] MEDS: CHOLECALCIFEROL 1,000 UNIT TABLET PO SCH (10:12)
[2018-09-26] MEDS: GABAPENTIN 300 MG CAPSULE PO SCH ×2 (10:12→21:11)
[2018-09-26] MEDS: ENOXAPARIN 40 MG/0.4 ML SYR SQ SCH (10:12)
[2018-09-26] MEDS: ASCORBIC ACID 500 MG TAB PO SCH (10:12)
--- NOTE | 2018-09-26 12:45 | Physician Progress Note ---
Subjective - Date Date of Progress Note: 09/26/18 - Admitting Diagnosis Diagnosis: multiple rehab services post sigmoid colectomy - Subjective Nursing Care Plan Problem List Activity Intolerance (Swing Bed) Start: 08/30/18 15:48 Freq: Status: Active Protocol: Created 08/30/18 15:48 HMF (Rec: 08/30/18 15:48 HMF [id number]) Altered Thought Process (Fall Risk) Start: 08/30/18 15:48 Freq: Status: Active Protocol: Created 08/30/18 15:48 HMF (Rec: 08/30/18 15:48 HMF [id number]) Body Image Disturbance Start: 09/03/18 18:39 Freq: Status: Active Protocol: Created 09/03/18 18:39 SAF (Rec: 09/03/18 18:39 SAF [id number]) High Risk: Post-Op Complications Start: 09/03/18 18:39 Freq: Status: Active Protocol: Created 09/03/18 18:39 SAF (Rec: 09/03/18 18:39 SAF [id number]) Impaired Mobility (Fall Risk) Start: 08/30/18 15:48 Freq: Status: Active Protocol: Created 08/30/18 15:48 HMF (Rec: 08/30/18 15:48 HMF [id number]) Impaired Skin Integrity Start: 09/03/18 18 :39 Freq: Status: Active Protocol: Created 09/03/18 18:39 SAF (Rec: 09/03/18 18:39 SAF [id number]) Knowledge Deficit (Swing Bed) Start: 08/30/18 15:48 Freq: Status: Active Protocol: Created 08/30/18 15:48 HMF (Rec: 08/30/18 15:48 HMF [id number]) Knowledge Deficit: Colostomy Start: 09/03/18 18:39 Freq: Status: Active Protocol: Created 09/03/18 18:39 SAF (Rec: 09/03/18 18:39 SAF [id number]) Pain (Swing Bed) Start: 08/30/18 15:48 Freq: Status: Active Protocol: Created 08/30/18 15:48 HMF (Rec: 08/30/18 15:48 HMF [id number]) Risk for Injury (Fall Risk) Start: 08/30/18 15:48 Freq: Status: Active Protocol: Created 08/30/18 15:48 [facility] (Rec: 08/30/18 15:48 [facility] [id number]) General - Cognitive Patterns Speech: Soft Thought Process: Intact Thought Content: Normal - Communication Select best description of speech pattern: Unclear Speech Ability to express ideas and wants: Understood Understanding verbal content: Understands - Mood and Behavior Patterns Appearance: Well Groomed Mood: Normal Attitude: Cooperative Motor Activity: Lethargic Affect: Appropriate Hallucinations: Denies - Physical Functioning Activity Level: Up with assist x2 Turning: With partial assist ROM Ability: Moves all extremities Assistive Devices: 2 Wheel Walker Ambulation Ability: Dependent Bed Mobility: Dependent Transfer Ability: Dependent Bathing Ability: Dependent Personal Hygiene: Dependent Dressing Ability: Dependent Eating (Feeding) Ability: Needs Assist Toileting Ability: Dependent Administer Own Medication: Dependent - Continence Bowel Pattern: Colostomy Bladder Pattern: Incontinent Urinary Incontinence: Total Meds/Allergies - Allergies Allergies Allergy/AdvReac Type Severity Reaction Status Date / Time venom-honey bee Allergy Severe ANAPHYLAXIS Verified 08/22/18 18:18 [bee venom (honey bee)] latex Allergy Mild ITCHING Verified 08/22/18 18:18 adhesive tape Allergy RASH Uncoded 08/18/16 20:49 - Active Medications Current Medications Acetaminophen (Tylenol 325mg) 650 mg PO Q6H PRN PRN Reason: PAIN - MILD TO MODERATE (1-7) Last Admin: 09/25/18 22:42 Dose: 650 mg Documented by: Ascorbic Acid (Vitamin C) 500 mg PO DAILY [facility] Last Admin: 09/26/18 10:12 Dose: 500 mg Documented by: Citalopram Hydrobromide (Celexa) 20 mg PO QHS [facility] Last Admin: 09/25/18 22:41 Dose: 20 mg Documented by: Docusate Sodium (Colace) 100 mg PO BID [facility] Last Admin: 09/26/18 10:12 Dose: 100 mg Documented by: Enoxaparin Sodium (Lovenox) 40 mg SQ DAILY [facility] Last Admin: 09/26/18 10:12 Dose: 40 mg Documented by: Gabapentin (Neurontin) 300 mg PO BID [facility] Last Admin: 09/26/18 10:12 Dose: 300 mg Documented by: Guaifenesin (Robitussin Dm) 10 ml PO Q6H PRN PRN Reason: COUGH Levothyroxine Sodium (Synthroid) 75 mcg PO DAILYTHY [facility] Last Admin: 09/26/18 06:30 Dose: 75 mcg Documented by: Losartan Potassium (Cozaar) 50 mg PO QHS [facility] Last Admin: 09/25/18 22:41 Dose: 50 mg Documented by: Multivitamins/Minerals (Centrum) 1 tab PO DAILY [facility] Last Admin: 09/26/18 10:12 Dose: 1 tab Documented by: Nitrofurantoin Macrocrystals (Macrobid) 100 mg PO DAILY [facility] Last Admin: 09/26/18 10:12 Dose: 100 mg Documented by: Pantoprazole Sodium (Protonix) 40 mg PO DAILYAC [facility] Last Admin: 09/26/18 06:30 Dose: 40 mg Documented by: Vitamin D (Vitamin D3) 2,000 unit PO DAILY [facility] Last Admin: 09/26/18 10:12 Dose: 2,000 unit Documented by: Zinc Acetate/Diphenhydramine (Benadryl Cream) 30 gm TOP ASDIR PRN PRN Reason: ITCHING Last Admin: 09/20/18 22:00 Dose: 30 gm Documented by: Zinc Oxide (Desitin) 5 gm TOP ASDIR PRN PRN Reason: RASH Objective - Vital Signs Vital Signs: Vital Signs - Last 24 Hrs Temp Pulse Pulse Resp BP BP Pulse Ox 09/26/18 11:44 16 91 L 09/26/18 10:26 70 20 94 L 09/26/18 10:15 74 20 99 09/26/18 10:09 97.7 F 133/83 09/26/18 08:00 97.7 F 72 18 133/83 95 09/25/18 22:32 98.5 F 85 16 147/77 94 L 09/25/18 21:03 84 24 94 L 09/25/18 21:00 86 24 88 L - General General Appearance: Alert, Oriented x3, Cooperative, No acute distress, Other (slow speech , dysphagia) - Head Head exam: Normal inspection - Eye Eye exam: Normal appearance, PERRL Pupils: Normal accommodation - ENT ENT exam: Normal exam, Mucous membranes moist, Normal orophraynx Ear exam: negative: External canal tenderness Nasal Exam: Normal inspection. negative: Discharge, Sinus tenderness Mouth exam: Normal external inspection, Tongue normal Teeth exam: negative: Dental caries Throat exam: negative: Tonsillar erythema, Tonsillar exudate - Neck Neck exam: Normal inspection, Full ROM. negative: Tenderness - Respiratory Respiratory exam: Normal lung sounds bilaterally - Cardiovascular Cardiovascular Exam: Regular rate, Normal rhythm, Normal heart sounds Peripheral Pulses: 2+: Radial (R), Radial (L), Dorsalis Pedis (R), Dorsalis Pedis (L) - GI/Abdominal GI/Abdominal exam: Other (surgical incision well approximate. Ostomy functioning) - Rectal Rectal exam: Deferred - exam: Other (perineal area and groin CD&I, no redness or breakdown noted). negative: Vaginal discharge, Vaginal erythema - Extremities Extremities exam: Normal inspection, Full ROM, Normal capillary refill. negative: Tenderness - Back Back exam: Reports: Normal inspection, Full ROM. Denies: Muscle spasm, Rash noted, Tenderness - Neurological Neurological exam: Alert, Oriented X3 - Psychiatric Psychiatric exam: Normal affect, Normal mood - Skin Skin exam: Dry, Intact, Normal color, Warm H&P Results - Labs Result Diagrams: 09/08/18 06:05 09/08/18 06:05 Discharge Potential - Discharge Needs Community Services Used Prior to Admission: Home Health Aide Patient Discharge Plan Description: Return Home Community Services Needed at Discharge: Home Health Aide, Home Health Nurse Plan - Swing Bed Certification Initial Certification Due: 08/30/18 14 Day Re-Cert Due: 09/13/18 44 Day Re-Cert Due: 10/13/18 74 Day Re-Cert Due: 11/12/18 - Detailed Diagnosis and Plan (1) Physical deconditioning Current Visit: Yes Status: Acute Base Code: R53.81 - OTHER MALAISE Priority: High Comment: 09/26/18: -Physical deconditioning and weakness after recent admission and surgery at [facility] for partial colectomy -PT/OT daily. with most recent note indicating improvement and goal today of ambulation TID with pivoting. (2) History of partial colectomy Current Visit: Yes Status: Acute Base Code: Z90.49 - ACQUIRED ABSENCE OF OTHER SPECIFIED PARTS OF DIGESTIVE TRACT Priority: High Comment: 09/26/18: -stoma beefy red, output noted in colostomy bag -surrounding skin pwn, no breakdown noted -Partial sigmoid colectomy at [facility] alligance by Dr. 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 (3) Swallowing difficulty Current Visit: No Status: Acute Qualifiers: Dysphagia type: oral phase Qualified Code(s): R13.11 - Dysphagia, oral phase Base Code: R13.10 - DYSPHAGIA, UNSPECIFIED Priority: Medium Comment: 09/26/18: - Currently on honey thinck liquids. - Speech therapy continuing to work with patient and goals are to reduce cough with Po intake and to improve swallowing and breath coordination. (4) DNR (do not resuscitate) Current Visit: No Status: Acute Base Code: Z66 - DO NOT RESUSCITATE Priority: Medium Comment: 09/26/18: -DNR (5) DVT prophylaxis Current Visit: No Status: Acute Base Code: [id number] - Comment: 09/26/18: -high risk due to age, hospitalization, and recent surgery -Holding Lovenox at this time, pending clearance from surgery -Encouarge ambulation with nursing staff
--- NOTE | 2018-09-26 13:41 | Physical Therapy Tx Note ---
Physical Therapy Tx Note - Treatment Note Tolerated: Good Total Time Spent With Patient: 35 Physical Therapy Tx Note: Detail (Pt sleeping reclined in bed upon arrival; awakened easily. Initially stated she was not ready for physical therapy, was sleepy; agreed to get out of bed into bedside chair. Nrsg in to administer meds. Pt initiated bed mobility; required minimal assist of one to scoot to edge of bed. Sit to stand at front wheeled walker w/CGA, took several steps to pivot to bedside recliner, w/minimal assist for weight shifting and verbal cuing for direction of steps. Seemed to lean L somewhat when stepping, but not w/static standing. VC's for reaching to bedside chair; minimal assist to scoot back. Positioned w/LE's elevated, pillow behind back, light blanket to cover. Bedside table and call light in reach.) Physical Therapy Problem List: Detail (1)Decreased LE strength 2) Impaired balance in sitting and standing 3) Assistance with bed mobility, transfers and ambulation 4) Decreased ability to complete prolonged physical activity) Physical Therapy Goals: 1) The patient will ambulate household distances with front wheeled walker independently/supervision for safety. 2) The patient will complete bed mobility with minimal assist of 1 to CG. 3) Independent with sit to and from stand transfer from a higher surface. 4) Increase LE strength 1/3 muscle grade to improve stability of gait. 5) Improve sitting and standing balance to a functional level ie: patient will be able to complete ADL's safely seated and standing without LOB. Physical Therapy Plan: PT 1-2 times a day for gait training, transfer training, bed mobility, LE strengthening exercises and balance exercises.
[2018-09-26] MEDS: CITALOPRAM 20 MG TABLET PO SCH (21:11)
[2018-09-26] MEDS: LOSARTAN POTASSIUM 25 MG TABLET PO SCH (21:12)
[2018-09-26] MEDS: ACETAMINOPHEN 325 MG TAB PO PRN (21:12)
[2018-09-27] MEDS: PANTOPRAZOLE SODIUM 40 MG TABLET PO SCH (06:12)
[2018-09-27] MEDS: LEVOTHYROXINE SODIUM 75 MCG TABLET PO SCH (06:12)
--- NOTE | 2018-09-27 08:30 | Occupational Therapy Tx Note ---
Occupational Therapy Tx Note - Treatment Note Tolerated: Good Total Time Spent With Patient: 55 (ADL) Occupational Therapy Treatment Note: Detail (S: Pt resting in bed, agreeable to OT. O: Supine to sit Indly using hospital bed rails and extra time. Sit to stand with walker and min assist from EOB, pt amb 5 feet to chair with 2 wheeled walker and CG assist. Stand to sit Indly but not using correct technique. Pt doffed robe and PJ gown Indly. Pt donned bra with min assist to hook and position correctly. She donned shirt Indly. She donned pants over feet Indly, required min assist for sit to stand and assist to maintain balance as well as min assist to pull pants over hips. Socks and shoes donned per OT as pt was fatigued. Pt set up for breakfast and she was able to eat Indly. A: Pt is extremely slow and requires significant time for self care tasks, min assist for sit to stand and to maintain static standing while pulling pants over hips.) Occupational Therapy Problem List: Detail (1. Decreased UE function needed for self cares and feeding self. 2. Decreased endurance needed for ADLs and functional mobility. 3. Decreased Ind with self care tasks including dressing and eating.) Occupational Therapy Goals: 1. Pt will be Ind with feeding self after set up. 2. Pt will demonstrate improved UE strength, ROM and endurance to allow Ind with self care tasks. 3. Pt will be Ind with upper body dressing. Prognosis: Good Occupational Therapy Plan: OT 2-4 days per week to address goals and problem list above.
[2018-09-27] MEDS: MULTIVITAMINS/MINERALS TABLET PO SCH (09:22)
[2018-09-27] MEDS: GABAPENTIN 300 MG CAPSULE PO SCH ×2 (09:22→21:36)
[2018-09-27] MEDS: ENOXAPARIN 40 MG/0.4 ML SYR SQ SCH (09:22)
[2018-09-27] MEDS: NITROFURANTOIN MONO 100 MG CAPSULE PO SCH (09:22)
[2018-09-27] MEDS: DOCUSATE SODIUM 100 MG CAPSULE PO SCH ×2 (09:22→21:36)
[2018-09-27] MEDS: ASCORBIC ACID 500 MG TAB PO SCH (09:23)
[2018-09-27] MEDS: CHOLECALCIFEROL 1,000 UNIT TABLET PO SCH (09:23)
--- NOTE | 2018-09-27 09:24 | Physical Therapy Tx Note ---
Physical Therapy Tx Note - Treatment Note Total Time Spent With Patient: 15 Physical Therapy Tx Note: Detail (Pt up in chair after dinner, w/daughter and son-in-law present in room. Family wanted to walk with patient to see how she was doing. PT assisted daughter with cuing patient to step with walker, pivot, and with weight shifting; pt required heavy verbal cues and minimal/moderate assist to take steps and transfer. Maximum assist into bed and for positioning. Family states that pt's mobility was better before this admission and hopes that patient improves. Pt left in bed with family present; nrsg notified.) Physical Therapy Problem List: Detail (1)Decreased LE strength 2) Impaired balance in sitting and standing 3) Assistance with bed mobility, transfers and ambulation 4) Decreased ability to complete prolonged physical activity) Physical Therapy Goals: 1) The patient will ambulate household distances with front wheeled walker independently/supervision for safety. 2) The patient will complete bed mobility with minimal assist of 1 to CG. 3) Independent with sit to and from stand transfer from a higher surface. 4) Increase LE strength 1/3 muscle grade to improve stability of gait. 5) Improve sitting and standing bal ance to a functional level ie: patient will be able to complete ADL's safely seated and standing without LOB. Physical Therapy Plan: PT 1-2 times a day for gait training, transfer training, bed mobility, LE strengthening exercises and balance exercises.
--- NOTE | 2018-09-27 16:34 | Swallow Tx Note ---
Swallow Tx Note - Time with Patient Total Time Spent With Patient (Min): 20 - Treatment Note Swallow Treatment Note: Pt seen sitting upright in chair. Pt completed swallow exercises including effortful swallow up to 5 repetitions in 10 minutes. Pt completed short "ah" exercise with good vocal quality for 5 sets of three short "ah's" this is a considerable improvement from the previous session where the patient was only able to produce 1-2 sets of clear short 'ah's even with maximum cues. Pt call light within reach for the duration of the treatment session. Pt states she continues to practice her exercises in between treatment sessions. Plan for Treatment - Consistency Modification Consistency Modification: Soft Liquid Modification: [place] - Behavior Modification Behavior Modification: Small Sips, Use Straw, Alternate Sips and Bites - Additional Plan Details Diagnosis/Recommendation Discussed With: Nurse Goals for Treatment - Short Term Goals/Status: Goal #1: 1. Patient will reduce coughing with PO intake with exercises. Current Status: No coughing episodes in 20 minute session. Including w/ drinking. Goal #2: Patient will improve swallow/breath coordination. 3-4 second "ah" Current Status: Up to 3 seconds across 3 short "ah's" - Jacker Feeder Goals/Status: Goal #1: Patient will improve oropharyngeal function of swallow phases during po.
--- NOTE | 2018-09-27 16:50 | Physical Therapy Tx Note ---
Physical Therapy Tx Note - Treatment Note Tolerated: Good Total Time Spent With Patient: 40 Physical Therapy Tx Note: Detail (Pt in bed upon arrival; awake and cooperative for therapy. Required CGA for scooting to edge of bed. Assisted with donning pants and shoes. Stood at front wheeled walker with SBA. Ambulated with front wheeled walker w/CGA out to hallway and returned to chair just inside room door (about 25 feet). VCs for pivoting to sit in chair, CGA for controlled descent. Rested for several minutes and wanted to transfer to recliner. Stood from chair w/CGA and ambulated 7 feet to recliner; VCs for pivoting and CGA for controlling descent. Moderate assist to scoot back in recliner. Positioned with LE's elevated and call light in reach. Reported fatigue in legs and hands but did not appear short of breath. Friend in to paint pt's nails. Nrsg notified.) Physical Therapy Problem List: Detail (1)Decreased LE strength 2) Impaired balance in sitting and standing 3) Assistance with bed mobility, transfers and ambulation 4) Decreased ability to complete prolonged physical activity) Physical Therapy Goals: 1) The patient will ambulate household distances with front wheeled walker independently/supervision for safety. 2) The patient will complete bed mobility with minimal assist of 1 to CG. 3) Independent with sit to and from stand transfer from a higher surface. 4) Increase LE strength 1/3 muscle grade to improve stability of gait. 5) Improve sitting and standing balance to a functional level ie: patient will be able to complete ADL's safely seated and standing without LOB. Physical Therapy Plan: PT 1-2 times a day for gait training, transfer training, bed mobility, LE strengthening exercises and balance exercises.
[2018-09-27] MEDS: LOSARTAN POTASSIUM 25 MG TABLET PO SCH (21:36)
[2018-09-27] MEDS: CITALOPRAM 20 MG TABLET PO SCH (21:36)
[2018-09-28] MEDS: PANTOPRAZOLE SODIUM 40 MG TABLET PO SCH (06:01)
[2018-09-28] MEDS: LEVOTHYROXINE SODIUM 75 MCG TABLET PO SCH (06:02)
[2018-09-28] MEDS: GABAPENTIN 300 MG CAPSULE PO SCH ×2 (09:17→21:28)
[2018-09-28] MEDS: NITROFURANTOIN MONO 100 MG CAPSULE PO SCH (09:18)
[2018-09-28] MEDS: ASCORBIC ACID 500 MG TAB PO SCH (09:18)
[2018-09-28] MEDS: CHOLECALCIFEROL 1,000 UNIT TABLET PO SCH (09:19)
[2018-09-28] MEDS: MULTIVITAMINS/MINERALS TABLET PO SCH (09:20)
[2018-09-28] MEDS: DOCUSATE SODIUM 100 MG CAPSULE PO SCH ×2 (09:21→21:29)
[2018-09-28] MEDS: ENOXAPARIN 40 MG/0.4 ML SYR SQ SCH (09:22)
[2018-09-28] MEDS: CITALOPRAM 20 MG TABLET PO SCH (21:28)
[2018-09-28] MEDS: LOSARTAN POTASSIUM 25 MG TABLET PO SCH (21:29)
[2018-09-28] MEDS: ACETAMINOPHEN 325 MG TAB PO PRN (21:31)
[2018-09-29] MEDS: LEVOTHYROXINE SODIUM 75 MCG TABLET PO SCH (06:11)
[2018-09-29] MEDS: PANTOPRAZOLE SODIUM 40 MG TABLET PO SCH (06:11)
[2018-09-29] MEDS: DOCUSATE SODIUM 100 MG CAPSULE PO SCH ×2 (09:14→21:06)
[2018-09-29] MEDS: MULTIVITAMINS/MINERALS TABLET PO SCH (09:14)
[2018-09-29] MEDS: ENOXAPARIN 40 MG/0.4 ML SYR SQ SCH (09:15)
[2018-09-29] MEDS: ASCORBIC ACID 500 MG TAB PO SCH (09:15)
[2018-09-29] MEDS: GABAPENTIN 300 MG CAPSULE PO SCH ×2 (09:15→21:06)
[2018-09-29] MEDS: CHOLECALCIFEROL 1,000 UNIT TABLET PO SCH (09:15)
[2018-09-29] MEDS: NITROFURANTOIN MONO 100 MG CAPSULE PO SCH (09:15)
[2018-09-29] MEDS: ACETAMINOPHEN 325 MG TAB PO PRN (21:06)
[2018-09-29] MEDS: LOSARTAN POTASSIUM 25 MG TABLET PO SCH (21:06)
[2018-09-29] MEDS: CITALOPRAM 20 MG TABLET PO SCH (21:06)
[2018-09-30] MEDS: LEVOTHYROXINE SODIUM 75 MCG TABLET PO SCH (06:16)
[2018-09-30] MEDS: PANTOPRAZOLE SODIUM 40 MG TABLET PO SCH (06:16)
--- NOTE | 2018-09-30 08:21 | Occupational Therapy Tx Note ---
Occupational Therapy Tx Note - Treatment Note Tolerated: Fair Total Time Spent With Patient: 50 (ADL) Occupational Therapy Treatment Note: Detail (S: Pt very sleepy and she reports she did not sleep well last night. O: Pt up in recliner chair. Pt is using 2 liters of oxygen this am. Doffed robe and gown with verbal cues for modified technique. Pt donned bra with mod assist to fasten and pull around body. Pt donned shirt Indly with extra time. Pt donned pants with mod assist to start over feet, she was able to pull pants up over knees and upper legs. She required min assist for sit to stand and mod assist to pull pants over hips while maintaining standing using walker with min assist. Pt attempted to doff slipper socks but was unable and she requested assistance. Slipper socks doffed and socks and shoes donned with max assist. Pt left up in chair with breakfast. A: Pt continues to require assist for dressing activities.) Occupational Therapy Problem List: Detail (1. Decreased UE function needed for self cares and feeding self. 2. Decreased endurance needed for ADLs and functional mobility. 3. Decreased Ind with self care tasks including dressing and eating.) Occupational Therapy Goals: 1. Pt will be Ind with feeding self after set up. 2. Pt will demonstrate improved UE strength, ROM and endurance to allow Ind with self care tasks. 3. Pt will be Ind with upper body dressing. Prognosis: Moderate Occupational Therapy Plan: OT 2-4 days per week to address goals and problem list above.
[2018-09-30] MEDS: ASCORBIC ACID 500 MG TAB PO SCH (09:15)
[2018-09-30] MEDS: MULTIVITAMINS/MINERALS TABLET PO SCH (09:15)
[2018-09-30] MEDS: ENOXAPARIN 40 MG/0.4 ML SYR SQ SCH (09:15)
[2018-09-30] MEDS: DOCUSATE SODIUM 100 MG CAPSULE PO SCH ×2 (09:15→22:49)
[2018-09-30] MEDS: CHOLECALCIFEROL 1,000 UNIT TABLET PO SCH (09:16)
[2018-09-30] MEDS: NITROFURANTOIN MONO 100 MG CAPSULE PO SCH (09:16)
[2018-09-30] MEDS: GABAPENTIN 300 MG CAPSULE PO SCH ×2 (09:18→22:50)
--- NOTE | 2018-09-30 11:49 | Physical Therapy Tx Note ---
Physical Therapy Tx Note - Treatment Note Tolerated: Fair Total Time Spent With Patient: 35 Physical Therapy Tx Note: Detail (Patient began therapy session asleep in recliner. Patient was awoken for therapy and reported that she wanted to work on walking. Patient required maximal assistance to complete sit to stand transfer from recliner using 2-wheeled walker for support. Patient ambulated 4 steps with 2-wheeled walker and completed standing pivot transfer into the wheelchair to the right using 2-wheeled walker and verbal/tactile cueing with minimal assistance for weight shifting. Patient was then brought to rehab department. Patient completed sit to stand transfer from wheelchair with maximal assistance x1 with tactile cueing for hip extension and thoracic extension. Patient required verbal and tactile cueing for gripping the walker for ambulation. Patient ambulated total of 5 feet with 2-wheeled walker with minimal assistance x1 for weight shifting with verbal/tactile cueing for upright posture and sequencing. During ambulation, patient demonstrated significant lateral lean to the right and required verbal/tactile cueing for maintaining midline. Patient then completed descent back into wheelchair with verbal cueing for hand placement and minimal assistance x1 for smooth transition. Patient was then instructed on seated exercises of LAQ 10x ea, marches 10x ea, resisted hip abduction with 3s hold 5x, resisted hip adduction with ball with 3s hold 5x, and isometric quad contractions 4x bilaterally. Isometric quad contractions were palpated by therapist and notable flickering of the contraction on left lower extremity was noted due to increased fatigue. Patient was then returned to room and completed standing pivot transfer from the wheelchair to the recliner to the left using 2-wheeled walker for support and moderate assistance x1 for weight shifting and verbal/tactile cueing for sequencing. Tactile cueing for pivoting bottom into chair was used to help patient guide herself into chair. Patient was left at the end of session in recliner with call light in her hand.) Physical Therapy Problem List: Detail (1)Decreased LE strength 2) Impaired balance in sitting and standing 3) Assistance with bed mobility, transfers and ambulation 4) Decreased ability to complete prolonged physical activity) Physical Therapy Goals: 1) The patient will ambulate household distances with front wheeled walker independently/supervision for safety. 2) The patient will complete bed mobility with minimal assist of 1 to CG. 3) Independent with sit to and from stand transfer from a higher surface. 4) Increase LE strength 1/3 muscle grade to improve stability of gait. 5) Improve sitting and standing balance to a functional level ie: patient will be able to complete ADL's safely seated and standing without LOB. Physical Therapy Plan: PT 1-2 times a day for gait training, transfer training, bed mobility, LE strengthening exercises and balance exercises.
[2018-09-30] MEDS: CITALOPRAM 20 MG TABLET PO SCH (22:48)
[2018-09-30] MEDS: LOSARTAN POTASSIUM 25 MG TABLET PO SCH (22:49)
[2018-09-30] MEDS: ACETAMINOPHEN 325 MG TAB PO PRN (22:55)
[2018-10-01] MEDS: LEVOTHYROXINE SODIUM 75 MCG TABLET PO SCH (07:00)
[2018-10-01] MEDS: PANTOPRAZOLE SODIUM 40 MG TABLET PO SCH (07:00)
--- NOTE | 2018-10-01 08:09 | Occupational Therapy Tx Note ---
Occupational Therapy Tx Note - Treatment Note Tolerated: Fair Total Time Spent With Patient: 40 (ADL) Occupational Therapy Treatment Note: Detail (S: Pt up in recliner, not really wanting to get dressed but she agreed. O: Pt agreeable to self care task in wheelchair as this may offer more support during dressing task. Sit to stand with min assist from recliner and took several steps to wheelchair with 2 wheeled walker and CG assist. Stand to sit with min assist as pt does not reach back for chair consistently. Pt doffed robe with min assist to stand and pull up over hips and buttocks. Pt doffed PJ gown Indly with extra time. Pt donned bra with total assist to hook in back after bra donned over arms. Pt donned shirt with min assist to pick pulling machine operator head. Pt able to lift legs for OT to don pants over feet and she required min assist for sit to stand to walker for OT to pull pants over hips. Pt amb several steps back to recliner with 2 wheeled walker. A: Pt continues to require varying levels of assistance with dressing, she is unable to consistently utilize modified strategies and requires significant time for self cares.) Occupational Therapy Problem List: Detail (1. Decreased UE function needed for self cares and feeding self. 2. Decreased endurance needed for ADLs and functional mobility. 3. Decreased Ind with self care tasks including dressing and eating.) Occupational Therapy Goals: 1. Pt will be Ind with feeding self after set up. 2. Pt will demonstrate improved UE strength, ROM and endurance to allow Ind with self care tasks. 3. Pt will be Ind with upper body dressing. Prognosis: Moderate Occupational Therapy Plan: OT 2-4 days per week to address goals and problem list above.
[2018-10-01] MEDS: CHOLECALCIFEROL 1,000 UNIT TABLET PO SCH (11:16)
[2018-10-01] MEDS: DOCUSATE SODIUM 100 MG CAPSULE PO SCH ×2 (11:16→22:15)
[2018-10-01] MEDS: ASCORBIC ACID 500 MG TAB PO SCH (11:16)
[2018-10-01] MEDS: NITROFURANTOIN MONO 100 MG CAPSULE PO SCH (11:16)
[2018-10-01] MEDS: MULTIVITAMINS/MINERALS TABLET PO SCH (11:16)
[2018-10-01] MEDS: ACETAMINOPHEN 325 MG TAB PO PRN ×2 (11:16→22:14)
[2018-10-01] MEDS: ENOXAPARIN 40 MG/0.4 ML SYR SQ SCH (11:18)
[2018-10-01] MEDS: GABAPENTIN 300 MG CAPSULE PO SCH ×2 (11:18→22:15)
--- NOTE | 2018-10-01 13:27 | Swallow Tx Note ---
Swallow Tx Note - Time with Patient Total Time Spent With Patient (Min): 20 - Treatment Note Swallow Treatment Note: Pt seen sitting upright in chair with call light within reach for the duration of the treatment. Pt completed 5 sets of short "ah" and sutatined "ah" for up to 4 seconds this date. Pt was having coughing fits during the session which was later attributed to her hot chocolate which was too thick (beyond nectar thick). Pt produced clear "ah" for 80% of attempts this date which is improved from the previous session. Plan for Treatment - Consistency Modification Consistency Modification: Soft Liquid Modification: [place] - Behavior Modification Behavior Modification: Small Sips, Hard Swallow Goals for Treatment - Short Term Goals/Status: Goal #1: 1. Patient will reduce coughing with PO intake with exercises. Current Status: Coughing increased this date but likely d/t over thick hot chocolate. Goal #2: Patient will improve swallow/breath coordination. 3-4 second "ah" Current Status: Meeting 4 second "ah" intermittently. - [facility] Goals/Status: Goal #1: Patient will improve oropharyngeal function of swallow phases during po.
--- NOTE | 2018-10-01 14:15 | Physical Therapy Tx Note ---
Physical Therapy Tx Note - Treatment Note Tolerated: Good Total Time Spent With Patient: 30 Physical Therapy Tx Note: Detail (Patient began therapy session sitting in recliner and reported that she was ready for therapy today. Patient completed sit to stand transfer from recliner with minimal assistance x1 with 2-wheeled walker for support. Patient then completed standing pivot transfer to the right with minimal assistance x1 for weight shifting and verbal/tactile cueing. Patient was then brought to rehab department. Patient completed sit to stand transfer from wheelchair with moderate assistance x1 with 2-wheeled walker for support and verbal/tactile cueing for hand placement/posture. Patient then ambulated total distance of 20 feet with 2-wheeled walker with verbal/tactile cueing for sequencing and upright posture. After ambulation patient coughed and had dark brown sputum. Patient reported that she was tired at the end of session and was returned back to room. Patient completed sit to stand transfer from wheelchair with maximal assistance x1 with two attempts using 2-wheeled walker for support. Patient then completed standing pivot transfer to the L EOB with 2- wheeled walker and minimal assistance x1 for tactile/verbal cueing for sequencing/posture. Patient was then maximally assisted x2 scooting in bed but required minimal assistance with transfering her legs into bed. Patient was left supine in bed with call light in hand at end of therapy session.) Physical Therapy Problem List: Detail (1)Decreased LE strength 2) Impaired balance in sitting and standing 3) Assistance with bed mobility, transfers and ambulation 4) Decreased ability to complete prolonged physical activity) Physical Therapy Goals: 1) The patient will ambulate household distances with front wheeled walker independently/supervision for safety. 2) The patient will complete bed mobility with minimal assist of 1 to CG. 3) Independent with sit to and from stand transfer from a higher surface. 4) Increase LE strength 1/3 muscle grade to improve stability of gait. 5) Improve sitting and standing balance to a functional level ie: patient will be able to complete ADL's safely seated and standing without LOB. Physical Therapy Plan: PT 1-2 times a day for gait training, transfer training, bed mobility, LE strengthening exercises and balance exercises.
[2018-10-01] MEDS: CITALOPRAM 20 MG TABLET PO SCH (22:15)
[2018-10-01] MEDS: LOSARTAN POTASSIUM 25 MG TABLET PO SCH (22:15)
[2018-10-02] MEDS: PANTOPRAZOLE SODIUM 40 MG TABLET PO SCH (07:14)
[2018-10-02] MEDS: LEVOTHYROXINE SODIUM 75 MCG TABLET PO SCH (07:14)
[2018-10-02] MEDS: MULTIVITAMINS/MINERALS TABLET PO SCH (09:37)
[2018-10-02] MEDS: NITROFURANTOIN MONO 100 MG CAPSULE PO SCH (09:38)
[2018-10-02] MEDS: DOCUSATE SODIUM 100 MG CAPSULE PO SCH ×2 (09:38→21:13)
[2018-10-02] MEDS: GABAPENTIN 300 MG CAPSULE PO SCH ×2 (09:38→21:13)
[2018-10-02] MEDS: ENOXAPARIN 40 MG/0.4 ML SYR SQ SCH (09:38)
[2018-10-02] MEDS: CHOLECALCIFEROL 1,000 UNIT TABLET PO SCH (09:39)
[2018-10-02] MEDS: ASCORBIC ACID 500 MG TAB PO SCH (09:39)
--- NOTE | 2018-10-02 11:54 | Physical Therapy Tx Note ---
Physical Therapy Tx Note - Treatment Note Tolerated: Good Total Time Spent With Patient: 50 Physical Therapy Tx Note: Detail (Patient began therapy session supine in bed and reported that she was ready for therapy. Patient completed bed transfer from supine to sitting L EOB with supervision assistance. Patient demonstrated significant improvement in trunk stability by maintaining sitting balance while therapist adjusted the bed. Patient completed sit to stand transfer with 2- wheeled walker and CGAx1. Patient completed standing pivot transfer to wheelchair using 2-wheeled walker and CGAx1 with support on right shoulder during stance on left lower extremity. Afterwards, patient was brought to rehab department and ambulated with 2-wheeled walker with CGAx1 for weight shifting but minimal assistance x1 for support of right trunk during left stance phase of gait. Patient ambulated total distance of 26 feet with consistent verbal/tactile cueing for upright posture and sequencing of gait pattern. Patient then ambulated for a second time in kitchen 10 feet using 2-wheeled walker with CGA/minimal assistance x1 with verbal/tactile cueing for sequencing and posture. Patient afterwards completed seated exercises due to increased fatigue. Patient completed seated marches with focus of upright posture 10x each, sitting unsupported with thoracic / cervical extension with 10s holds 10x, restisted adduction with ball 5s holds 8x with focus of upright posture, high shoulder flexion reaches with anterior pelvic tilt with beach ball 2 repetitions 2x. Afterwards patient was brought back to her room and completed sit to stand transfer from wheelchair with 2-wheeled walker with minimal assistance. Patient completed standing pivot transfer into recliner to the left with verbal/tactile cueing for upright posture and sequencing with minimal assistance x1. Patient w as left sitting in recliner with call light in hand at end of therapy session.) Physical Therapy Problem List: Detail (1)Decreased LE strength 2) Impaired balance in sitting and standing 3) Assistance with bed mobility, transfers and ambulation 4) Decreased ability to complete prolonged physical activity) Physical Therapy Goals: 1) The patient will ambulate household distances with front wheeled walker independently/supervision for safety. 2) The patient will complete bed mobility with minimal assist of 1 to CG.(met, but not consistent). 3) Independent with sit to and from stand transfer from a higher surface (met, but not consistent). 4) Increase LE strength 1/3 muscle grade to improve stability of gait. 5) Improve sitting and standing balance to a functional level ie: patient will be able to complete ADL's safely seated and standing without LOB. Physical Therapy Plan: PT 1-2 times a day for gait training, transfer training, bed mobility, LE strengthening exercises and balance exercises.
[2018-10-02] MEDS: LOSARTAN POTASSIUM 25 MG TABLET PO SCH (21:13)
[2018-10-02] MEDS: ACETAMINOPHEN 325 MG TAB PO PRN (21:14)
[2018-10-02] MEDS: CITALOPRAM 20 MG TABLET PO SCH (21:14)
[2018-10-03] MEDS: PANTOPRAZOLE SODIUM 40 MG TABLET PO SCH (06:39)
[2018-10-03] MEDS: LEVOTHYROXINE SODIUM 75 MCG TABLET PO SCH (06:39)
[2018-10-03] MEDS: DOCUSATE SODIUM 100 MG CAPSULE PO SCH ×2 (09:29→21:33)
[2018-10-03] MEDS: MULTIVITAMINS/MINERALS TABLET PO SCH (09:30)
[2018-10-03] MEDS: NITROFURANTOIN MONO 100 MG CAPSULE PO SCH (09:30)
[2018-10-03] MEDS: GABAPENTIN 300 MG CAPSULE PO SCH ×2 (09:31→21:33)
[2018-10-03] MEDS: ASCORBIC ACID 500 MG TAB PO SCH (09:31)
[2018-10-03] MEDS: CHOLECALCIFEROL 1,000 UNIT TABLET PO SCH (09:31)
[2018-10-03] MEDS: ENOXAPARIN 40 MG/0.4 ML SYR SQ SCH (09:31)
--- NOTE | 2018-10-03 11:58 | Physical Therapy Tx Note ---
Physical Therapy Tx Note - Treatment Note Tolerated: Good Total Time Spent With Patient: 40 Physical Therapy Tx Note: Detail (Patient began therapy session sitting in recliner. Patient completed sit to stand transfer with minimal assistance x1 from recliner using 2-wheeled walker for support. Patient completed standing pivot transfer to the right into the wheelchair using 2-wheeled walker and minimal assistance for tactile feedback during stance on left leg and verbal cueing for sequencing. Patient was brought down to therapy department and was assessed with manual muscle testing of lower extremities. Patient's muscle grades were recorded as: 3+/5 R hip flexion, 4-/5 L hip flexion, 3+/5 bilateral hip add, 4/5 R knee ext, 4/5 R ankle dorsiflexion. All other major muscle groups of lower extremities were found to have 5/5 strength. Patient afterwards completed sit to stand transfer from wheelchair with 2-wheeled walker for support and moderate assistance x1 with verbal cueing for hand placement of left hand. Patient ambulated total distance of 10 feet with 2-wheeled walker with minimal assistance x1 for tactile feedback during left leg stance and verbal cueing for sequencing. Patient required a rest break in between and then completed second bout of ambulation with 2 turns to the right for total distance of 16 feet with 2-wheeled walker and minimal assistance. At the end of session patient reported that she was fatigued and was returned back to hospital room. Patient completed sit to stand transfer with moderate assistance x1 with verbal/tactile cueing for left hand placement on 2-wheeled walker. Patient completed standing pivot transfer to the left into recliner with 2-wheeled walker for support and minimal assistance x1 for tactile feedback and verbal cueing for upright posture and sequencing. Patient was left sitting in recliner at end of session with call light in reach.) Physical Therapy Problem List: Detail (1)Decreased LE strength 2) Impaired balance in sitting and standing 3) Assistance with bed mobility, transfers and ambulation 4) Decreased ability to complete prolonged physical activity) Physical Therapy Goals: 1) The patient will ambulate household distances with front wheeled walker independently/supervision for safety. 2) The patient will complete bed mobility with minimal assist of 1 to CG.(met, but not consistent). 3) Independent with sit to and from stand transfer from a higher surface (met, but not consistent). 4) Increase LE strength 1/3 muscle grade to improve stability of gait. 5) Improve sitting and standing balance to a functional level ie: patient will be able to complete ADL's safely seated and standing without LOB. Physical Therapy Plan: PT 1-2 times a day for gait training, transfer training, bed mobility, LE strengthening exercises and balance exercises.
--- NOTE | 2018-10-03 17:28 | Swallow Discharge Summary ---
Discharge Goals - Short Term Goals/Status: Goal #1: 1. Patient will reduce coughing with PO intake with exercises. Current Status: Pt is intermittently coughing with intake and on secretions - at baseline. Goal #2: Patient will improve swallow/breath coordination. 3-4 second "ah" Current Status: Pt achieved up to 5 sec. "ah" with some intermittent aphonia at discharge. - Retirement Goals/Status: Goal #1: Patient will improve oropharyngeal function of swallow phases during po. Current Status: Pt continues to cough - the frequency/intensity of the cough is reduced. Plan for Discharge - Consistency Modification Consistency Modification: Soft Liquid Modification: [place] Medication Modification: Regular - Behavior Modification Behavior Modification: Small Sips, Use Straw, Hard Swallow, Position upright for all oral intake - Additional Discharge Details Plan for Treatment: Patient is to be dischraged due to d/c from [facility] program. Patient provided with educational hand out to guide swallow recommendations after dischrage. Patient has progressed with rehab program and will benefit from continuing with her home exercise program and diet recommendations. Videofluroscopic Swallow Study Ordered: No (My be warranted if condition worsens. ) Diagnosis/Recommendation Discussed With: Patient, Nurse
[2018-10-03] MEDS: ACETAMINOPHEN 325 MG TAB PO PRN (21:32)
[2018-10-03] MEDS: LOSARTAN POTASSIUM 25 MG TABLET PO SCH (21:33)
[2018-10-03] MEDS: CITALOPRAM 20 MG TABLET PO SCH (21:33)
[2018-10-04] MEDS: PANTOPRAZOLE SODIUM 40 MG TABLET PO SCH (06:38)
[2018-10-04] MEDS: LEVOTHYROXINE SODIUM 75 MCG TABLET PO SCH (06:38)
[2018-10-04] MEDS: DOCUSATE SODIUM 100 MG CAPSULE PO SCH (09:41)
[2018-10-04] MEDS: NITROFURANTOIN MONO 100 MG CAPSULE PO SCH (09:42)
[2018-10-04] MEDS: CHOLECALCIFEROL 1,000 UNIT TABLET PO SCH (09:42)
[2018-10-04] MEDS: GABAPENTIN 300 MG CAPSULE PO SCH (09:44)
[2018-10-04] MEDS: MULTIVITAMINS/MINERALS TABLET PO SCH (09:44)
[2018-10-04] MEDS: ENOXAPARIN 40 MG/0.4 ML SYR SQ SCH (09:44)
[2018-10-04] MEDS: ASCORBIC ACID 500 MG TAB PO SCH (09:44)
--- NOTE | 2018-10-04 10:11 | Discharge Summary ---
Providers Discharge Summary Date: 10/04/18 Date of admission: 08/30/18 15:08 Expected Date of Discharge: 10/04/18 Attending physician: YESICA HONG Primary care physician: EMA GRIFFIN D.O. Physical Exam - Vital Signs Vital Signs: Vital Signs - Last 24 Hrs Temp Pulse Pulse Resp BP BP Pulse Ox 10/04/18 07:50 98.0 F 66 14 164/82 90 L 10/03/18 20:00 98.2 F 83 16 149/74 92 L 10/03/18 14:07 80 22 94 L 10/03/18 11:13 98.8 F 176/76 - General General Appearance: Alert, Oriented x3, Cooperative, No acute distress, Other (slow speech , dysphagia) - Head Head exam: Normal inspection - Eye Eye exam: Normal appearance, PERRL Pupils: Normal accommodation - ENT ENT exam: Normal exam, Mucous membranes moist, Normal orophraynx Ear exam: negative: External canal tenderness Nasal Exam: Normal inspection. negative: Discharge, Sinus tenderness Mouth exam: Normal external inspection, Tongue normal Teeth exam: negative: Dental caries Throat exam: negative: Tonsillar erythema, Tonsillar exudate - Neck Neck exam: Normal inspection, Full ROM. negative: Tenderness - Respiratory Respiratory exam: Normal lung sounds bilaterally - Cardiovascular Cardiovascular Exam: Regular rate, Normal rhythm, Normal heart sounds Peripheral Pulses: 2+: Radial (R), Radial (L), Dorsalis Pedis (R), Dorsalis Pedis (L) - GI/Abdominal GI/Abdominal exam: Other (surgical incision well approximate. Ostomy functioning) - Rectal Rectal exam: Deferred - exam: Other (perineal area and groin CD&I, no redness or breakdown noted). negative: Vaginal discharge, Vaginal erythema - Extremities Extremities exam: Normal inspection, Full ROM, Normal capillary refill. negative: Tenderness - Back Back exam: Reports: Normal inspection, Full ROM. Denies: Muscle spasm, Rash noted, Tenderness - Neurological Neurological exam: Alert, Oriented X3 - Psychiatric Psychiatric exam: Normal affect, Normal mood - Skin Skin exam: Dry, Intact, Normal color, Warm Hospitalization - Hospitalization Admission Diagnosis: multiple rehab services post sigmoid colectomy - Problem List (1) Physical deconditioning Current Visit: Yes Status: Acute Base Code: R53.81 - OTHER MALAISE Comment: 10/04/18: -Physical deconditioning and weakness after recent admission and surgery at [facility] for partial colectomy -d/c home today- [facility] care in place for nursing, PT/OT, and family support (2) Swallowing difficulty Current Visit: No Status: Acute Discharge Diagnosis: Dysphagia type: oral phase Qualified Code(s): R13.11 - Dysphagia, oral phase Base Code: R13.10 - DYSPHAGIA, UNSPECIFIED Comment: 10/04/18: - Currently on honey thinck liquids. - Speech therapy continuing to work with patient and goals are to reduce cough with Po intake and to improve swallowing and breath coordination. (3) History of partial colectomy Current Visit: Yes Status: Acute Base Code: Z90.49 - ACQUIRED ABSENCE OF OTHER SPECIFIED PARTS OF DIGESTIVE TRACT Comment: 10/04/18: -stoma beefy red, output noted in colostomy bag -surrounding skin pwn, no breakdown noted -Partial sigmoid colectomy at [facility] by Dr. [place] on 08/23/2018 (4) Hypertension Current Visit: Yes Status: Acute Discharge Diagnosis: Hypertension type: essential hypertension Qualified Code(s): I10 - Essential (primary) hypertension Base Code: I10 - ESSENTIAL (PRIMARY) HYPERTENSION Comment: 10/04/18: -Continue Losartan 50mg daily -BP at goal (5) DVT prophylaxis Current Visit: No Status: Acute Base Code: [id number] - Comment: 10/04/18: -high risk due to age, hospitalization, and recent surgery -Holding Lovenox at this time, pending clearance from surgery -Encouarge ambulation with nursing staff (6) DNR (do not resuscitate) Current Visit: No Status: Acute Base Code: Z66 - DO NOT RESUSCITATE Comment: 10/04/18: -DNR - Hospitalization Course Disposition: Home, Self-Care Reason For Discharge/Transfer: Medical Stability Hospital Course: Ms. Rodgers was admitted for swing bed for deconditionins secondary to bowel resection. She had a perforated viscous on 08/22/2018 and presented to [facility] ED and complained of weakness and UTI and it was found she had pneumoperitonium by CT scan of her abdomen. 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 She was than transferred back to the swing bed at [facility] for rehab. 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 At [facility] she had a video swallow exam with trace aspiration and family refused feeding tubes and will go with honey thickened fluids. 09/07/18: Patient resting comfortably in bed. Denies any pain. Had appointment with surgery yesterday for suture/staple removal. 09/13/18: Sitting up in bed. Alert, able to answer questions slowly. C/o itching to vaginal area. Denies burning with urination. Richy pain. Denies SOB. 09/18/18: The patient is wake and watching TV. She has delayed speech but is able to communicate appropriately. 10/04/18: Plan to d/c home today. [facility] services are arranged- nursing, and PT/OT. Per social work, pt also has family support. PCP: Dr. Griffin Procedures: Cardiology Procedures 09/09/18 00:26 EKG NOW Abnormal Labs: Abnormal Lab Results 09/01/18 09/01/18 09/08/18 Range/Units 06:10 06:10 06:05 RBC 2.86 L 2.92 L (3.80-5.40) M/uL Hgb 9.3 L 9.4 L (11.6-16.0) gm/dl Hct 30.7 L 31.5 L (35.0-47.0) % MCV 107.3 H 107.9 H (81-97) fl MCHC 30.3 L 29.8 L (32-36) g/dl Plt Count 426 H 416 H (130-400) K/uL Monocytes % 14.2 H (0-9) % Eosinophils % 8.5 H (0-6) % Lymphocytes 10.0 L (16-45) % Carbon Dioxide 34.0 H (22-29) mmol/L Anion Gap 6.0 L (7-16) Calcium 8.6 L (8.8-10.2) mg/dL 09/08/18 Range/Units 06:05 RBC (3.80-5.40) M/uL Hgb (11.6-16.0) gm/dl Hct (35.0-47.0) % MCV (81-97) fl MCHC (32-36) g/dl Plt Count (130-400) K/uL Monocytes % (0-9) % Eosinophils % (0-6) % Lymphocytes (16-45) % Carbon Dioxide 31.0 H (22-29) mmol/L Anion Gap (7-16) Calcium (8.8-10.2) mg/dL Condition at Discharge: (2) Stable Discharge Diagnosis: Deconditioning Discharge Medications - Discharge Medications Home Medications: Ambulatory Orders Citalopram Hydrobromide [Celexa] 20 mg PO QHS #30 tablet 12/17/14 [Last Taken 03/29/18] Docusate Sodium [Colace] 100 mg PO DAILY #90 cap 12/17/14 [Last Taken 03/29/18] Gabapentin [Neurontin] 300 mg PO BID #60 capsule 12/17/14 [Last Taken 03/29/18] Levothyroxine Sodium 75 mcg PO DAILY #90 tablet 12/17/14 [Last Taken 03/29/18] Losartan Potassium [Cozaar] 50 mg PO QHS #90 tablet 12/17/14 [Last Taken 03/29/18] Multivitamin [Multi-Vitamin Daily] 1 each PO DAILY #90 tablet 12/17/14 [Last Taken 03/29/18] [place]-3 Fatty Acids/Fish Oil [Fish Oil 1,000 mg Softgel] 1 each PO DAILY #90 capsule 12/17/14 [Last Taken 03/29/18] Ascorbic Acid [Vitamin C] 500 mg PO DAILY 04/10/15 [Last Taken 03/29/18] Cinnamon Bark [Cinnamon] 500 mg PO ASDIR cap 12/10/15 [Last Taken 03/29/18] Cranberry Extract [Cranberry] 200 mg PO ASDIR cap 12/10/15 [Last Taken 03/29/18] Vitamin E (Dl,Tocopheryl Acet) [Vitamin E] 100 unit PO ASDIR cap 12/10/15 [Last Taken 03/29/18] Diphenhydramine HCl/Zinc Acet [Benadryl Cream] 30 gm TOP ASDIR PRN tube 10/04/18 [Last Taken Unknown] Zinc Oxide [Desitin] 5 gm TOP ASDIR PRN tube 10/04/18 [Last Taken Unknown] Discharge Plan - Discharge Instructions Activity at Discharge: As Per Physical Therapy Diet at Discharge: Other (honey thickened liquids) Additional Instructions: Appointment with Dr. Griffin to follow up after hospital and rehab stay on Sunday, October 14 at 2:45PM. Please call to reschedule if this does not work for you. Brennen Rodriguez will see you at home. They can be reached 20/11 at [phone]. Please follow Swallowing Guide at home provided to you by Lauryn, the Speech Therapist. Quality Measures - Quality Measures Quality Measures: Advance Directives, Documentation of Current Medications in Medical Record, Elder Maltreatment Screen and Follow-Up Plan, Screening for High Blood Pressure and F/U Documented - Current Medications Quality Measure: Measure #130: Documentation of Current Medications Documentation of Current Medications: <Current Medications Documented/Reviewed> [G8427] - Blood Pressure Screening Quality Measure: Screening for High Blood Pressure and Follow-Up Documented Does Patient Have Any of the Following: Active Dx of HTN Blood Pressure Classification: Hypertensive Reading Systolic Measurement: 176 Diastolic Measurement: 76 Screening for High Blood Pressure: Patient Exclusion, Hx of HTN [G9744] - Advance Directives Quality Measure: Measure #47: Care Plan Advance Directives Established: No Advance Directives Information Provided To Patient: Declined Advance Directives on File: No Living Will: No Power of Ct Scan Technician: Yes Power of Ct Scan Technician Name: leilani rangel, daughter Advance Care Planning: <Care Plan/Decision Maker Documented; Discussed & Documented> [1123F] - Elder Abuse Suspicion Index Screening: Elder Abuse Suspicion Index Screening Rely on people for bathing, dressing, shopping, banking, etc: Yes Prevented from getting food, clothes, medication, etc: No Made to feel shamed or threatened by someone: No Forced to sign papers or use money against will: No Feel afraid, touched in ways not wanted or hurt physically: No Poor eye contact, withdrawn, malnourished, cuts or bruises: No Screening Result: Negative result EASI Reference Information: Salvador MCCOY, Ingrid C, Adeel D, Cristina M.Development and validation of a tool to assist physicians identification of elder abuse: The Elder Abuse Suspicion Index (EASI ). Journal of Elder Abuse and Neglect, 2008; 20 (3): 276-300. - Elder Maltreatment Screen Quality Measures: Elder Maltreatment Screen and Follow-Up Plan Elder Maltreatment Screen: <Negative, No Follow-Up Plan Required> [G8734]
--- NOTE | 2018-10-04 10:53 | Rehab Discharge Summary ---
Patient Information - Patient Information Diagnosis: deconditioning due to post sigmoid colectomy Ordered Treatment: PT Evaluate and Treat Surgery: No Past Medical/Surgical Hx: PAST MEDICAL/SURGICAL HISTORY Past Surgical History Back-titanium akshat bilateral TOTAL KNEE ARTHROPLASTY toe last year PMH - Respiratory Hx Respiratory Disorders No PMH - Cardiovascular Hx Cardiovascular Disorders Yes Hx Edema Yes Hx Heart Attack Yes Hx Hypertension Yes Comment: hx edema legs/ feet swelling PMH - Neuro Hx Neurological Disorders Yes Hx Seizures No PMH - GI Hx Gastrointestinal Disorders No PMH - Hx Genitourinary Disorders Yes Hx Bladder Problem Yes: Urinary incontinence Hx Urinary Tract Infection Yes PMH - Endocrine Hx Endocrine Disorders Yes Hx Diabetes No Hx Thyroid Disease Yes PMH - Musculoskeletal Hx Musculoskeletal Disorders Yes Hx Arthritis Yes Comment: Back surgery with hardware in 2008 PMH - Psych Hx Psychiatric Problems Yes Hx Anxiety Yes Hx Depression Yes PMH - Hematology/Oncology Hx Hematology/Oncology No Disorders Premorbid Status: Detail (The patient lives with daughter in a one story home with a basement with a ramp at the enterance. The bathroom is equipped with a walk in geospatial specialist with a seat and no grab bars and a commode over toilet. The patient was ambulatory household distances with use of front wheeled walker (to kitchen twice a day). The patient had assistance with dressing, showering, getting out of bed and all household tasks.) Social History: Detail (Patient has a supportive family.) Precautions: [place], Fall Subjective Information - Subjective Information Per Patient (Patient did not report pain throughout treatment sessions except for slight pain in right hand pain during last session. Patient pointed to her MCP joints in right hand after ambulation bout, indicating possible arthritis involvement. Patient frequently reported decreased energy and fatigue during treatment sessions.) Objective Data - Mental Status Patient Orientation: Oriented x3 - ROM Within normal limits (Patient's range of motion was assessed prior to discharge and was found to have functional range in lower extremities.) - Strength/Tone Not within normal limits (Patient's strength in lower extremities were re- examined by another therapist and was determined to have the following strength grades: 3+/5 R hip flex, 4-/5 L hip flex, 3+ bilat hip add, 4/5 R knee extension, 4/5 ankle dorsiflexion. All other gross lower extremity musculature was found to have 5/5 strength. In comparison to initial evaluation, patient has improved one strength grade with bilateral knee flexors and ankle dorsiflexion/plantarflexion.) - Bed Mobility Needs Assist (Patient has been assessed routinely for bed mobility transfers from supine to sitting L EOB. Patient recently has been requiring supervision assistance x1 but occassionally requires minimal assistance x1 for scooting forward in bed. When patient is highly fatigued, patient occassionally requires minimal assistance with entire transfer.) - Transfers Needs Assist (Patient completes sit to stand transfer from higher surfaces with 2-wheeled walker for support and CGAx1 for safety. On low surfaces, patient requires minimal assistance x1 with 2-wheeled walker for support to complete sit to stand transfers.) - Balance Balance Sitting: Good (Patient is able to complete sitting balance exercises that require patient to sit unsupported and reach out of base of support. Patient also shows the ability to maintain sitting balance without support while therapist lowers bed rails prior to transfers.) Balance Standing: Fair (Patient requires support of 2-wheeled walker in standing and usually is able to maintain midline independently. During times of increased fatigue, patient demonstrates lean to the right and may require tactile cueing for upright posture.) - Gait Detail (Patient ambulates with 2-wheeled walker with CGAx1 for a total distance of 30 feet. Patient requires minimal assistance for tactile cueing during right swing phase of upper right trunk to maintain upright posture. Patient also requires consistent verbal/tactile cueing for sequencing, foot placement, increased stride length and posture throughout ambulation.) Therapy Assessment - Therapy Assessment Detail (Patient has significantly improved throughout treatment sessions. Patient is supervision / minimal assistance with bed mobility, which varies due to patient fatigue. Patient is CGAx1 for sit to stand transfers from high surfaces and minimal assistance x1 for lower surfaces. Patient is completing standing pivot transfers with CGA/minimal assistance x1 with verbal/tactile cueing for posture, sequencing, and foot/hand placement. Patient is now able to ambulate at least 25 feet with 2-wheeled walker with CGA/minimal assistance x1 consistently with verbal/tactile cueing for sequencing, posture, foot placement, and maintaining midline. When patient fatigues, patient does require more assistance, therefore, assistance levels reported are not always consistent. Patient has partially met subacute rehab goals and is recommended to continue home physical therapy to aide in patient's ability to complete ADL's as independently as possible.) Patient Education - Patient Education Teaching Topic: Exercise/Activity (Patient was instructed in lower extremity strengthening exercises and the importance of improving strength for balance, transfers, and gait.) Response: Reinforcement Needed Teaching Method: Discussion, Demonstration, Handout Teaching Recipient: Patient Barriers To Learning: Age Related Problem List - Problem List Physical Therapy Problem List: Detail (1)Decreased LE strength 2) Impaired balance in sitting and standing 3) Assistance with bed mobility, transfers and ambulation 4) Decreased ability to complete prolonged physical activity) Occupational Therapy Problem List: Detail (1. Decreased UE function needed for self cares and feeding self. 2. Decreased endurance needed for ADLs and functional mobility. 3. Decreased Ind with self care tasks including dressing and eating.) Goals - Goals Physical Therapy Goals: 1) The patient will ambulate household distances with front wheeled walker independently/supervision for safety. (household distances met, but requires CGA/MINAx1). 2) The patient will complete bed mobility with minimal assist of 1 to CG.(met, but not consistent). 3) Independent with sit to and from stand transfer from a higher surface (met, but not consistent). 4) Increase LE strength 1/3 muscle grade to improve stability of gait (met in some lower extremity muscle groups). 5) Improve sitting and standing balance to a functional level ie: patient will be able to complete ADL's safely seated and standing without LOB. (met in sitting but not standing) Occupational Therapy Goals: 1. Pt will be Ind with feeding self after set up. 2. Pt will demonstrate improved UE strength, ROM and endurance to allow Ind with self care tasks. 3. Pt will be Ind with upper body dressing. Prognosis - Prognosis Moderate (Patient demonstrates significant improvement, however, improvements are not always consistent. With further physical therapy, patient is projected to improve, but requires assistance at all times for safety.) Plan - Plan Physical Therapy Plan: Patient is discharged from subacute PT and is recommended for home PT. Occupational Therapy Plan: OT 2-4 days per week to address goals and problem list above.
--- NOTE | 2018-10-07 12:45 | Rehab Discharge Summary ---
Patient Information - Patient Information Diagnosis: deconditioning due to post sigmoid colectomy Ordered Treatment: OT Evaluate and Treat Surgery: No Past Medical/Surgical Hx: PAST MEDICAL/SURGICAL HISTORY Past Surgical History Back-titanium akshat bilateral TOTAL KNEE ARTHROPLASTY toe last year PMH - Respiratory Hx Respiratory Disorders No PMH - Cardiovascular Hx Cardiovascular Disorders Yes Hx Edema Yes Hx Heart Attack Yes Hx Hypertension Yes Comment: hx edema legs/ feet swelling PMH - Neuro Hx Neurological Disorders Yes Hx Seizures No PMH - GI Hx Gastrointestinal Disorders No PMH - Hx Genitourinary Disorders Yes Hx Bladder Problem Yes: Urinary incontinence Hx Urinary Tract Infection Yes PMH - Endocrine Hx Endocrine Disorders Yes Hx Diabetes No Hx Thyroid Disease Yes PMH - Musculoskeletal Hx Musculoskeletal Disorders Yes Hx Arthritis Yes Comment: Back surgery with hardware in 2008 PMH - Psych Hx Psychiatric Problems Yes Hx Anxiety Yes Hx Depression Yes PMH - Hematology/Oncology Hx Hematology/Oncology No Disorders Premorbid Status: Detail (The patient lives with daughter in a one story home with a basement with a ramp at the enterance. The bathroom is equipped with a walk in bilingual patient support caseworker with a seat and no grab bars and a commode over toilet. The patient was ambulatory household distances with use of front wheeled walker (to kitchen twice a day). The patient had assistance with dressing, showering, getting out of bed and all household tasks.) Social History: Detail (Patient has a supportive family.) Precautions: [place], Fall Objective Data - Pain Pain Present: No - Mental Status Patient Orientation: Oriented x3 - Visual Perception Appears within normal limits for therapeutic activities - ROM Not within normal limits (Jef shoulder motion limited but functional, jef elbow and hand AROM WFL) - Strength/Tone Not within normal limits (Jef UE strength 4-/5 throughout but functional for patients level of activity) - Coordination Appears within normal limits for therapeutic activities - Bed Mobility Independent (Ind with supine to sit with extra time) - Transfers Needs Assist (Min assist for sit to stand from EOB and chair heights.) - Balance Balance Sitting: Good Balance Standing: Poor - Sensation Intact - Gait Detail (Pt ambulates several feet with 2 wheeled walker and min to CG assist) - ADL's/IADL's Detail (Pt requires min to max assist for all dressing and bathing activities depending on her level of fatigue. She is very slow and requires a significant amount of time for self cares. She is Ind with oral hygiene.) Therapy Assessment - Therapy Assessment Detail (Pt requires assist for all self cares and mobility but per family she has returned to previous baseline.) Problem List - Problem List Physical Therapy Problem List: Detail (1)Decreased LE strength 2) Impaired balance in sitting and standing 3) Assistance with bed mobility, transfers and ambulation 4) Decreased ability to complete prolonged physical activity) Occupational Therapy Problem List: Detail (1. Decreased UE function needed for self cares and feeding self. 2. Decreased endurance needed for ADLs and functional mobility. 3. Decreased Ind with self care tasks including dressing and eating.) Goals - Goals Physical Therapy Goals: 1) The patient will ambulate household distances with front wheeled walker independently/supervision for safety. (household distances met, but requires CGA/MINAx1). 2) The patient will complete bed mobility with minimal assist of 1 to CG.(met, but not consistent). 3) Independent with sit to and from stand transfer from a higher surface (met, but not consistent). 4) Increase LE strength 1/3 muscle grade to improve stability of gait (met in some lower extremity muscle groups). 5) Improve sitting and standing balance to a functional level ie: patient will be able to complete ADL's safely seated and standing without LOB. (met in sitting but not standing) Occupational Therapy Goals: Goals Met: 1. Pt will be Ind with feeding self after set up. Goals partially met: 2. Pt will demonstrate improved UE strength, ROM and endurance to allow Ind with self care tasks. 3. Pt will be Ind with upper body dressing. Prognosis - Prognosis Moderate Plan - Plan Physical Therapy Plan: Patient is discharged from subacute PT and is recommended for home PT. Occupational Therapy Plan: Pt discharged home with home therapy.
== END 2018-10-04 11:40 | disposition home or self-care (01) | DRG 395 ==
LOC: MEDSURG 15:08
PROVIDERS: ADMIT Emergency Medicine; ATTEND Internal Medicine
DX: K63.1 Perforation of intestine (nontraumatic) (principal); Z90.49 Acquired absence of other specified parts of digestive tract; Z93.3 Colostomy status; Z86.73 Personal history of transient ischemic attack (TIA), and cerebral infarction without residual deficits; R13.11 Dysphagia, oral phase; L29.3 Anogenital pruritus, unspecified; K21.9 Gastro-esophageal reflux disease without esophagitis; I10 Essential (primary) hypertension; R60.0 Localized edema; R32 Unspecified urinary incontinence; E03.9 Hypothyroidism, unspecified; Z66 Do not resuscitate
CPT/HCPCS: 80048; 84484; 85025; 85027; 92526; 93005; 93010; 94760; 94761; 97110; 97116; 97530; 97535; 99306; 99309; 99316; J1650

== ENCOUNTER 2018-10-05 18:24 | Observation (INO) | payer MEDICARE, OTHER ==
--- NOTE | 2018-10-05 18:36 | Emergency Department Record ---
History of Present Illness - General Chief complaint: Head Injury Stated complaint: HEAD INJURY/FALL Time Seen by Provider: 10/05/18 18:29 Source: Patient, Family Mode of Arrival: Wheelchair Limitations: No limitations Travel/Exposure to [place] Within 21 Days of Symptoms: No - History of Present Illness Initial comments: 88 yo female presents after a fall witnessed (on video). She was getting out of bed and fell over from a standing, although bent over, position. She has a forehead scalp injury. No LOC. She was discharged yesterday from the Swing Bed Unit. No other abrupt changes in her health since DC. She has a skin tear on her right knee as well. The family reports no issues since the DC. She is eating and drinking. Her ostomy from recent surgery is working. She is not on any anticoagulants. 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 MD Complaint: Head injury -: Minutes(s) Mechanism of Injury: Mechanical fall Location: Frontal Loss of Consciousness: No Previous Trauma to this Area: Yes Place: Home Radiation: None Severity: Moderate Quality: Aching Consistency: Constant Provoking factors: Other (Getting out of bed) Other Injuries: Laceration Associated Symptoms: Confusion (dementia) - Related Data Previous Rx's Medication Instructions Recorded Citalopram Hydrobromide [Celexa] 20 mg PO QHS #30 tablet 12/17/14 Docusate Sodium [Colace] 100 mg PO DAILY #90 cap 12/17/14 Gabapentin [Neurontin] 300 mg PO BID #60 capsule 12/17/14 Levothyroxine Sodium 75 mcg PO DAILY #90 tablet 12/17/14 Losartan Potassium [Cozaar] 50 mg PO QHS #90 tablet 12/17/14 Multivitamin [Multi-Vitamin Daily] 1 each PO DAILY #90 tablet 12/17/14 [place]-3 Fatty Acids/Fish Oil [Fish 1 each PO DAILY #90 capsule 12/17/14 Oil 1,000 mg Softgel] Diphenhydramine HCl/Zinc Acet 30 gm TOP ASDIR PRN tube 10/04/18 [Benadryl Cream] Zinc Oxide [Desitin] 5 gm TOP ASDIR PRN tube 10/04/18 Allergies/Adverse reactions: Allergies Allergy/AdvReac Type Severity Reaction Status Date / Time venom-honey bee Allergy Severe ANAPHYLAXIS Verified 10/05/18 18:30 [bee venom (honey bee)] latex Allergy Mild ITCHING Verified 10/05/18 18:30 adhesive tape Allergy RASH Uncoded 08/18/16 20:49 Review of Systems Constitutional: Reports: Weakness. Denies: Chills, Fever, Malaise Eyes: Denies: Eye discharge, Eye pain, Photophobia, Vision change ENT: Denies: Congestion Respiratory: Denies: Cough Cardiovascular: Denies: Chest pain, Syncope Endocrine: Reports: Fatigue Gastrointestinal: Denies: Abdominal pain Genitourinary: Denies: Incontinence Musculoskeletal: Reports: Arthralgia. Denies: Back pain, Myalgia Skin: Reports: Other. Denies: Bruising Neurological: Reports: Other (dementia) Psychiatric: Denies: Anxiety Hematological/Lymphatic: Reports: Easy bleeding, Easy bruising Past Medical History - SOCIAL HISTORY Smoking Status: Never smoker - RESPIRATORY Hx Respiratory Disorders: No - CARDIOVASCULAR Hx Cardio Disorders: Yes Hx Edema: Yes Hx Hypertension: Yes Comment:: hx edema legs/ feet swelling - NEURO Hx Seizures: No - GI Hx GI Disorders: No - Hx Genitourinary Disorders: Yes Hx Bladder Problem: Yes (Urinary incontinence) Hx UTI: Yes - ENDOCRINE Hx Endocrine Disorders: Yes Hx Diabetes: No Hx Thyroid Disease: Yes - MUSCULOSKELETAL Hx Musculoskeletal Disorders: Yes Hx Arthritis: Yes Comment:: Back surgery with hardware in 2008 - PSYCH Hx Psych Problems: Yes Hx Anxiety: Yes Hx Depression: Yes - HEMATOLOGY/ONCOLOGY Hx Hematology/Oncology Disorders: No Family Medical History Hx Cancer: Father Hx HTN: Mother Hx Stroke: Mother Physical Exam - General General Appearance: Alert, Cooperative, No acute distress Limitations: Other (dementia) - Head Head exam: negative: Atraumatic, Normal inspection Head exam detail: Abrasion, Contusion, Laceration Image of Face/Head: 1 - 4cm irregular laceration with large skin tear - Eye Eye exam: Normal appearance, PERRL. negative: Conjunctival injection, Periorbital swelling, Periorbital tenderness - ENT ENT exam: Normal exam, Mucous membranes moist Ear exam: Normal external inspection Nasal Exam: Normal inspection Mouth exam: Normal external inspection - Neck Neck exam: Normal inspection - Respiratory Respiratory exam: Normal lung sounds bilaterally. negative: Respiratory distress - Cardiovascular Cardiovascular Exam: Regular rate, Normal rhythm, Normal heart sounds Peripheral Pulses: 2+: Radial (R), Radial (L) - GI/Abdominal GI/Abdominal exam: Soft. negative: Guarding, Tenderness - Rectal Rectal exam: Deferred - exam: Deferred - Extremities Extremities exam: Full ROM, Tenderness. negative: Normal inspection Image of Full Body: 1 - 3cm superficial skin tear - Back Back exam: Denies: CVA tenderness (R), CVA tenderness (L) - Neurological Neurological exam: Alert, Other (slow response at her baseline due to prior stroke) - Psychiatric Psychiatric exam: negative: Agitated, Anxious - Skin Skin exam: Abrasion Type of lesion: Laceration Course - Reevaluation(s) Reevaluation #1: Vitals reviewed The family confirms the patient is a DNR 10/05/18 18:46 Procedure: 5 cm irregular laceration of the forehead with 4 x 6cm superficial skin tear Wound was cleaned and prepped in sterile fashion, no residual FB identified on examination. The wound was copiously irrigated with NS Wound was anesthetized with 4 mL of 1% Lidocaine with epinephrine The laceration was repaired with Prolene 4-0 sutures in interrupted fashion. Patient tolerated the procedure well without complications. We discussed home care, reasons for immediate return if any concerns, and suture removal in 14 days 10/05/18 20:33 Admission for neuro checks, falls, deconditioning, wound care, evaluation of home situation 10/05/18 20:36 Medical Decision Making - Lab Data Result diagrams: 10/05/18 15:40 10/05/18 15:40 Disposition Disposition: Admit Clinical Impression: Falls frequently, Physical deconditioning Scalp laceration Qualifiers: Encounter type: initial encounter Qualified Code(s): S01.01XA - Laceration without foreign body of scalp, initial encounter Concussion Qualifiers: Encounter type: initial encounter Loss of consciousness presence/duration: without LOC Qualified Code(s): S06.0X0A - Concussion without loss of consciousness, initial encounter Disposition: Still a Patient at [facility] Decision to Admit: Admit from ER Decision to Admit Date: 10/05/18 Decision to Admit Time: 20:32 Time Discussed w/Accepting Physician: 20:32 Condition: (2) Stable Forms: Patient Portal Access Time of Disposition: 20:32 Quality - Quality Measures Quality Measures: N/A - Blood Pressure Screening Does Patient Have Any of the Following: No Blood Pressure Classification: Pre-Hypertensive BP Reading Systolic Measurement: 137 Diastolic Measurement: 65 Screening for High Blood Pressure: < Pre-Hypertensive BP, F/U Documented > [[id number]] Pre-Hypertensive Follow-up Interventions: Referral to alternative/primary care provider.
[2018-10-05 18:50] LABS: ABSOLUTE NEUTROPHIL COUNT 7.51; BASO % 0.2 % (0-6); EOS % 0.9 % (0-6); GRAN % 62.8 % (47-80); HEMATOCRIT 39.2 % (35.0-47.0); HEMOGLOBIN 12.3 gm/dl (11.6-16.0); LYMPH % 26.7 % (16-45); MEAN CELL VOLUME 103.2 fl (81-97); MEAN CORPUSCULAR HEMOGLOBIN 32.4 pg (27-33); MEAN CORPUSCULAR HGB CONC 31.4 g/dl (32-36); MEAN PLATELET VOLUME 8.8 fl (7.4-10.4); MONO % 9.4 % (0-9); PLATELET COUNT 438 K/uL (130-400); RED CELL DISTRIBUTION WIDTH 14.5 % (11.5-14.5)
[2018-10-05 19:05] LABS: PARTIAL THROMBOPLASTIN TIME 22.8 SECONDS (24.5-39.1); PROTHROMBIN TIME (PATIENT) 10.3 SECONDS (9.5-12.1)
[2018-10-05 19:06] LABS: BLOOD UREA NITROGEN 15 mg/dL (8-23); CREATININE 0.8 mg/dL (0.5-0.9); EST GLOMERULAR FILTRATION RATE > 60 mL/min; TOTAL PROTEIN 6.9 g/dL (6.6-8.7)
[2018-10-05 19:08] LABS: GLUCOSE,RANDOM 151 mg/dL (74-109)
[2018-10-05 19:11] LABS: ALB/GLOB RATIO 1.3 (1.1-1.8); ALBUMIN 3.9 g/dL (4.0-5.0); ALKALINE PHOSPHATASE 63 U/L (35-104); ALT/SGPT 14 U/L (<33); AST/SGOT 30 U/L (10.0-35.0)
[2018-10-05] MEDS ORDERED: TRANEXAMIC ACID 1,000 MG/10 ML ML TOP ONE (19:52)
[2018-10-05] MEDS ORDERED: THROMBIN/GELATIN FOAM HEMOSTAT (THROMBI-GEL) TP ONE (19:52)
[2018-10-05] MEDS ORDERED: 0.9 % SODIUM CHLORIDE 1000ML 1,000 ML IV PRN (21:52)
[2018-10-05] MEDS ORDERED: DIPHENHYDRAMINE TOP PRN (21:52)
[2018-10-05] MEDS ORDERED: CINNAMON BARK 500 MG PO SCH (21:52)
[2018-10-05] MEDS ORDERED: ZINC OXIDE 28.35 GM TUBE TOP PRN (21:52)
[2018-10-05] MEDS ORDERED: VITAMIN E 100 UNIT PO SCH (21:52)
[2018-10-05] MEDS ORDERED: CRANBERRY EXTRACT 200 MG PO SCH (21:52)
[2018-10-05] MEDS: CITALOPRAM 20 MG TABLET PO SCH (23:18)
[2018-10-05] MEDS: GABAPENTIN 300 MG CAPSULE PO SCH (23:18)
[2018-10-05] MEDS: LOSARTAN POTASSIUM 25 MG TABLET PO SCH (23:18)
[2018-10-05] MEDS: ACETAMINOPHEN 325 MG TAB PO PRN (23:18)
[2018-10-06] MEDS: LEVOTHYROXINE SODIUM 75 MCG TABLET PO SCH (06:47)
[2018-10-06] MEDS: ACETAMINOPHEN 325 MG TAB PO PRN ×2 (08:49→21:05)
[2018-10-06] MEDS: GABAPENTIN 300 MG CAPSULE PO SCH ×2 (09:57→21:05)
[2018-10-06] MEDS: ASCORBIC ACID 500 MG TAB PO SCH (09:57)
[2018-10-06] MEDS: MULTIVITAMINS/MINERALS TABLET PO SCH (09:57)
[2018-10-06] MEDS: DOCUSATE SODIUM 100 MG CAPSULE PO SCH (09:57)
[2018-10-06] MEDS ORDERED: FATTY ACIDS PO SCH (10:00)
[2018-10-06] MEDS ORDERED: OMEGA PO SCH (10:00)
[2018-10-06] MEDS ORDERED: FISH OIL PO SCH (10:00)
--- NOTE | 2018-10-06 10:21 | History & Physical ---
History of Present Illness - Date of Service Date of Service for History & Physical: 10/06/18 - History of Present Illness Admitting Diagnosis: falls, concussion, forehead laceration History of Present Illness: 88 yo female presents after a fall witnessed (on video). She was getting out of bed and fell over from a standing, although bent over, position. She has a forehead scalp injury. No LOC. She was discharged yesterday from the Swing Bed Unit. No other abrupt changes in her health since DC. She has a skin tear on her right knee as well. The family reports no issues since the DC. She is eating and drinking. Her ostomy from recent surgery is working. She is not on any anticoagulants. 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 Her history includes HTN, lower leg/foot swelling, urinary incontinence, thyroid disease, arthritis, anxiety and depression. In the ED, VS and labs were stable. C-spine, head CT, and knee xray neg. Her forehead laceration is 4cm and was sutured and covered in telfa. Her left knee has a superficial skin tear. She was admitted for observation with neuro checks, wound care, and evaluation of home situation with hx of multiple falls and deconditioning. 10/06/18: Pt. is resting in bed. Neuro checks have remained at pt's baseline. Telfa removed from forehead lac and will cover area with tegaderm. Avoiding non- adherent dressings so that sutured area can approximate. Plan for case management and PT/OT eval tomorrow. PCP: Dr. Griffin Travel Screening - Travel/Exposure Within Last 30 Days Have you traveled within the last 30 days?: No - Travel/Exposure Within Last Year Have you traveled outside the [place] in the last year?: No - Additonal Travel Details Have you been exposed to anyone with a communicable illness?: No - Travel Symptoms Symptom Screening: None Review of Systems Constitutional: Reports: Weakness. Denies: Chills, Fever, Malaise Eyes: Denies: Eye discharge, Eye pain, Photophobia, Vision change ENT: Denies: Congestion Respiratory: Denies: Cough Cardiovascular: Denies: Chest pain, Syncope Endocrine: Reports: Fatigue Gastrointestinal: Denies: Abdominal pain Genitourinary: Denies: Incontinence Musculoskeletal: Reports: Arthralgia. Denies: Back pain, Myalgia Skin: Reports: Other. Denies: Bruising Neurological: Reports: Other (dementia) Psychiatric: Denies: Anxiety Hematological/Lymphatic: Reports: Easy bleeding, Easy bruising Past Medical History - SOCIAL HISTORY Smoking Status: Never smoker Alcohol Use: None Drug Use: None - RESPIRATORY Hx Respiratory Disorders: No - CARDIOVASCULAR Hx Cardio Disorders: Yes Hx Edema: Yes Hx Hypertension: Yes Comment:: hx edema legs/ feet swelling - NEURO Hx Neuro Disorders: Yes Hx Seizures: No - GI Hx GI Disorders: No - Hx Genitourinary Disorders: Yes Hx Bladder Problem: Yes (Urinary incontinence) Hx UTI: Yes - ENDOCRINE Hx Endocrine Disorders: Yes Hx Diabetes: No Hx Thyroid Disease: Yes - MUSCULOSKELETAL Hx Musculoskeletal Disorders: Yes Hx Arthritis: Yes Comment:: Back surgery with hardware in 2008 - PSYCH Hx Psych Problems: Yes Hx Anxiety: Yes Hx Depression: Yes - HEMATOLOGY/ONCOLOGY Hx Hematology/Oncology Disorders: No Family Medical History Any Significant Family History?: Yes Hx Cancer: Father Hx HTN: Mother Hx Stroke: Mother H&P Meds/Allergies - Allergies Allergies: Allergies Allergy/AdvReac Type Severity Reaction Status Date / Time venom-honey bee Allergy Severe ANAPHYLAXIS Verified 10/05/18 18:30 [bee venom (honey bee)] latex Allergy Mild ITCHING Verified 10/05/18 18:30 adhesive tape Allergy RASH Uncoded 08/18/16 20:49 - Home Medications Previous Rx's Medication Instructions Recorded Citalopram Hydrobromide [Celexa] 20 mg PO QHS #30 tablet 12/17/14 Docusate Sodium [Colace] 100 mg PO DAILY #90 cap 12/17/14 Gabapentin [Neurontin] 300 mg PO BID #60 capsule 12/17/14 Levothyroxine Sodium 75 mcg PO DAILY #90 tablet 12/17/14 Losartan Potassium [Cozaar] 50 mg PO QHS #90 tablet 12/17/14 Multivitamin [Multi-Vitamin Daily] 1 each PO DAILY #90 tablet 12/17/14 [place]-3 Fatty Acids/Fish Oil [Fish 1 each PO DAILY #90 capsule 12/17/14 Oil 1,000 mg Softgel] Diphenhydramine HCl/Zinc Acet 30 gm TOP ASDIR PRN tube 10/04/18 [Benadryl Cream] Zinc Oxide [Desitin] 5 gm TOP ASDIR PRN tube 10/04/18 - Active Medications Active Medications: Current Medications Acetaminophen (Tylenol 325mg) 650 mg PO Q6H PRN PRN Reason: PAIN - MILD(1-4)/FEVER Last Admin: 10/06/18 08:49 Dose: 650 mg Documented by: Ascorbic Acid (Vitamin C) 500 mg PO DAILY [facility] Last Admin: 10/06/18 09:57 Dose: 500 mg Documented by: Citalopram Hydrobromide (Celexa) 20 mg PO QHS [facility] Last Admin: 10/05/18 23:18 Dose: 20 mg Documented by: Docusate Sodium (Colace) 100 mg PO DAILY [facility] Last Admin: 10/06/18 09:57 Dose: 100 mg Documented by: Gabapentin (Neurontin) 300 mg PO BID [facility] Last Admin: 10/06/18 09:57 Dose: 300 mg Documented by: Sodium Chloride () 1,000 mls @ 75 mls/hr IV .[id number] PRN PRN Reason: LARGE VOLUME IV Levothyroxine Sodium (Synthroid) 75 mcg PO DAILYTHY [facility] Last Admin: 10/06/18 06:47 Dose: 75 mcg Documented by: Losartan Potassium (Cozaar) 50 mg PO QHS [facility] Last Admin: 10/05/18 23:18 Dose: 50 mg Documented by: Multivitamins/Minerals (Centrum) 1 tab PO DAILY [facility] Last Admin: 10/06/18 09:57 Dose: 1 tab Documented by: Non-Formulary Medication (Cinnamon Bark [Cinnamon]) 500 mg PO ASDIR ALEXI Non-Formulary Medication (Cranberry Extract [Cranberry]) 200 mg PO ASDIR [facility] Non-Formulary Medication ([place]-3 Fatty Acids/Fish Oil [Fish Oil 1,000 Mg Softgel]) 1 each PO DAILY [facility] Non-Formulary Medication (Vitamin E (Dl,Tocopheryl Acet) [Vitamin E]) 100 unit PO ASDIR ALEXI Zinc Acetate/Diphenhydramine (Benadryl Cream) 30 gm TOP ASDIR PRN PRN Reason: ITCHING Zinc Oxide (Desitin) 5 gm TOP ASDIR PRN PRN Reason: RASH Physical Exam - Vital Signs Vital Signs: Vital Signs - Last 24 Hrs Temp Pulse Pulse Pulse Resp BP BP 10/06/18 07:00 98.2 F 76 16 144/67 10/05/18 21:53 98.1 F 84 16 144/69 10/05/18 21:15 98 H 16 149/81 10/05/18 19:26 100 H 24 159/69 10/05/18 18:32 98.7 F 98 H 20 137/65 Pulse Ox 10/06/18 07:00 90 L 10/05/18 21:53 92 L 10/05/18 21:15 98 10/05/18 19:26 90 L 10/05/18 18:32 93 L - General General Appearance: Alert, Cooperative, No acute distress Limitations: Other (dementia) - Head Head exam: negative: Atraumatic, Normal inspection Head exam detail: Abrasion, Contusion, Laceration - Eye Eye exam: Normal appearance, PERRL. negative: Conjunctival injection, Periorbital swelling, Periorbital tenderness - ENT ENT exam: Normal exam, Mucous membranes moist Ear exam: Normal external inspection Nasal Exam: Normal inspection Mouth exam: Normal external inspection - Neck Neck exam: Normal inspection - Respiratory Respiratory exam: Normal lung sounds bilaterally. negative: Respiratory distress - Cardiovascular Cardiovascular Exam: Regular rate, Normal rhythm, Normal heart sounds Peripheral Pulses: 2+: Radial (R), Radial (L) - GI/Abdominal GI/Abdominal exam: Soft. negative: Guarding, Tenderness - Rectal Rectal exam: Deferred - exam: Deferred - Extremities Extremities exam: Full ROM, Tenderness. negative: Normal inspection - Back Back exam: Denies: CVA tenderness (R), CVA tenderness (L) - Neurological Neurological exam: Alert, Other (slow response at her baseline due to prior stroke) - Psychiatric Psychiatric exam: negative: Agitated, Anxious - Skin Skin exam: Abrasion Type of lesion: Laceration (4cm sutured) Results - Labs Result Diagrams: 10/05/18 15:40 10/05/18 15:40 Labs Last 24 Hours: Laboratory Results - last 24 hr 10/05/18 10/05/18 10/05/18 15:40 15:40 15:40 WBC 12.0 RBC 3.80 Hgb 12.3 Hct 39.2 MCV 103.2 H MCH 32.4 MCHC 31.4 L RDW 14.5 Plt Count 438 H MPV 8.8 Gran % 62.8 Lymphocytes % 26.7 Monocytes % 9.4 H Eosinophils % 0.9 Basophils % 0.2 Absolute Neutrophils 7.51 PT 10.3 INR 1.0 APTT 22.8 L Sodium 141 Potassium 3.9 Chloride 101 Carbon Dioxide 26.0 Anion Gap 14.0 BUN 15 Creatinine 0.8 Estimated GFR > 60 Random Glucose 151 H Calcium 10.0 Total Bilirubin 0.40 AST 30 ALT 14 Alkaline Phosphatase 63 Total Protein 6.9 Albumin 3.9 L Globulin 3.0 Albumin/Globulin Ratio 1.3 - Imaging and Cardiology CT scan - head Status: Report reviewed (neg for acute process) VTE H&P Assessment - Risk for VTE Risk for VTE: Yes Risk Level: Low Risk Assessment Date: 10/06/18 Risk Assessment Time: 10:23 VTE Orders Placed or Will Be Placed: No VTE Reason for No Prophylaxis: Contraindicated (high fall risk) Plan - Detailed Diagnosis and Plan (1) Concussion Current Visit: Yes Status: Acute Qualifiers: Encounter type: initial encounter Loss of consciousness presence/duration: without LOC Qualified Code(s): S06.0X0A - Concussion without loss of consciousness, initial encounter Base Code: S06.0X9A - CONCUSSION W LOSS OF CONSCIOUSNESS OF UNSP DURATION, INIT Comment: 10/06/18: -Secondary to fall on 10/05/18 at home -Neuro checks q12h -Bed alarm (2) Physical deconditioning Current Visit: Yes Status: Acute Base Code: R53.81 - OTHER MALAISE P riority: High Comment: 10/06/18: -Fall on 10/05/18 at home, was d/c from swing bed on 10/04/18 with home PT/OT and nursing -Physical deconditioning and weakness after recent admission and surgery at [facility] for partial colectomy -Will consult case management for eval (3) Scalp laceration Current Visit: Yes Status: Acute Qualifiers: Encounter type: initial encounter Qualified Code(s): S01.01XA - Laceration without foreign body of scalp, initial encounter Base Code: S01.01XA - LACERATION WITHOUT FOREIGN BODY OF SCALP, INITIAL ENCOUNTER Comment: 10/06/18: -Forehead lac- 4cm -Recommend suture removal at 14 days -superficial skin tear of tissue around laceration -Will cover with tegaderm and monitor (4) DVT prophylaxis Current Visit: No Status: Acute Base Code: [id number] - Comment: 10/06/18: -high risk due to age, hospitalization, and recent surgery -Holding Lovenox at this time due to high fall risk (recent fall, dementia) (5) DNR (do not resuscitate) Current Visit: No Status: Acute Base Code: Z66 - DO NOT RESUSCITATE Priority: Medium Comment: 10/06/18: -DNR
[2018-10-06] MEDS: CITALOPRAM 20 MG TABLET PO SCH (21:05)
[2018-10-06] MEDS: LOSARTAN POTASSIUM 25 MG TABLET PO SCH (21:05)
[2018-10-07] MEDS: LEVOTHYROXINE SODIUM 75 MCG TABLET PO SCH (06:34)
[2018-10-07 06:47] LABS: ABSOLUTE NEUTROPHIL COUNT 3.06; BASO % 0.5 % (0-6); EOS % 6.8 % (0-6); GRAN % 53.7 % (47-80); HEMATOCRIT 33.5 % (35.0-47.0); HEMOGLOBIN 9.9 gm/dl (11.6-16.0); LYMPH % 26.6 % (16-45); MEAN CELL VOLUME 106.3 fl (81-97); MEAN CORPUSCULAR HEMOGLOBIN 31.4 pg (27-33); MEAN CORPUSCULAR HGB CONC 29.6 g/dl (32-36); MEAN PLATELET VOLUME 8.8 fl (7.4-10.4); MONO % 12.4 % (0-9); PLATELET COUNT 311 K/uL (130-400); RED BLOOD COUNT 3.15 M/uL (3.80-5.40); RED CELL DISTRIBUTION WIDTH 14.7 % (11.5-14.5); WHITE BLOOD COUNT W/O DIFF 5.7 K/uL (4.2-12.2)
[2018-10-07 07:06] LABS: ALB/GLOB RATIO 1.5 (1.1-1.8); ALBUMIN 3.2 g/dL (4.0-5.0); BILIRUBIN,TOTAL 0.2 mg/dL (0.2-1.0); TOTAL PROTEIN 5.4 g/dL (6.6-8.7)
--- NOTE | 2018-10-07 08:23 | CT SCAN REPORT ---
EXAM: CT SCAN OF THE HEAD HISTORY: PATIENT HAS A HISTORY OF HEAD INJURY. TECHNIQUE: Serial axial CT scan of the head was performed at 2.5 mm intervals from the base of the skull to the apex without the use of intravenous contrast. Sagittal and coronal reconstructions are provided. Comparison: CT scan of the head dated 07/05/18 is provided. FINDINGS: Moderate generalized parenchymal volume loss is noted. Extensive periventricular and subcortical white matter chronic small vessel ischemic changes are identified. This finding appears similar to the prior CT scan. There is no CT evidence of intra or extraaxial fluid to suggest bleeding. Bone windows demonstrate no CT evidence of a fracture or dislocation of the skull. Soft tissue swelling is noted within the left frontal scalp compatible with small scalp hematoma. The paranasal sinuses are unremarkable. IMPRESSION: SMALL LEFT FRONTAL SCALP HEMATOMA IS NOTED WITHOUT CT EVIDENCE OF AN ACUTE INTRACRANIAL PROCESS. EXTENSIVE PERIVENTRICULAR AND SUBCORTICAL WHITE MATTER CHRONIC SMALL VESSEL ISCHEMIC CHANGES ARE IDENTIFIED. JOB NUMBER: [id number] MTDD
--- NOTE | 2018-10-07 08:29 | CT SCAN REPORT ---
EXAM: CT SCAN OF THE CERVICAL SPINE HISTORY: PATIENT HAS A HISTORY OF FALL. TECHNIQUE: Serial axial CT scan of the cervical spine was performed at 2.5 mm intervals from the base of the skull to the thoracic inlet without the use of intravenous contrast. Comparison: CT scan of the cervical spine dated 07/05/18 is provided. FINDINGS: The vertebral body height and contour of the cervical spine is within normal limits. Significant facet arthropathy is noted throughout the cervical spine. There is approximately 3 mm anterolisthesis of the C3 vertebral body with respect to the C4 vertebral body which is unchanged with respect to the prior CT scan. There is 3 mm anterolisthesis of the C4 vertebral body with respect to the C5 vertebral body which is also unchanged. There is no CT evidence of a fracture or dislocation of the cervical spine. The prevertebral soft tissue and parapharyngeal fat are unremarkable. There is no CT evidence of cervical lymphadenopathy. The visualized bilateral parotid, submandibular, and thyroid gland are unremarkable. Airways are patent. Lung windows of the lung apices are clear. 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 THERE IS NO CT EVIDENCE OF A NEW, ACUTE FRACTURE OR DISLOCATION OF THE CERVICAL SPINE. SPONDYLOLISTHESIS OF THE UPPER CERVICAL LEVELS ARE SIMILAR TO THE PRIOR EXAMINATION. JOB NUMBER: [id number] MTDD
--- NOTE | 2018-10-07 08:41 | RADIOLOGY REPORT ---
EXAM: LEFT KNEE HISTORY: PATIENT HAS A HISTORY OF FALL. TECHNIQUE: Multiple views of the left knee are provided along with the comparison study dated 09/24/14. FINDINGS: In the interval there has been placement of a left total knee arthroplasty. Alignment is anatomic. No periimplant fractures are identified. Patellar resurfacing is noted. No significant suprapatellar bursal fluid is identified. Vascular calcifications are identified. IMPRESSION: INTERVAL PLACEMENT OF LEFT TOTAL KNEE ARTHROPLASTY IS NOTED WITHOUT RADIOGRAPHIC EVIDENCE OF HARDWARE FAILURE. JOB NUMBER: [id number] [facility]
[2018-10-07] MEDS: ASCORBIC ACID 500 MG TAB PO SCH (09:38)
[2018-10-07] MEDS: MULTIVITAMINS/MINERALS TABLET PO SCH (09:38)
[2018-10-07] MEDS: DOCUSATE SODIUM 100 MG CAPSULE PO SCH (09:38)
[2018-10-07] MEDS: GABAPENTIN 300 MG CAPSULE PO SCH (09:39)
--- NOTE | 2018-10-07 10:09 | Rehab Evaluation ---
Patient Information - Patient Information Diagnosis: Fall -> small L frontal scalp hematoma, L knee skin tear Ordered Treatment: OT Evaluate and Treat Status: Initial Evaluation Surgery: No Past Medical/Surgical Hx: PAST MEDICAL/SURGICAL HISTORY Past Surgical History Back-titanium akshat bilateral TOTAL KNEE ARTHROPLASTY toe last year PMH - Respiratory Hx Respiratory Disorders No PMH - Cardiovascular Hx Cardiovascular Disorders Yes Hx Edema Yes Hx Heart Attack Yes Hx Hypertension Yes Comment: hx edema legs/ feet swelling PMH - Neuro Hx Neurological Disorders Yes Hx Seizures No PMH - GI Hx Gastrointestinal Disorders No PMH - Hx Genitourinary Disorders Yes Hx Bladder Problem Yes: Urinary incontinence Hx Urinary Tract Infection Yes PMH - Endocrine Hx Endocrine Disorders Yes Hx Diabetes No Hx Thyroid Disease Yes PMH - Musculoskeletal Hx Musculoskeletal Disorders Yes Hx Arthritis Yes Comment: Back surgery with hardware in 2008 PMH - Psych Hx Psychiatric Problems Yes Hx Anxiety Yes Hx Depression Yes PMH - Hematology/Oncology Hx Hematology/Oncology No Disorders Premorbid Status: Detail (Pt recently DC'd from [facility] swing bed 10/04/18. She lives with her daughter and son-in-law in a 1-story home with ramped entrance. Bathroom is equiped with walk-in shower, shower seat, BSC over toilet. She has a FWW and a standard WC. Her daughter assists with all self-cares and IADLs. Prior to 09/02/18 admit, Pt was ambulating to kitchen 2x daily with walker and is often home alone - son-in-law watches Pt from work from a live video feed.) Precautions: [place], Fall - Time With Patient Total Time Spent With Patient (Min): 41 (1 eval, 1 self-care) Treatment Procedures: Detail (OT eval: moderate complexity - deficits in physical strength, endurance, ROM, cognition, and fear limiting independence with all self-cares including feeding, dressing, and functional TFs.) Subjective Information - Subjective Information Per Patient (Ok to see per WENDI Palomares. Pt agreeable to OT eval and Tx, wanting to "try walking.") Objective Data - Pain Pain Present: No Pain Scale Used: Numeric (1 - 10) (0/10) - Mental Status Patient Orientation: Oriented x3 - Visual Perception Appears within normal limits for therapeutic activities (No deficits noted throughout Tx) - ROM Not within normal limits (decreased B shld AROM, R ~90*, L ~80*, decreased hand ROM) - Strength/Tone Not within normal limits (3/5 B UE strength grossly) - Coordination Deficit (decreased coordination and slow reactions) - Bed Mobility Needs Assist (supine >< EOB MOD assist) - Transfers Needs Assist (sit > stand from slightly elevated EOB with MIN-MOD assist to FWW. Standing with FWW and MIN assist - Pt unable to bear full body weight on L leg to raise R - assist for controlled descent to bed. Pt's decreased UB strength and slow reactions make stand pivot unsafe at this time without 2-person vs. mechanical assist.) - Balance Balance Sitting: Fair (Assist for initial positioning at EOB, progressing to indep. for static sitting EOB 14 mins with occassional uni and bilat UE support on bed during self-care task.) Balance Standing: Fair (Fair- static standing at FWW with MIN assist) - Sensation Intact - Gait Detail (unsafe at this time d/t inability to bear full body weight on L LE without it collapsing) - ADL's/IADL's Detail (MOD for UB dress with increased time to don/doff gown; total assist for LB dress brief change; MIN-MOD for sit-stand from slightly elevated EOB; MIN-MOD for self-cares including feeding and teeth brushing) Therapy Assessment - Therapy Assessment Detail (Pt with decreased strength, endurance, and safety awareness overall puts her at increased risk for further falls and injury. Pt would benefit from rehab to increase independence and safety overall. Would benefit from increased 24/7 assist upon DC vs. LTC placement.) Patient Education - Patient Education Teaching Topic: Other (UB strengthening in room) Response: Return Demonstration, Reinforcement Needed Teaching Method: Discussion, Demonstration Teaching Recipient: Patient Barriers To Learning: Cognitive/Verbal Problem List - Problem List Occupational Therapy Problem List: Detail (1. Decreased UB strength needed for self-cares. 2. Decreased endurance for self-cares and functional TFs. 3. Decreased independence with self-cares, including total body dressing, feeding, and grooming) Goals - Goals Occupational Therapy Goals: 1. Increased UB strength needed for self-cares. 2. Increase functional endurance for self-cares and functional TFs. 3. Increase independence with self-cares, including grooming, total body dressing, and feeding. Prognosis - Prognosis Moderate Plan - Plan Occupational Therapy Plan: OT 2-4 days/wk to address goals. Pt would benefit from IP OT to increase independence and safety overall. Would benefit from increased 24/7 assist upon DC vs. LTC placement.
--- NOTE | 2018-10-07 14:05 | Rehab Evaluation ---
Patient Information - Patient Information Diagnosis: Fall -> small L frontal scalp hematoma, L knee skin tear Ordered Treatment: PT Evaluate and Treat Status: Initial Evaluation Surgery: No Past Medical/Surgical Hx: PAST MEDICAL/SURGICAL HISTORY Past Surgical History Back-titanium akshat bilateral TOTAL KNEE ARTHROPLASTY toe last year PMH - Respiratory Hx Respiratory Disorders No PMH - Cardiovascular Hx Cardiovascular Disorders Yes Hx Edema Yes Hx Heart Attack Yes Hx Hypertension Yes Comment: hx edema legs/ feet swelling PMH - Neuro Hx Neurological Disorders Yes Hx Seizures No PMH - GI Hx Gastrointestinal Disorders No PMH - Hx Genitourinary Disorders Yes Hx Bladder Problem Yes: Urinary incontinence Hx Urinary Tract Infection Yes PMH - Endocrine Hx Endocrine Disorders Yes Hx Diabetes No Hx Thyroid Disease Yes PMH - Musculoskeletal Hx Musculoskeletal Disorders Yes Hx Arthritis Yes Comment: Back surgery with hardware in 2008 PMH - Psych Hx Psychiatric Problems Yes Hx Anxiety Yes Hx Depression Yes PMH - Hematology/Oncology Hx Hematology/Oncology No Disorders Premorbid Status: Detail (Prior to recent admission the patient was ambulatory with front wheeled walker a distance of 25 feet with minimal assist , supervision to minimal assist with bed mobility and CG to minimal assist for sit to stand and minimal assist of 1 with pivot transfer with use of front wheeled walker.) Social History: Detail (The patient lives with daughter and son in law in a one story home with a basement with a ramp at the enterance. The bathroom is equipped with a walk in shower with a seat and no grab bars and a commode over the toilet. The patient had a wheelchair and front wheeled walker.) Precautions: [place], Fall - Time With Patient Total Time Spent With Patient (Min): 30 Treatment Procedures: Detail (Initial Evaluation) Subjective Information - Subjective Information Per Patient (The patient had no complaints of pain.) Objective Data - Mental Status Patient Orientation: Oriented x3 - ROM Within normal limits (The patient's LE AROM was WNL.) - Strength/Tone Not within normal limits (The patient's LE strength was as follows: R hip flexors 3+/5, L hip flexors 4-/5, bilateral hip adductors 4-/5, R knee extensors 4/5 and ankle dorsiflexors 4/5. All other LE strength was 5/5.) - Bed Mobility Needs Assist (The patient required supervision for safety with supine to sit and minimal PA of one to scoot to the edge of the bed.) - Transfers Independent (The required minimal PA with sit to stand transfer. The patient required minimal PA of 1 and moderate PA of 1 with pivot transfer using front wheeled walker from bed to wheelchair and occasional minimal PA for weight shift.) - Balance Balance Sitting: Good Balance Standing: Fair (The patient required support of walker for standing.) - Gait Detail (The patient was too fatigued to ambulate.) Therapy Assessment - Therapy Assessment Detail (The patient was supervision/minimal assist with bed mobility and m oderate assist to transfer. The patient required verbal and tactile cues during transfers for weight shifting and to turn walker. The patient would benefit from short term PT to return to previous level at Swing Bed Discharge.) Problem List - Problem List Physical Therapy Problem List: Detail (1) Decreased LE strength 2) Assistance with bed mobility and transfers and ambulation 3) impaired standing balance) Occupational Therapy Problem List: Detail (1. Decreased UB strength needed for self-cares. 2. Decreased endurance for self-cares and functional TFs. 3. Decreased independence with self-cares, including total body dressing, feeding, and grooming) Goals - Goals Physical Therapy Goals: 1) The patient will ambulate with front wheeled walker household distances with CG/minimal PA of 1. 2) The patient will consistently require supervision for bed mobility. 3) The patient will consistently require moderate PA of 1 with pivot transfers with use of walker. Occupational Therapy Goals: 1. Increased UB strength needed for self-cares. 2. Increase functional endurance for self-cares and functional TFs. 3. Increase independence with self-cares, including grooming, total body dressing, and feeding. Prognosis - Prognosis Moderate Plan - Plan Physical Therapy Plan: PT daily M-F with gait training, transfer training and bed mobility , balance and LE strengthening exercise. Occupational Therapy Plan: OT 2-4 days/wk to address goals. Pt would benefit from IP OT to increase independence and safety overall. Would benefit from increased 24/7 assist upon DC vs. LTC placement.
--- NOTE | 2018-10-07 14:21 | Discharge Summary ---
Providers Discharge Summary Date: 10/07/18 Date of admission: 10/05/18 21:35 Expected Date of Discharge: 10/07/18 Attending physician: YESICA HONG Primary care physician: EMA GRIFFIN D.O. Consults: Consult Orders 10/06/18 10:28 Consult - Case Management NOW Comment: Reason For Exam: High fall risk, eval home living/needs/placement Physical Exam - Vital Signs Vital Signs: Vital Signs - Last 24 Hrs Temp Pulse Pulse Resp BP BP Pulse Ox 10/07/18 10:15 98.1 F 132/65 10/07/18 09:00 98 H 69 15 10/07/18 07:00 98.1 F 69 15 132/65 91 L 10/06/18 21:00 98.1 F 78 16 134/66 96 10/06/18 15:00 98.4 F 76 16 135/75 92 L - General General Appearance: Alert, Cooperative, No acute distress Limitations: Other (dementia) - Head Head exam: negative: Atraumatic, Normal inspection Head exam detail: Abrasion, Contusion, Laceration - Eye Eye exam: Normal appearance, PERRL. negative: Conjunctival injection, Periorbital swelling, Periorbital tenderness - ENT ENT exam: Normal exam, Mucous membranes moist Ear exam: Normal external inspection Nasal Exam: Normal inspection Mouth exam: Normal external inspection - Neck Neck exam: Normal inspection - Respiratory Respiratory exam: Normal lung sounds bilaterally. negative: Respiratory distress - Cardiovascular Cardiovascular Exam: Regular rate, Normal rhythm, Normal heart sounds Peripheral Pulses: 2+: Radial (R), Radial (L) - GI/Abdominal GI/Abdominal exam: Soft. negative: Guarding, Tenderness - Rectal Rectal exam: Deferred - exam: Deferred - Extremities Extremities exam: Full ROM, Tenderness. negative: Normal inspection - Back Back exam: Denies: CVA tenderness (R), CVA tenderness (L) - Neurological Neurological exam: Alert, Other (slow response at her baseline due to prior stroke) - Psychiatric Psychiatric exam: negative: Agitated, Anxious - Skin Skin exam: Abrasion Type of lesion: Laceration (4cm sutured) Hospitalization - Hospitalization Admission Diagnosis: falls, concussion, forehead laceration - Problem List/Discharge Diagnosis (1) Concussion Current Visit: Yes Status: Acute Discharge Diagnosis: Encounter type: initial encounter Loss of consciousness presence/duration: without LOC Qualified Code(s): S06.0X0A - Concussion without loss of consciousness, initial encounter Base Code: S06.0X9A - CONCUSSION W LOSS OF CONSCIOUSNESS OF UNSP DURATION, INIT Comment: 10/07/18: -Secondary to fall on 10/05/18 at home -Neuro checks q12h -Bed alarm (2) Physical deconditioning Current Visit: Yes Status: Acute Base Code: R53.81 - OTHER MALAISE Com ment: 10/07/18: -Fall on 10/05/18 at home, was d/c from swing bed on 10/04/18 with home PT/OT and nursing -Physical deconditioning and weakness after recent admission and surgery at [facility] for partial colectomy -d/c to swing bed today (3) Scalp laceration Current Visit: Yes Status: Acute Discharge Diagnosis: Encounter type: initial encounter Qualified Code(s): S01.01XA - Laceration without foreign body of scalp, initial encounter Base Code: S01.01XA - LACERATION WITHOUT FOREIGN BODY OF SCALP, INITIAL ENCOUNTER Comment: 10/07/18: -Forehead lac- 4cm -Recommend suture removal at 14 days -superficial skin tear of tissue around laceration -Will cover with tegaderm and monitor (4) DVT prophylaxis Current Visit: No Status: Acute Base Code: [id number] - Comment: 10/07/18: -high risk due to age, hospitalization, and recent surgery -Holding Lovenox at this time due to high fall risk (recent fall, dementia) (5) DNR (do not resuscitate) Current Visit: No Status: Acute Base Code: Z66 - DO NOT RESUSCITATE Comment: 10/07/18: -DNR - Hospitalization Course Disposition: Moved to Swing Bed Hospital Course: 88 yo female presents after a fall witnessed (on video). She was getting out of bed and fell over from a standing, although bent over, position. She has a forehead scalp injury. No LOC. She was discharged yesterday from the Swing Bed Unit. No other abrupt changes in her health since DC. She has a skin tear on her right knee as well. The family reports no issues since the DC. She is eating and drinking. Her ostomy from recent surgery is working. She is not on any anticoagulants. 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 Her history includes HTN, lower leg/foot swelling, urinary incontinence, thyroid disease, arthritis, anxiety and depression. In the ED, VS and labs were stable. C-spine, head CT, and knee xray neg. Her forehead laceration is 4cm and was sutured and covered in telfa. Her left knee has a superficial skin tear. She was admitted for observation with neuro checks, wound care, and evaluation of home situation with hx of multiple falls and deconditioning. 10/06/18: Pt. is resting in bed. Neuro checks have remained at pt's baseline. Telfa removed from forehead lac and will cover area with tegaderm. Avoiding non- adherent dressings so that sutured area can approximate. Plan for case management and PT/OT eval tomorrow. 10/07/18: Neuro checks have remained at pt's baseline. Pt's son in process of looking for long-term placement with assistance of social work. Will d/c to swing bed today for continued PT/OT. PCP: Dr. Griffin Procedures: Imaging and X-Rays 10/05/18 18:29 HEAD WO CONTRAST [CT] Stat 10/05/18 18:30 CERVICAL SPINE WO CONTRAST [CT] Stat 10/05/18 19:07 KNEE, LEFT 3 VIEWS [RAD] Stat Cardiology Procedures 10/05/18 18:29 Global Account Manager NOW Abnormal Labs: Abnormal Lab Results 10/05/18 10/05/18 10/05/18 Range/Units 15:40 15:40 15:40 RBC (3.80-5.40) M/uL Hgb (11.6-16.0) gm/dl Hct (35.0-47.0) % MCV 103.2 H (81-97) fl MCHC 31.4 L (32-36) g/dl RDW (11.5-14.5) % Plt Count 438 H (130-400) K/uL Monocytes % 9.4 H (0-9) % Eosinophils % (0-6) % APTT 22.8 L (24.5-39.1) SECONDS Sodium (136-145) mmol/L Creatinine (0.5-0.9) mg/dL Random Glucose 151 H (74-109) mg/dL Total Protein (6.6-8.7) g/dL Albumin 3.9 L (4.0-5.0) g/dL 10/07/18 10/07/18 Range/Units 06:20 06:20 RBC 3.15 L (3.80-5.40) M/uL Hgb 9.9 L (11.6-16.0) gm/dl Hct 33.5 L (35.0-47.0) % MCV 106.3 H (81-97) fl MCHC 29.6 L (32-36) g/dl RDW 14.7 H (11.5-14.5) % Plt Count (130-400) K/uL Monocytes % 12.4 H (0-9) % Eosinophils % 6.8 H (0-6) % APTT (24.5-39.1) SECONDS Sodium 147 H (136-145) mmol/L Creatinine 1.0 H (0.5-0.9) mg/dL Random Glucose (74-109) mg/dL Total Protein 5.4 L (6.6-8.7) g/dL Albumin 3.2 L (4.0-5.0) g/dL Condition at Discharge: (2) Stable Discharge Diagnosis: Deconditioning, fall VTE Discharge VTE Reason For No Overlap Therapy: Not Indicated Discharge Medications - Discharge Medications Home Medications: Ambulatory Orders Citalopram Hydrobromide [Celexa] 20 mg PO QHS #30 tablet 12/17/14 [Last Taken 10/05/18] Docusate Sodium [Colace] 100 mg PO DAILY #90 cap 12/17/14 [Last Taken 10/05/18] Gabapentin [Neurontin] 300 mg PO BID #60 capsule 12/17/14 [Last Taken 10/05/18] Levothyroxine Sodium 75 mcg PO DAILY #90 tablet 12/17/14 [Last Taken 10/05/18] Losartan Potassium [Cozaar] 50 mg PO QHS #90 tablet 12/17/14 [Last Taken 10/05/18] Multivitamin [Multi-Vitamin Daily] 1 each PO DAILY #90 tablet 12/17/14 [Last Taken 10/05/18] [place]-3 Fatty Acids/Fish Oil [Fish Oil 1,000 mg Softgel] 1 each PO DAILY #90 capsule 12/17/14 [Last Taken 10/05/18] Ascorbic Acid [Vitamin C] 500 mg PO DAILY 04/10/15 [Last Taken 10/05/18] Cinnamon Bark [Cinnamon] 500 mg PO ASDIR cap 12/10/15 [Last Taken 10/05/18] Cranberry Extract [Cranberry] 200 mg PO ASDIR cap 12/10/15 [Last Taken 10/05/18] Vitamin E (Dl,Tocopheryl Acet) [Vitamin E] 100 unit PO ASDIR cap 12/10/15 [Last Taken 10/05/18] Diphenhydramine HCl/Zinc Acet [Benadryl Cream] 30 gm TOP ASDIR PRN tube 10/04/18 [Last Taken 10/05/18] Zinc Oxide [Desitin] 5 gm TOP ASDIR PRN tube 10/04/18 [Last Taken 10/05/18] Discharge Plan - Discharge Instructions Activity at Discharge: As Per Physical Therapy Diet at Discharge: Advance to Usual Diet Additional Instructions: Discharging to swing bed program Quality Measures - Quality Measures Quality Measures: Advance Directives, Documentation of Current Medications in Medical Record, Elder Maltreatment Screen and Follow-Up Plan, Screening for High Blood Pressure and F/U Documented - Current Medications Quality Measure: Measure #130: Documentation of Current Medications Documentation of Current Medications: <Current Medications Documented/Reviewed> [G8427] - Blood Pressure Screening Quality Measure: Screening for High Blood Pressure and Follow-Up Documented Does Patient Have Any of the Following: Active Dx of HTN Blood Pressure Classification: Pre-Hypertensive BP Reading Systolic Measurement: 132 Diastolic Measurement: 65 Screening for High Blood Pressure: Patient Exclusion, Hx of HTN [G9744] - Advance Directives Quality Measure: Measure #47: Care Plan Advance Directives Established: No Advance Directives Information Provided To Patient: Declined Advance Directives on File: Yes Living Will: No Power of Activities Director Scouting: Yes Power of Activities Director Scouting Name: Selena rangel, daughter Advance Care Planning: <Care Plan/Decision Maker Documented; Discussed & Documented> [[id number]] - Elder Abuse Suspicion Index Screening: Elder Abuse Suspicion Index Screening Rely on people for bathing, dressing, shopping, banking, etc: Yes Prevented from getting food, clothes, medication, etc: Yes Made to feel shamed or threatened by someone: Yes Forced to sign papers or use money against will: Yes Feel afraid, touched in ways not wanted or hurt physically: Yes Poor eye contact, withdrawn, malnourished, cuts or bruises: Yes Screening Result: Positive result, Five YES responses in questions 2-6. EASI Reference Information: Salvador MCCOY, Ingrid C, Adeel Ochoa, Cristina Vanegas.Development and validation of a tool to assist physicians identification of elder abuse: The Elder Abuse Suspicion Index (EASI ). Journal of Elder Abuse and Neglect, 2008; 20 (3): 276-300. - Elder Maltreatment Screen Quality Measures: Elder Maltreatment Screen and Follow-Up Plan Elder Maltreatment Screen: <Negative, No Follow-Up Plan Required> [G8734]
== END 2018-10-07 14:52 | disposition swing bed (61) ==
LOC: ER 18:24 → MEDSURG 21:35 → UNDOADMOB 21:35
PROVIDERS: ADMIT Internal Medicine; ATTEND Internal Medicine
DX: S06.0X0A Concussion without loss of consciousness, initial encounter (principal); S81.011A Laceration without foreign body, right knee, initial encounter; R53.81 Other malaise; I10 Essential (primary) hypertension; R60.0 Localized edema; E03.9 Hypothyroidism, unspecified; R32 Unspecified urinary incontinence; M19.90 Unspecified osteoarthritis, unspecified site; W06.XXXA Fall from bed, initial encounter; Z91.81 History of falling
CPT/HCPCS: 70450; 72125; 72141; 80053; 85025; 85610; 85730; 94760; 99217; 99220; 99285

== ENCOUNTER 2018-10-07 11:38 | Inpatient (IN) | payer MEDICARE, OTHER ==
[2018-10-07] MEDS ORDERED: ZINC OXIDE 28.35 GM TUBE TOP PRN (14:23)
--- NOTE | 2018-10-07 15:13 | History & Physical ---
History of Present Illness - Date Date of Service for History & Physical: 10/07/18 - History of Present Illness History of Present Illness: 88 yo female presents after a fall witnessed (on video). She was getting out of bed and fell over from a standing, although bent over, position. She has a forehead scalp injury. No LOC. She was discharged yesterday from the Swing Bed Unit (deconditioning s/p bowel resection with new ostomy). No other abrupt changes in her health since DC. She has a skin tear on her right knee as well. The family reports no issues since the DC. She is eating and drinking. Her ostomy from recent surgery is working. She is not on any anticoagulants. 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 Her history includes HTN, lower leg/foot swelling, urinary incontinence, thyroid disease, arthritis, anxiety and depression. In the ED, VS and labs were stable. C-spine, head CT, and knee xray neg. Her forehead laceration is 4cm and was sutured and covered in telfa. Her left knee has a superficial skin tear. She was admitted for observation with neuro checks, wound care, and evaluation of home situation with hx of multiple falls and deconditioning. 10/06/18: Pt. is resting in bed. Neuro checks have remained at pt's baseline. Telfa removed from forehead lac and will cover area with tegaderm. Avoiding non- adherent dressings so that sutured area can approximate. Plan for case management and PT/OT eval tomorrow. 10/07/18: Pt. transferred to swing bed today for continued PT/OT for physical deconditioning. PCP: Dr. Griffin General - Communication Preferred Language?: [place] - Nutrition Screening Poor oral intake > 1 week: No Unplanned weight loss in specified time frame: No Nutrition Support via tube feedings or parenteral nutrition: No Pressure Ulcer: No Significantly underweight define as BMI <18.5 kg/m2: No Albumin <2.5mg/dL: No Persistent nausea/vomiting/diarrhea >3 days: No Difficulty chewing/swallowing/mouth sores: Yes Admitting Diagnosis: Yes Nutrition Risk Score: High Risk Past Medical History - SOCIAL HISTORY Smoking Status: Never smoker - SURGICAL HISTORY Past Surgical History: Back-titanium akshat. bilateral TOTAL KNEE ARTHROPLASTY. toe last year - RESPIRATORY Hx Respiratory Disorders: No - CARDIOVASCULAR Hx Cardio Disorders: Yes Hx Edema: Yes Hx Hypertension: Yes Comment:: hx edema legs/ feet swelling - NEURO Hx Neuro Disorders: Yes Hx Seizures: No - GI Hx GI Disorders: No - Hx Genitourinary Disorders: Yes Hx Bladder Problem: Yes (Urinary incontinence) Hx UTI: Yes - ENDOCRINE Hx Endocrine Disorders: Yes Hx Diabetes: No Hx Thyroid Disease: Yes - MUSCULOSKELETAL Hx Musculoskeletal Disorders: Yes Hx Arthritis: Yes Comment:: Back surgery with hardware in 2009 - PSYCH Hx Psych Problems: Yes Hx Anxiety: Yes Hx Depression: Yes - HEMATOLOGY/ONCOLOGY Hx Hematology/Oncology Disorders: No Family Medical History Hx Cancer: Father Hx HTN: Mother Hx Stroke: Mother H&P Meds/Allergies - Allergies Allergies: Allergies Allergy/AdvReac Type Severity Reaction Status Date / Time venom-honey bee Allergy Severe ANAPHYLAXIS Verified 10/05/18 18:30 [bee venom (honey bee)] latex Allergy Mild ITCHING Verified 10/05/18 18:30 adhesive tape Allergy RASH Uncoded 08/18/16 20:49 - Home Medications Previous Rx's Medication Instructions Recorded Citalopram Hydrobromide [Celexa] 20 mg PO QHS #30 tablet 12/17/14 Docusate Sodium [Colace] 100 mg PO DAILY #90 cap 12/17/14 Gabapentin [Neurontin] 300 mg PO BID #60 capsule 12/17/14 Levothyroxine Sodium 75 mcg PO DAILY #90 tablet 12/17/14 Losartan Potassium [Cozaar] 50 mg PO QHS #90 tablet 12/17/14 Multivitamin [Multi-Vitamin Daily] 1 each PO DAILY #90 tablet 12/17/14 Ackerly-3 Fatty Acids/Fish Oil [Fish 1 each PO DAILY #90 capsule 12/17/14 Oil 1,000 mg Softgel] Diphenhydramine HCl/Zinc Acet 30 gm TOP ASDIR PRN tube 10/04/18 [Benadryl Cream] Zinc Oxide [Desitin] 5 gm TOP ASDIR PRN tube 10/04/18 - Active Medications Active Medications: Current Medications Acetaminophen (Tylenol 325mg) 650 mg PO Q6H PRN PRN Reason: PAIN - MILD(1-4)/FEVER Ascorbic Acid (Vitamin C) 500 mg PO DAILY ALEXI Citalopram Hydrobromide (Celexa) 20 mg PO QHS ALEXI Docusate Sodium (Colace) 100 mg PO DAILY ALEXI Gabapentin (Neurontin) 300 mg PO BID ALEXI Levothyroxine Sodium (Synthroid) 75 mcg PO DAILYTHY ALEXI Losartan Potassium (Cozaar) 50 mg PO QHS ALEXI Multivitamins/Minerals (Centrum) 1 tab PO DAILY ALEXI Zinc Oxide (Desitin) 5 gm TOP ASDIR PRN PRN Reason: RASH Physical Exam - General General Appearance: Alert, Cooperative, No acute distress, Other (dementia, expressive aphasia) - Head Head exam: Normal inspection Head exam detail: Laceration (left forehead, skin abrasian and laceration repaired with sutures) - Eye Eye exam: Normal appearance, PERRL Pupils: Normal accommodation - ENT ENT exam: Normal exam, Mucous membranes moist, Normal external ear exam, Normal orophraynx, TM's normal bilaterally Ear exam: Normal external inspection. negative: External canal tenderness Nasal Exam: Normal inspection. negative: Discharge, Sinus tenderness Mouth exam: Normal external inspection, Tongue normal Teeth exam: Normal inspection. negative: Dental caries Throat exam: Normal inspection. negative: Tonsillar erythema, Tonsillar exudate - Neck Neck exam: Normal inspection, Full ROM. negative: Tenderness - Respiratory Respiratory exam: Normal lung sounds bilaterally. negative: Respiratory distress - Cardiovascular Cardiovascular Exam: Regular rate, Normal rhythm, Normal heart sounds - GI/Abdominal GI/Abdominal exam: Soft, Normal bowel sounds. negative: Tenderness - Rectal Rectal exam: Deferred - exam: Deferred - Extremities Extremities exam: Normal inspection, Normal capillary refill. negative: Tenderness - Back Back exam: Reports: Normal inspection, Full ROM. Denies: Muscle spasm, Rash noted, Tenderness - Neurological Neurological exam: Alert, Normal gait, Oriented X3, Reflexes normal - Psychiatric Psychiatric exam: Normal affect, Normal mood - Skin Skin exam: Abrasion (left knee), Dry, Normal color, Warm. negative: Intact Plan - Swing Bed Certification Initial Certification Due: 10/07/18 14 Day Re-Cert Due: 10/21/18 44 Day Re-Cert Due: 11/20/18 74 Day Re-Cert Due: 12/20/18 - Detailed Diagnosis and Plan (1) Physical deconditioning Current Visit: No Status: Acute Base Code: R53.81 - OTHER MALAISE Priority: High Comment: 10/07/18: -Fall on 10/05/18 at home, was d/c from swing bed on 10/04/18 with home PT/OT and nursing -Physical deconditioning and weakness after recent admission and surgery at [facility] for partial colectomy -transferred to swing bed today for continued PT/OT (2) Scalp laceration Current Visit: No Status: Acute Qualifiers: Encounter type: initial encounter Qualified Code(s): S01.01XA - Laceration without foreign body of scalp, initial encounter Base Code: S01.01XA - LACERATION WITHOUT FOREIGN BODY OF SCALP, INITIAL ENCOUNTER Comment: 10/07/18: -Forehead lac- 4cm -Recommend suture removal at 14 days -superficial skin tear of tissue around laceration -Will cover with tegaderm and monitor (3) DVT prophylaxis Current Visit: No Status: Acute Base Code: [id number] - Comment: 10/07/18: -high risk due to age, hospitalization, and recent surgery -Holding Lovenox at this time due to high fall risk (recent fall, dementia) (4) DNR (do not resuscitate) Current Visit: No Status: Acute Base Code: Z66 - DO NOT RESUSCITATE Priority: Medium Comment: 10/07/18: -DNR
--- NOTE | 2018-10-07 15:18 | Swing Bed Certification/Recert ---
Initial Certification Due: 10/07/18 14 Day Re-Cert Due: 10/21/18 44 Day Re-Cert Due: 11/20/18 74 Day Re-Cert Due: 12/20/18 CERTIFICATION CERTIFICATION OF PATIENT ADMISSION Required at time of admission. Due: 10/07/18 I certify that SNF services are required to be given on an inpatient basis because of the above named patient's need for [facility] care on a continuing basis for the condition(s) for which he/she was receiving inpatient hospital services prior to his/her transfer to the SNF. The patient's current needs for skilled care includes: [] Laura Bowman, N.P. 10/07/18
[2018-10-07] MEDS: ACETAMINOPHEN 325 MG TAB PO PRN ×2 (16:20→21:39)
[2018-10-07] MEDS: GABAPENTIN 300 MG CAPSULE PO SCH (21:39)
[2018-10-07] MEDS: LOSARTAN POTASSIUM 25 MG TABLET PO SCH (21:39)
[2018-10-07] MEDS: CITALOPRAM 20 MG TABLET PO SCH (21:39)
[2018-10-08] MEDS: ACETAMINOPHEN 325 MG TAB PO PRN ×3 (03:14→20:00)
[2018-10-08] MEDS: LEVOTHYROXINE SODIUM 75 MCG TABLET PO SCH (06:50)
[2018-10-08] MEDS: GABAPENTIN 300 MG CAPSULE PO SCH ×2 (09:18→21:24)
[2018-10-08] MEDS: ASCORBIC ACID 500 MG TAB PO SCH (09:18)
[2018-10-08] MEDS: MULTIVITAMINS/MINERALS TABLET PO SCH (09:18)
[2018-10-08] MEDS: DOCUSATE SODIUM 100 MG CAPSULE PO SCH (09:18)
--- NOTE | 2018-10-08 15:46 | Rehab Evaluation ---
Patient Information - Patient Information Diagnosis: deconditioning d/t sigmoid colectomy Ordered Treatment: OT Evaluate and Treat Status: Initial Evaluation Surgery: No Past Medical/Surgical Hx: PAST MEDICAL/SURGICAL HISTORY Past Surgical History Back-titanium akshat bilateral TOTAL KNEE ARTHROPLASTY toe last year PMH - Respiratory Hx Respiratory Disorders No PMH - Cardiovascular Hx Cardiovascular Disorders Yes Hx Edema Yes Hx Heart Attack Yes Hx Hypertension Yes Comment: hx edema legs/ feet swelling PMH - Neuro Hx Neurological Disorders Yes Hx Seizures No PMH - GI Hx Gastrointestinal Disorders No PMH - Hx Genitourinary Disorders Yes Hx Bladder Problem Yes: Urinary incontinence Hx Urinary Tract Infection Yes PMH - Endocrine Hx Endocrine Disorders Yes Hx Diabetes No Hx Thyroid Disease Yes PMH - Musculoskeletal Hx Musculoskeletal Disorders Yes Hx Arthritis Yes Comment: Back surgery with hardware in 2008 PMH - Psych Hx Psychiatric Problems Yes Hx Anxiety Yes Hx Depression Yes PMH - Hematology/Oncology Hx Hematology/Oncology No Disorders Premorbid Status: Detail (Pt discharged from swing bed and was readmitted due to fall at home. Pt lives with daughter and son in law in a one story house. She has a ramp at the entrance, a walk in shower with a seat and a commode seat over the toilet. Her daughter assists her with all self cares and bed mobility. Her daughter is responsible for all IADLs. She has a wheelchair and walker.) Precautions: [place], Fall - Time With Patient Total Time Spent With Patient (Min): 50 Treatment Procedures: Detail (OT eval low complexity) Subjective Information - Subjective Information Per Patient, Other (Pt is known to OT) Objective Data - Pain Pain Present: No - Mental Status Patient Orientation: Oriented x3 (Pt is generally oriented and follows all commands although she is very slow in her responses and activity.) - Visual Perception Appears within normal limits for therapeutic activities - ROM Not within normal limits (Jef shoulder motion limited left worse than right (unable to achieve 90 degrees flexion), jef elbow and hand motion limited but functional for light self cares.) - Strength/Tone Not within normal limits (UE strength grossly 4-/5 with ROM limitations. Difficulty to formally assess due to patients slowed responses.) - Coordination Deficit (Pt has very slow UE coordination/movement) - Bed Mobility Needs Assist (Mod assist x 2 for supine to sit and to scoot to EOB.) - Transfers Needs Assist (Mod assist x 2 for sit to stand at EOB.) - Balance Balance Sitting: Fair Balance Standing: Poor - Sensation Intact - Gait Detail (Pt able to take several small steps with 2 wheeled walker and min-mod assist x 2.) - ADL's/IADL's Detail (Pt requires mod assist for set up to complete oral hygiene and mod assist to perform brushing hair. Pt requires max assist for all other self cares at this time.) Therapy Assessment - Therapy Assessment Detail (Pt presents with significant impairments with functional mobility and decreased Ind with self cares. Her activity is extremely delayed and slowed.) Problem List - Problem List Occupational Therapy Problem List: Detail (1. Decreased Ind with grooming/hygiene tasks. 2. Decreased functional mobility needed for safe and Ind ADLs.) Goals - Goals Occupational Therapy Goals: 1. Pt will be Ind with bed mobility and sitting EOB. 2. Pt will be Ind with oral hygiene, washing face and brushing hair. Prognosis - Prognosis Moderate Plan - Plan Occupational Therapy Plan: OT 2-4 times per week to address goals and problem list as above.
--- NOTE | 2018-10-08 17:09 | Rehab Evaluation ---
Patient Information - Patient Information Diagnosis: deconditioning d/t sigmoid colectomy Ordered Treatment: PT Evaluate and Treat Status: Initial Evaluation Surgery: No History: Detail (The patient was recently discharged from Swing Bed on 10/04/18 and was readmitted after a fall at home.) Past Medical/Surgical Hx: PAST MEDICAL/SURGICAL HISTORY Past Surgical History Back-titanium akshat bilateral TOTAL KNEE ARTHROPLASTY toe last year PMH - Respiratory Hx Respiratory Disorders No PMH - Cardiovascular Hx Cardiovascular Disorders Yes Hx Edema Yes Hx Heart Attack Yes Hx Hypertension Yes Comment: hx edema legs/ feet swelling PMH - Neuro Hx Neurological Disorders Yes Hx Seizures No PMH - GI Hx Gastrointestinal Disorders No PMH - Hx Genitourinary Disorders Yes Hx Bladder Problem Yes: Urinary incontinence Hx Urinary Tract Infection Yes PMH - Endocrine Hx Endocrine Disorders Yes Hx Diabetes No Hx Thyroid Disease Yes PMH - Musculoskeletal Hx Musculoskeletal Disorders Yes Hx Arthritis Yes Comment: Back surgery with hardware in 2008 PMH - Psych Hx Psychiatric Problems Yes Hx Anxiety Yes Hx Depression Yes PMH - Hematology/Oncology Hx Hematology/Oncology No Disorders Premorbid Status: Detail (Prior to recent admission the patient was ambulatory with front wheeled walker a distance of 25 feet with minimal assist of 1, supervision to minimal assist with bed mobility and CG to minimal assist for sit to stand and minimal assist of 1 with pivot transfer with use of front wheeled walker.) Social History: Detail (The patient lives with daughter and son in law in a one store home with a basement with a ramp at the enterance. The bathroom is equipped with a walk in shower with a seat and no grab bars and a commode over the toilet. The patient has a wheelchair and front wheeled walker. The patient's daughter assists with ADL's.) Precautions: [employer], Fall - Time With Patient Total Time Spent With Patient (Min): 15 Treatment Procedures: Detail (Initial Evaluation, low complexity.) Subjective Information - Subjective Information Per Patient (The patient has no complaints. The patient verbalizes minimally.) Objective Data - Mental Status Patient Orientation: Oriented x3 - ROM Within normal limits (LE AROM is WNL.) - Strength/Tone Not within normal limits (The patient's LE strength is as follows: hip flexors 3+/5, L hip flexors 4-/5, bilateral hip adductors 4-/5, R knee extensors 4/5 and ankle dorsiflexors 4/5. All other LE strength was 5/5.) - Bed Mobility Needs Assist (The patient required supervison for safety with supine to sit and minimal PA of one to scoot to the edge of the bed. The patient requires moderate PA to scoot to edge of the bed when fatigued.) - Transfers Needs Assist (The patient requires minimal to moderate PA of 1 with sit to and from stand transfer. The patient required Moderate PA of 1 and Minimal PA of 1 with pivot transfer using front wheel walker from bed to chair.) - Balance Balance Sitting: Good (The patient's sitting balance is generally good however when fatigue the patient leans to the R.) Balance Standing: Fair (The patient requires support of the walker to stand.) - Gait Detail (The patient ambulated with front wheeled walker a distance of 5 feet x 1 with moderate PA of 1 to weight shift. The patient was able to move the walker independently.) Therapy Assessment - Therapy Assessment Detail (Assistance required for patient's bed mobility, transfers and ambulation is dependent on fatigue level. Patient is less verbal then last Swing Bed Admission. PT will continue to see patient with a goal to return the patient to previous functional level prior to recent fall.) Problem List - Problem List Physical Therapy Problem List: Detail (1) Assistance with bed mobility, transfers and ambulation 2) Decreased LE strength 3) Impaired standing balance) Occupational Therapy Problem List: Detail (1. Decreased Ind with grooming/hygiene tasks. 2. Decreased functional mobility needed for safe and Ind ADLs.) Goals - Goals Physical Therapy Goals: 1) The patient will ambulate with front wheeled walker household distances with CG to minimal PA of 1. 2) The patient will consistently require supervision with bed mobility. 3) The patient will consistently require minimal to moderate PA of 1 with pivot transfers with use of walker. Occupational Therapy Goals: 1. Pt will be Ind with bed mobility and sitting EOB. 2. Pt will be Ind with oral hygiene, washing face and brushing hair. Prognosis - Prognosis Moderate Plan - Plan Physical Therapy Plan: PT 1-2 times a week for gait training, transfer training, bed mobility, balance and LE strengthening exercises. Occupational Therapy Plan: OT 2-4 times per week to address goals and problem list as above.
[2018-10-08] MEDS: LOSARTAN POTASSIUM 25 MG TABLET PO SCH (21:23)
[2018-10-08] MEDS: CITALOPRAM 20 MG TABLET PO SCH (21:23)
[2018-10-09] MEDS: ACETAMINOPHEN 325 MG TAB PO PRN ×2 (02:46→21:14)
[2018-10-09] MEDS: LEVOTHYROXINE SODIUM 75 MCG TABLET PO SCH (06:01)
[2018-10-09] MEDS: GABAPENTIN 300 MG CAPSULE PO SCH ×2 (09:14→21:14)
[2018-10-09] MEDS: MULTIVITAMINS/MINERALS TABLET PO SCH (09:14)
[2018-10-09] MEDS: ASCORBIC ACID 500 MG TAB PO SCH (09:14)
[2018-10-09] MEDS: DOCUSATE SODIUM 100 MG CAPSULE PO SCH (09:14)
--- NOTE | 2018-10-09 13:36 | Discharge Summary ---
Providers Discharge Summary Date: 10/09/18 Date of admission: 10/07/18 14:53 Expected Date of Discharge: 10/10/18 Attending physician: YESICA HONG Primary care physician: EMA GRIFFIN D.O. Physical Exam - Vital Signs Vital Signs: Vital Signs - Last 24 Hrs Temp Pulse Resp BP Pulse Ox 10/09/18 07:50 98.1 F 75 18 143/71 94 L 10/08/18 20:00 97.6 F 71 18 165/80 91 L - General General Appearance: Alert, Cooperative, No acute distress, Other (dementia, expressive aphasia) - Head Head exam: Normal inspection Head exam detail: Laceration (left forehead, skin abrasian and laceration repaired with sutures) - Eye Eye exam: Normal appearance, PERRL Pupils: Normal accommodation - ENT ENT exam: Normal exam, Mucous membranes moist, Normal external ear exam, Normal orophraynx, TM's normal bilaterally Ear exam: Normal external inspection. negative: External canal tenderness Nasal Exam: Normal inspection. negative: Discharge, Sinus tenderness Mouth exam: Normal external inspection, Tongue normal Teeth exam: Normal inspection. negative: Dental caries Throat exam: Normal inspection. negative: Tonsillar erythema, Tonsillar exudate - Neck Neck exam: Normal inspection, Full ROM. negative: Tenderness - Respiratory Respiratory exam: Normal lung sounds bilaterally. negative: Respiratory distress - Cardiovascular Cardiovascular Exam: Regular rate, Normal rhythm, Normal heart sounds - GI/Abdominal GI/Abdominal exam: Soft, Normal bowel sounds. negative: Tenderness - Rectal Rectal exam: Deferred - exam: Deferred - Extremities Extremities exam: Normal inspection, Normal capillary refill. negative: Tenderness - Back Back exam: Reports: Normal inspection, Full ROM. Denies: Muscle spasm, Rash noted, Tenderness - Neurological Neurological exam: Alert, Normal gait, Oriented X3, Reflexes normal - Psychiatric Psychiatric exam: Normal affect, Normal mood - Skin Skin exam: Abrasion (left knee), Dry, Normal color, Warm. negative: Intact Hospitalization - Hospitalization Admission Diagnosis: deconditioning due to post sigmoid colectomy - Problem List (1) Physical deconditioning Current Visit: No Status: Acute Base Code: R53.81 - OTHER MALAISE Comment: 10/09/18: -Fall on 10/05/18 at home, was d/c from swing bed on 10/04/18 with home PT/OT and nursing -Physical deconditioning and weakness after recent admission and surgery at [facility] for partial colectomy -transferred to swing bed today for continued PT/OT - Remains max assist, decline from previous admission - Family wishes for discharge to assisted living with hospice services (2) Concussion Current Visit: No Status: Acute Discharge Diagnosis: Encounter type: initial encounter Loss of consciousness presence/duration: without LOC Qualified Code(s): S06.0X0A - Concussion without loss of consciousness, initial encounter Base Code: S06.0X9A - CONCUSSION W LOSS OF CONSCIOUSNESS OF UNSP DURATION, INIT Comment: 10/09/18: -Secondary to fall on 10/05/18 at home -Neuro checks q12h -Bed alarm -NO acute mental status changes from previous admission, remains at baseline of expressive aphasia, slow to verbally respond when able (3) Protein calorie malnutrition Current Visit: Yes Status: Acute Base Code: E46 - UNSPECIFIED PROTEIN- CALORIE MALNUTRITION Comment: 10/10/18 - Family requesting hospice care due to overall general decline - Has had 11lb weight loss in 2 months ( 10% of her body weight, decreased appetite, albumin 3.9 and trending down (4) Hypertension Current Visit: Yes Status: Acute Discharge Diagnosis: Hypertension type: essential hypertension Qualified Code(s): I10 - Essential (primary) hypertension Base Code: I10 - ESSENTIAL (PRIMARY) HYPERTENSION Comment: 10/09/18: -Continue Losartan 50mg daily -BP at goal (5) DNR (do not resuscitate) Current Visit: No Status: Acute Base Code: Z66 - DO NOT RESUSCITATE Comment: 10/09/18: -DNR (6) DVT prophylaxis Current Visit: No Status: Acute Base Code: [id number] - Comment: 10/09/18: -high risk due to age, hospitalization, and recent surgery -Holding Lovenox at this time due to high fall risk (recent fall, dementia) - Hospitalization Course Disposition: Hospice; pt to live @facility Reason For Discharge/Transfer: Patient's care needs cannot be met at [facility] Hospital Course: 88 yo female presents after a fall witnessed (on video). She was getting out of bed and fell over from a standing, although bent over, position. She has a forehead scalp injury. No LOC. She was discharged yesterday from the Swing Bed Unit (deconditioning s/p bowel resection with new ostomy). No other abrupt changes in her health since DC. She has a skin tear on her right knee as well. The family reports no issues since the DC. She is eating and drinking. Her ostomy from recent surgery is working. She is not on any anticoagulants. 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 Her history includes HTN, lower l eg/foot swelling, urinary incontinence, thyroid disease, arthritis, anxiety and depression. In the ED, VS and labs were stable. C-spine, head CT, and knee xray neg. Her forehead laceration is 4cm and was sutured and covered in telfa. Her left knee has a superficial skin tear. She was admitted for observation with neuro checks, wound care, and evaluation of home situation with hx of multiple falls and deconditioning. 10/06/18: Pt. is resting in bed. Neuro checks have remained at pt's baseline. Telfa removed from forehead lac and will cover area with tegaderm. Avoiding non-adhe rent dressings so that sutured area can approximate. Plan for case management and PT/OT eval tomorrow. 10/07/18: Pt. transferred to swing bed today for continued PT/OT for physical deconditioning. PCP: Dr. Griffin 10/09/18- Patient appears comfortable, resting in bed. Slow to respond to questions. Is A&Ox2. Family has noted a decline in physical and mental function over the past several days. She remains a max assist for transfers and ambulation. Neuro checks have been unremarkable. Cognition has remained at baseline since readmission. She has denied any discomfort since readmission. Cole tures intact to left forehead with surrounding abrasion/skin tearing without evidence of infection. Right arm skin tear repaired with steri strips. Family wishes for her to discharge to assisted living sign on to hospice services. Condition at Discharge: (3) Guarded Discharge Medications - Discharge Medications Home Medications: Ambulatory Orders Citalopram Hydrobromide [Celexa] 20 mg PO QHS #30 tablet 12/17/14 [Last Taken 10/05/18] Docusate Sodium [Colace] 100 mg PO DAILY #90 cap 12/17/14 [Last Taken 10/05/18] Gabapentin [Neurontin] 300 mg PO BID #60 capsule 12/17/14 [Last Taken 10/05/18] Levothyroxine Sodium 75 mcg PO DAILY #90 tablet 12/17/14 [Last Taken 10/05/18] Losartan Potassium [Cozaar] 50 mg PO QHS #90 tablet 12/17/14 [Last Taken 10/05/18] Multivitamin [Multi-Vitamin Daily] 1 each PO DAILY #90 tablet 12/17/14 [Last Taken 10/05/18] [place]-3 Fatty Acids/Fish Oil [Fish Oil 1,000 mg Softgel] 1 each PO DAILY #90 capsule 12/17/14 [Last Taken 10/05/18] Ascorbic Acid [Vitamin C] 500 mg PO DAILY 04/10/15 [Last Taken 10/05/18] Cinnamon Bark [Cinnamon] 500 mg PO ASDIR cap 12/10/15 [Last Taken 10/05/18] Cranberry Extract [Cranberry] 200 mg PO ASDIR cap 12/10/15 [Last Taken 10/05/18] Diphenhydramine HCl/Zinc Acet [Benadryl Cream] 30 gm TOP ASDIR PRN tube 10/04/18 [Last Taken 10/05/18] Zinc Oxide [Desitin] 5 gm TOP ASDIR PRN tube 10/04/18 [Last Taken 10/05/18] Acetaminophen [Tylenol 325Mg] 650 mg PO Q6H PRN tablet 10/09/18 [Last Taken Unknown] Ascorbic Acid [Vitamin C] 500 mg PO DAILY tab 10/09/18 [Last Taken Unknown] Citalopram Hydrobromide [Celexa] 20 mg PO QHS tablet 10/09/18 [Last Taken Unknown] Docusate Sodium [Colace] 100 mg PO DAILY cap 10/09/18 [Last Taken Unknown] Gabapentin [Neurontin] 300 mg PO BID capsule 10/09/18 [Last Taken Unknown] Levothyroxine Sodium [Synthroid] 75 mcg PO DAILYTHY tablet 10/09/18 [Last Taken Unknown] Losartan Potassium [Cozaar] 50 mg PO QHS tablet 10/09/18 [Last Taken Unknown] Multivitamin/Iron/Folic Acid [Centrum] 1 tab PO DAILY tablet 10/09/18 [Last Taken Unknown] Zinc Oxide [Desitin] 5 gm TOP ASDIR PRN tube 10/09/18 [Last Taken Unknown] Discharge Plan - Discharge Instructions Activity at Discharge: Increase Activity as Tolerated Diet at Discharge: Regular Diet Dressing Change: Daily Additional Instructions: Leave right arm steri stips in place until they fall off naturally Leave sutures on forehead open to air Apply over the counter antibiotic ointment to wound around sutures 1-2 times daily until healed Quality Measures - Quality Measures Quality Measures: Advance Directives, Documentation of Current Medications in Medical Record, Elder Maltreatment Screen and Follow-Up Plan, Screening for High Blood Pressure and F/U Documented - Current Medications Quality Measure: Measure #130: Documentation of Current Medications Documentation of Current Medications: <Current Medications Documented/Reviewed> [G7644] - Blood Pressure Screening Quality Measure: Screening for High Blood Pressure and Follow-Up Documented Does Patient Have Any of the Following: Active Dx of HTN Blood Pressure Classification: Pre-Hypertensive BP Reading Systolic Measurement: 121 Diastolic Measurement: 71 Screening for High Blood Pressure: Patient Exclusion, Hx of HTN [G9744] - Advance Directives Quality Measure: Measure #47: Care Plan Advance Directives Established: No Advance Directives Information Provided To Patient: Declined Advance Directives on File: Yes Living Will: No Power of Fire Extinguisher Repairer: Yes Power of Fire Extinguisher Repairer Name: Selena rangel, daughter Advance Care Planning: <Care Plan/Decision Maker Documented; Discussed & Documented> [1123F] - Elder Abuse Suspicion Index Screening: Elder Abuse Suspicion Index Screening Rely on people for bathing, dressing, shopping, banking, etc: Yes Prevented from getting food, clothes, medication, etc: No Made to feel shamed or threatened by someone: No Forced to sign papers or use money against will: No Feel afraid, touched in ways not wanted or hurt physically: No Poor eye contact, withdrawn, malnourished, cuts or bruises: No Screening Result: Negative result EASI Reference Information: Salvador MCCOY, Ingrid C, Adeel D, Cristina Vanegas.Development and validation of a tool to assist physicians identification of elder abuse: The Elder Abuse Suspicion Index (EASI ). Journal of Elder Abuse and Neglect, 2008; 20 (3): 276-300. - Elder Maltreatment Screen Quality Measures: Elder Maltreatment Screen and Follow-Up Plan Elder Maltreatment Screen: <Negative, No Follow-Up Plan Required> [G8734]
--- NOTE | 2018-10-09 16:45 | Physical Therapy Tx Note ---
Physical Therapy Tx Note - Treatment Note Tolerated: Good Total Time Spent With Patient: 50 Physical Therapy Tx Note: Detail (The patient was in bed when PT arrived. The patient completed supine to sit with supervision of plus minimal assist to scoot forward. The patient complete sit to and from transfers with moderate PA of 1 The patient transferred to and from bed to wheelchair with minimal to moderate assist of 1 plus assist with walker and to weight shift and verbal cues to reach for chair. The patient was taken to Rehab department and ambulated with front wheeled walker 5 feet x 2 and 3 feet x 1 with moderate PA of 1, Minimal PA of 1 plus tactile cues for weight shift and verbal cues to stand tall. The patient complained of back pain after ambulating. The patient was more verbal today and was able to hold a lengthy conversation. The patient's mobility was much improved this afternoon.) Physical Therapy Problem List: Detail (1) Assistance with bed mobility, transfers and ambulation 2) Decreased LE strength 3) Impaired standing balance) Physical Therapy Goals: 1) The patient will ambulate with front wheeled walker household distances with CG to minimal PA of 1. 2) The patient will consistently require supervision with bed mobility. 3) The patient will consistently require minimal to moderate PA of 1 with pivot transfers with use of walker. Physical Therapy Plan: PT 1-2 times a week for gait training, transfer training, bed mobility, balance and LE strengthening exercises.
[2018-10-09] MEDS: CITALOPRAM 20 MG TABLET PO SCH (21:14)
[2018-10-09] MEDS: LOSARTAN POTASSIUM 25 MG TABLET PO SCH (21:14)
[2018-10-10] MEDS: LEVOTHYROXINE SODIUM 75 MCG TABLET PO SCH (06:48)
[2018-10-10] MEDS: ACETAMINOPHEN 325 MG TAB PO PRN (06:49)
[2018-10-10] MEDS: MULTIVITAMINS/MINERALS TABLET PO SCH (09:56)
[2018-10-10] MEDS: GABAPENTIN 300 MG CAPSULE PO SCH (09:56)
[2018-10-10] MEDS: ASCORBIC ACID 500 MG TAB PO SCH (09:56)
[2018-10-10] MEDS: DOCUSATE SODIUM 100 MG CAPSULE PO SCH (09:56)
--- NOTE | 2018-10-11 09:55 | Rehab Discharge Summary ---
Patient Information - Patient Information Diagnosis: deconditioning d/t sigmoid colectomy Ordered Treatment: PT Evaluate and Treat Surgery: No History: Detail (The patient was recently discharged from Swing Bed on 10/04/18 and was readmitted after a fall at home.) Past Medical/Surgical Hx: PAST MEDICAL/SURGICAL HISTORY Past Surgical History Back-titanium akshat bilateral TOTAL KNEE ARTHROPLASTY toe last year PMH - Respiratory Hx Respiratory Disorders No PMH - Cardiovascular Hx Cardiovascular Disorders Yes Hx Edema Yes Hx Heart Attack Yes Hx Hypertension Yes Comment: hx edema legs/ feet swelling PMH - Neuro Hx Neurological Disorders Yes Hx Seizures No PMH - GI Hx Gastrointestinal Disorders No PMH - Hx Genitourinary Disorders Yes Hx Bladder Problem Yes: Urinary incontinence Hx Urinary Tract Infection Yes PMH - Endocrine Hx Endocrine Disorders Yes Hx Diabetes No Hx Thyroid Disease Yes PMH - Musculoskeletal Hx Musculoskeletal Disorders Yes Hx Arthritis Yes Comment: Back surgery with hardware in 2008 PMH - Psych Hx Psychiatric Problems Yes Hx Anxiety Yes Hx Depression Yes PMH - Hematology/Oncology Hx Hematology/Oncology No Disorders Premorbid Status: Detail (Prior to recent admission the patient was ambulatory with front wheeled walker a distance of 25 feet with minimal assist of 1, supervision to minimal assist with bed mobility and CG to minimal assist for sit to stand and minimal assist of 1 with pivot transfer with use of front wheeled walker.) Social History: Detail (The patient lives with daughter and son in law in a one store home with a basement with a ramp at the enterance. The bathroom is equip ped with a walk in shower with a seat and no grab bars and a commode over the toilet. The patient has a wheelchair and front wheeled walker. The patient's daughter assists with ADL's.) Precautions: [place], Fall Subjective Information - Subjective Information Per Patient (The patient had occasional complaints of back pain after ambulating but did not rate her pain using the 0-10 pain scale.) Objective Data - Mental Status Patient Orientation: Oriented x3 - ROM Within normal limits (LE's were WNL.) - Strength/Tone Not within normal limits (The patient's LE strength is as follows: hip flexors R 3+/5, L hip flexors 4-/5, bilateral hip adductors 4-/5, R knee extensors 4/5 and ankle dorsiflexors 4/5. All other LE strength was 5/5.) - Bed Mobility Needs Assist (The patient was able to complete supine to sit with minimal PA of 1 with use of handrail and HOB elevated. The patient required minimal PA of 1 to scoot to the edge of the bed. The patient required minimal PA at times to lift LE's with sit to supine and use of handrails. All movement with bed mobility were at a slowed speed.) - Transfers Needs Assist (The patient required minimal PA to CG with sit to and from stand transfer from higher surface. The patient required moderate PA with sit to stand from a lower surface and when fatigued. The patient required moderate PA of 1 (with occasional minimal PA of 1dependent of fatigue level) to transfer from wheelchair to and from bed with use of walker. The patient required maximal verbal cues to place hands on surface to push up and to reach back and occasional tactile cues to reach back to surface with L hand. The patient also required maximal verbal cues to stand tall, and to turn feet. The patiemt required minimal PA to weight shift when stepping.) - Balance Balance Sitting: Good (The patient is able to sit unsupported at times however when fatigued the patient leans to the R and requires occasional support.) Balance Standing: Fair (The patient required support of walker for standing.) - Gait Detail (The patient ambulated 5 feet x 2 and 3 feet x 2 with front wheeled walker with CG of 1 and supervision of 1 to follow with the wheelchair.The patient required minimal to moderate assistance for tactile cueing during right swing phase of upper trunk to maintain upright posture. The patient also requires consisten verbal /tactile cueing for sequencing, foot placement, increased stride length and posture throughout ambulation.) Therapy Assessment - Therapy Assessment Detail (The patient's ability to complete bed mobility, transfers and ambulation with less assistance was improving overall but not to the previous level she had acheived on discharge from Swing Bed unit on October 04. Feel the patient has potential to continue to improve and require less assistance with mobility if given the time and encouraged to complete mobility on her own.) Problem List - Problem List Physical Therapy Problem List: Detail (1) Assistance with bed mobility, transfers and ambulation 2) Decreased LE strength 3) Impaired standing balance) Occupational Therapy Problem List: Detail (1. Decreased Ind with grooming/hygiene tasks. 2. Decreased functional mobility needed for safe and Ind ADLs.) Goals - Goals Physical Therapy Goals: 1) The patient will ambulate with front wheeled walker household distances with CG to minimal PA of 1 (Goal Partially Met-short distances - patient ambulating 5 feet). 2) The patient will consistently require supervision with bed mobility (Goal partially Met- pt. required more assist when fatigued). 3) The patient will consistently require minimal to moderate PA of 1 with pivot transfers with use of walker. (Goal Met) Occupational Therapy Goals: 1. Pt will be Ind with bed mobility and sitting EOB. 2. Pt will be Ind with oral hygiene, washing face and brushing hair. Plan - Plan Physical Therapy Plan: The patient was transferred to an Assisted living facility and is to receive hospice services. Occupational Therapy Plan: OT 2-4 times per week to address goals and problem list as above.
--- NOTE | 2018-10-11 13:04 | Rehab Discharge Summary ---
Patient Information - Patient Information Diagnosis: deconditioning d/t sigmoid colectomy Ordered Treatment: OT Evaluate and Treat Surgery: No History: Detail (The patient was recently discharged from Swing Bed on 10/04/18 and was readmitted after a fall at home.) Past Medical/Surgical Hx: PAST MEDICAL/SURGICAL HISTORY Past Surgical History Back-titanium akshat bilateral TOTAL KNEE ARTHROPLASTY toe last year PMH - Respiratory Hx Respiratory Disorders No PMH - Cardiovascular Hx Cardiovascular Disorders Yes Hx Edema Yes Hx Heart Attack Yes Hx Hypertension Yes Comment: hx edema legs/ feet swelling PMH - Neuro Hx Neurological Disorders Yes Hx Seizures No PMH - GI Hx Gastrointestinal Disorders No PMH - Hx Genitourinary Disorders Yes Hx Bladder Problem Yes: Urinary incontinence Hx Urinary Tract Infection Yes PMH - Endocrine Hx Endocrine Disorders Yes Hx Diabetes No Hx Thyroid Disease Yes PMH - Musculoskeletal Hx Musculoskeletal Disorders Yes Hx Arthritis Yes Comment: Back surgery with hardware in 2008 PMH - Psych Hx Psychiatric Problems Yes Hx Anxiety Yes Hx Depression Yes PMH - Hematology/Oncology Hx Hematology/Oncology No Disorders Premorbid Status: Detail (Prior to recent admission the patient was ambulatory with front wheeled walker a distance of 25 feet with minimal assist of 1, supervision to minimal assist with bed mobility and CG to minimal assist for sit to stand and minimal assist of 1 with pivot transfer with use of front wheeled walker.) Social History: Detail (The patient lives with daughter and son in law in a one store home with a basement with a ramp at the enterance. The bathroom is equip ped with a walk in shower with a seat and no grab bars and a commode over the toilet. The patient has a wheelchair and front wheeled walker. The patient's daughter assists with ADL's.) Precautions: [place], Fall Objective Data - Pain Pain Present: No - Mental Status Patient Orientation: Oriented x3 - Visual Perception Appears within normal limits for therapeutic activities - ROM Not within normal limits (Please see initial evaluation for details.) - Strength/Tone Not within normal limits (Please see initial evaluation for details.) - Coordination Deficit (Very slowed UE movements.) - Bed Mobility Needs Assist (Min to mod assist x 1-2 for supine to sit) - Transfers Needs Assist (Min to mod assist x 1-2 for sit to stand) - Balance Balance Sitting: Fair Balance Standing: Poor - Sensation Intact - ADL's/IADL's Detail (Pt requires max assist for self cares although with a significant amount of extra time she is able to assist with dressing and grooming/hygiene.) Therapy Assessment - Therapy Assessment Detail (Pt continues to require assist with self cares and functional mobility) Problem List - Problem List Physical Therapy Problem List: Detail (1) Assistance with bed mobility, transfers and ambulation 2) Decreased LE strength 3) Impaired standing balance) Occupational Therapy Problem List: Detail (1. Decreased Ind with grooming/hygiene tasks. 2. Decreased functional mobility needed for safe and Ind ADLs.) Goals - Goals Physical Therapy Goals: 1) The patient will ambulate with front wheeled walker household distances with CG to minimal PA of 1 (Goal Partially Met-short distances - patient ambulating 5 feet). 2) The patient will consistently require supervision with bed mobility (Goal partially Met- pt. required more assist when fatigued). 3) The patient will consistently require minimal to moderate PA of 1 with pivot transfers with use of walker. (Goal Met) Occupational Therapy Goals: Goals not Met: 1. Pt will be Ind with bed mobility and sitting EOB. 2. Pt will be Ind with oral hygiene, washing face and brushing hair. Prognosis - Prognosis Moderate Plan - Plan Physical Therapy Plan: The patient was transferred to an Assisted living facility and is to receive hospice services. Occupational Therapy Plan: Pt transferred to an [facility].
== END 2018-10-10 12:36 | disposition hospice, inpatient (51) | DRG 605 ==
LOC: MEDSURG 14:53
PROVIDERS: ADMIT Internal Medicine; ATTEND Internal Medicine
DX: S01.81XA Laceration without foreign body of other part of head, initial encounter (principal); E46 Unspecified protein-calorie malnutrition; W06.XXXA Fall from bed, initial encounter; S06.0X0A Concussion without loss of consciousness, initial encounter; Z91.81 History of falling; I10 Essential (primary) hypertension; E03.9 Hypothyroidism, unspecified; M19.90 Unspecified osteoarthritis, unspecified site; R32 Unspecified urinary incontinence; M79.89 Other specified soft tissue disorders; F03.90 Unspecified dementia, unspecified severity, without behavioral disturbance, psychotic disturbance, mood disturbance, and anxiety; Z66 Do not resuscitate
CPT/HCPCS: 94760; 97110; 97166; 99306; 99316